=== PATIENT | female | born 1945 | race Caucasian/White ===

== ENCOUNTER → 2016-07-07 | Outpatient (CLI) | payer BC ==
[~2016-07-07] MED LIST: ALL300 PO; ALLO100T PO; ATOR-24 PO; FELO2.5T PO; FURO-85 PO; GABA-112 PO; LISI2.5T5 PO; LSN5 PO; MAGN10TA PO; MAGN500T4 PO; METO25TA56 PO; MIRA1TAB3 PO; MULT-190 PO; MULT-506 PO; MULTCAP7; NITR100C PO; NYSCR30 EXT; NYST100010 TOP; OXGN; PANT40TA PO; SPIR25TA PO; THIA1TAB11 PO; TRIM100T20 PO; VLSO15 TOP; WARF-281 PO; WARF5TAB90 PO; WARF6TAB PO; [UNRECOGNIZED DRUG - REMARK]
--- NOTE | 2016-07-07 11:34 | DIAGNOSTIC IMAGING REPORT ---
LUMBAR SPINE 5 VIEWS CLINICAL HISTORY: Osteoarthritis. FINDINGS: Five views of the lumbar spine are compared to a study dated 11/21/2012. The skeletal structures are osteopenic. There is no radiographic evidence of acute fracture or malalignment. Vertebral body height is maintained throughout the lumbar spine. There is 5 mm of anterolisthesis at L4-L5. Alignment is otherwise preserved. The transverse and spinous processes are intact as visualized. Facet arthropathy is seen in the mid to lower lumbar region. There is moderate to advanced degenerative disc space narrowing at L4-L5 with associated endplate sclerosis. Moderate narrowing is seen at the remaining lumbar disc levels. The bony pelvis is intact as imaged. Sclerotic change is identified in the sacroiliac joints. A stimulator device is present with leads in the pelvis. Advanced atherosclerotic calcification is seen in the abdominal aorta. There is no bowel obstruction. Numerous phleboliths are seen in the pelvis. IMPRESSION: 1. There is no acute bony abnormality identified in the lumbosacral spine. 2. Osteopenia and lumbosacral spondylosis as above. This appears modestly progressed from the 2013 examination. Dictated: 07/07/2016 11:25 AM Transcribed: 07/07/2016 11:33 AM [facility] Electronically signed by: Mark Ruiz M.D. 07/07/2016 11:47 AM Dictated Date/Time: 07/07/2016 11:25 AM
[2016-07-07 11:37] LABS: URINE APPEARANCE TURBID (CLEAR); URINE BILIRUBIN NEG (NEG); URINE COLOR YELLOW; URINE EPITHELIAL CELL AUTO >30 /lpf (0-5); URINE NITRITE POS (NEG); URINE PH 5.5 (4.5-7.5); URINE SPECIFIC GRAVITY 1.011 (1.000-1.030); UROBILINOGEN NEG (NEG); ZZUR CULT IF INDIC CLEAN CATCH YES
[2016-07-07 11:48] LABS: MANUAL MICROSCOPIC REQUIRED? NO; REVIEW REQ? YES
[2016-07-07 11:56] LABS: BASO % 0.3 %; BASO ABS # 0.02 K/uL (0-0.2); COMPLETE YES; EOS % 1.7 %; HEMATOCRIT 44.6 % (37-47); IG% 0.3 %; LARGE PLATELETS 2+; LYMPH % 20.3 %; LYMPH ABS # 1.44 K/uL (1.2-3.4); MEAN CELL VOLUME 97.6 fL (80-100); MEAN CORPUSCULAR HEMOGLOBIN 32.8 pg (25-34); MEAN CORPUSCULAR HGB CONC 33.6 g/dl (32-36); MEAN PLATELET VOLUME 12.4 fL (7.4-10.4); MONO % 8.5 %; NEUT % 68.9 %; PLATELET COUNT 169 K/uL (130-400); RED BLOOD COUNT 4.57 M/uL (4.2-5.4)
[2016-07-07 11:59] LABS: ALB/GLOB RATIO 0.8 (0.9-2); ALKALINE PHOSPHATASE 123 U/L (45-117); ALT/SGPT 24 U/L (12-78); AST/SGOT 25 U/L (15-37); BLOOD UREA NITROGEN 31 mg/dl (7-18); CALCIUM 9.6 mg/dl (8.5-10.1); CARBON DIOXIDE 23 mmol/L (21-32); CHLORIDE 109 mmol/L (98-107); GLUCOSE 101 mg/dl (70-99); POTASSIUM 4.7 mmol/L (3.5-5.1); SODIUM 141 mmol/L (136-145); URIC ACID 4.3 mg/dl (2.6-7.2)
== END | disposition home or self-care (01) ==
LOC: C.RAD1850 10:02
PROVIDERS: ATTEND Internal Medicine
DX: M19.90 Unspecified osteoarthritis, unspecified site (principal); M85.80 Other specified disorders of bone density and structure, unspecified site; G62.9 Polyneuropathy, unspecified; M10.9 Gout, unspecified; M47.897 Other spondylosis, lumbosacral region

== ENCOUNTER → 2016-07-27 | Outpatient (CLI) | payer BC | END | disposition home or self-care (01) | LOC: C.LAB1850 13:39 | PROVIDERS: ATTEND Nurse Practitioner Adult Health | DX: R82.90 Unspecified abnormal findings in urine (principal); R30.0 Dysuria ==

== ENCOUNTER → 2016-08-08 | Outpatient (CLI) | payer BC ==
[2016-08-08 18:18] LABS: BLOOD UREA NITROGEN 34 mg/dl (7-18); BUN/CREATININE RATIO 23.9 (10-20); CALCIUM 9.3 mg/dl (8.5-10.1); CARBON DIOXIDE 26 mmol/L (21-32); CHLORIDE 104 mmol/L (98-107); GLUCOSE 110 mg/dl (70-99); POTASSIUM 4.6 mmol/L (3.5-5.1); SODIUM 137 mmol/L (136-145)
== END | disposition home or self-care (01) ==
LOC: C.LAB1850 16:49
PROVIDERS: ATTEND Internal Medicine
DX: I10 Essential (primary) hypertension (principal); G62.9 Polyneuropathy, unspecified; I50.9 Heart failure, unspecified; I48.1 Persistent atrial fibrillation

== ENCOUNTER → 2016-09-23 | Outpatient (CLI) | payer BC ==
[~2016-09-23] MED LIST changes: +ACET-1256 PO; +FURO40TA3 PO; -NITR100C PO; +NITR100C2 PO; +TRIM100T2 PO; -TRIM100T20 PO; +WARF2.5T8 PO
[2016-09-23 16:46] LABS: INR 3.2 (0.9-1.1); PROTHROMBIN TIME (PATIENT) 35.5 SECONDS (9.0-12.0)
[2016-09-23 16:54] LABS: BLOOD UREA NITROGEN 20 mg/dl (7-18); BUN/CREATININE RATIO 16.8 (10-20); CALCIUM 9.3 mg/dl (8.5-10.1); CARBON DIOXIDE 27 mmol/L (21-32); CHLORIDE 105 mmol/L (98-107); GLUCOSE 169 mg/dl (70-99); POTASSIUM 4.2 mmol/L (3.5-5.1); SODIUM 140 mmol/L (136-145)
== END | disposition home or self-care (01) ==
LOC: C.LAB1850 15:09
PROVIDERS: ATTEND Internal Medicine
DX: I48.1 Persistent atrial fibrillation (principal); Z51.81 Encounter for therapeutic drug level monitoring; Z79.899 Other long term (current) drug therapy

== ENCOUNTER → 2016-10-05 | Outpatient (CLI) | payer BC ==
[2016-10-05 12:29] LABS: INR 2.9 (0.9-1.1); PROTHROMBIN TIME (PATIENT) 32.3 SECONDS (9.0-12.0)
== END | disposition home or self-care (01) ==
LOC: C.LAB1850 11:03
PROVIDERS: ATTEND Internal Medicine
DX: Z51.81 Encounter for therapeutic drug level monitoring (principal); I48.1 Persistent atrial fibrillation

== ENCOUNTER → 2016-10-19 | Outpatient (CLI) | payer BC | END | disposition home or self-care (01) | LOC: C.LABSPEC 17:03 | PROVIDERS: ATTEND Nurse Practitioner Adult Health | DX: N39.0 Urinary tract infection, site not specified (principal) ==

== ENCOUNTER → 2016-10-21 | Outpatient (CLI) | payer BC ==
[2016-10-21 17:39] LABS: INR 2.8 (0.9-1.1); PROTHROMBIN TIME (PATIENT) 31.4 SECONDS (9.0-12.0)
== END | disposition home or self-care (01) ==
LOC: C.LAB1850 16:25
PROVIDERS: ATTEND Internal Medicine
DX: Z51.81 Encounter for therapeutic drug level monitoring (principal); I48.1 Persistent atrial fibrillation; Z79.899 Other long term (current) drug therapy

== ENCOUNTER 2016-11-22 20:29 | Emergency (ER) | payer BC ==
[~2016-11-22] VITALS: Ht 152.4 cm; Wt 150.0 kg
[~2016-11-22 20:29] MED LIST changes: -ACET-1256 PO; -ALL300 PO; -FURO40TA3 PO; -GABA-112 PO; -LSN5 PO; -MAGN500T4 PO; -MULT-190 PO; -NITR100C2 PO; -NYST100010 TOP; -OXGN; -TRIM100T2 PO; -WARF2.5T8 PO; -WARF5TAB90 PO; -WARF6TAB PO
[2016-11-22 20:40] VITALS: TEMP 36.6; Ht 152.4 cm; Wt 150.0 kg
[2016-11-22 21:20] LABS: HEMATOCRIT 46.7 % (37-47); MEAN CELL VOLUME 99.2 fL (80-100); MEAN CORPUSCULAR HEMOGLOBIN 33.3 pg (25-34); MEAN CORPUSCULAR HGB CONC 33.6 g/dl (32-36); MEAN PLATELET VOLUME 11.7 fL (7.4-10.4); PLATELET COUNT 180 K/uL (130-400); RED BLOOD COUNT 4.71 M/uL (4.2-5.4); WHITE BLOOD COUNT 6.64 K/uL (4.8-10.8)
--- NOTE | 2016-11-22 21:22 | EMERGENCY ROOM VISIT NOTE ---
History Report prepared by Mary: Malina Ly Under the Supervision of: Dr. Mark Chau M.D. First contact with patient: 21:08 Chief Complaint: ABNORMAL LABS Stated Complaint: HIGH POTASSIUM-REFERRED History of Present Illness The patient is a 71 year old female who presents to the Emergency Room with complaints of persistent abnormal labs that were drawn today prior to arrival. The patient reports that since June she has been battling intermittent urinary tract infections. She states that Monday she just finished 2 weeks of Bactrim and states reports that she started trimethoprim that same evening for prophylaxis. The patient states that she had blood work done today to follow up with her intermittent urinary tract infections. She states that she was informed that her potassium was elevated. The patient states that she was instructed to come to the emergency department for further work up. She denies any history of previous hyperkalemia or kidney problems. The patient denies any current urinary symptoms, vomiting, or fever. She states that she is short of breath, but states that is not unusual. The patient additionally notes chronic swelling to her lower extremities. She reports that she is on Coumadin. Source of History: patient Onset: prior to arrival Position: other (global) Quality: other (abnormal labs) Timing: other (persistent) Associated Symptoms: + SOB, No fevers, No vomiting, No urinary symptoms Note: Associated Symptoms: chronic swelling of her lower extremities Review of Systems See HPI for pertinent positives & negatives. A total of 10 systems reviewed and were otherwise negative. Past Medical & Surgical Medical Problems: (1) Afib (2) Asthma (3) GERD (gastroesophageal reflux disease) (4) Gout (5) Hyperlipidemia (6) Hypertension (7) Morbid obesity (8) Osteoarthritis (9) Osteoporosis (10) Psoriasis (11) UTI (urinary tract infection) (12) Venous stasis dermatitis Surgical Problems: (1) History of tonsillectomy (2) History of total knee replacement (3) History of wisdom tooth extraction Family History FHx: heart disease FHx: hypertension FHx: lung disease FHx: seizures Social History Smoking Status: Former Smoker Alcohol Use: occasionally Drug Use: none Marital Status: Housing Status: lives alone Occupation Status: retired Current/Historical Medications Scheduled Allopurinol (Allopurinol), 300 MG PO DAILY Atorvastatin (Lipitor), 40 MG PO QPM Betamethasone Lexie (Valisone 0.1% Oint), TOP DIRECTED Felodipine (Plendil Er), 2.5 MG PO QPM Furosemide (Lasix), 20 MG PO QAM Gabapentin (Neurontin), 100 MG PO BID Lisinopril (Lisinopril), 5 MG PO BID Magnesium Oxide (Mg Supplement (Magnesium), 500 MG PO DAILY Metoprolol Tartrate (Lopressor) (Lopressor), 25 MG PO BID Mirabegron (Myrbetriq Er), 50 MG PO QAM Multivitamin (Multivitamin), 1 TAB PO BID Nystatin (Nystatin Cream), 0 EXT PRN Ocuvite Preservision (Ocuvite Preservision), 2 TAB PO DAILY Pantoprazole (Protonix), 40 MG PO QAM Spironolactone (Aldactone), 25 MG PO BID Thiamine Mononitrate (Vitamin B1), 100 MG PO QAM Trimethoprim (Proloprim), 100 MG PO DAILY Warfarin Sodium (Coumadin), 5 MG PO WK Warfarin Sodium (Coumadin), 7.5 MG PO 6XWK Scheduled PRN Nystatin (Topical) (Nystop), 1 APPLN TOP BID PRN for RASH Allergies Coded Allergies: Ketoprofen (Verified Allergy, Severe, NUMBNESS FROM WAIST DOWN SEVERAL MONTHS, 05/02/15) Lorazepam (Verified Allergy, Severe, pt EXTREMELY sensitive, 02/26/15) Per MD please do NOT administer Ativan for [id number] admission (at a minimum) Penicillins (Verified Allergy, Severe, SEVERE RASH, 02/26/15) Iodinated Contrast Media (Verified Adverse Reaction, Unknown, ACHEY PAIN AT INJECTION SITE, 02/26/15) Physical Exam Vital Signs Date Time Temp Pulse Resp B/P (MAP) Pulse Ox O2 Delivery O2 Flow Rate FiO2 11/22/16 23:33 79 22 121/91 96 11/22/16 21:41 77 11/22/16 21:00 151/99 11/22/16 20:40 36.6 85 20 96 Room Air Physical Exam GENERAL: Patient is in no acute distress. HEENT: No acute trauma, normocephalic atraumatic, mucous membranes moist, no nasal congestion, no scleral icterus. NECK: No stridor, no adenopathy, no meningismus, trachea is midline. LUNGS: Clear to auscultation bilaterally, no wheeze, no rhonchi, breath sounds equal. HEART: Irregular with a 2/6 systolic murmur and normal rate. ABDOMEN: Soft, nontender, bowel sounds positive, no hernias, no peritonitis. EXTREMITIES: Significant bilateral pedal edema without cellulitis, but there is chronic skin changes. NEUROLOGIC: Oriented x 3, no acute motor or sensory deficits, no focal weakness. SKIN: No rash, no jaundice, no diaphoresis. Medical Decision & Procedures Laboratory Results 11/22/16 21:00 11/22/16 21:00 Test 11/22/16 21:00 Red Blood Count 4.71 M/uL (4.2-5.4) Mean Corpuscular Volume 99.2 fL (80-100) Mean Corpuscular Hemoglobin 33.3 pg (25-34) Mean Corpuscular Hemoglobin Concent 33.6 g/dl (32-36) RDW Standard Deviation 53.3 fL (36.4-46.3) RDW Coefficient of Variation 14.7 % (11.5-14.5) Mean Platelet Volume 11.7 fL (7.4-10.4) Prothrombin Time 32.2 SECONDS (9.0-12.0) Prothromb Time International Ratio 2.9 (0.9-1.1) Activated Partial Thromboplast Time 44.6 SECONDS (21.0-31.0) Partial Thromboplastin Ratio 1.7 Anion Gap 9.0 mmol/L (3-11) Est Creatinine Clear Calc Drug Dose 40.6 ml/min Estimated GFR () 34.1 Estimated GFR (Non- 29.4 BUN/Creatinine Ratio 21.9 (10-20) Calcium Level 9.7 mg/dl (8.5-10.1) Laboratory results reviewed by me. Medications Administered Medications (Trade) Dose Ordered Sig/Annetta Route Start Time Stop Time Status Last Admin Dose Admin Sodium Chloride 500 ml @ 999 mls/hr Q31M STAT IV 11/22/16 21:46 11/22/16 22:16 DC 11/22/16 22:30 999 MLS/HR ECG Indication: other (hyperkalemia) Rate (beats per minute): 80 Rhythm: atrial fibrillation Findings: no acute ischemic change, no ectopy ED Course 2108: The patient was evaluated in room C2B. A complete history and physical exam was performed. 2145: Ordered Sodium Chloride 500 ml @ 999 mls/hr IV. 2204: I discussed the patients case with Pharmacy. They note that the trimethoprim is known to cause hyperkalemia. 2207: I reevaluated the patient and she is doing well. I discussed the exam findings with her and I discussed the treatment plan. She verbalized complete understanding and agreement. She is ready to go home. Medical Decision The patient is a 71 year old female who presents to the ED with complaints of abnormal labs. Differential diagnoses considered include electrolyte imbalance , high potassium, hemolysis, renal failure, medication reaction, dysrhythmia. There is no leukocytosis or concerning anemia. Renal panel testing shows some mild renal insufficiency which appears to be at baseline for the patient. Potassium was slightly high at 5.6, this value was not critical. The patient's INR was therapeutic, this is consistent with her Coumadin use. EKG showed A. fib, there was no acute ischemia. The patient received IV saline, I had the pharmacist here at the hospital review her meds, trimethoprim does cause hyperkalemia, this is a new medication for her. She will stop this medication. She will follow with her doctors office for a recheck of her potassium and kidney function in about 2 days. The patient can return here for worsening symptoms. She was reassured and discharged home. Medication Reconciliation: I attest that I have personally reviewed the patient' s current medication list. Blood Pressure Screening: Patient was found to have an elevated blood pressure and was referred to their primary doctor for recheck and further treatment. Impression Primary Impression: Hyperkalemia Additional Impression: Medication reaction Scribe Attestation The scribe's documentation has been prepared under my direction and personally reviewed by me in its entirety. I confirm that the note above accurately reflects all work, treatment, procedures, and medical decision making performed by me. Departure Information Dispostion Home / Self-Care Referrals Rah Ambrocio M.D. (PCP) Forms HOME CARE DOCUMENTATION FORM, IMPORTANT VISIT INFORMATION Patient Instructions My [facility] Additional Instructions stop the Trimethoprim talk with your doctor about a different med to use stay well hydrated have your potassium and kidney function rechecked in 1-2 days return for any worsening issues or worsening symptoms Problem Qualifiers
[2016-11-22] MEDS ORDERED: MAGN500T4 PO (21:26)
[2016-11-22] MEDS ORDERED: LSN5 PO (21:26)
[2016-11-22] MEDS ORDERED: WARF6TAB PO (21:26)
[2016-11-22] MEDS ORDERED: TRIM100T2 PO (21:26)
[2016-11-22] MEDS ORDERED: ALL300 PO (21:26)
[2016-11-22] MEDS ORDERED: GABA-112 PO (21:26)
[2016-11-22] MEDS ORDERED: MULT-190 PO (21:26)
[2016-11-22 21:37] LABS: INR 2.9 (0.9-1.1); PARTIAL THROMBOPLASTIN RATIO 1.7; PROTHROMBIN TIME (PATIENT) 32.2 SECONDS (9.0-12.0)
[2016-11-22 21:39] LABS: POTASSIUM 5.6 mmol/L (3.5-5.1)
[2016-11-22 21:41] LABS: BUN/CREATININE RATIO 21.9 (10-20); CREATININE 1.7 mg/dl (0.60-1.20)
[2016-11-22] MEDS ORDERED: WARF5TAB90 PO ×2 (21:41)
[2016-11-22] MEDS ORDERED: NYST100010 TOP (21:42)
[2016-11-22] MEDS ORDERED: SODIUM CHLORIDE 0.9% 500ML 500 ML IV STA (21:46)
[2016-11-22 21:55] LABS: CALCIUM 9.7 mg/dl (8.5-10.1)
[2016-11-22 23:33] VITALS: BP 121/91; PULSE 79; O2SAT 96
[2017-02-27] MEDS ORDERED: NITR100C2 PO (12:24)
[2017-04-27] MEDS ORDERED: FURO40TA3 PO (15:23)
[2017-04-27] MEDS ORDERED: WARF2.5T8 PO (15:23)
[2017-04-27] MEDS ORDERED: ACET-1256 PO (15:25)
== END 2016-11-22 23:34 | disposition home or self-care (01) ==
LOC: C.EDC 21:23
DX: E87.5 Hyperkalemia (principal); T37.8X5A Adverse effect of other specified systemic anti-infectives and antiparasitics, initial encounter; X58.XXXA Exposure to other specified factors, initial encounter; I48.91 Unspecified atrial fibrillation; J45.909 Unspecified asthma, uncomplicated; M10.9 Gout, unspecified; K21.9 Gastro-esophageal reflux disease without esophagitis; I10 Essential (primary) hypertension; E66.01 Morbid (severe) obesity due to excess calories; M19.90 Unspecified osteoarthritis, unspecified site; M81.0 Age-related osteoporosis without current pathological fracture; L40.9 Psoriasis, unspecified; Z87.440 Personal history of urinary (tract) infections; I87.2 Venous insufficiency (chronic) (peripheral); Z82.49 Family history of ischemic heart disease and other diseases of the circulatory system; Z83.6 Family history of other diseases of the respiratory system; Z87.891 Personal history of nicotine dependence; Z79.01 Long term (current) use of anticoagulants; Z79.899 Other long term (current) drug therapy; N39.0 Urinary tract infection, site not specified

== ENCOUNTER → 2016-11-22 | Outpatient (CLI) | payer BC ==
[2016-11-22 18:36] LABS: BLOOD UREA NITROGEN 37 mg/dl (7-18); BUN/CREATININE RATIO 23.1 (10-20); CARBON DIOXIDE 21 mmol/L (21-32); CHLORIDE 108 mmol/L (98-107); GLUCOSE 89 mg/dl (70-99); SODIUM 138 mmol/L (136-145)
[2016-11-22 18:43] LABS: CALCIUM 9.8 mg/dl (8.5-10.1)
[2016-11-22 19:54] LABS: POTASSIUM 6.3 mmol/L (3.5-5.1)
== END | disposition home or self-care (01) ==
LOC: C.LAB1850 16:55
PROVIDERS: ATTEND Nurse Practitioner Family
DX: N39.0 Urinary tract infection, site not specified (principal)

== ENCOUNTER → 2016-11-25 | Outpatient (CLI) | payer BC ==
[~2016-11-25] MED LIST changes: +ACET-1256 PO; +ALL300 PO; -ALLO100T PO; +FURO40TA3 PO; +GABA-112 PO; -LISI2.5T5 PO; +LSN5 PO; -MAGN10TA PO; +MAGN500T4 PO; +MULT-190 PO; -MULTCAP7; +NITR100C2 PO; +NYST100010 TOP; +OXGN; +TRIM100T2 PO; +WARF2.5T8 PO; +WARF5TAB90 PO; -[UNRECOGNIZED DRUG - REMARK]
[2016-11-25 18:57] LABS: CALCIUM 9.4 mg/dl (8.5-10.1)
[2016-11-25 19:03] LABS: BLOOD UREA NITROGEN 37 mg/dl (7-18); BUN/CREATININE RATIO 23.1 (10-20); CARBON DIOXIDE 21 mmol/L (21-32); CHLORIDE 111 mmol/L (98-107); GLUCOSE 94 mg/dl (70-99); POTASSIUM 5.8 mmol/L (3.5-5.1); SODIUM 139 mmol/L (136-145)
== END | disposition home or self-care (01) ==
LOC: C.LAB1850 16:55
PROVIDERS: ATTEND Internal Medicine
DX: I10 Essential (primary) hypertension (principal); N39.0 Urinary tract infection, site not specified

== ENCOUNTER → 2016-11-28 | Outpatient (CLI) | payer BC ==
[2016-11-28 18:19] LABS: BLOOD UREA NITROGEN 40 mg/dl (7-18); BUN/CREATININE RATIO 28.8 (10-20); CALCIUM 9.2 mg/dl (8.5-10.1); CARBON DIOXIDE 22 mmol/L (21-32); CHLORIDE 112 mmol/L (98-107); GLUCOSE 93 mg/dl (70-99); POTASSIUM 5.3 mmol/L (3.5-5.1); SODIUM 142 mmol/L (136-145)
== END | disposition home or self-care (01) ==
LOC: C.LAB1850 17:04
PROVIDERS: ATTEND Internal Medicine
DX: N28.9 Disorder of kidney and ureter, unspecified (principal)

== ENCOUNTER → 2016-11-30 | Outpatient (CLI) | payer BC ==
[2016-11-30 18:09] LABS: BLOOD UREA NITROGEN 44 mg/dl (7-18); BUN/CREATININE RATIO 31.6 (10-20); CALCIUM 9.3 mg/dl (8.5-10.1); CARBON DIOXIDE 25 mmol/L (21-32); CHLORIDE 111 mmol/L (98-107); GLUCOSE 103 mg/dl (70-99); POTASSIUM 5.6 mmol/L (3.5-5.1); SODIUM 141 mmol/L (136-145)
== END | disposition home or self-care (01) ==
LOC: C.LAB1850 17:11
PROVIDERS: ATTEND Internal Medicine
DX: E87.5 Hyperkalemia (principal)

== ENCOUNTER → 2016-12-26 | Outpatient (CLI) | payer BC ==
[~2016-12-26] MED LIST changes: -ACET-1256 PO; -FURO40TA3 PO; +NITR100C PO; -NITR100C2 PO; -TRIM100T2 PO; +TRIM100T20 PO; -WARF2.5T8 PO
[2016-12-26 13:25] LABS: INR 2.1 (0.9-1.1); PROTHROMBIN TIME (PATIENT) 23.2 SECONDS (9.0-12.0)
[2016-12-26 13:33] LABS: URINE APPEARANCE CLEAR (CLEAR); URINE BILIRUBIN NEG (NEG); URINE COLOR YELLOW; URINE EPITHELIAL CELL AUTO >30 /lpf (0-5); URINE NITRITE NEG (NEG); URINE SPECIFIC GRAVITY 1.021 (1.000-1.030); UROBILINOGEN NEG (NEG)
[2016-12-26 13:36] LABS: MANUAL MICROSCOPIC REQUIRED? NO; REVIEW REQ? NO
[2016-12-26 13:53] LABS: BLOOD UREA NITROGEN 30 mg/dl (7-18); BUN/CREATININE RATIO 27.3 (10-20); CALCIUM 9.5 mg/dl (8.5-10.1); CARBON DIOXIDE 26 mmol/L (21-32); CHLORIDE 106 mmol/L (98-107); GLUCOSE 90 mg/dl (70-99); POTASSIUM 4.7 mmol/L (3.5-5.1); SODIUM 138 mmol/L (136-145)
== END | disposition home or self-care (01) ==
LOC: C.LAB1850 11:33
PROVIDERS: ATTEND Internal Medicine
DX: Z51.81 Encounter for therapeutic drug level monitoring (principal); E87.5 Hyperkalemia; N39.0 Urinary tract infection, site not specified

== ENCOUNTER → 2016-12-28 | Outpatient (CLI) | payer BC ==
--- NOTE | 2016-12-28 16:22 | DIAGNOSTIC IMAGING REPORT ---
L-SPINE MIN 4 VIEWS ROUTINE HISTORY: Pain M54.9 Right-sided back [id number] COMPARISON: None. FINDINGS: There is no fracture. No subluxation. Considerable degenerative disc change throughout. No evidence for compression deformity. Bile stimulator is present. IMPRESSION: Considerable degenerative disc change. No acute compression deformity. The above report was generated using voice recognition software. It may contain grammatical, syntax or spelling errors. Electronically signed by: Rick Adamson M.D. 12/28/2016 4:20 PM Dictated Date/Time: 12/28/2016 4:19 PM
== END | disposition home or self-care (01) ==
LOC: C.RAD1850 15:58
PROVIDERS: ATTEND Internal Medicine
DX: M54.9 Dorsalgia, unspecified (principal)

== ENCOUNTER → 2016-12-30 | Outpatient (CLI) | payer BC ==
[~2016-12-30] VITALS: Ht 154.9 cm; Wt 159.0 kg
[2016-12-30 14:33] VITALS: BP 177/95; PULSE 75; Ht 154.9 cm; Wt 159.0 kg
== END | disposition home or self-care (01) ==
LOC: C.NEUR 13:33
PROVIDERS: ATTEND Internal Medicine Pulmonary Disease
DX: G47.33 Obstructive sleep apnea (adult) (pediatric) (principal); E66.01 Morbid (severe) obesity due to excess calories; I48.1 Persistent atrial fibrillation; I27.2 Other secondary pulmonary hypertension; J98.4 Other disorders of lung

== ENCOUNTER → 2017-01-19 | Outpatient (CLI) | payer BC ==
--- NOTE | 2017-01-19 13:56 | DIAGNOSTIC IMAGING REPORT ---
CHEST 2 VIEWS ROUTINE HISTORY: Shortness of breath. COMPARISON: Chest 01/18/2016. FINDINGS: The heart remains mildly enlarged. Small bilateral pleural effusions. Mild interstitial and vascular thickening suggestive of mild congestive change. This is similar to the prior study. No new focal lung consolidations. There is a 12 mm nodule within the left upper lobe. IMPRESSION: 1. Mild interstitial pulmonary edema, cardiomegaly, and small bilateral pleural effusions. 2. A 12 mm left upper lobe pulmonary nodule. Recommend dedicated chest CT for confirmation. Electronically signed by: Alexander Rod M.D. 01/19/2017 1:54 PM Dictated Date/Time: 01/19/2017 1:51 PM
[2017-01-19 14:47] LABS: HEMATOCRIT 45.9 % (37-47); MEAN CELL VOLUME 98.7 fL (80-100); MEAN CORPUSCULAR HEMOGLOBIN 31.8 pg (25-34); MEAN CORPUSCULAR HGB CONC 32.2 g/dl (32-36); MEAN PLATELET VOLUME 11.5 fL (7.4-10.4); PLATELET COUNT 191 K/uL (130-400); RED BLOOD COUNT 4.65 M/uL (4.2-5.4); WHITE BLOOD COUNT 5.44 K/uL (4.8-10.8)
[2017-01-19 15:08] LABS: BLOOD UREA NITROGEN 21 mg/dl (7-18); BUN/CREATININE RATIO 17.9 (10-20); CARBON DIOXIDE 27 mmol/L (21-32); CHLORIDE 105 mmol/L (98-107); GLUCOSE 108 mg/dl (70-99); POTASSIUM 4.4 mmol/L (3.5-5.1); SODIUM 139 mmol/L (136-145)
[2017-01-20 07:18] LABS: ESTIMATED AVERAGE GLUCOSE 120 mg/dl; HA1C FLAG Normal (Normal)
--- NOTE | 2017-01-25 06:23 | CODING QUERY MEDICAL NECESSITY ---
CQSUPPORTING DIAGNOSIS NEEDED A supporting diagnosis is required for the test/procedure performed on this patient in order for us to be reimbursed by the patient's insurance. Please provide a supporting diagnosis for the following test/procedure listed below next to the test name along with your signature. *If there is no additional diagnosis for this patient that would support the following test/procedure please document that below next to the test/procedure. Test(s)/Procedure(s) that require a supporting diagnosis: DOS 01/19/17 [id number] HEMOGLOBIN TEST Provider Signature: Date: Thank you Shari Hung Health Information Management Once completed, please kindly fax back to [phone] For questions please call [phone]
== END | disposition home or self-care (01) ==
LOC: C.RAD1850 13:20
PROVIDERS: ATTEND Internal Medicine
DX: R06.02 Shortness of breath (principal); R91.1 Solitary pulmonary nodule; R73.03 Prediabetes; G62.9 Polyneuropathy, unspecified; E66.01 Morbid (severe) obesity due to excess calories

== ENCOUNTER → 2017-01-31 | Outpatient (CLI) | payer BC ==
--- NOTE | 2017-01-31 13:49 | DIAGNOSTIC IMAGING REPORT ---
(CHEST) THORAX WITHOUT CT DOSE: 996.11 mGy.cm CLINICAL HISTORY: 71 years-old Female with R93.8 Abnormal chest CTR91.1 Lung nodule seen on comparison chest radiograph. TECHNIQUE: Multiaxial CT images of the chest were performed without contrast. A dose lowering technique was utilized adhering to the principles of ALARA. COMPARISON: Chest radiographs 01/19/2017. FINDINGS: Multinodular thyroid is present with bilateral thyroid calcifications. Nonspecific nodule of the right thyroid is seen, 1.3 cm. Scattered mildly prominent and enlarged lymph nodes in the mediastinum are present, for example subcarinal lymph node measures 1.8 x 1.1 cm. AP window lymph node measures 1.5 x 0.97 m. Precarinal lymph node measures 1.7 x 1.3 cm. Pretracheal lymph node measures 1.8 x 1.4 cm. Heart is enlarged with coronary arterial calcifications. Aortic annulus calcifications also noted. There is moderate atherosclerotic plaquing of the thoracic aorta. There is mild dilation of the main pulmonary artery, 3.1 cm suggesting pulmonary arterial hypertension. There is a lobulated nodule of the apical posterior segment left upper lobe, 1.4 x 1.2 x 1.1 cm containing central and inferior eccentric popcorn type calcifications. There are also appears to be areas of internal soft tissue and macroscopic fat attenuation within this nodule suggesting hamartoma. No pneumothorax or pleural effusion. There are scattered areas of mosaic attenuation suggesting air trapping. Subsegmental opacities of the lung bases suggest atelectasis. 3 mm noncalcified pulmonary nodule involves the lateral segment right middle lobe. Central airways are patent. Increased attenuation is present in what appears to be a transverse colon diverticulum. Patient obesity is noted with portions of the patient's anatomy outside the field of view. Degenerative changes are present within the shoulders and spine. There is a battery pack over the right lower back with partially imaged lead. Multilevel discogenic degenerative changes of the spine are noted. IMPRESSION: 1. Lobulated nodule in the apical posterior segment left upper lobe measuring up to 1.4 cm contains central and eccentric popcorn type calcifications and apparent internal soft tissue and macroscopic fat attenuation suggesting hamartoma. As a precautionary measure, a 3-6 month follow-up is recommended to exclude progressive abnormality. 2. 3 mm noncalcified pulmonary nodule of the lateral segment right middle lobe is likely benign. 3. Scattered nonspecific mediastinal adenopathy as above. 4. Cardiomegaly. 5. Multinodular thyroid. Electronically signed by: Walker Toussaint M.D. 01/31/2017 1:47 PM Dictated Date/Time: 01/31/2017 1:40 PM
== END | disposition home or self-care (01) ==
LOC: C.CTS 13:16
PROVIDERS: ATTEND Internal Medicine
DX: R91.1 Solitary pulmonary nodule (principal); R93.8 Abnormal findings on diagnostic imaging of other specified body structures; I51.7 Cardiomegaly

== ENCOUNTER → 2017-02-20 | Outpatient (CLI) | payer BC ==
[2017-02-20 15:59] LABS: INR 1.9 (0.9-1.1); PROTHROMBIN TIME (PATIENT) 20.4 SECONDS (9.0-12.0)
== END | disposition home or self-care (01) ==
LOC: C.LAB1850 14:56
PROVIDERS: ATTEND Internal Medicine Rheumatology
DX: Z51.81 Encounter for therapeutic drug level monitoring (principal); M79.675 Pain in left toe(s); M10.9 Gout, unspecified

== ENCOUNTER 2017-03-08 10:40 | Observation (INO) | payer BC ==
[~2017-03-08] VITALS: Ht 154.9 cm; Wt 151.7 kg
[~2017-03-08 10:40] MED LIST changes: -OXGN; -WARF-281 PO
[2017-03-08 11:47] LABS: BASO % 0.2 %; BASO ABS # 0.01 K/uL (0-0.2); COMPLETE YES; EOS % 0.9 %; HEMATOCRIT 44.2 % (37-47); IG% 0.2 %; LYMPH % 10.3 %; LYMPH ABS # 0.66 K/uL (1.2-3.4); MEAN CELL VOLUME 98.7 fL (80-100); MEAN CORPUSCULAR HGB CONC 33.5 g/dl (32-36); MEAN PLATELET VOLUME 12.1 fL (7.4-10.4); MONO % 8.9 %; NEUT % 79.5 %; PLATELET COUNT 151 K/uL (130-400); RED BLOOD COUNT 4.48 M/uL (4.2-5.4); WHITE BLOOD COUNT 6.39 K/uL (4.8-10.8)
[2017-03-08 11:57] LABS: INR 2.2 (0.9-1.1); PARTIAL THROMBOPLASTIN RATIO 1.5; PROTHROMBIN TIME (PATIENT) 24.3 SECONDS (9.0-12.0)
[2017-03-08] MEDS ORDERED: ASPIRIN 81 MG CHEW PO STA (12:03)
[2017-03-08 12:04] LABS: BUN/CREATININE RATIO 21.9 (10-20); CALCIUM 10.1 mg/dl (8.5-10.1); CREATININE 1.1 mg/dl (0.60-1.20); POTASSIUM 4.4 mmol/L (3.5-5.1)
[2017-03-08 12:09] LABS: ALB/GLOB RATIO 0.6 (0.9-2)
[2017-03-08] MEDS ORDERED: WARF-281 PO (12:24)
[2017-03-08 15:58] VITALS: Ht 154.9 cm; Wt 151.7 kg
[2017-03-08] MEDS ORDERED: INFLUENZA ADMINISTRATION CHARGE ONE (16:15)
[2017-03-08] MEDS ORDERED: INFLUENZA VACCINE HIGH DOSE 65+ 0.5 ML SYR IM. ONE (16:15)
--- NOTE | 2017-03-08 16:31 | DIAGNOSTIC IMAGING REPORT ---
CHEST ONE VIEW PORTABLE CLINICAL HISTORY: 71 years-old Female presenting with SOB. TECHNIQUE: Portable upright AP view of the chest was obtained. COMPARISON: 01/19/2017. FINDINGS: Atherosclerosis of aortic arch. Enlarged cardiac silhouette. Prominence of pulmonary vasculature and interstitial lung markings. Obscuration of the left hemidiaphragm with suspected left retrocardiac opacity, increased from prior. Previously noted nodule at the left apex unchanged. No large pleural effusion or pneumothorax. Osseous structures normal. Upper abdomen normal. IMPRESSION: 1. Cardiomegaly and mild pulmonary vascular prominence with chronic interstitial lung markings could suggest volume overload. 2. Suggestion of new left basilar opacity, which could represent developing pulmonary edema or atelectasis. Electronically signed by: Braulio Nix M.D. 03/08/2017 4:30 PM Dictated Date/Time: 03/08/2017 4:26 PM
[2017-03-08] MEDS ORDERED: MAGNESIUM HYDROXIDE SUSP 30 ML UDC PO PRN (16:45)
[2017-03-08] MEDS ORDERED: ONDANSETRON INJ 2 MG/ML 2 ML VIAL IV PRN (16:45)
[2017-03-08] MEDS ORDERED: NITROGLYCERIN 0.4 MG SL PER TAB CHARGE SL PRN (16:45)
[2017-03-08] MEDS ORDERED: ALUMINUM/MAGNESIUM/SIMETH (MAALOX MAX) 30 ML UDC PO PRN (16:45)
[2017-03-08] MEDS ORDERED: POLYETHYLENE (MIRALAX) 17 GM PACK PO PRN (16:45)
[2017-03-08] MEDS ORDERED: NYSTATIN POWDER 15GM BTL EXT PRN (17:00)
[2017-03-08] MEDS ORDERED: NYSTATIN CR 15 GM TUBE EXT PRN (17:00)
[2017-03-08] MEDS ORDERED: IV FLUIDS COMPLETED PRN (17:15)
--- NOTE | 2017-03-08 17:37 | History and Physical ---
History & Physical Date & Time of Service: Mar 08, 2017 at 17:30 Chief Complaint: Chest Tightened And Hard Of Breath Primary Care Physician: Rah Ambrocio M.D. History of Present Illness Source: patient, family (son) Ms. Mckenzie is a 71 y/o female with PMHx of Pulmonary HTN, R Sided and Diastolic CHF, Restrictive Lung Disease 2/2 Obesity, Obesity Hypoventilation Syndrome, Persistent Atrial Fibrillation, HTN, and GERD who presents to the ED c/o CP and GRAJEDA that started around midnight. She reports URI symptoms the first 2 weeks of February including cough, rhinorrhea, generalized weakness, and SOB/GRAJEDA but didn't seek care until about 1 1/2 weeks after symptoms started. She reports seeing her PCP who ordered X-Rays and was prescribed "a few pills" that she believes were to remove fluid seen on XR. She reports all symptoms resolved except for generalized weakness which caused her to fall a couple weeks ago but sustained no injury. She reports her knee gave out and fell between the tub and sink but had to wait until her son came to help her up. She states she has chronic GRAJEDA but appeared worse since last night. She also reports intermittent CP with occ. radiation into the L jaw but reports that it seemed to mild to be significant. She had an echocardiogram in January that shows obesity hypoventilation findings and decreased function of the R ventricle and severe pulmonary HTN. She follows with Dr. Adams and had an initial visit with Dr. Martinez and is due to see him again. She states it was only the initial visit as she [place] [facility] [place] "they sent me for scans and I couldn' t fit in the scanner" and questions medical providers recommendations. She reports she takes her Lasix and Spironolactone but when verifying with her listed pharmacy they report she hasn't picked up an Rx for Lasix since June but they state it is PRN. She states when she wears her BiPAP all her symptoms resolve and reports she does not utilize O2 through the day but does have a portable tank if needed. She was admitted in 2012 for acute respiratory failure requiring intubation but denies further intubations. Patient is somewhat of a poor historian and easily distracted and mildly forgetful. She denies fever/ chills, cough, abdominal pain, N/V, dysuria, constipation/diarrhea, melena/ hematochezia. In the ED, patient became hypoxic at 79% with ambulation from wheelchair to bed. She is afebrile and without leukocytosis. BNP 2021. INR 2.2. Lactic and troponin unremarkable. EKG with A Fib without ischemic findings. CXR with consolidation vs atelectasis and CT chest reveals small B/L pleural effusions and developing CHF findings. Past Medical/Surgical History Medical Problems: (1) Asthma Status: Chronic (2) GERD (gastroesophageal reflux disease) Status: Chronic (3) Gout Status: Chronic (4) Hyperlipidemia Status: Chronic (5) Hypertension Status: Chronic (6) Morbid obesity Status: Chronic (7) Osteoarthritis Status: Chronic (8) Osteoporosis Status: Chronic (9) Psoriasis Status: Chronic (10) UTI (urinary tract infection) Status: Chronic (11) Venous stasis dermatitis Status: Chronic Surgical Problems: (1) History of tonsillectomy Status: Resolved (2) History of total knee replacement Status: Resolved (3) History of wisdom tooth extraction Status: Resolved Family History FHx: heart disease FHx: hypertension FHx: lung disease FHx: seizures Social History Smoking Status: Former Smoker Smokeless Tobacco Use: No Alcohol Use: none Drug Use: none Marital Status: Housing status: lives alone Occupational Status: retired Immunizations History of Influenza Vaccine: Yes Influenza Vaccine Date: Mar 09, 2013 History of Tetanus Vaccine?: No History of Pneumococcal: No History of Hepatitis B Vaccine: No Multi-Drug Resistant Organisms History of MDRO: No Allergies Coded Allergies: Ketoprofen (Verified Allergy, Severe, NUMBNESS FROM WAIST DOWN SEVERAL MONTHS, 03/08/17) Lorazepam (Verified Allergy, Severe, pt EXTREMELY sensitive, 03/08/17) Per MD please do NOT administer Ativan for [id number] admission (at a minimum) Penicillins (Verified Allergy, Severe, SEVERE RASH, 03/08/17) Iodinated Contrast Media (Verified Adverse Reaction, Unknown, ACHEY PAIN AT INJECTION SITE, 03/08/17) Home Medications Scheduled Allopurinol (Allopurinol), 300 MG PO DAILY Atorvastatin (Lipitor), 40 MG PO QPM Betamethasone Lexie (Valisone 0.1% Oint), TOP DIRECTED Felodipine (Plendil Er), 2.5 MG PO QPM Furosemide (Lasix), 20 MG PO QAM Lisinopril (Lisinopril), 5 MG PO BID Magnesium Oxide (Mg Supplement (Magnesium), 500 MG PO DAILY Metoprolol Tartrate (Lopressor) (Lopressor), 25 MG PO BID Mirabegron (Myrbetriq Er), 50 MG PO QAM Multivitamin (Multivitamin), 1 TAB PO BID Nitrofurantoin Macrocrystal (Nitrofurantoin Macrocryst), 1 CAP PO HS Nystatin (Nystatin Cream), 0 EXT PRN Ocuvite Preservision (Ocuvite Preservision), 2 TAB PO DAILY Pantoprazole (Protonix), 40 MG PO QAM Spironolactone (Aldactone), 25 MG PO BID Thiamine Mononitrate (Vitamin B1), 100 MG PO QAM Warfarin Sodium (Warfarin Sodium), 7.5-10 MG PO UD Scheduled PRN Nystatin (Topical) (Nystop), 1 APPLN TOP BID PRN for RASH Review of Systems Constitutional: + weakness (generalized), + fatigue, No fever, No chills ENT: No nasal symptoms, No sore throat, No trouble swallowing Respiratory: + wheezing (intermittent), + dyspnea on exertion, + dyspnea at rest, No cough Cardiovascular: + chest pain, + palpitations (rare - intermittent) Abdomen: No pain, No nausea, No vomiting, No diarrhea, No constipation, No GI bleeding Musculoskeletal: + swelling (b/l lower extremities - chronic), No calf pain Genitourinary - Female: No dysuria Neurologic: + balance problems Integumentary: No rash, No new/changing skin lesions Physical Exam Vital Signs Date Time Temp Pulse Resp B/P (MAP) Pulse Ox O2 Delivery O2 Flow Rate FiO2 03/08/17 16:24 74 20 99 Nasal Cannula 3.0 03/08/17 15:58 Nasal Cannula 3.0 03/08/17 14:32 24 145/96 Nasal Cannula 3.0 03/08/17 13:13 56 03/08/17 12:27 72 24 153/101 96 Room Air 03/08/17 11:08 99 Nasal Cannula 2.0 03/08/17 11:05 99 Room Air 2.0 Nasal Cannula 03/08/17 11:05 80 Room Air 03/08/17 11:05 84 03/08/17 10:49 93 Room Air 03/08/17 10:46 36.8 88 22 140/73 93 Room Air General Appearance: WD/WN, + mild distress (minimal labored breathing - but laying relatively flat in bed), + obese (morbid) Head: normocephalic, atraumatic Eyes: sclerae normal ENT: hearing grossly normal Neck: supple, no JVD, trachea midline Respiratory/Chest: lungs clear (limited exam due to body habitus), no accessory muscle use, + respiratory distress (minimal labored breathing - able to carry conversation without dyspnea), + decreased breath sounds (diminished throughout - limited inspiratory ability) Cardiovascular: no gallop, no murmur, + irregularly irregular Abdomen/GI: normal bowel sounds, non tender, soft Extremities/Musculoskelatal: normal capillary refill, + swelling (bilateral hardened skin;scaling with edema) Neurologic/Psych: alert, oriented x 3 Skin: normal color, warm/dry Diagnostics Laboratory Results Results Past 24 Hours Test 03/08/17 11:23 03/08/17 11:33 03/08/17 11:35 03/08/17 12:36 Range/Units White Blood Count 6.39 4.8-10.8 K/uL Red Blood Count 4.48 4.2-5.4 M/uL Hemoglobin 14.8 12.0-16.0 g/dL Hematocrit 44.2 37-47 % Mean Corpuscular Volume 98.7 80-100 fL Mean Corpuscular Hemoglobin 33.0 25-34 pg Mean Corpuscular Hemoglobin Concent 33.5 32-36 g/dl Platelet Count 151 130-400 K/uL Mean Platelet Volume 12.1 7.4-10.4 fL Neutrophils (%) (Auto) 79.5 % Lymphocytes (%) (Auto) 10.3 % Monocytes (%) (Auto) 8.9 % Eosinophils (%) (Auto) 0.9 % Basophils (%) (Auto) 0.2 % Neutrophils # (Auto) 5.08 1.4-6.5 K/uL Lymphocytes # (Auto) 0.66 1.2-3.4 K/uL Monocytes # (Auto) 0.57 0.11-0.59 K/uL Eosinophils # (Auto) 0.06 0-0.5 K/uL Basophils # (Auto) 0.01 0-0.2 K/uL RDW Standard Deviation 53.2 36.4-46.3 fL RDW Coefficient of Variation 14.8 11.5-14.5 % Immature Granulocyte % (Auto) 0.2 % Immature Granulocyte # (Auto) 0.01 0.00-0.02 K/uL Prothrombin Time 24.3 9.0-12.0 SECONDS Prothromb Time International Ratio 2.2 0.9-1.1 Activated Partial Thromboplast Time 38.8 21.0-31.0 SECONDS Partial Thromboplastin Ratio 1.5 Sodium Level 138 136-145 mmol/L Potassium Level 4.4 3.5-5.1 mmol/L Chloride Level 103 98-107 mmol/L Carbon Dioxide Level 27 21-32 mmol/L Anion Gap 8.0 3-11 mmol/L Blood Urea Nitrogen 24 7-18 mg/dl Creatinine 1.10 0.60-1.20 mg/dl Est Creatinine Clear Calc Drug Dose 64.9 ml/min Estimated GFR () 57.7 Estimated GFR (Non- 49.8 BUN/Creatinine Ratio 21.9 10-20 Random Glucose 148 70-99 mg/dl Calcium Level 10.1 8.5-10.1 mg/dl Total Bilirubin 0.8 0.2-1 mg/dl Aspartate Amino Transf (AST/SGOT) 17 15-37 U/L Alanine Aminotransferase (ALT/SGPT) 24 12-78 U/L Alkaline Phosphatase 114 45-117 U/L Total Protein 8.1 6.4-8.2 gm/dl Albumin 3.0 3.4-5.0 gm/dl Globulin 5.1 2.5-4.0 gm/dl Albumin/Globulin Ratio 0.6 0.9-2 Bedside Lactic Acid Venous 1.39 0.90-1.70 mmol/L Bedside Troponin I 0.040 0-0.045 ng/ml Troponin I < 0.015 0-0.045 ng/ml Pro-B-Type Natriuretic Peptide 2021 0-900 pg/ml Test 03/08/17 17:08 03/08/17 17:30 Range/Units Diagnostic Radiology CHEST ONE VIEW PORTABLE FINDINGS: Atherosclerosis of aortic arch. Enlarged cardiac silhouette. Prominence of pulmonary vasculature and interstitial lung markings. Obscuration of the left hemidiaphragm with suspected left retrocardiac opacity, increased from prior. Previously noted nodule at the left apex unchanged. No large pleural effusion or pneumothorax. Osseous structures normal. Upper abdomen normal. IMPRESSION: 1. Cardiomegaly and mild pulmonary vascular prominence with chronic interstitial lung markings could suggest volume overload. 2. Suggestion of new left basilar opacity, which could represent developing pulmonary edema or atelectasis. (CHEST) THORAX WITHOUT FINDINGS: Moderate cardiomegaly. Small bilateral pleural effusions. Stable mediastinal, hilar, and axillary adenopathy as compared to the prior exam. Components of congestive heart failure present. Moderate atherosclerotic change thoracic aorta. IMPRESSION: 1. Small bilateral pleural effusions. 2. Developing components of congestive failure. 3. Stable nonspecific adenopathy involving the hilar and mediastinal as well as axillary regions. EKG Atrial fibrillation Low voltage QRS Abnormal ECG When compared with ECG of 22-NOV-2016 20:55, No significant change was found Confirmed by MARCELO WARNER ([id number]) on 03/08/2017 2:45:30 PM Impression Assessment and Plan Ms. Mckenzie is a 71 y/o female with PMHx of Pulmonary HTN, R Sided and Diastolic CHF, Restrictive Lung Disease 2/2 Obesity, Obesity Hypoventilation Syndrome, Persistent Atrial Fibrillation, HTN, and GERD who presents to the ED c/o CP and GRAJEDA that started around midnight. Acute Hypoxic Respiratory Failure: - Suspect this is acute on chronic given H/O pulm HTN and restrictive lung disease due to obesity and hypoventilation - likely hypercarbia as well - patient is mentating appropriately and holding conversation without dyspnea - if mental status or medical status changes will obtain ABG - Do not suspect underlying pneumonia as patient afebrile, without a cough, no leukocytosis - will order procalcitonin - Echo (Jan 2017) - LV EF 65%; mild LVH; flattening and bowing interventricular septum into LV with inspiration suggesting obesity hypoventilation syndrome; dilated IVC with reduced inspiratory collapse; severe pulmonary HTN; dilated and reduced RV function; type II diastolic dysfunction Pulmonary HTN: - Suspect this is the underlying issue as she states she is almost to baseline and BiPAP resolves her symptoms completely - Had long conversation about pulmonary HTN and the possible need for continuous O2 or O2 with ambulation - Will need 2-step prior to D/C - Consideration for possible heart catheterization for further assessment - not emergent R Sided CHF/Cor Pulmonale and Diastolic CHF: MILD - Body habitus makes assessment of fluid status difficult and is unsure of weight gain/loss - imaging suggest developing CHF - Lasix 40 mg IV x 1 dose - Lasix 20 mg daily and Spironolactone 25 mg BID -- Per her pharmacy - last Lasix script in June and was order PRN but reports taking this medication - [facility] [place] Persistent Atrial Fibrillation: Rate Controlled - Metoprolol Tartrate 25 mg BID - Coumadin 7.5 mg [id number] and 10 mg TF - INR therapeutic and continue to trend HTN: - Felodipine 2.5 mg daily and Lisinopril 5 mg BID HLD: - Atorvastatin 40 mg daily DVT Prophylaxis: Coumadin Code Status: FULL RESUSCITATION - Had a long conversation as patient considering DNR/DNI status but kept stating conflicting thoughts - does not want prolonged intervention but was had to keep on topic and should be readdressed at a later time - did state to patient that she will be placed a full code at this time while she thinks about this topic Disposition: - PT/OT evaluations - did have recent fall but suspect limited activity at home - With mild diuresis I suspect patient may be at baseline and possible D/C tomorrow - would benefit from 2-step Attending Addendum: I have physically seen and examined this patient, have directed the physician assistants medical activities, and agree with the H&P as noted above with the following exceptions as noted. The patient is awake, alert and oriented 3, well-developed and well-nourished, normocephalic and atraumatic, lying in bed and in mild respiratory distress. HEENT--PERRL, EOMI, mucous membranes and oropharynx dry. Neck--supple, no JVD or bruits, thyroid normal, trachea midline, no adenopathy. Heart--irregularly irregular, no murmurs, rubs or gallops. Lungs--decreased breath sounds throughout, mild respiratory distress, no accessory muscle use. Abdomen--normal bowel sounds and soft, nontender and nondistended, no hernias or masses, no organomegaly. Extremities--no cyanosis, clubbing. Bilateral pretibial/pedal 2+ pitting Edema. There are good distal pulses b/l. Dermatologic--chronic venous stasis dermatitis changes bilaterally, with overriding flaking of skin. Neurologic--cranial nerves II through XII grossly intact. Rheumatologic--normal range of motion for age. Psychiatric--normal affect. Assessment and Plan: Acute respiratory failure with hypoxia/pulmonary HTN/right sided CHF/cor pulmonale/diastolic CHF/obesity hypoventilation syndrome/persistent A. fib-- The patient will be admitted to telemetry for serial cardiac enzymes, and cardiac rhythm monitoring. Most recent Doppler January 2017. Lasix 40 mg IV 1 now. Lasix 20 mg by mouth daily and spironolactone 25 mg by mouth twice a day beginning in the a.m. tomorrow. Metoprolol tartrate 25 mg by mouth twice a day. Felodipine 2.5 mg by mouth daily. Lisinopril 5 mg by mouth twice a day. Coumadin as per outpatient dosing with serial INRs to adjust. Continue BiPAP at bedtime. Nasal cannula 2 L of oxygen, titrating to keep pulse ox greater than or equal to 92%. Consult her director bioinformatics Dr. Martinez. Hyperlipidemia-- Continue atorvastatin 40 mg by mouth daily. Level of Care Telemetry Advanced Directives Existing Advance Directive: No Existing Living Will: Yes Existing Power of Nurse Specialist: No Resuscitation Status FULL RESUSCITATION VTE Prophylaxis VTE Risk Assessment Done? Y/N: Yes Risk Level: Moderate Given or contraindicated: Warfarin (Coumadin), SCD's Social Service Consult None Apply
--- NOTE | 2017-03-08 17:37 | EMERGENCY ROOM VISIT NOTE ---
History Report prepared by Mary: Adria Guerra Under the Supervision of: Dr. Hal Bojorquez D.O. First contact with patient: 11:50 Chief Complaint: SHORTNESS OF BREATH Stated Complaint: CHEST TIGHTENED AND HARD OF BREATH Nursing Triage Summary: Pt from home for c/o worsening SOB with exertion. Reports she has hx of Asthma, Pulmonary HTN and A-fib, ventricle problem. Reports she is on a blood thinner. When pt moved from wheelchair into bed, 79% on RA. Pt wears BiPAP at night. Was placed on 2L NC oxygen. now satting 99-100% History of Present Illness The patient is a 71 year old female with a history of asthma, and atrial fibrillation who presents to the Emergency Room with complaints of worsening shortness of breath with exertion that started overnight. Per the nursing staff , the patient was 79% on room air when the patient was moved from the wheelchair into bed. The patient is better at rest. The patient says that she has had this before, including the first 2 weeks of February, but it was never figured out what happened. The patient says that she never came to the hospital for it, but saw her doctor a week and a half into her symptoms, and had some x- rays which revealed some small amount of fluid in her lung. She adds that she has had intermittent chest pain for the past day or 2, but nothing too severe. She states that relaxing makes her chest pain better, but nothing really worsens it. She notes that she has a history of a blood clot in her legs, and is on Coumadin. Her levels from November through February 10 were therapeutic, with the exception of February 20, where she was subtherapeutic. She denies any new cough, runny nose, sore throat, change in sputum, abdominal pain, nausea , vomiting, diarrhea, urinary symptoms, or new leg swelling. The patient says that she does not normally wear oxygen at home during the day, but wears BiPAP with oxygen during the night. She notes no history of kidney trouble. Source of History: patient, nursing staff Onset: Overnight Position: other (global - shortness of breath) Timing: worsening Modifying Factors (Worsening): exertion Modifying Factors (Relieving): rest Associated Symptoms: + chest pain, No sorethroat, No cough, No nausea, No vomiting, No abdominal pain, No diarrhea, No urinary symptoms Note: Associated symptoms: Denies runny nose, change in sputum, worsening leg swelling. Review of Systems See HPI for pertinent positives & negatives. A total of 10 systems reviewed and were otherwise negative. Past Medical & Surgical Medical Problems: (1) Afib (2) Asthma (3) GERD (gastroesophageal reflux disease) (4) Gout (5) Hyperlipidemia (6) Hypertension (7) Morbid obesity (8) Osteoarthritis (9) Osteoporosis (10) Psoriasis (11) Pulmonary hypertension (12) UTI (urinary tract infection) (13) Venous stasis dermatitis Surgical Problems: (1) History of tonsillectomy (2) History of total knee replacement (3) History of wisdom tooth extraction Family History FHx: heart disease FHx: hypertension FHx: lung disease FHx: seizures Social History Smoking Status: Former Smoker Alcohol Use: occasionally Drug Use: none Marital Status: Housing Status: lives alone Occupation Status: retired Current/Historical Medications Scheduled Allopurinol (Allopurinol), 300 MG PO DAILY Atorvastatin (Lipitor), 40 MG PO QPM Betamethasone Lexie (Valisone 0.1% Oint), TOP DIRECTED Felodipine (Plendil Er), 2.5 MG PO QPM Furosemide (Lasix), 20 MG PO QAM Lisinopril (Lisinopril), 5 MG PO BID Magnesium Oxide (Mg Supplement (Magnesium), 500 MG PO DAILY Metoprolol Tartrate (Lopressor) (Lopressor), 25 MG PO BID Mirabegron (Myrbetriq Er), 50 MG PO QAM Multivitamin (Multivitamin), 1 TAB PO BID Nitrofurantoin Macrocrystal (Nitrofurantoin Macrocryst), 1 CAP PO HS Nystatin (Nystatin Cream), 0 EXT PRN Ocuvite Preservision (Ocuvite Preservision), 2 TAB PO DAILY Pantoprazole (Protonix), 40 MG PO QAM Spironolactone (Aldactone), 25 MG PO BID Thiamine Mononitrate (Vitamin B1), 100 MG PO QAM Warfarin Sodium (Warfarin Sodium), 7.5-10 MG PO UD Scheduled PRN Nystatin (Topical) (Nystop), 1 APPLN TOP BID PRN for RASH Allergies Coded Allergies: Ketoprofen (Verified Allergy, Severe, NUMBNESS FROM WAIST DOWN SEVERAL MONTHS, 03/08/17) Lorazepam (Verified Allergy, Severe, pt EXTREMELY sensitive, 03/08/17) Per MD please do NOT administer Ativan for [id number] admission (at a minimum) Penicillins (Verified Allergy, Severe, SEVERE RASH, 03/08/17) Iodinated Contrast Media (Verified Adverse Reaction, Unknown, ACHEY PAIN AT INJECTION SITE, 03/08/17) Physical Exam Vital Signs Date Time Temp Pulse Resp B/P (MAP) Pulse Ox O2 Delivery O2 Flow Rate FiO2 03/08/17 16:24 74 20 99 Nasal Cannula 3.0 03/08/17 15:58 Nasal Cannula 3.0 03/08/17 14:32 24 145/96 Nasal Cannula 3.0 03/08/17 13:13 56 03/08/17 12:27 72 24 153/101 96 Room Air 03/08/17 11:08 99 Nasal Cannula 2.0 03/08/17 11:05 99 Room Air 2.0 Nasal Cannula 03/08/17 11:05 80 Room Air 03/08/17 11:05 84 03/08/17 10:49 93 Room Air 03/08/17 10:46 36.8 88 22 140/73 93 Room Air Physical Exam GENERAL: morbidly obese, sitting up in bed, dyspneic with conversation EYE EXAM: normal conjunctiva OROPHARYNX: no exudate, no erythema, lips, buccal mucosa, and tongue normal and mucous membranes are moist NECK: supple, no nuchal rigidity, no adenopathy, non-tender. Unable to appreciate JVD. LUNGS: Crackles bilateral bases. Normal chest wall mechanics HEART: no murmurs, S1 normal and S2 normal ABDOMEN: abdomen soft, non-tender, normo-active bowel sounds, no masses, no rebound or guarding. BACK: Back is symmetrical on inspection and there is no deformity, no midline tenderness, no CVA tenderness. SKIN: no rashes and no bruising UPPER EXTREMITIES: upper extremities are grossly normal. LOWER EXTREMITIES: Faint pitting edema with extensive lymphedema. NEURO EXAM: Normal sensorium, cranial nerves II-XII grossly intact, normal speech, no gross weakness of arms, no gross weakness of legs. Medical Decision & Procedures ER Provider Diagnostic Interpretation: X-ray results as stated below per my review and the radiologist's interpretation : CHEST ONE VIEW PORTABLE: Cardiomegaly. Aortic arthrosclerosis. Possible left retrocardiac opacity. No consolidation/infection, but may be atelectasis. Pre-killian report from Dr. Nix. Laboratory Results 03/08/17 11:23 Red Blood Count 4.48, Mean Corpuscular Volume 98.7, Mean Corpuscular Hemoglobin 33.0, Mean Corpuscular Hemoglobin Concent 33.5, Mean Platelet Volume 12.1, Neutrophils (%) (Auto) 79.5, Lymphocytes (%) (Auto) 10.3, Monocytes (%) (Auto) 8.9, Eosinophils (%) (Auto) 0.9, Basophils (%) (Auto) 0.2, Neutrophils # (Auto) 5.08, Lymphocytes # (Auto) 0.66, Monocytes # (Auto) 0.57, Eosinophils # (Auto) 0.06, Basophils # (Auto) 0.01 03/08/17 11:23 Test 03/08/17 11:23 03/08/17 11:33 03/08/17 11:35 03/08/17 12:36 White Blood Count 6.39 K/uL (4.8-10.8) Red Blood Count 4.48 M/uL (4.2-5.4) Hemoglobin 14.8 g/dL (12.0-16.0) Hematocrit 44.2 % (37-47) Mean Corpuscular Volume 98.7 fL (80-100) Mean Corpuscular Hemoglobin 33.0 pg (25-34) Mean Corpuscular Hemoglobin Concent 33.5 g/dl (32-36) Platelet Count 151 K/uL (130-400) Mean Platelet Volume 12.1 fL (7.4-10.4) Neutrophils (%) (Auto) 79.5 % Lymphocytes (%) (Auto) 10.3 % Monocytes (%) (Auto) 8.9 % Eosinophils (%) (Auto) 0.9 % Basophils (%) (Auto) 0.2 % Neutrophils # (Auto) 5.08 K/uL (1.4-6.5) Lymphocytes # (Auto) 0.66 K/uL (1.2-3.4) Monocytes # (Auto) 0.57 K/uL (0.11-0.59) Eosinophils # (Auto) 0.06 K/uL (0-0.5) Basophils # (Auto) 0.01 K/uL (0-0.2) RDW Standard Deviation 53.2 fL (36.4-46.3) RDW Coefficient of Variation 14.8 % (11.5-14.5) Immature Granulocyte % (Auto) 0.2 % Immature Granulocyte # (Auto) 0.01 K/uL (0.00-0.02) Prothrombin Time 24.3 SECONDS (9.0-12.0) Prothromb Time International Ratio 2.2 (0.9-1.1) Activated Partial Thromboplast Time 38.8 SECONDS (21.0-31.0) Partial Thromboplastin Ratio 1.5 Anion Gap 8.0 mmol/L (3-11) Est Creatinine Clear Calc Drug Dose 64.9 ml/min Estimated GFR () 57.7 Estimated GFR (Non- 49.8 BUN/Creatinine Ratio 21.9 (10-20) Calcium Level 10.1 mg/dl (8.5-10.1) Total Bilirubin 0.8 mg/dl (0.2-1) Aspartate Amino Transf (AST/SGOT) 17 U/L (15-37) Alanine Aminotransferase (ALT/SGPT) 24 U/L (12-78) Alkaline Phosphatase 114 U/L (45-117) Total Protein 8.1 gm/dl (6.4-8.2) Albumin 3.0 gm/dl (3.4-5.0) Globulin 5.1 gm/dl (2.5-4.0) Albumin/Globulin Ratio 0.6 (0.9-2) Bedside Lactic Acid Venous 1.39 mmol/L (0.90-1.70) Bedside Troponin I 0.040 ng/ml (0-0.045) Troponin I < 0.015 ng/ml (0-0.045) Pro-B-Type Natriuretic Peptide 2021 pg/ml (0-900) Test 03/08/17 17:08 Laboratory results per my review. Medications Administered Medications (Trade) Dose Ordered Sig/Annetta Route Start Time Stop Time Status Last Admin Dose Admin Aspirin (Aspirin Chew) 324 mg NOW STAT PO 03/08/17 12:03 03/08/17 12:04 DC 03/08/17 12:26 324 MG ECG Indication: SOB/dyspnea Rate (beats per minute): 78 Rhythm: atrial fibrillation Findings: other (normal axis, T-wave flattening inferiorly) ED Course ED COURSE: Vital signs were reviewed and showed hypoxic vitals. The patients medical record was reviewed The above diagnostic studies were performed and reviewed. ED treatments and interventions as stated above. 1152: The patient was evaluated in room C9. A complete history and physical examination was performed. 1203: Ordered Aspirin Chew 324 mg PO. 1447: Upon reevaluation, the patient is resting.I discussed my findings with the patient and she3 understands and agrees with the treatment plan. Based on the patients age, coexisting illnesses, exam and lab findings the decision to treat as an inpatient was made. The patient remained stable while under my care. The patient will be evaluated for further management. 1512: I discussed the patient with Syd Campos Ashley Bowser - PA- C [place] [facility] - they will evaluate the patient for further treatment. Medical Decision Differential diagnoses includes but is not limited to pneumonia, bronchitis, COPD/Asthma exacerbation, pneumothorax, pulmonary embolism, congestive heart failure, acute coronary syndrome Patient is a 71-year-old female who presents to ER for shortness of breath. She has extensive history of obesity, hypoxia and pulmonary hypertension. Upon presentation she is found to be hypoxic with pulse ox in the 80s. She stated bedside. She reports no new productive cough. She does describe some chest tightness. EKG is nondiagnostic. Chest x-ray which shows unable to view per radiologist suggested a possible pneumonia. She is requiring O2 at this time. CBC was unremarkable. BMP all LFTs, bilirubin and troponin was negative. INR was therapeutic at 2.2 and consequently PE was not pursued. Patient was covered with antibiotics. I favor that her symptoms are likely multifactorial and a combination of pulmonary hypertension, obesity and possible pneumonia. Patient was discussed with internal medicine and admitted resting comfortably on 2 L nasal cannula. Medication Reconcilliation Current Medication List: was personally reviewed by me Blood Pressure Screening Patient's blood pressure: Normal blood pressure Consults Time Called: 1500 Consulting Physician: Syd Campos Ashley Bowser - PA-C - [place] Returned Call: 1512 (in person) I discussed the patient with Syd Campos Ashley Bowser - PA-C [place] - they will evaluate the patient for further treatment. Impression Primary Impression: Hypoxia Additional Impressions: Chest pain Morbid obesity Pulmonary hypertension Scribe Attestation The scribe's documentation has been prepared under my direction and personally reviewed by me in its entirety. I confirm that the note above accurately reflects all work, treatment, procedures, and medical decision making performed by me. Departure Information Dispostion Being Evaluated By Hospitalist Referrals Rah Ambrocio M.D. (PCP) Patient Instructions My [facility] Problem Qualifiers Additional Impressions: Chest pain Chest pain type: unspecified Qualified Codes: R07.9 - Chest pain, unspecified
--- NOTE | 2017-03-08 18:41 | DIAGNOSTIC IMAGING REPORT ---
(CHEST) THORAX WITHOUT CT DOSE: 812.27 mGycm HISTORY: Dyspnea Hypoxia TECHNIQUE: Multiaxial CT images of the chest were performed without contrast. A dose lowering technique was utilized adhering to the principles of ALARA. COMPARISON: 01/31/2017 FINDINGS: Moderate cardiomegaly. Small bilateral pleural effusions. Stable mediastinal, hilar, and axillary adenopathy as compared to the prior exam. Components of congestive heart failure present. Moderate atherosclerotic change thoracic aorta. IMPRESSION: 1. Small bilateral pleural effusions. 2. Developing components of congestive failure. 3. Stable nonspecific adenopathy involving the hilar and mediastinal as well as axillary regions. The above report was generated using voice recognition software. It may contain grammatical, syntax or spelling errors. Electronically signed by: Rick Adamson M.D. 03/08/2017 6:39 PM Dictated Date/Time: 03/08/2017 6:36 PM
[2017-03-08 19:23] VITALS: PULSE 71; TEMP 36.3; O2SAT 91
[2017-03-08] MEDS ORDERED: FUROSEMIDE INJ 40 MG in SYRINGE 0 ML IV ONE (20:00)
[2017-03-08 20:15] VITALS: BP 148/82; PULSE 76
[2017-03-08] MEDS: WARFARIN SOD 7.5 MG TAB PO SCH (20:22)
[2017-03-08] MEDS: ATORVASTATIN 40 MG TAB PO SCH (20:23)
[2017-03-08] MEDS: SPIRONOLACTONE 25 MG TAB PO SCH (20:23)
[2017-03-08] MEDS: FELODIPINE 2.5 MG TABCR PO SCH (20:24)
[2017-03-08] MEDS: METOPROLOL TARTRATE 25 MG TAB PO SCH (20:24)
[2017-03-08] MEDS: LISINOPRIL 5 MG TAB PO SCH (20:25)
[2017-03-08] MEDS ORDERED: MULTIVITAMIN TAB PO SCH (21:00)
[2017-03-08] MEDS ORDERED: NURSING VERBAL MED ORDER ONE (21:15)
[2017-03-08] MEDS: MAGNESIUM OXIDE 400 MG TAB PO SCH (22:09)
[2017-03-08] MEDS: NITROFURANTOIN MACROCRYSTALS 50 MG CAP PO SCH (22:09)
[2017-03-09] VITALS (12 sets, daily range): BP systolic 136–152; BP diastolic 73–86; PULSE 52–80; TEMP 36.3–37.1; O2SAT 89–96
[2017-03-09 06:54] LABS: HEMATOCRIT 38.9 % (37-47); MEAN CORPUSCULAR HGB CONC 33.7 g/dl (32-36); MEAN PLATELET VOLUME 11.4 fL (7.4-10.4); PLATELET COUNT 133 K/uL (130-400); RED BLOOD COUNT 3.97 M/uL (4.2-5.4); WHITE BLOOD COUNT 4.64 K/uL (4.8-10.8)
[2017-03-09 07:08] LABS: INR 2.6 (0.9-1.1); PROTHROMBIN TIME (PATIENT) 29.5 SECONDS (9.0-12.0)
[2017-03-09 07:20] LABS: BUN/CREATININE RATIO 26.2 (10-20); CALCIUM 9.1 mg/dl (8.5-10.1); CREATININE 1.1 mg/dl (0.60-1.20); POTASSIUM 4.1 mmol/L (3.5-5.1)
[2017-03-09] MEDS: METOPROLOL TARTRATE 25 MG TAB PO SCH ×2 (08:25→19:57)
[2017-03-09] MEDS: THIAMINE HCL 100 MG TAB PO SCH (08:25)
[2017-03-09] MEDS: CEROVITE ADV FORMULA TAB PO SCH (08:25)
[2017-03-09] MEDS: MAGNESIUM OXIDE 400 MG TAB PO SCH ×2 (08:25→19:58)
[2017-03-09] MEDS: MIRABEGRON ER 25 MG TAB PO SCH (08:25)
[2017-03-09] MEDS: SPIRONOLACTONE 25 MG TAB PO SCH ×2 (08:26→17:00)
[2017-03-09] MEDS: LISINOPRIL 5 MG TAB PO SCH ×2 (08:26→19:58)
[2017-03-09] MEDS: PANTOprazole SOD 40 MG TAB PO SCH (08:26)
[2017-03-09] MEDS: ALLOPURINOL 300 MG TAB PO SCH (08:26)
[2017-03-09] MEDS ORDERED: MAGNESIUM OXIDE 400 MG TAB PO SCH (09:00)
[2017-03-09] MEDS ORDERED: FUROSEMIDE 20 MG TAB PO SCH (09:00)
[2017-03-09] MEDS: ACETAMINOPHEN 325 MG TAB PO PRN (13:18)
--- NOTE | 2017-03-09 14:43 | Pulmonary Consultation ---
History General Date of Service: Mar 09, 2017. Stated Complaint: Pulmonary Hypertension HPI The patient is a 71 year old female who presents to [facility] with complaints of Pulmonary Hypertension. The patient's primary care provider is Rah Ambrocio M.D.. Ms. Mckenzie is a 71-year-old female with past medical history of morbid obesity, complicated by obstructive sleep apnea, obesity hypoventilation syndrome, severe pulmonary hypertension with cor pulmonale (with an estimated RSVP of 70) , atrial fibrillation (on long-term anticoagulation with Coumadin), hypertension who presents to the ED on 03/08/2017 with complaints of dyspnea on exertion and intermittent left-sided chest pain. She describes pain as left- sided with radiation to jaw that lasted for a few minutes and resolve spontaneously without any intervention. She states that her symptoms started about 2 weeks earlier and were associated with generalized weakness, fatigue, cough with whitish productive sputum, and rhinorrhea. She was also had increased shortness of breath and worsening dyspnea on exertion. She denies any fevers, chills, lightheadedness, dizziness, palpitations, abdominal pain, nausea, vomiting. She denies any genitourinary symptoms. She states that she usually ambulates independently around her home and hold on to things in her environment for stability. She can walk about 5-10 feet without assistance. However when she is outside she uses a cane as well as a walker depending on where she is going. She does have bilateral lower extremity swelling and chronic venous changes for which she says are chronic. She admits to recent fall several weeks ago, but denies any trauma. She denies any orthopnea or paroxysmal nocturnal dyspnea. She follows up with Dr. Adams for pulmonology, who manages her obstructive sleep apnea and obesity hypoventilation syndrome. She is noncompliant with diuretic therapy as well as BiPAP and oxygen. In the emergency room, patient's initial vital signs were temperature 36.8, pulse 88, respiratory rate 22, blood pressure 140/73, and saturating 93% on room air. She was noted to be mildly tachypneic on examination. Laboratory data was significant for a carbon dioxide level 27, BUN 24,and creatinine of 1.1. ProBNP 2020, troponin less < 0.015, and INR 2.2. Chest x-ray viewed and reviewed by me, showed cardiomegaly with prominence of pulmonary vasculature and increased interstitial lung markings; the left basilar opacity. A CT chest without contrast was also performed and was also consistent with moderate cardiomegaly, with small bilateral pleural effusions with stable mediastinal and hilar adenopathy which was unchanged from previous exam. On my review of CT she was also noted to have a lobulated nodule in the apical posterior segment of the left upper lobe that contained central popcorn calcification. This nodule was also seen on previous CT from 01/31/2017. EKG showed atrial fibrillation. Her oxygen saturation dropped into the 80s with ambulation and she was admitted for acute on chronic hypoxic respiratory failure. At the time of my evaluation patient sitting on the side of bed eating lunch. Currently complains that she had a headache and feeling more tired today. She denied any further episodes of chest pain or shortness of breath. Historian: patient, other ([facility], [facility] outpatient records) Review of Systems Constitutional: reports: malaise, weakness Eyes: reports: no symptoms ENT: reports: no symptoms Cardiovascular: reports: chest pain, chest tightness, edema, palpitations Respiratory: reports: shortness of breath, wheezing, GRAJEDA Gastrointestinal: reports: no symptoms Genitourinary - Female: reports: no symptoms Integumentary: reports: dryness Neurologic: reports: no symptoms, general weakness, lethargy Psychiatric: reports: no symptoms Endocrine: no symptoms Hematologic / Lymphatic: no symptoms Allergic / Immunologic: no symptoms All Other Symptoms All Other Systems: Reviewed and Negative Past Medical History Past Medical History: Active Problems 1. Abnormal chest CT (R93.8) 2. Abnormal chest x-ray with multiple lung nodules (R91.8) 3. Abnormal dobutamine stress echo (R94.39) 4. Adenomatous polyp of colon (D12.6) 5. Anticoagulated on Coumadin (Z51.81,Z79.01) 6. Arthritis (M19.90) 7. Asthma (J45.909) 8. Atrial fibrillation, persistent (I48.1) 9. Atypical chest pain (R07.89) 10. BMI 60.0-69.9, adult (Z68.44) 11. Carotid artery plaque (I65.29) 12. Change in bowel habits (R19.4) 13. Cloudy urine (R82.90) 14. Cognitive and behavioral changes (R41.89,R46.89) 15. Creatinine elevation (R79.89) 16. Cyst of finger 17. Dermatitis (L30.9) 18. Dermatitis, contact (L25.9) 19. Disc degeneration, lumbar (M51.36) 20. Diverticulosis of colon (K57.30) 21. Dysphagia (R13.10) 22. Dyspnea on exertion (R06.09) 23. Dysuria (R30.0) 24. Edema (R60.9) 25. Esophageal dysmotility (K22.4) 26. Fatigue (R53.83) 27. Finger pain (M79.646) 28. Foot pain (M79.673) 29. Gastroesophageal reflux disease (K21.9) 30. Gout (M10.9) 31. Great toe pain, left (M79.675) 32. Heat intolerance (R68.89) 33. Hyperkalemia (E87.5) 34. Hyperlipidemia (E78.5) 35. Hypertension (I10) 36. Hypoventilation syndrome (R06.89) 37. Internal hemorrhoids (K64.8) 38. Intertrigo (L30.4) 39. 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 Lung nodule seen on imaging study (R91.1) 42. Memory loss (R41.3) 43. Morbid obesity (E66.01) 44. Neoplasm of uncertain behavior of skin (D48.5) 45. Obstructive sleep apnea (G47.33) 46. Osteoarthritis (M19.90) 47. Osteopenia (M85.80) 48. Pain in joint of right shoulder (M25.511) 49. Paroxysmal ventricular tachycardia (I47.2) 50. Peripheral neuropathy (G62.9) 51. Pickwickian syndrome (E66.2) 52. Polyneuropathy (G62.9) 53. Pre-diabetes (R73.03) 54. Preop pulmonary/respiratory exam (Z01.811) 55. Psoriasis (L40.9) 56. Pulmonary hypertension (I27.2) 57. Rash (R21) 58. Renal insufficiency (N28.9) 59. Restrictive lung disease (J98.4) 60. Right heart failure (I50.9) 61. Right-sided back pain (M54.9) 62. Shortness of breath (R06.02) 63. Sleep related hypoventilation/hypoxemia in conditions classifiable elsewhere (G47.36) 64. Stasis dermatitis (I83.10) 65. Urinary incontinence (R32) 66. Urinary tract infection, acute (N39.0) 67. Urinary tract infection, site unspecified (N39.0) 68. Vitamin D deficiency (E55.9) Past Medical History History of Adjustment disorder with depressed mood (F43.21) Asthma (J45.909) History of Bowel incontinence (R15.9) History of Cellulitis (L03.90) History of Cellulitis of arm (L03.119) History of Cellulitis of leg (L03.119) History of Closed fracture of fibula (S82.409A) History of Closed fracture of tibia (S82.209A) History of Elevated antibody levels (R76.0) History of Encounter for removal of sutures (Z48.02) History of congestive heart failure (Z86.79) History of diarrhea (Z87.898) History of head injury (Z87.828) History of homocysteinuria (Z86.39) History of vertigo (Z87.898) History of Intramuscular hematoma (T14.8) History of Limb pain (M79.609) History of Limb swelling (M79.89) History of Muscle weakness (generalized) (M62.81) History of Pain in foot (M79.673) History of Pre-operative cardiovascular examination (Z01.810) History of Preoperative examination (Z01.818) History of Psychological disorder (F99) History of Tingling (R20.2) History of Tubular adenoma of colon (D12.6) History of Urinary symptom or sign (R39.9) History of Urinary Tract Infection Acute History of acute renal failure (Z87.448) Past Surgical History: Surgical History History of Colonoscopy (Fiberoptic) History of Install Sacral Nerve Neurostimulator By Incision History of Knee Arthroplasty History of Oral Surgery Tooth Extraction History of Tonsillectomy Family History FHx: heart disease FHx: hypertension FHx: lung disease FHx: seizures Family History Mother Family history of Cerebral Artery Occlusion With Cerebral Infarction Family history of cardiac disorder (Z82.49) Family history of hypertension (Z82.49) Family history of Pericarditis Family history of Rheumatoid Arthritis Father Family history of Asthma Family history of CABG Family history of Chronic Obstructive Pulmonary Disease Family history of Coronary Artery Disease Family history of cardiac disorder (Z82.49) Family history of hypertension (Z82.49) Family history of skin cancer (Z80.8) Family history of Macular Degeneration Brother Family history of Family Health Status Of Brother - Family history of Obesity Maternal Grandfather Family history of diabetes mellitus (Z83.3) Family History Denied: Family history of Alzheimer's dementia Social History Social History Being A Social Drinker Former Smoker Marital History - Occupation: 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 - [employer] Hx Tobacco Use In Past Year?: No (QUIT IN 1979) Smoking Status: Former Smoker Marital status: Housing status: lives alone Occupational Status: retired Immunizations History of Influenza Vaccine: Yes Influenza Vaccine Date: Mar 09, 2013 History of Tetanus Vaccine?: No History of Pneumococcal: No History of Hepatitis B Vaccine: No History of MDRO History of MDRO: No Allergies Coded Allergies: Ketoprofen (Verified Allergy, Severe, NUMBNESS FROM WAIST DOWN SEVERAL MONTHS, 03/08/17) Lorazepam (Verified Allergy, Severe, pt EXTREMELY sensitive, 03/08/17) Per MD please do NOT administer Ativan for [id number] admission (at a minimum) Penicillins (Verified Allergy, Severe, SEVERE RASH, 03/08/17) Iodinated Contrast Media (Verified Adverse Reaction, Unknown, ACHEY PAIN AT INJECTION SITE, 03/08/17) Current Medications Reported Home Medications Medications Dose Route/Sig Max Daily Dose Days Date Category Dose Instructions Nitrofurantoin Macrocryst (Nitrofurantoin Macrocrystal) 100 Mg Cap 1 Cap PO HS 30 03/08/17 Reported Warfarin Sodium 10 Mg Tab 7.5-10 Mg PO UD 03/08/17 Reported Nystop (Nystatin (Topical)) 100,000 Unit/Gm Pow 1 Appln TOP BID PRN 11/22/16 Reported Ocuvite Preservision (Multivitamins/Minerals) 1 Tab Tab 2 Tab PO DAILY 11/22/16 Reported Magnesium (Magnesium Oxide (Mg Supplement) 500 Mg Tab 500 Mg PO DAILY 11/22/16 Reported Lisinopril 5 Mg Tab 5 Mg PO BID 11/22/16 Reported Allopurinol 300 Mg Tab 300 Mg PO DAILY 11/22/16 Reported Valisone 0.1% Oint (Betamethasone Lexie) 45 Appln/15 Gm Oint TOP DIRECTED 07/14/15 Reported Plendil Er (Felodipine) 2.5 Mg Tab 2.5 Mg PO QPM 04/05/15 Reported Lasix (Furosemide) 20 Mg Tab 20 Mg PO QAM 04/05/15 Reported Nystatin Cream (Nystatin) 90 Appln/30 Gm Cr 0 EXT PRN 01/16/15 Reported APPLY TO AFFECTED AREA BID Multivitamin (Multivitamins) Tab 1 Tab PO BID 01/16/15 Reported Vitamin B1 (Thiamine Mononitrate) 100 Mg Tab 100 Mg PO QAM 01/16/15 Reported Myrbetriq Er (Mirabegron) 50 Mg Tab 50 Mg PO QAM 01/16/15 Reported Aldactone (Spironolactone) 25 Mg Tab 25 Mg PO BID 01/16/15 Reported Lopressor (Metoprolol Tartrate) 25 Mg Tab 25 Mg PO BID 01/16/15 Reported Protonix (Pantoprazole Sodium) 40 Mg Tab 40 Mg PO QAM 01/16/15 Reported Lipitor (Atorvastatin Calcium) 40 Mg Tab 40 Mg PO QPM 01/16/15 Reported Physical Physical Exam Vital Signs: Date Time Temp Pulse Resp B/P (MAP) Pulse Ox O2 Delivery O2 Flow Rate FiO2 03/09/17 08:40 Nasal Cannula 2.5 BiPAP 03/09/17 07:26 36.4 60 20 90 03/09/17 04:00 Nasal Cannula 2.5 BiPAP 03/09/17 04:00 36.3 52 18 140/73 (95) 95 BiPAP 2.5 03/09/17 00:50 37.1 67 16 96 03/09/17 00:00 136/78 (97) 03/09/17 00:00 Nasal Cannula 2.5 BiPAP 03/08/17 20:15 76 148/82 (104) 03/08/17 19:29 Nasal Cannula 2.5 03/08/17 19:23 36.3 71 24 91 Nasal Cannula 2.0 03/08/17 18:23 78 22 96 03/08/17 17:38 71 03/08/17 17:36 72 22 95 Nasal Cannula 3.0 03/08/17 16:24 74 20 99 Nasal Cannula 3.0 03/08/17 15:58 Nasal Cannula 3.0 03/08/17 14:32 24 145/96 Nasal Cannula 3.0 03/08/17 13:13 56 03/08/17 12:27 72 24 153/101 96 Room Air 03/08/17 11:08 99 Nasal Cannula 2.0 03/08/17 11:05 99 Room Air 2.0 Nasal Cannula 03/08/17 11:05 80 Room Air 03/08/17 11:05 84 General Appearance: WD/WN, uncomfortable, obese Head: NORMOCEPHALIC, ATRAUMATIC Eyes: PERRLA, NO DISCHARGE, EOMI, SCLERAE NORMAL, CONJUNCTIVAE NORMAL ENT: other (Malampatti IV) Neck: NORMAL RANGE OF MOTION, NO TENDERNESS, TRACHEA MIDLINE, NO STRIDOR, SUPPLE, other (Short thick neck) Respiratory: other (Decreased breath sound bilaterally, tachypneic) Cardiovasular: REGULAR RATE/RHYTHM, irregular rate Abdomen: NON TENDER, NORMAL BOWEL SOUNDS, other (morbidly obese) Lower Extremities: other (no cyanosis, no clubbing, pitting edema to thighs, chronic venous changes bilaterally) Pulses: carotid (R) (1+), carotid (L) (2+) Neuro: ALERT, ORIENTED x 3, NORMAL MOTOR EXAM, NORMAL SPEECH, NORMAL MEMORY Psychiatric: NORMAL AFFECT, NO SUICIDAL IDEATION, CONTRACTS FOR SAFETY Diagnostics Labs Results Past 24 Hours Test 03/08/17 11:23 03/08/17 11:33 03/08/17 11:35 03/08/17 12:36 Range/Units White Blood Count 6.39 4.8-10.8 K/uL Red Blood Count 4.48 4.2-5.4 M/uL Hemoglobin 14.8 12.0-16.0 g/dL Hematocrit 44.2 37-47 % Mean Corpuscular Volume 98.7 80-100 fL Mean Corpuscular Hemoglobin 33.0 25-34 pg Mean Corpuscular Hemoglobin Concent 33.5 32-36 g/dl Platelet Count 151 130-400 K/uL Mean Platelet Volume 12.1 7.4-10.4 fL Neutrophils (%) (Auto) 79.5 % Lymphocytes (%) (Auto) 10.3 % Monocytes (%) (Auto) 8.9 % Eosinophils (%) (Auto) 0.9 % Basophils (%) (Auto) 0.2 % Neutrophils # (Auto) 5.08 1.4-6.5 K/uL Lymphocytes # (Auto) 0.66 1.2-3.4 K/uL Monocytes # (Auto) 0.57 0.11-0.59 K/uL Eosinophils # (Auto) 0.06 0-0.5 K/uL Basophils # (Auto) 0.01 0-0.2 K/uL RDW Standard Deviation 53.2 36.4-46.3 fL RDW Coefficient of Variation 14.8 11.5-14.5 % Immature Granulocyte % (Auto) 0.2 % Immature Granulocyte # (Auto) 0.01 0.00-0.02 K/uL Prothrombin Time 24.3 9.0-12.0 SECONDS Prothromb Time International Ratio 2.2 0.9-1.1 Activated Partial Thromboplast Time 38.8 21.0-31.0 SECONDS Partial Thromboplastin Ratio 1.5 Sodium Level 138 136-145 mmol/L Potassium Level 4.4 3.5-5.1 mmol/L Chloride Level 103 98-107 mmol/L Carbon Dioxide Level 27 21-32 mmol/L Anion Gap 8.0 3-11 mmol/L Blood Urea Nitrogen 24 7-18 mg/dl Creatinine 1.10 0.60-1.20 mg/dl Est Creatinine Clear Calc Drug Dose 64.9 ml/min Estimated GFR () 57.7 Estimated GFR (Non- 49.8 BUN/Creatinine Ratio 21.9 10-20 Random Glucose 148 70-99 mg/dl Calcium Level 10.1 8.5-10.1 mg/dl Total Bilirubin 0.8 0.2-1 mg/dl Aspartate Amino Transf (AST/SGOT) 17 15-37 U/L Alanine Aminotransferase (ALT/SGPT) 24 12-78 U/L Alkaline Phosphatase 114 45-117 U/L Total Protein 8.1 6.4-8.2 gm/dl Albumin 3.0 3.4-5.0 gm/dl Globulin 5.1 2.5-4.0 gm/dl Albumin/Globulin Ratio 0.6 0.9-2 Procalcitonin < 0.05 0-0.5 ng/ml Bedside Lactic Acid Venous 1.39 0.90-1.70 mmol/L Bedside Troponin I 0.040 0-0.045 ng/ml Troponin I < 0.015 0-0.045 ng/ml Pro-B-Type Natriuretic Peptide 2021 0-900 pg/ml Test 03/08/17 19:47 03/08/17 23:36 03/09/17 06:32 Range/Units Troponin I < 0.015 < 0.015 0-0.045 ng/ml White Blood Count 4.64 4.8-10.8 K/uL Red Blood Count 3.97 4.2-5.4 M/uL Hemoglobin 13.1 12.0-16.0 g/dL Hematocrit 38.9 37-47 % Mean Corpuscular Volume 98.0 80-100 fL Mean Corpuscular Hemoglobin 33.0 25-34 pg Mean Corpuscular Hemoglobin Concent 33.7 32-36 g/dl RDW Standard Deviation 52.2 36.4-46.3 fL RDW Coefficient of Variation 14.7 11.5-14.5 % Platelet Count 133 130-400 K/uL Mean Platelet Volume 11.4 7.4-10.4 fL Prothrombin Time 29.5 9.0-12.0 SECONDS Prothromb Time International Ratio 2.6 0.9-1.1 Sodium Level 139 136-145 mmol/L Potassium Level 4.1 3.5-5.1 mmol/L Chloride Level 105 98-107 mmol/L Carbon Dioxide Level 27 21-32 mmol/L Anion Gap 7.0 3-11 mmol/L Blood Urea Nitrogen 29 7-18 mg/dl Creatinine 1.10 0.60-1.20 mg/dl Est Creatinine Clear Calc Drug Dose 64.8 ml/min Estimated GFR () 57.7 Estimated GFR (Non- 49.8 BUN/Creatinine Ratio 26.2 10-20 Random Glucose 96 70-99 mg/dl Calcium Level 9.1 8.5-10.1 mg/dl Diagnostic Radiology CHEST ONE VIEW PORTABLE 03/09/2017 CLINICAL HISTORY: 71 years-old Female presenting with SOB. TECHNIQUE: Portable upright AP view of the chest was obtained. COMPARISON: 01/19/2017. FINDINGS: Atherosclerosis of aortic arch. Enlarged cardiac silhouette. Prominence of pulmonary vasculature and interstitial lung markings. Obscuration of the left hemidiaphragm with suspected left retrocardiac opacity, increased from prior. Previously noted nodule at the left apex unchanged. No large pleural effusion or pneumothorax. Osseous structures normal. Upper abdomen normal. IMPRESSION: 1. Cardiomegaly and mild pulmonary vascular prominence with chronic interstitial lung markings could suggest volume overload. 2. Suggestion of new left basilar opacity, which could represent developing pulmonary edema or atelectasis. (CHEST) THORAX WITHOUT 03/09/2017 CT DOSE: 812.27 mGycm HISTORY: Dyspnea Hypoxia TECHNIQUE: Multiaxial CT images of the chest were performed without contrast. A dose lowering technique was utilized adhering to the principles of ALARA. COMPARISON: 01/31/2017 FINDINGS: Moderate cardiomegaly. Small bilateral pleural effusions. Stable mediastinal, hilar, and axillary adenopathy as compared to the prior exam. Components of congestive heart failure present. Moderate atherosclerotic change thoracic aorta. IMPRESSION: 1. Small bilateral pleural effusions. 2. Developing components of congestive failure. 3. Stable nonspecific adenopathy involving the hilar and mediastinal as well as axillary regions. TTE 02/01/2017 (from outside records at [facility]) Normal LV size and systolic function with no regional wall motion abnormalities. Ejection fraction 65%; mild concentric left ventricular hypertrophy. Flattening and bowing of the intraventricular septum into the left ventricle during inspiration. Dilated ventricle with reduced systolic function. TAPSE 1.4 cm The right ventricle free wall and apex appear hypokinetic. Trace to mild tricuspid regurgitation present and it during inspiration. Severe pulmonary hypertension with estimated systolic pressure of 70 mmHg Dilated inferior vena cava with severely reduced inspiratory collapse. EKG EKG 03/09/2016 6 AM Atrial fibrillation with slow ventricular response EKG 03/08/2017 Atrial fibrillation Low voltage QRS Impression Assessment and Plan Acute on chronic hypoxic respiratory failure Very severe pulmonary hypertension Morbid obesity JADEN Obesity hypoventilation Diastolic dysfunction Cor pulmonale History of DVT and PE Persistent atrial fibrillation MYNOR calcified nodule Ms. Mckenzie has acute on chronic hypoxic respiratory failure that is multifactorial in nature, but are unfortunate sequelae of morbid obesity. She has JADEN and obesity hypoventilation syndrome for which she has been prescribed BIPAP at home along with supplemental oxygenation, for hypoxemia. Her compliance is questionable. She has history of VTE, but has not been able to have VQ scan due to various reasons including body habitus to rule CTEPH. Nonetheless, repeat transthoracic echocardiograms have demonstrated severely elevated right heart pressures with flattening and bowing of the intraventricular septum into left ventricle and decreased RV function. Her noncollapsible IVC during inspiration is consistent with physical finding of lower extremity swelling and mild pulmonary edema, suggestive of cor pulmonale. Compliance with lasix and spironolactone are also questionable. She remains on termite helper anticoagulation for VTE prevention for pulmonary hypertension and persistent atrial fibrillation. At this time, I would continue with supplemental oxygenation to maintain SaO2 88 -92%. Continue with BIPAP at night and during the day. Compliance with BIPAP was stressed. Continue with anticoagulation for VTE prophylaxis and atrial fibrillation. Continue with diuretic therapy to maintain a negative balance. Her CT does shows some mosaic pattern. This could represent hyperinflation vs pulmonary edema. I suspect the latter. Try to obtain daily weights and close in/outs. Monitor creatinine closely. Also we have to be careful not induce a metabolic alkalosis, which can worsen CO2 and precipitate hypercarbia. Continue to optimize her cardiac medications for adequate control of HTN and rate control of rate atrial fibrillation. I do not think she is a hypercarbic at baseline. Ideally, she should have a right heart catheterization for an "official" diagnosis of pulmonary hypertension. However, this does not have to be done while inpatient and can be arranged at a later time. She most likely has type III (pulmonary origin) pulmonary hypertension as she has normal LV function and the to is treat the underlying causes of hypoxia. She has been a offered a consult to the [facility]--for pulmonary HTN evaluation, but declined. She states that she is willing to reconsider. I encouraged increased exercise. However, due to her complex medical history and physical limitations she will most likely need an organized multispecialty program that can assist with diet, weight loss program etc. In regards to calcified nodule in MYNOR, it appears stable and most likely benign. She can continue to follow with Dr. Adams. She should also have repeat sleep titration study to assess if current CPAP/ BIPAP settings are sufficient. I appreciate this interesting consult.
[2017-03-09] MEDS: WARFARIN SOD 7.5 MG TAB PO SCH (15:50)
[2017-03-09] MEDS ORDERED: FUROSEMIDE INJ 40 MG in SYRINGE 0 ML IV SCH (17:45)
--- NOTE | 2017-03-09 17:48 | Progress Note ---
Subjective Date of Service: Mar 09, 2017. Subjective pt is a bit cautious about medical care, she is without chest pain but has not has exertion to determine if she has grajeda, but she does not have significant diuresis either. Problem List Medical Problems: (1) Chest pain Status: Acute (2) Hyperkalemia Status: Acute (3) Hypoxia Status: Acute (4) Medication reaction Status: Acute (5) Morbid obesity Status: Chronic Review of Systems Constitutional: + weakness, + fatigue, No fever, No chills Respiratory: + dyspnea on exertion, No shortness of breath, No dyspnea at rest Cardiac: + edema, No chest pain Abdomen: No pain, No nausea, No vomiting Musculoskeletal: No joint pain, No muscle pain Neurologic: No memory loss, No weakness Psychiatric: No depression symptoms, No anxiety Objective Vital Signs Date Time Temp Pulse Resp B/P (MAP) Pulse Ox O2 Delivery O2 Flow Rate FiO2 03/09/17 08:40 Nasal Cannula 2.5 BiPAP 03/09/17 07:26 36.4 60 20 90 03/09/17 04:00 Nasal Cannula 2.5 BiPAP 03/09/17 04:00 36.3 52 18 140/73 (95) 95 BiPAP 2.5 03/09/17 00:50 37.1 67 16 96 03/09/17 00:00 136/78 (97) 03/09/17 00:00 Nasal Cannula 2.5 BiPAP 03/08/17 20:15 76 148/82 (104) 03/08/17 19:29 Nasal Cannula 2.5 03/08/17 19:23 36.3 71 24 91 Nasal Cannula 2.0 03/08/17 18:23 78 22 96 03/08/17 17:38 71 03/08/17 17:36 72 22 95 Nasal Cannula 3.0 03/08/17 16:24 74 20 99 Nasal Cannula 3.0 03/08/17 15:58 Nasal Cannula 3.0 03/08/17 14:32 24 145/96 Nasal Cannula 3.0 03/08/17 13:13 56 03/08/17 12:27 72 24 153/101 96 Room Air 03/08/17 11:08 99 Nasal Cannula 2.0 03/08/17 11:05 99 Room Air 2.0 Nasal Cannula 03/08/17 11:05 80 Room Air 03/08/17 11:05 84 03/08/17 10:49 93 Room Air 03/08/17 10:46 36.8 88 22 140/73 93 Room Air Physical Exam General Appearance: + mild distress, + obese Eyes: PERRL, EOMI Respiratory/Chest: chest non-tender, lungs clear, normal breath sounds Cardiovascular: regular rate, rhythm, + systolic murmur Abdomen: normal bowel sounds, non tender, soft Extremities: no calf tenderness, + pedal edema Neurologic/Psychiatric: alert, oriented x 3 Laboratory Results Last 24 Hours Test 03/08/17 11:23 03/08/17 11:33 03/08/17 11:35 03/08/17 12:36 White Blood Count 6.39 K/uL Red Blood Count 4.48 M/uL Hemoglobin 14.8 g/dL Hematocrit 44.2 % Mean Corpuscular Volume 98.7 fL Mean Corpuscular Hemoglobin 33.0 pg Mean Corpuscular Hemoglobin Concent 33.5 g/dl Platelet Count 151 K/uL Mean Platelet Volume 12.1 fL Neutrophils (%) (Auto) 79.5 % Lymphocytes (%) (Auto) 10.3 % Monocytes (%) (Auto) 8.9 % Eosinophils (%) (Auto) 0.9 % Basophils (%) (Auto) 0.2 % Neutrophils # (Auto) 5.08 K/uL Lymphocytes # (Auto) 0.66 K/uL Monocytes # (Auto) 0.57 K/uL Eosinophils # (Auto) 0.06 K/uL Basophils # (Auto) 0.01 K/uL RDW Standard Deviation 53.2 fL RDW Coefficient of Variation 14.8 % Immature Granulocyte % (Auto) 0.2 % Immature Granulocyte # (Auto) 0.01 K/uL Prothrombin Time 24.3 SECONDS Prothromb Time International Ratio 2.2 Activated Partial Thromboplast Time 38.8 SECONDS Partial Thromboplastin Ratio 1.5 Sodium Level 138 mmol/L Potassium Level 4.4 mmol/L Chloride Level 103 mmol/L Carbon Dioxide Level 27 mmol/L Anion Gap 8.0 mmol/L Blood Urea Nitrogen 24 mg/dl Creatinine 1.10 mg/dl Est Creatinine Clear Calc Drug Dose 64.9 ml/min Estimated GFR () 57.7 Estimated GFR (Non- 49.8 BUN/Creatinine Ratio 21.9 Random Glucose 148 mg/dl Calcium Level 10.1 mg/dl Total Bilirubin 0.8 mg/dl Aspartate Amino Transf (AST/SGOT) 17 U/L Alanine Aminotransferase (ALT/SGPT) 24 U/L Alkaline Phosphatase 114 U/L Total Protein 8.1 gm/dl Albumin 3.0 gm/dl Globulin 5.1 gm/dl Albumin/Globulin Ratio 0.6 Procalcitonin < 0.05 ng/ml Bedside Lactic Acid Venous 1.39 mmol/L Bedside Troponin I 0.040 ng/ml Troponin I < 0.015 ng/ml Pro-B-Type Natriuretic Peptide 2021 pg/ml Test 03/08/17 19:47 03/08/17 23:36 03/09/17 06:32 Troponin I < 0.015 ng/ml < 0.015 ng/ml White Blood Count 4.64 K/uL Red Blood Count 3.97 M/uL Hemoglobin 13.1 g/dL Hematocrit 38.9 % Mean Corpuscular Volume 98.0 fL Mean Corpuscular Hemoglobin 33.0 pg Mean Corpuscular Hemoglobin Concent 33.7 g/dl RDW Standard Deviation 52.2 fL RDW Coefficient of Variation 14.7 % Platelet Count 133 K/uL Mean Platelet Volume 11.4 fL Prothrombin Time 29.5 SECONDS Prothromb Time International Ratio 2.6 Sodium Level 139 mmol/L Potassium Level 4.1 mmol/L Chloride Level 105 mmol/L Carbon Dioxide Level 27 mmol/L Anion Gap 7.0 mmol/L Blood Urea Nitrogen 29 mg/dl Creatinine 1.10 mg/dl Est Creatinine Clear Calc Drug Dose 64.8 ml/min Estimated GFR () 57.7 Estimated GFR (Non- 49.8 BUN/Creatinine Ratio 26.2 Random Glucose 96 mg/dl Calcium Level 9.1 mg/dl Assessment and Plan 71 with chest pain and Dyspnea, her morbid obesity with BMI of 64 is the biggest issue central to all of her problems PMHx of Pulmonary HTN, R Sided and Diastolic CHF, Restrictive Lung Disease 2/2 Obesity, Obesity Hypoventilation Syndrome, Persistent Atrial Fibrillation, HTN, and GERD who presents to the ED c/o CP and GRAJEDA that started around midnight. Acute Hypoxic Respiratory Failure:acute on chronic Do not suspect underlying pneumonia - Echo (Jan 2017) - LV EF 65%; reduced RV function; type II diastolic dysfunction and Pulmonary HTN: did see pulmonary med and requests possible tertiary evaluation as an outpt, will attempt to diurese for comfort R Sided CHF/Cor Pulmonale and Diastolic CHF: MILD - Lasix 40 mg IV x 1 dose - increase Lasix 40 mg daily and give one dose of IV, Spironolactone 25 mg BID - Recently established with Dr. Martinez - [facility] cardiology Persistent Atrial Fibrillation: Rate Controlled on Metoprolol Tartrate 25 mg BID Anticoagulation and embolic prevention with Coumadin 7.5 mg MWThSaSu and 10 mg TF - INR therapeutic HTN:controlled - Felodipine 2.5 mg daily and Lisinopril 5 mg BID HLD:- Atorvastatin 40 mg daily DVT Prophylaxis: Coumadin PT/OT
[2017-03-09] MEDS: ATORVASTATIN 40 MG TAB PO SCH (19:56)
[2017-03-09] MEDS: NITROFURANTOIN MACROCRYSTALS 50 MG CAP PO SCH (19:57)
[2017-03-09] MEDS: FELODIPINE 2.5 MG TABCR PO SCH (19:58)
[2017-03-10] VITALS (7 sets, daily range): BP systolic 130–150; BP diastolic 70–84; PULSE 57–86; TEMP 36.5–36.6; O2SAT 96–99
[2017-03-10] MEDS: ACETAMINOPHEN 325 MG TAB PO PRN ×2 (00:01→09:28)
[2017-03-10 08:44] LABS: HEMATOCRIT 44.8 % (37-47); MEAN CELL VOLUME 97.6 fL (80-100); MEAN CORPUSCULAR HEMOGLOBIN 32.9 pg (25-34); MEAN CORPUSCULAR HGB CONC 33.7 g/dl (32-36); MEAN PLATELET VOLUME 12.1 fL (7.4-10.4); PLATELET COUNT 143 K/uL (130-400); RED BLOOD COUNT 4.59 M/uL (4.2-5.4); WHITE BLOOD COUNT 3.76 K/uL (4.8-10.8)
[2017-03-10 08:54] LABS: INR 2.6 (0.9-1.1); PROTHROMBIN TIME (PATIENT) 29.2 SECONDS (9.0-12.0)
[2017-03-10] MEDS ORDERED: FUROSEMIDE 20 MG TAB PO SCH (09:00)
[2017-03-10 09:13] LABS: BUN/CREATININE RATIO 30.3 (10-20); CALCIUM 9.7 mg/dl (8.5-10.1); CREATININE 1.2 mg/dl (0.60-1.20); POTASSIUM 4.1 mmol/L (3.5-5.1)
[2017-03-10] MEDS: SPIRONOLACTONE 25 MG TAB PO SCH (09:58)
[2017-03-10] MEDS: METOPROLOL TARTRATE 25 MG TAB PO SCH (09:59)
[2017-03-10] MEDS: CEROVITE ADV FORMULA TAB PO SCH (09:59)
[2017-03-10] MEDS: MAGNESIUM OXIDE 400 MG TAB PO SCH (09:59)
[2017-03-10] MEDS: THIAMINE HCL 100 MG TAB PO SCH (10:00)
[2017-03-10] MEDS: MIRABEGRON ER 25 MG TAB PO SCH (10:00)
[2017-03-10] MEDS: PANTOprazole SOD 40 MG TAB PO SCH (10:00)
[2017-03-10] MEDS: ALLOPURINOL 300 MG TAB PO SCH (10:01)
--- NOTE | 2017-03-10 11:16 | Discharge Instructions ---
Discharge Instructions Date of Service Mar 10, 2017. Admission Reason for Admission: Pulmonary Hypertension Discharge Discharge Diagnosis / Problem: pulmonary hypertension , right sided heart failure Discharge Goals Goal(s): Diagnostic testing, Therapeutic intervention Activity Recommendations Activity Limitations: resume your previous activity (wear oxygen at all times) your felodipine(plendil), aldactone and furosemide (lasix) were doubled and your lisinopril was stopped . Instructions / Follow-Up Instructions / Follow-Up Call your Primary Care doctor if any of the following symptoms or problems start or get worse: * Shortness of breath or difficulty breathing * Wake up at night short of breath * Chest pain * Cough * Swelling of your hands, feet, or legs * More fatigued or tired with your normal activity * Palpitations - sudden fast heart beats WEIGHT * Weigh yourself every morning after using the bathroom. * Use the same scale. * Wear the same amount of clothing. * Write your weight down on a chart. * Call your Primary Care doctor if you gain more than 2-3 pounds in 1-2 days. MEDICATIONS * Use this discharge instruction sheet for medication instructions. * Take your medications at the time your doctor ordered. * Do not skip a dose of your medicines. * If you miss a dose of medicine, take it as soon as possible, but DO NOT DOUBLE A DOSE. * Read your medicine information when you get home. * Know all of the side effects of your medicine. If in doubt, ask your pharmacist * Call your Primary Care doctor's office if you have any side effects. * Be sure all of your doctors know what medicine and herbs you take (including cold, flu, and herbal medicine). Take the following with you to your follow-up doctor appointments: * Weight Chart * Medication List * List of questions Do not drink excessive alcohol, beer or wine. Current Hospital Diet Patient's current hospital diet: AHA Diet (Heart Healthy), Low Sodium Diet (2gm Na) Discharge Diet Recommended Diet: Low Sodium Diet (2gm Na) Pending Studies Studies pending at discharge: no Laboratory Results Hemoglobin A1c Test 01/19/17 13:26 Range/Units Estimated Average Glucose 120 mg/dl Hemoglobin A1c 5.8 H 4.5-5.6 % Medical Emergencies . Who to Call and When: Call 911 or go to the Emergency Room if: * If at any time you feel your situation is an emergency * You have tightness or pain in your chest that does not go away with rest or Nitroglycerin * You are very short of breath even with rest . Non-Emergent Contact Non-Emergency issues call your: Primary Care Provider Call Non-Emergent contact if: temperature is above 101, your pain is unusual for you . . "Provider Documentation" section prepared by Denny Fermin. . VTE Core Measure Inpt VTE Proph given/why not?: Warfarin (Coumadin), SCD's
[2017-03-10] MEDS ORDERED: OXGN (11:18)
--- NOTE | 2017-03-10 11:49 | CARDIOLOGY CONSULTATION ---
DATE OF CONSULTATION: 03/10/2017 DATE OF CONSULTATION: 03/10/2017 REQUESTING: Dr. Denny Fermin. CLINICAL LABORATORY TECHNOLOGIST: Les Martinez DO, [facility]. REASON FOR CONSULTATION: Severe pulmonary hypertension, worsening right-sided heart failure. Dear Shankar, Thank you for requesting cardiology consultation on Belinda with regards to her chest tightness, increasing shortness of breath and worsening dyspnea. She notes that she became more ill in the first couple of weeks of February. She thought it would improve, but it never really did. She notes that she was having URI-like symptoms in the beginning of the month, although she denied any fevers or chills. Dr. Ambrocio had ordered a chest x-ray and she believes she was given additional diuretics to help with her symptoms. She continued to have shortness of breath and dyspnea on exertion and generalized weakness. She had difficulty with ambulation, noting that she just felt poorly. Her medical records suggested that she was on Lasix and spironolactone, although the admitting physician confirmed with her pharmacy that she has not picked up her Lasix since June and it was prescribed as needed. She notes that if she takes more than 20 mg of Lasix she spends the day in the bathroom and can not leave the house. She does have a p.r.n. dosing of Lasix if her weight is up more than 2 pounds in a 24-hour period or more than 5 pounds in a week. She described taking increased amount of diuretics without significant improvement. She currently denies any chest pain, chest pressure, chest heaviness. She sleeps in a chair with her BiPAP. She does not wear oxygen during the day, but her pulse ox in the ED was 79% with ambulation from wheelchair to her bed and when I saw her in the office on 02/03/2017 her O2 sat walking 50 feet was 81%. She has chronic lower extremity edema. She denies any dark stools or black stools. Her appetite has been relatively stable. The rest of review of systems otherwise negative. PAST MEDICAL HISTORY: 1. Cor pulmonale with severe pulmonary hypertension, flattening of the intraventricular septum consistent with RV pressure overload. 2. Pulmonary hypertension likely secondary to sleep apnea, obesity, hypoventilation syndrome, possible prior pulmonary emboli and diastolic dysfunction. 3. Morbid obesity with a BMI of 66. 4. Marked lower extremity edema likely on the basis of right-sided heart failure and venous insufficiency. 5. History of prior DVT, although she denied a history of a pulmonary embolism as had been mentioned in the [facility] inpatient records. 6. Hyperlipidemia. 7. Osteoarthritis. 8. Polyneuropathy. 9. Chronic atrial fibrillation, on chronic Coumadin anticoagulation. 10. Chronic kidney disease. 11. Diverticulosis. 12. Esophageal dysmotility 13. GERD. 14. History of hyperkalemia on higher doses of Aldactone. FAMILY HISTORY: Dad had bypass surgery in his 60s. SOCIAL HISTORY: She denies any tobacco since 1979, having smoked a pack per day for 15 years. She has moderate alcohol consumption. Her son lives next door and helps her. ALLERGIES: KETOPROFEN, LORAZEPAM AND PENICILLIN. MEDICATIONS: Reviewed in electronic medical record. PHYSICAL EXAMINATION: GENERAL: She is awake, alert, oriented x3. She does not appear short of breath talking in sentences. VITAL SIGNS: Her heart rate is 57, respirations 18, blood pressure 142/70. Her sat is 96% on 2-1/2 liters. HEAD, EYES, EARS, NOSE, AND THROAT: 2+ carotid upstrokes, no evidence of carotid bruits. Her jugular venous pressure cannot be assessed due to her neck size. Sclerae is anicteric. Her hearing is normal. LUNGS: Globally decreased breath sounds. No rales, rhonchi or wheezing. HEART: Irregular rate and rhythm. The 2nd heart sound is accentuated. There is a systolic ejection murmur heard at the right and left sternal border. ABDOMEN: Obese, nontender, chronically distended. Positive bowel sounds. EXTREMITIES: Marked lower extremity edema to the knees bilaterally with chronic stasis changes. PSYCHIATRIC: Affect appeared appropriate. NEUROLOGIC: She is awake, alert and oriented x3. DIAGNOSTIC STUDIES: Outpatient echocardiogram 02/01/2017 normal LV size and function, EF 65%, mild left ventricular hypertrophy, flattened intraventricular septum during inspiration in systole consistent with obesity hypoventilation syndrome, dilated right ventricle with reduced RV function in the free wall and apex appeared hypokinetic. Severe pulmonary hypertension with a PA pressure of 70 mmHg. Of note, her echocardiogram at [facility] in 2012 suggested a PA pressure of 90 mmHg. LABORATORY STUDIES: Her inpatient laboratory studies were reviewed. CT of her chest, small bilateral pleural effusions, congestive heart failure. INR 2.6, BUN 29, creatinine 1.1. Sodium 139, potassium 4.1. Her BNP was 2020. Her troponins are negative. Her hemoglobin 15.1 with a platelet count of 143. IMPRESSION: 1. Cor pulmonale with severe pulmonary hypertension and flattening of the intraventricular septum consistent with RV pressure overload. 2. Pulmonary hypertension likely secondary to sleep apnea, obesity hypoventilation syndrome, possible prior pulmonary emboli and diastolic dysfunction. 3. Morbid obesity. 4. Chronic marked lower extremity edema. 5. Chronic atrial fibrillation on chronic Coumadin anticoagulation. As I discussed with Belinda and Dr. Fermin I made the following recommendations: 1. She is having a 2-step study done today, but she is going to need oxygen all the time to try to lower her PA pressures. 2. I agree with 40 mg of Lasix. Will have to accept some degree of prerenal azotemia in order to improve her volume status and her shortness of breath without causing a significant metabolic alkalosis. 3. She should be on Aldactone 25 mg b.i.d. 4. I stopped her lisinopril in order to avoid hyperkalemia. 5. I increased her felodipine 5 mg daily. We will have to watch that it does not make her shunting worse and make her more hypoxic. We will also have to watch that it does not make her lower extremity edema significantly worse. As I discussed with Belinda at this point it is about choices, if she wants to improve her quality of life she is going to need to wear oxygen all the time and she is going to need to take higher doses of diuretics. Additionally, she would benefit from palliative care as none of this is easily fixable. We discussed referral to pulmonary hypertension specialist, whether that is at [facility] or [facility]. Unfortunately, none of the Prostacyclins or Revatio are approved for patients with obesity hypoventilation syndrome and cor pulmonale that is not related to either chronic thromboembolic disease or primary pulmonary hypertension. Overall prognosis is relatively poor. As I discussed wither her in the office the fact she has done well for 4 years with severe pulmonary hypertension is quite remarkable. All of this was discussed with her as well as the primary service in detail.
[2017-03-10] MEDS ORDERED: WARFARIN SOD 5 MG TAB PO SCH (16:00)
--- NOTE | 2017-03-10 17:43 | Discharge Summary ---
Discharge Summary Date of Service Mar 10, 2017. Discharge Summary Admission Date: Mar 08, 2017 at 16:42 Discharge Date: Mar 10, 2017 Discharge Disposition: Home Principal Diagnosis: pulmonary hypertension, chronic diastolic heart failure Problems/Secondary Diagnoses: (1) Morbid obesity Status: Chronic Immunizations: Have You Had Influenza Vaccine: Yes Influenza Vaccine Date: Mar 09, 2013 History of Tetanus Vaccine?: No History of Pneumococcal: No History of Hepatitis B Vaccine: No Consultations: pulmonary med cardiolody dr Martinez Medication Reconciliation New Medications: Home O2 Therapy (Oxygen) Gas 2 LITERS NA CONTINOUS, #1 UNIT 3 Liters with exertion Continued Medications: Allopurinol (Allopurinol) 300 Mg Tab 300 MG PO DAILY, #90 Atorvastatin (Lipitor) 40 Mg Tab 40 MG PO QPM, TAB Betamethasone Lexie (Valisone 0.1% Oint) 45 Appln/15 Gm Oint TOP DIRECTED Felodipine (Plendil Er) 2.5 Mg Tab 5 MG PO QPM, TAB Furosemide (Lasix) 20 Mg Tab 40 MG PO QAM, TAB Magnesium Oxide (Mg Supplement (Magnesium) 500 Mg Tab 500 MG PO DAILY Metoprolol Tartrate (Lopressor) (Lopressor) 25 Mg Tab 25 MG PO BID, TAB Mirabegron (Myrbetriq Er) 50 Mg Tab 50 MG PO QAM Multivitamin (Multivitamin) Tab 1 TAB PO BID, TAB Nitrofurantoin Macrocrystal (Nitrofurantoin Macrocryst) 100 Mg Cap 1 CAP PO HS for 30 Days, #30 Nystatin (Nystatin Cream) 90 Appln/30 Gm Cr 0 EXT PRN, #15 GM APPLY TO AFFECTED AREA BID Nystatin (Topical) (Nystop) 100,000 Unit/Gm Pow 1 APPLN TOP BID PRN for RASH, #240 Ocuvite Preservision (Ocuvite Preservision) 1 Tab Tab 2 TAB PO DAILY, TAB Pantoprazole (Protonix) 40 Mg Tab 40 MG PO QAM, #30 TAB Spironolactone (Aldactone) 25 Mg Tab 25 MG PO BID, TAB Thiamine Mononitrate (Vitamin B1) 100 Mg Tab 100 MG PO QAM Warfarin Sodium (Warfarin Sodium) 10 Mg Tab 7.5-10 MG PO UD Discontinued Medications: Lisinopril (Lisinopril) 5 Mg Tab 5 MG PO BID, #60 Discharge Exam Review of Systems: Constitutional: No fever, No chills Cardiovascular: + orthopnea, + PND, No chest pain Abdomen: No pain, No nausea, No vomiting, No diarrhea Physical Exam: General Appearance: + mild distress, + obese Eyes: PERRL, EOMI Respiratory/Chest: chest non-tender, + decreased breath sounds, + accessory muscle use Cardiovascular: regular rate, rhythm, no murmur Abdomen / GI: normal bowel sounds, non tender, soft Extremities: + pedal edema, + swelling Neurologic/Psychiatric: alert, oriented x 3 Hospital Course 71 with chest pain and Dyspnea, her morbid obesity with BMI of 64 is the biggest issue central to all of her problems PMHx of Pulmonary HTN, R Sided and Diastolic CHF, Restrictive Lung Disease 2/2 Obesity, Obesity Hypoventilation Syndrome, Persistent Atrial Fibrillation, HTN, and GERD who presents to the ED c/o CP and GRAJEDA that started around midnight. Acute Hypoxic Respiratory Failure:acute on chronic Do not suspect underlying pneumonia - Echo (Jan 2017) - LV EF 65%; reduced RV function; type II diastolic dysfunction and Pulmonary HTN: did see pulmonary med and requests possible tertiary evaluation as an outpt, will attempt to increase lasix on discharge R Sided CHF/Cor Pulmonale and Diastolic CHF: MILD - Lasix 40 mg IV x 1 dose - increase Lasix 40 mg daily and give one dose of IV, Spironolactone 25 mg BID - Recently established with Dr. Martinez - [facility] cardiology, recommended increase felodipine Persistent Atrial Fibrillation: Rate Controlled on Metoprolol Tartrate 25 mg BID Anticoagulation and embolic prevention with Coumadin 7.5 mg MWThSaSu and 10 mg TF - INR therapeutic HTN:controlled - Felodipine 5 mg daily and stop Lisinopril 5 mg BID HLD:- Atorvastatin 40 mg daily DVT Prophylaxis: Coumadin 2 step show need for 2 liters at rest and 3 liters with exertion Total Time Spent: Greater than 30 minutes This includes examination of the patient, discharge planning, medication reconciliation, and communication with other providers. Discharge Instructions Please refer to the electronic Patient Visit Report (Discharge Instructions) for additional information.
[2017-03-10] MEDS ORDERED: FELODIPINE 2.5 MG TABCR PO SCH (21:00)
== END 2017-03-10 14:13 | disposition home or self-care (01) ==
LOC: C.EDB 10:41 → C.MED 16:42 → ENRESERV 17:54
PROVIDERS: ADMIT Hospitalist; ATTEND Hospitalist
DX: I27.2 Other secondary pulmonary hypertension (principal); I50.32 Chronic diastolic (congestive) heart failure; I27.81 Cor pulmonale (chronic); J45.909 Unspecified asthma, uncomplicated; E66.01 Morbid (severe) obesity due to excess calories; Z68.44 Body mass index [BMI] 60.0-69.9, adult; F45.8 Other somatoform disorders; I48.91 Unspecified atrial fibrillation; M10.9 Gout, unspecified; E78.5 Hyperlipidemia, unspecified; N18.9 Chronic kidney disease, unspecified; Z88.0 Allergy status to penicillin; Z86.718 Personal history of other venous thrombosis and embolism; Z79.01 Long term (current) use of anticoagulants; Z90.89 Acquired absence of other organs; Z96.659 Presence of unspecified artificial knee joint; Z82.49 Family history of ischemic heart disease and other diseases of the circulatory system; Z83.6 Family history of other diseases of the respiratory system; Z82.0 Family history of epilepsy and other diseases of the nervous system

== ENCOUNTER → 2017-03-23 | Outpatient (CLI) | payer BC ==
[~2017-03-23] MED LIST changes: -GABA-112 PO; -LSN5 PO; +OXGN; -TRIM100T20 PO; +WARF-281 PO; -WARF5TAB90 PO
[2017-03-23 17:38] LABS: INR 2.6 (0.9-1.1); PROTHROMBIN TIME (PATIENT) 28.6 SECONDS (9.0-12.0)
[2017-03-23 17:52] LABS: BLOOD UREA NITROGEN 32 mg/dl (7-18); BUN/CREATININE RATIO 21.3 (10-20); CALCIUM 9.6 mg/dl (8.5-10.1); CARBON DIOXIDE 27 mmol/L (21-32); CHLORIDE 106 mmol/L (98-107); GLUCOSE 101 mg/dl (70-99); SODIUM 140 mmol/L (136-145)
== END | disposition home or self-care (01) ==
LOC: C.LAB1850 16:50
PROVIDERS: ATTEND Internal Medicine
DX: Z51.81 Encounter for therapeutic drug level monitoring (principal); I48.1 Persistent atrial fibrillation; I27.20 Pulmonary hypertension, unspecified; Z79.01 Long term (current) use of anticoagulants

== ENCOUNTER → 2017-03-31 | Outpatient (CLI) | payer BC ==
[2017-03-31 18:21] LABS: BLOOD UREA NITROGEN 32 mg/dl (7-18); CALCIUM 9.6 mg/dl (8.5-10.1); CARBON DIOXIDE 29 mmol/L (21-32); CHLORIDE 102 mmol/L (98-107); CREATININE 1.08 mg/dl (0.60-1.20); GLUCOSE 95 mg/dl (70-99); POTASSIUM 4.1 mmol/L (3.5-5.1); SODIUM 136 mmol/L (136-145)
== END | disposition home or self-care (01) ==
LOC: C.LAB1850 16:00
PROVIDERS: ATTEND Internal Medicine
DX: E87.5 Hyperkalemia (principal)

== ENCOUNTER 2017-05-02 16:20 | Emergency (ER) | payer BC ==
[~2017-05-02] VITALS: Ht 152.4 cm; Wt 137.9 kg
[~2017-05-02 16:20] MED LIST changes: +ACET-1256 PO; -FURO-85 PO; +FURO40TA3 PO; -NITR100C PO; +NITR100C2 PO; -NYSCR30 EXT; -NYST100010 TOP; -VLSO15 TOP; +WARF2.5T8 PO
[2017-05-02 16:25] VITALS: TEMP 36.4; Ht 152.4 cm; Wt 137.9 kg
--- NOTE | 2017-05-02 16:47 | EMERGENCY ROOM VISIT NOTE ---
ED Visit Note First contact with patient: 16:36 CHIEF COMPLAINT: Suture removal This patient returns to the ED today for removal of sutures that were placed 18 days ago. She states that there has been some clearish red drainage. No signs of infection. PMH: As noted below. SOCIAL HISTORY: Patient lives at home. PHYSICAL EXAM: Vital Signs: Reviewed Nurse's notes. There is a sutured wound on the right leg with no signs of infection. There is no erythema, swelling, or tenderness. The patient at baseline does have lower extremity edema. This has not worsened. EMERGENCY DEPARTMENT COURSE: I personally cared for this patient 18 days ago and placed the 8 sutures. These appear to be starting to grow over as she is 8 days past the recommended date of removal. I do believe these can be safely removed. This was done but some of the scab was removed. The patient does have very thin skin and a large amount of lower extremity edema at baseline. I suspect she is likely experiencing severe strain secondary to the edema in the legs. There is no sign of infection. This was dressed with a nonstick bandage and secured in place with an Gerardo wrap. She is to follow with her family doctor for recheck in the next few days of this wound and potentially may need to see a wound care center depending upon her progress. She was educated upon management, educated upon worrisome symptoms which to return, had questions answered at discharge, and was discharged home in good condition. Problem List Medical Problems: (1) Asthma Status: Chronic (2) GERD (gastroesophageal reflux disease) Status: Chronic (3) Gout Status: Chronic (4) Hyperlipidemia Status: Chronic (5) Hypertension Status: Chronic (6) Morbid obesity Status: Chronic (7) Osteoarthritis Status: Chronic (8) Osteoporosis Status: Chronic (9) Psoriasis Status: Chronic (10) UTI (urinary tract infection) Status: Chronic (11) Venous stasis dermatitis Status: Chronic Surgical Problems: (1) History of tonsillectomy Status: Resolved (2) History of total knee replacement Status: Resolved (3) History of wisdom tooth extraction Status: Resolved Current/Historical Medications Scheduled Allopurinol (Allopurinol), 300 MG PO QAM Atorvastatin (Lipitor), 40 MG PO QPM Felodipine (Plendil Er), 5 MG PO QPM Furosemide (Lasix), 40 MG PO QAM Home O2 Therapy (Oxygen), 2 LITERS NA CONTINOUS Magnesium Oxide (Mg Supplement (Magnesium), 500 MG PO DAILY Metoprolol Tartrate (Lopressor) (Lopressor), 25 MG PO BID Mirabegron (Myrbetriq Er), 50 MG PO QAM Multivitamin (Multivitamin), 1 TAB PO BID Nitrofurantoin Macrocrystal (Nitrofurantoin Macrocryst), 100 CAP PO HS Ocuvite Preservision (Ocuvite Preservision), 2 TAB PO DAILY Pantoprazole (Protonix), 40 MG PO QAM Spironolactone (Aldactone), 25 MG PO QAM Thiamine Mononitrate (Vitamin B1), 100 MG PO QAM Warfarin Sod (Jantoven), 2.5 MG PO UD Warfarin Sodium (Warfarin Sodium), 7.5-10 MG PO UD Scheduled PRN Acetaminophen (Tylenol), 500 MG PO BID PRN for Pain Allergies Coded Allergies: Ketoprofen (Verified Allergy, Severe, NUMBNESS FROM WAIST DOWN SEVERAL MONTHS, 03/08/17) Lorazepam (Verified Allergy, Severe, pt EXTREMELY sensitive, 03/08/17) Per MD please do NOT administer Ativan for [id number] admission (at a minimum) Penicillins (Verified Allergy, Severe, SEVERE RASH, 03/08/17) Cephalexin (Verified Allergy, Unknown, ITCHING, 04/27/17) Trimethoprim (Verified Allergy, Unknown, ELEVATED POTASSIUM LEVELS, ) Iodinated Contrast Media (Verified Adverse Reaction, Severe, PAIN AT INJECTION SITE AND UP THE BONES, 04/27/17) Vital Signs Date Time Temp Pulse Resp B/P (MAP) Pulse Ox O2 Delivery O2 Flow Rate FiO2 05/02/17 17:05 96 22 98 05/02/17 16:59 96 22 136/82 98 Nasal Cannula 2.0 05/02/17 16:25 36.4 101 22 98 Nasal Cannula 2.0 Departure Information Impression Primary Impression: Encounter for removal of sutures Dispostion Home / Self-Care Condition GOOD Referrals No Doctor, Assigned (PCP) Patient Instructions My [facility] Additional Instructions You were seen in the emergency Department for suture removal. There are no signs of infection at this time. Please follow-up with your family doctor in the next week or so for recheck of this to ensure this is healing. If it starts to look infected with redness, swelling or drainage that is worse please return. Thank you for your time.
[2017-05-02 17:05] VITALS: BP 136/82; PULSE 96; O2SAT 98
== END 2017-05-02 17:05 | disposition home or self-care (01) ==
LOC: C.EDB 16:21 → C.EDD 17:05
DX: Z48.02 Encounter for removal of sutures (principal); I10 Essential (primary) hypertension; E78.5 Hyperlipidemia, unspecified; K21.9 Gastro-esophageal reflux disease without esophagitis; J45.909 Unspecified asthma, uncomplicated; M19.90 Unspecified osteoarthritis, unspecified site; M81.0 Age-related osteoporosis without current pathological fracture; M10.9 Gout, unspecified; Z87.440 Personal history of urinary (tract) infections; Z96.659 Presence of unspecified artificial knee joint; Z98.890 Other specified postprocedural states; Z79.01 Long term (current) use of anticoagulants; Z79.899 Other long term (current) drug therapy; Z88.0 Allergy status to penicillin; Z88.8 Allergy status to other drugs, medicaments and biological substances; Z91.041 Radiographic dye allergy status

== ENCOUNTER → 2017-05-23 | Day surgery (SDC) | payer BC ==
[2017-04-27 15:26] VITALS: Ht 152.4 cm; Wt 151.8 kg
[~2017-05-23] VITALS: Ht 152.4 cm; Wt 151.8 kg
[~2017-05-23] MED LIST changes: +500ML BSS 0.3ML EPI 1:1000PF IRRIG ONE; +ACETAMINOPHEN 325 MG TAB PO PRN; +AMVISC PLUS 0.8ML SYRINGE INT OCU ONE; +ATROPINE SULFATE 0.1 MG/ML 5ML SYR IV PRN; +BSS FLUSH ONE; +EpHEDrine SULFATE INJ 50 MG/ML AMP IV PRN; +EpINEphrine INJ 1MG/ML AMP 1 MG/ML AMP ONE; +LACTATED RINGER'S 1000ML 1,000 ML IV SCH; +LIDOCAINE 3.5% OPH GEL PER APPLICATION CHARGE ONE; +LIDOCAINE HCL 1% MPF 2 ML VIAL ONE; +MIDAZOLAM HCL 1 MG/ML 2ML VIAL ONE; +OCUCOAT 1 ML SOLN IO ONE; +PHENYLEPHRINE HCL 10% OP SOLN PER DROP CHARGE OPL SCH; +POVIDONE-IODINE OP SOLN 30 ML BTL ONE; +PROPARACAINE 0.5% OP SOLN PER DROP CHARGE OPL SCH; +TOBRAMYCIN/DEXAMETHASONE OPH OINT PER APPLN CHARGE ONE
[2017-05-23] MEDS: PHENYLEPHRINE HCL 2.5% OP SOLN PER DROP CHARGE OPL SCH ×2 (09:58→10:05)
[2017-05-23] MEDS: TROPICAMIDE 1% OP SOLN PER DROP CHARGE OPL SCH ×2 (09:59→10:06)
[2017-05-23] MEDS: CYCLOPENTOLATE HCL 1% OP SOLN PER DROP CHARGE OPL SCH ×2 (10:00→10:07)
[2017-05-23] MEDS: GATIFLOXACIN OP SOLN PER DROP CHARGE OPL SCH ×2 (10:01→10:11)
--- NOTE | 2017-05-23 10:25 | History & Physical Bridge - SC ---
H&P Re-Evaluation Bridge Note: I have examined the patient, reviewed the History & Physical and in the interval since the performance of the History & Physical I have noted the following changes of clinical significance: Diagnosis: Left Cataract Procedure: Left Cataract Removal with Lens Implant No changes noted
[2017-05-23] MEDS: KETOROLAC 0.5% OP SOLN PER DROP CHARGE OPL SCH ×2 (10:26→10:46)
--- NOTE | 2017-05-23 11:30 | Discharge Instructions-SurgCtr ---
Discharge Instructions Date of Service May 23, 2017. Visit Reason for Visit: Left Cataract Discharge Discharge Diagnosis / Problem: cataract Discharge Goals Goal(s): Improve function Activity Recommendations Activity Limitations: per Instructions/Follow-up section Anesthesia . Post Anesthesia Instructions: If you have had General Anesthesia or IV Sedation: * Do not drive today. * Resume driving when surgeon permits. * Do not make important decisions or sign legal documents today. * Call surgeon for: 1. Temperature elevations greater than 101 degrees F. 2. Uncontrollable pain. 3. Excessive bleeding. 4. Persistent nausea and vomiting. 5. Medication intolerance (nausea, vomiting or rash). * For nausea and vomiting use only clear liquids such as: tea, soda, bouillon until nausea subsides, then gradually increase diet as tolerated. * If you have any concerns or questions, call your surgeon's office. If physician is unavailable and it is an emergency, call 911 or go to the nearest emergency room. . Diet Recommendations Home Diet: resume previous diet Procedures Procedures Performed: Left Cataract Phacoemulsification With Intraocular Lens Implant Pending Studies Studies pending at discharge: no Medical Emergencies . Who to Call and When: Medical Emergencies: If at any time you feel your situation is an emergency, please call 911 immediately. . Non-Emergent Contact Non-Emergency issues call your: [facility] . . "Provider Documentation" section prepared by Vineet Serrato. .
--- NOTE | 2017-05-23 11:31 | [facility] Operative Report ---
Operative Report Date of Service May 23, 2017. Operative Report 1. PREOPERATIVE DIAGNOSIS: Cataract of the left eye. 2. POSTOPERATIVE DIAGNOSIS: Same. 3. PROCEDURE: Phacoemulsification with intraocular lens implantation of the left eye. SURGEON: Dr. Vineet Serrato. ANESTHESIA: Topical Lidocaine gel, 1% Non- Preserved intracameral Lidocaine, and monitored intravenous sedation. INDICATIONS FOR THE PROCEDURE: The patient is a 71 - year-old female with a history of cataract of the left eye causing significant visual impairment. The details of the proposed procedure were explained to the patient who asked appropriate questions and following discussion of all risks, benefits and alternatives agreed to have the procedure done. 4. OPERATION AND FINDINGS: DESCRIPTION OF PROCEDURE: After informed consent was obtained, the patient was brought to the Operating Room at the [facility]. The patient was placed in a supine position and then the left eye was prepped and draped in the usual sterile fashion for intraocular surgery. A drop of topical Lidocaine gel was placed in the operative eye. A wire lid speculum was then placed in the fornices. A corneal paracentesis was then created temporally. The Non-Preserved Lidocaine was then instilled into the anterior chamber. The anterior chamber was then pressurized with viscoelastic. A 2.0 mm clear corneal incision was then created temporally. A cystotome was inserted into the anterior chamber and used to create a tear in the anterior lens capsule. This capsular tear was then used to create a small flap and the flap was dragged in a counterclockwise direction in order to create a continuous curvilinear capsulorrhexis. Hydrodissection was accomplished with balanced salt solution. Phacoemulsification of the lens nucleus was then performed in a standard [id number] technique. The phaco time was 23 seconds with an average power of 13 %. The remaining cortical material was removed using irrigation aspiration. The capsular bag was then filled with viscoelastic. A [employer] MI60L +22.0 diopters lens was then loaded into the injector and injected into the capsular bag. The remaining viscoelastic was removed with the irrigation aspiration handpiece. The wound was hydrated and then checked and found to be watertight. The intraocular pressure was checked and found to be adequate. The wire lid speculum was removed and the patient's face was cleaned and dried. TobraDex ointment was placed in the inferior fornix. The patient was discharged to the Recovery Room having tolerated the procedure well. There were no complications. The patient will be seen tomorrow in the office for follow-up. I attest to the content of the Intraoperative Record and any orders documented therein. Any exceptions are noted below.
[2017-05-23 11:33] VITALS: TEMP 36.8
[2017-05-23 12:05] VITALS: BP 138/84; PULSE 73; O2SAT 98
--- NOTE | 2017-05-23 12:13 | Anesthesia Progress Nt - [facility] ---
Anesthesia Post Op Note Date & Time May 23, 2017 at 12:13 Vital Signs Pain Intensity: 0 Vital Signs Past 12 Hours Date Time Temp Pulse Resp B/P (MAP) Pulse Ox O2 Delivery O2 Flow Rate FiO2 05/23/17 12:05 73 20 138/84 (102) 98 05/23/17 11:33 36.8 58 20 147/94 (111) 99 Nasal Cannula 2 05/23/17 09:45 36.3 80 22 152/74 (100) 96 Nasal Cannula 2 Notes Mental Status: alert / awake / arousable, participated in evaluation Pt Amnestic to Procedure: Yes Nausea / Vomiting: adequately controlled Pain: adequately controlled Airway Patency, RR, SpO2: stable & adequate BP & HR: stable & adequate Hydration State: stable & adequate Anesthetic Complications: no major complications apparent
== END | disposition home or self-care (01) ==
LOC: X.SURG 09:19
PROVIDERS: ATTEND Ophthalmology
DX: H26.9 Unspecified cataract (principal); I48.1 Persistent atrial fibrillation; I65.29 Occlusion and stenosis of unspecified carotid artery; I10 Essential (primary) hypertension; E78.5 Hyperlipidemia, unspecified; K21.9 Gastro-esophageal reflux disease without esophagitis; J45.909 Unspecified asthma, uncomplicated; G62.9 Polyneuropathy, unspecified; Z87.891 Personal history of nicotine dependence; Z79.01 Long term (current) use of anticoagulants; Z99.81 Dependence on supplemental oxygen; Z79.899 Other long term (current) drug therapy

== ENCOUNTER → 2017-06-02 | Outpatient (CLI) | payer BC ==
[~2017-06-02] MED LIST changes: -500ML BSS 0.3ML EPI 1:1000PF IRRIG ONE; -ACETAMINOPHEN 325 MG TAB PO PRN; -AMVISC PLUS 0.8ML SYRINGE INT OCU ONE; -ATROPINE SULFATE 0.1 MG/ML 5ML SYR IV PRN; +BRIM0.2S; +BROM0.07 OPL; -BSS FLUSH ONE; +CMD25 PO; +DIFL0.0519 OPL; -EpHEDrine SULFATE INJ 50 MG/ML AMP IV PRN; -EpINEphrine INJ 1MG/ML AMP 1 MG/ML AMP ONE; +GATI1SOL2 OPL; +HYDR-5688 PO; -LACTATED RINGER'S 1000ML 1,000 ML IV SCH; -LIDOCAINE 3.5% OPH GEL PER APPLICATION CHARGE ONE; -LIDOCAINE HCL 1% MPF 2 ML VIAL ONE; +METFTAB PO; -MIDAZOLAM HCL 1 MG/ML 2ML VIAL ONE; +MULT60CA PO; -OCUCOAT 1 ML SOLN IO ONE; -PHENYLEPHRINE HCL 10% OP SOLN PER DROP CHARGE OPL SCH; -POVIDONE-IODINE OP SOLN 30 ML BTL ONE; +PRD20 PO; -PROPARACAINE 0.5% OP SOLN PER DROP CHARGE OPL SCH; +RXC5 PO; +SENN-65 PO; -TOBRAMYCIN/DEXAMETHASONE OPH OINT PER APPLN CHARGE ONE; +WARF-237 PO
[2017-06-02 16:21] LABS: BASO % 0.3 %; BASO ABS # 0.02 K/uL (0-0.2); COMPLETE YES; HEMATOCRIT 47.8 % (37-47); IG% 0.3 %; LYMPH % 12.5 %; LYMPH ABS # 0.89 K/uL (1.2-3.4); MEAN CELL VOLUME 99.8 fL (80-100); MEAN CORPUSCULAR HEMOGLOBIN 32.4 pg (25-34); MEAN CORPUSCULAR HGB CONC 32.4 g/dl (32-36); MEAN PLATELET VOLUME 11.7 fL (7.4-10.4); NEUT % 77.9 %; PLATELET COUNT 165 K/uL (130-400); RED BLOOD COUNT 4.79 M/uL (4.2-5.4); WHITE BLOOD COUNT 7.12 K/uL (4.8-10.8)
[2017-06-02 16:29] LABS: INR 2.6 (0.9-1.1); PROTHROMBIN TIME (PATIENT) 27.1 SECONDS (9.0-12.0)
[2017-06-02 16:43] LABS: BLOOD UREA NITROGEN 28 mg/dl (7-18); CALCIUM 9.7 mg/dl (8.5-10.1); CARBON DIOXIDE 31 mmol/L (21-32); CHLORIDE 101 mmol/L (98-107); CREATININE 1.16 mg/dl (0.60-1.20); GLUCOSE 103 mg/dl (70-99); POTASSIUM 4.5 mmol/L (3.5-5.1); SODIUM 137 mmol/L (136-145)
== END | disposition home or self-care (01) ==
LOC: C.LAB1850 14:28
PROVIDERS: ATTEND Internal Medicine
DX: Z51.81 Encounter for therapeutic drug level monitoring (principal); Z79.01 Long term (current) use of anticoagulants; I27.20 Pulmonary hypertension, unspecified; I48.1 Persistent atrial fibrillation

== ENCOUNTER 2017-06-07 18:29 | Emergency (ER) | payer BC ==
[~2017-06-07] VITALS: Ht 152.4 cm; Wt 150.0 kg
[~2017-06-07 18:29] MED LIST changes: -BRIM0.2S; -BROM0.07 OPL; -CMD25 PO; -DIFL0.0519 OPL; -GATI1SOL2 OPL; -HYDR-5688 PO; -METFTAB PO; -MULT60CA PO; +NITR-90 PO; -NITR100C2 PO; -PRD20 PO; -RXC5 PO; -SENN-65 PO; -WARF-237 PO
[2017-06-07 18:33] VITALS: PULSE 68; TEMP 36.5; O2SAT 97; Ht 152.4 cm; Wt 150.0 kg
[2017-06-07] MEDS ORDERED: WARF-237 PO (19:07)
[2017-06-07] MEDS ORDERED: OXGN (19:07)
[2017-06-07] MEDS ORDERED: MULT60CA PO (19:07)
[2017-06-07] MEDS ORDERED: CMD25 PO (19:07)
[2017-06-07] MEDS ORDERED: HYDR-5688 PO (19:32)
[2017-06-07] MEDS ORDERED: NORCO 5/325MG HOME PACK PO ONE (19:45)
[2017-06-07 19:54] VITALS: BP 130/70
--- NOTE | 2017-06-08 20:18 | EMERGENCY ROOM VISIT NOTE ---
ED Visit Note First contact with patient: 18:50 Chief Complaint: Lower back pain. History of Present Illness: Ms. Mckenzie is a 71-year-old white female who ambulates into the ED accompanied by male friend complaining of lumbar back pain. Historically patient reports she has chronic lumbar back pain. She reports 4 nights ago she make reservations to sleep in a hotel while visiting family. She requested a special bed that was able to elevate her back. They did not give her her special bed and she propped herself up in the bed. She slept in the bed for 3 nights. She reports after the first night she started experiencing back pain. Since that time her pain is been gradually increasing. Currently she describes a constant achy sensation in the L5-S1 area and the bilateral sacroiliac joint area while at rest. She rates this discomfort 3/10. Her pain worsens with all movements at the waist. Her pain escalates to the level of 7/10 with movement and standing. She has been using acetaminophen at home for pain without relief. She denies any associated symptoms including fevers, chills, sweats, skin eruptions, skin color changes, recent direct trauma to her back, abdominal pain, nausea, vomiting, diarrhea, constipation, rectal bleeding, black/tarry stools, urinary symptoms, hematuria, vaginal bleeding, vaginal discharge, genital paresthesias, bowel and bladder dysfunction , lower extremity weakness/numbness/tingling. Review of Systems: As noted above in history of present illness. 8 body systems were reviewed and found to be negative as noted above. Past Medical History: As noted previously and (1) Afib (2) Asthma (3) GERD (gastroesophageal reflux disease) (4) Gout (5) Hyperlipidemia (6) Hypertension (7) Morbid obesity (8) Osteoarthritis (9) Osteoporosis (10) Psoriasis (11) Pulmonary hypertension (12) UTI (urinary tract infection) (13) Venous stasis dermatitis Surgical Problems: (1) History of tonsillectomy (2) History of total knee replacement (3) History of wisdom tooth extraction Current Medications: Medications Dose Route/Sig Max Daily Dose Days Date Category Dose Instructions Coumadin (Warfarin Sod) 10 Mg Tab 10 Mg PO 2XWK 30 06/07/17 Reported TAKES WEDNESDAYS AND SATURDAYS. Coumadin (Warfarin Sod) 2.5 Mg Tab 7.5 Mg PO 5XWK 06/07/17 Reported TAKES WITH 5 MG FOR TOTAL DOSE OF 7.5 MG. EVERY DAY EXCEPT WED & SAT. Oxygen Gas 2 Liters NA CONTINOUS 06/07/17 Reported MAY INCREASE TO 3 LITER WITH EXCERTION. Preservision Areds 2 (Multiple Vitamins W/ Minerals) 1 Cap Cap 2 Tabs PO DAILY 06/07/17 Reported Tylenol (Acetaminophen) 500 Mg Tab 500 Mg PO BID PRN 04/27/17 Reported Lasix (Furosemide) 40 Mg Tab 40 Mg PO QAM 04/27/17 Reported Nitrofurantoin Macrocryst (Nitrofurantoin Macrocrystal) 100 Mg Cap 100 Cap PO HS 03/08/17 Reported Magnesium (Magnesium Oxide (Mg Supplement) 500 Mg Tab 500 Mg PO BID 11/22/16 Reported Allopurinol 300 Mg Tab 300 Mg PO QAM 11/22/16 Reported Plendil Er (Felodipine) 2.5 Mg Tab 5 Mg PO QPM 04/05/15 Reported Multivitamin (Multivitamins) Tab 0.5 Tab PO BID 01/16/15 Reported Vitamin B1 (Thiamine Mononitrate) 100 Mg Tab 100 Mg PO BID 01/16/15 Reported Myrbetriq Er (Mirabegron) 50 Mg Tab 50 Mg PO QAM 01/16/15 Reported Aldactone (Spironolactone) 25 Mg Tab 25 Mg PO QAM 01/16/15 Reported Lopressor (Metoprolol Tartrate) 25 Mg Tab 25 Mg PO BID 01/16/15 Reported Protonix (Pantoprazole Sodium) 40 Mg Tab 40 Mg PO QAM 01/16/15 Reported Lipitor (Atorvastatin Calcium) 40 Mg Tab 40 Mg PO QPM 01/16/15 Reported Allergies to Medications: Cephalexin, IV contrast, lorazepam, penicillin, ketoprofen, trimethoprim. Social History: Patient is not employed; she feels safe in her home environment ; she denies tobacco use. Physical Examination: Vital Signs: Date Time Temp Pulse Resp B/P (MAP) Pulse Ox O2 Delivery O2 Flow Rate FiO2 06/07/17 19:54 130/70 06/07/17 18:33 36.5 68 20 97 Nasal Cannula GENERAL: 71-year-old female in mild to moderate distress due to pain, nontoxic- appearing, afebrile and hemodynamically stable. NEUROLOGICAL: Awake, alert and oriented to person, place and time. Answering questions appropriately and following commands. Normal gait. SKIN: Warm, dry and pink. HEENT: Atraumatic and normocephalic. BACK: No tenderness over the bony cervical and thoracic spine. Mild tenderness in the lumbar L5-S1 area with no bony deformity, bony crepitus, step- offs, swelling or ecchymosis. Mild tenderness in the surrounding paraspinous musculature without spasm. Decreased range of motion in all movements at the waist. No CVA tenderness. THORAX: Lungs sounds are clear to auscultation and equal bilaterally with symmetrical chest wall. ABDOMEN: Obese, soft and nontender. Positive bowel sounds in all quadrants. No guarding, rigidity or organomegaly. LOWER EXTREMITIES: No gross bony deformity. No shortening or malrotation. No tenderness in the hips, knees, ankles or feet. 4/5 muscle strength in all movements of the hips, knees and ankles. 2+ patellar and Achilles tendon reflexes. She was able to distinguish light sensations through all dermatomes. Feet were warm and pink and capillary refill is brisk. ED Course: Patient is assessed as noted above. Patient's medication list was reviewed. Patient's case was reviewed with Dr. Park; we agreed on diagnostic approach, treatment, disposition and plan. Patient was educated about today's findings and instructed on her treatment plan ; she verbalized understanding and agreement with this plan. Clinical Impression: Lumbar back pain. Disposition: Patient discharged home in stable condition accompanied by her son ; prior to departure she was reassessed and rated her discomfort 6/10. Plan: Patient was encouraged to continue current medication as prescribed. Comfort measures were discussed including the use of a sliding pain medication scale of acetaminophen and [place]; she was given appropriate narcotic precautions and her name was checked in the state database and no red flags were noted. Patient was encouraged to contact her family doctor tomorrow and request follow- up care and treatment. Patient was encouraged return ED for worsening/uncontrolled pain, radiating pain down her legs, leg weakness/numbness/tingling, fevers or any new/ concerning symptoms.
[2017-06-16] MEDS ORDERED: FURO40TA3 PO (16:54)
[2017-06-16] MEDS ORDERED: METFTAB PO (16:54)
[2017-06-16] MEDS ORDERED: RXC5 PO ×2 (16:54→17:44)
[2017-06-16] MEDS ORDERED: PRD20 PO (16:54)
[2017-06-16] MEDS ORDERED: SENN-65 PO ×2 (17:29→17:44)
[2017-07-04] MEDS ORDERED: OXGN (13:49)
[2017-07-04] MEDS ORDERED: WARF5TAB7 PO (13:49)
[2017-07-04] MEDS ORDERED: BRIM0.2S OPL (13:49)
[2017-07-04] MEDS ORDERED: FURO40TA3 PO (13:49)
== END 2017-06-07 19:55 | disposition home or self-care (01) ==
LOC: C.EDB 18:30 → C.EDD 19:55
DX: M54.5 Low back pain (principal); I48.91 Unspecified atrial fibrillation; E78.5 Hyperlipidemia, unspecified; I10 Essential (primary) hypertension; K21.9 Gastro-esophageal reflux disease without esophagitis; M19.90 Unspecified osteoarthritis, unspecified site; M81.0 Age-related osteoporosis without current pathological fracture; M10.9 Gout, unspecified; J45.909 Unspecified asthma, uncomplicated; Z87.440 Personal history of urinary (tract) infections; Z98.890 Other specified postprocedural states; Z79.01 Long term (current) use of anticoagulants; Z79.899 Other long term (current) drug therapy; Z88.0 Allergy status to penicillin; Z88.8 Allergy status to other drugs, medicaments and biological substances; Z91.041 Radiographic dye allergy status

== ENCOUNTER 2017-06-13 17:01 | Inpatient (IN) | payer BC, OTHER ==
[~2017-06-13] VITALS: Ht 152.4 cm; Wt 154.9 kg
[~2017-06-13 17:01] MED LIST changes: +CMD25 PO; +HYDR-5688 PO; -MULT-190 PO; +MULT60CA PO; -NITR-90 PO; +NITR100C2 PO; +WARF-237 PO; -WARF-281 PO; -WARF2.5T8 PO
[2017-06-13] MEDS ORDERED: ONDANSETRON INJ 2 MG/ML 2 ML VIAL IV STA (18:18)
--- NOTE | 2017-06-13 18:28 | EMERGENCY ROOM VISIT NOTE ---
History Report prepared by Mary: Slime Garibay Under the Supervision of: Dr. Rah Sandhu D.O. First contact with patient: 18:12 Chief Complaint: PAIN (GENERALIZED) Stated Complaint: BACK PAIN, LT LEG AND FOOT PAIN, SOB History of Present Illness The patient is a 71 year old female who presents to the Emergency Room with complaints of constant back pain beginning Monday, six days ago. The patient was in the ED on Monday for back pain and was told to follow up with her primary and given pain medication. She was seen by a PA on Monday, four days ago , who recommended the patient to go to physical therapy. Per son, the patient was in so much pain over the weekend she was unable to get out of her recliner for two days. Her pain is relieved with sitting and worsens with standing. The patient has had x-rays of her back before but not any MRI or CTs. She denies any numbness to her legs. She notes some chest heaviness and difficulty breathing yesterday which resolved when she turned up her nasal cannula oxygen. The patient wears nasal cannula oxygen at baseline. She is on Coumadin for atrial fibrillation. The patient was in [employer] in 2012. She has a history of three knee replacements. Source of History: patient Onset: 6 days ago Position: back Timing: constant Modifying Factors (Worsening): other (standing) Modifying Factors (Relieving): other (sitting) Associated Symptoms: No numbness Review of Systems See HPI for pertinent positives & negatives. A total of 10 systems reviewed and were otherwise negative. Past Medical & Surgical Medical Problems: (1) Afib (2) Asthma (3) Gait abnormality (4) GERD (gastroesophageal reflux disease) (5) Gout (6) Hyperlipidemia (7) Hypertension (8) Morbid obesity (9) Osteoarthritis (10) Osteoporosis (11) Psoriasis (12) Pulmonary hypertension (13) UTI (urinary tract infection) (14) Venous stasis dermatitis Surgical Problems: (1) History of tonsillectomy (2) History of total knee replacement (3) History of wisdom tooth extraction Family History FHx: heart disease FHx: hypertension FHx: lung disease FHx: seizures Social History Smoking Status: Former Smoker Alcohol Use: occasionally Drug Use: none Marital Status: Housing Status: lives alone Occupation Status: retired Current/Historical Medications Scheduled Allopurinol (Allopurinol), 300 MG PO QAM Atorvastatin (Lipitor), 40 MG PO QPM Bromfenac Sodium (Ophth) (Prolensa), 1 DROP OPL DAILY Difluprednate (Durezol), 1 DROP OPL BID Felodipine (Plendil Er), 5 MG PO QPM Furosemide (Lasix), 40 MG PO QAM Gatifloxacin (Ophth) (Gatifloxacin), 1 DROP OPL TID Home O2 Therapy (Oxygen), 2 LITERS NA CONTINOUS Magnesium Oxide (Mg Supplement (Magnesium), 500 MG PO BID Metoprolol Tartrate (Lopressor) (Lopressor), 25 MG PO BID Mirabegron (Myrbetriq Er), 50 MG PO QAM Multiple Vitamins W/ Minerals (Preservision Areds 2), 2 TABS PO DAILY Multivitamin (Multivitamin), 0.5 TAB PO BID Nitrofurantoin Macrocrystal (Nitrofurantoin Macrocryst), 100 CAP PO HS Pantoprazole (Protonix), 40 MG PO QAM Spironolactone (Aldactone), 25 MG PO QAM Thiamine Mononitrate (Vitamin B1), 100 MG PO BID Warfarin Sod (Coumadin), 7.5 MG PO 5XWK Warfarin Sod (Coumadin), 10 MG PO 2XWK Scheduled PRN Acetaminophen (Tylenol), 500 MG PO BID PRN for Pain Hydrocodone/Acetaminophen 5MG/325MG ([place] 5MG/325MG), 1 TABLET PO Q6H PRN for Pain Miscellaneous Medications Brimonidine Tartrate-Timolol M (Combigan) Allergies Coded Allergies: Ketoprofen (Verified Allergy, Severe, NUMBNESS FROM WAIST DOWN SEVERAL MONTHS, 06/13/17) Lorazepam (Verified Allergy, Severe, pt EXTREMELY sensitive, 06/13/17) Per MD please do NOT administer Ativan for [id number] admission (at a minimum) Penicillins (Verified Allergy, Severe, SEVERE RASH, 06/13/17) Trimethoprim (Verified Allergy, Severe, ELEVATED POTASSIUM LEVELS, 06/13/17) Cephalexin (Verified Allergy, Intermediate, ITCHING, 06/13/17) Iodinated Contrast Media (Verified Adverse Reaction, Severe, PAIN AT INJECTION SITE AND UP THE BONES, 06/13/17) Physical Exam Vital Signs Date Time Temp Pulse Resp B/P (MAP) Pulse Ox O2 Delivery O2 Flow Rate FiO2 06/14/17 00:38 78 06/13/17 23:09 76 21 116/99 96 Nasal Cannula 3.0 06/13/17 22:39 76 20 133/77 94 Nasal Cannula 3.0 06/13/17 20:50 76 18 153/95 95 Nasal Cannula 3.0 06/13/17 20:43 79 06/13/17 19:10 79 18 164/98 96 Nasal Cannula 2.0 06/13/17 17:24 36.4 89 22 94 Nasal Cannula 3.0 Physical Exam GENERAL: Patient is awake, alert, and in no acute distress. Patient is very anxious appearing and in moderate pain. Severe difficulty with ambulation noted.Very antalgic gait noted. EYES: The conjunctivae are clear. The pupils are round and reactive. EARS, NOSE, MOUTH AND THROAT: The nose is without any evidence of any deformity. Mucous membranes are moist tongue is midline NECK: The neck is nontender and supple. RESPIRATORY:Lung sounds diminished throughout, scattered rhonchi throughout. CARDIOVASCULAR: Regular rate and rhythm noted there no murmurs rubs or gallops normal S1 normal S2 GASTROINTESTINAL: The abdomen is soft. Bowel sounds are present in all quadrants. Abdomen is nontender BACK: Low lumbar tenderness to palpation. ROM limited secondary to pain. MUSCULOSKELETAL/EXTREMITIES: There is no evidence of gross deformity full range of motion is noted in the hips and shoulders SKIN: Skin severe stasis dermatitis, severe pedal edema. NEUROLOGIC: Patient is awake alert and oriented x3. Medical Decision & Procedures ER Provider Diagnostic Interpretation: Radiology results as stated below per my review and radiologist interpretation: CHEST ONE VIEW PORTABLE FINDINGS: Moderate cardiomegaly. Prominent pulmonary vasculature. Slight blunting lateral calcific angles. IMPRESSION: Congestive heart failure The above report was generated using voice recognition software. It may contain grammatical, syntax or spelling errors. Electronically signed by: Rick Adamson M.D. LUMBAR SPINE WITHOUT FINDINGS: There is a battery pack projecting over the right lower back with partially imaged single lead noted adjacent to the posterior aspect of the right mid sacrum. Moderate atherosclerosis of the aorta. Small bilateral pleural effusions with bibasilar groundglass opacities suggesting atelectasis. Tiny sliding-type hiatal hernia. No acute fracture or subluxation of the lumbar spine identified. The bones appear moderately demineralized. Severe multilevel facet arthropathy is noted along with multilevel Schmorl's nodes, endplate spurring and discogenic degenerative changes. Vacuum disc phenomenon noted at all levels. No compression deformity identified. No definite high-grade central canal narrowing. Degenerative changes are also seen involving the bilateral SI joints. IMPRESSION: 1. Moderately demineralized appearance of the bones without acute fracture or subluxation identified. 2. Multilevel advanced facet arthropathy, spondylosis and vacuum disc phenomenon. 3. Small bilateral pleural effusions with bibasilar opacities suggesting atelectasis. The above report was generated using voice recognition software. It may contain grammatical, syntax or spelling errors. Electronically signed by: Walker Toussaint M.D. Laboratory Results 06/13/17 19:10 Red Blood Count 5.27, Mean Corpuscular Volume 99.6, Mean Corpuscular Hemoglobin 33.0, Mean Corpuscular Hemoglobin Concent 33.1, Mean Platelet Volume 12.1, Neutrophils (%) (Auto) 84.7, Lymphocytes (%) (Auto) 6.9, Monocytes (%) (Auto) 7.4, Eosinophils (%) (Auto) 0.7, Basophils (%) (Auto) 0.1, Neutrophils # (Auto) 7.60, Lymphocytes # (Auto) 0.62, Monocytes # (Auto) 0.66, Eosinophils # (Auto) 0.06, Basophils # (Auto) 0.01 Test 06/13/17 19:10 White Blood Count 8.97 K/uL (4.8-10.8) Red Blood Count 5.27 M/uL (4.2-5.4) Hemoglobin 17.4 g/dL (12.0-16.0) Hematocrit 52.5 % (37-47) Mean Corpuscular Volume 99.6 fL (80-100) Mean Corpuscular Hemoglobin 33.0 pg (25-34) Mean Corpuscular Hemoglobin Concent 33.1 g/dl (32-36) Platelet Count 184 K/uL (130-400) Mean Platelet Volume 12.1 fL (7.4-10.4) Neutrophils (%) (Auto) 84.7 % Lymphocytes (%) (Auto) 6.9 % Monocytes (%) (Auto) 7.4 % Eosinophils (%) (Auto) 0.7 % Basophils (%) (Auto) 0.1 % Neutrophils # (Auto) 7.60 K/uL (1.4-6.5) Lymphocytes # (Auto) 0.62 K/uL (1.2-3.4) Monocytes # (Auto) 0.66 K/uL (0.11-0.59) Eosinophils # (Auto) 0.06 K/uL (0-0.5) Basophils # (Auto) 0.01 K/uL (0-0.2) RDW Standard Deviation 53.0 fL (36.4-46.3) RDW Coefficient of Variation 14.6 % (11.5-14.5) Immature Granulocyte % (Auto) 0.2 % Immature Granulocyte # (Auto) 0.02 K/uL (0.00-0.02) Prothrombin Time 27.2 SECONDS (9.0-12.0) Prothromb Time International Ratio 2.6 (0.9-1.1) Activated Partial Thromboplast Time 42.3 SECONDS (21.0-31.0) Partial Thromboplastin Ratio 1.6 Total Bilirubin 1.0 mg/dl (0.2-1) Direct Bilirubin 0.3 mg/dl (0-0.2) Aspartate Amino Transf (AST/SGOT) 31 U/L (15-37) Alanine Aminotransferase (ALT/SGPT) 34 U/L (12-78) Alkaline Phosphatase 156 U/L (45-117) Troponin I < 0.015 ng/ml (0-0.045) Total Protein 9.6 gm/dl (6.4-8.2) Albumin 3.0 gm/dl (3.4-5.0) Lipase 202 U/L (73-393) Laboratory results per my review. Medications Administered Medications (Trade) Dose Ordered Sig/Annetta Route Start Time Stop Time Status Last Admin Dose Admin Morphine Sulfate (MoRPHine SULFATE INJ) 4 mg Q15M PRN IV 06/13/17 18:30 06/14/17 02:35 DC 06/14/17 01:52 4 MG Ondansetron HCl (Zofran Inj) 4 mg NOW STAT IV 06/13/17 18:18 06/13/17 18:21 DC 06/13/17 19:18 4 MG ED Course 1815: The patient was evaluated in room B12B. A complete history and physical examination were performed. 1817: Ordered Zofran Inj 4 mg IV. 1829: Ordered Morphine Sulfate 4 mg IV. 2227: I discussed the patient's case with Dr. Valdez. The patient will be evaluated for further management. Medical Decision Differential diagnosis: Etiologies such as musculoskeletal, disc herniation, fracture, aortic disease, metastatic disease, cord compression, discitis, infection, renal colic, gastrointestinal, acute exacerbation of chronic back pain, sciatica, cauda equina, as well as others were entertained. Nursing notes reviewed. Additional history is obtained from the patient's son. The patient is a 71-year-old female who presented to the emergency department for an evaluation of severe pain. The patient's had very severe back pain and unable to ambulate. She's not caring for herself. She does not make it to the bathroom and smells of urine at this time. She is morbidly obese and I'm very concerned about her overall living condition at home. The patient was treated with pain medication in the emergency department. I discussed the patient's laboratory and radiographic studies with her and her son. I also discussed her case with the on-call [facility] hospitalist. They've agreed to evaluate the patient in the emergency department for further management and disposition. The patient may require placement in rehabilitation until she is feeling better and can care for herself as usual. Medication Reconcilliation Current Medication List: was personally reviewed by me Blood Pressure Screening Patient's blood pressure: Elevated blood pressure Blood pressure disposition: Referred to PCP (evaluated by hospitalist) Consults Time Called: 2227 Consulting Physician: Dr. Valdez Returned Call: 2227 I discussed the patient's case with Dr. Valdez. The patient will be evaluated for further management. Impression Primary Impression: Sciatica Additional Impression: Intractable back pain Scribe Attestation The scribe's documentation has been prepared under my direction and personally reviewed by me in its entirety. I confirm that the note above accurately reflects all work, treatment, procedures, and medical decision making performed by me. Departure Information Dispostion Being Evaluated By Hospitalist Referrals ,Rah Gaines M.D. (PCP) Patient Instructions My [facility] Problem Qualifiers Primary Impression: Sciatica Laterality: unspecified laterality Qualified Codes: M54.30 - Sciatica, unspecified side
--- NOTE | 2017-06-13 18:38 | DIAGNOSTIC IMAGING REPORT ---
CHEST ONE VIEW PORTABLE CLINICAL HISTORY: CP dyspnea COMPARISON STUDY: 03/08/2017 FINDINGS: Moderate cardiomegaly. Prominent pulmonary vasculature. Slight blunting lateral calcific angles. IMPRESSION: Congestive heart failure The above report was generated using voice recognition software. It may contain grammatical, syntax or spelling errors. Electronically signed by: Rick Adamson M.D. 06/13/2017 6:37 PM Dictated Date/Time: 06/13/2017 6:36 PM
[2017-06-13] MEDS: MoRPHine SULFATE 4 MG/ML 1 ML CARP\\VIAL IV PRN (19:18)
[2017-06-13 19:43] LABS: BASO % 0.1 %; BASO ABS # 0.01 K/uL (0-0.2); EOS % 0.7 %; EOS ABS # 0.06 K/uL (0-0.5); HEMATOCRIT 52.5 % (37-47); HEMOGLOBIN 17.4 g/dL (12.0-16.0); IG# 0.02 K/uL (0.00-0.02); LYMPH % 6.9 %; LYMPH ABS # 0.62 K/uL (1.2-3.4); MEAN CELL VOLUME 99.6 fL (80-100); MEAN CORPUSCULAR HGB CONC 33.1 g/dl (32-36); MEAN PLATELET VOLUME 12.1 fL (7.4-10.4); MONO % 7.4 %; MONO ABS # 0.66 K/uL (0.11-0.59); NEUT % 84.7 %; PLATELET COUNT 184 K/uL (130-400); RED CELL DISTRIBUTION WIDTH CV 14.6 % (11.5-14.5); WHITE BLOOD COUNT 8.97 K/uL (4.8-10.8)
--- NOTE | 2017-06-13 19:49 | DIAGNOSTIC IMAGING REPORT ---
LUMBAR SPINE WITHOUT HISTORY: 71 years-old Female severe LBP acute severe low back and left leg pain without reported trauma COMPARISON: Lumbar spine radiographs 11/21/2012 TECHNIQUE: Multiple axial CT images of the lumbar spine were obtained without contrast. A dose lowering technique was used consistent with the principals of [place]. FINDINGS: There is a battery pack projecting over the right lower back with partially imaged single lead noted adjacent to the posterior aspect of the right mid sacrum. Moderate atherosclerosis of the aorta. Small bilateral pleural effusions with bibasilar groundglass opacities suggesting atelectasis. Tiny sliding-type hiatal hernia. No acute fracture or subluxation of the lumbar spine identified. The bones appear moderately demineralized. Severe multilevel facet arthropathy is noted along with multilevel Schmorl's nodes, endplate spurring and discogenic degenerative changes. Vacuum disc phenomenon noted at all levels. No compression deformity identified. No definite high-grade central canal narrowing. Degenerative changes are also seen involving the bilateral SI joints. IMPRESSION: 1. Moderately demineralized appearance of the bones without acute fracture or subluxation identified. 2. Multilevel advanced facet arthropathy, spondylosis and vacuum disc phenomenon. 3. Small bilateral pleural effusions with bibasilar opacities suggesting atelectasis. The above report was generated using voice recognition software. It may contain grammatical, syntax or spelling errors. Electronically signed by: Walker Toussaint M.D. 06/13/2017 7:48 PM Dictated Date/Time: 06/13/2017 7:41 PM
[2017-06-13 19:58] LABS: INR 2.6 (0.9-1.1); PTT PATIENT 42.3 SECONDS (21.0-31.0)
[2017-06-13 20:19] LABS: ALT/SGPT 34 U/L (12-78); AST/SGOT 31 U/L (15-37); BLOOD UREA NITROGEN 28 mg/dl (7-18); CARBON DIOXIDE 31 mmol/L (21-32); CREATININE 1.14 mg/dl (0.60-1.20); GLUCOSE 118 mg/dl (70-99); LIPASE 202 U/L (73-393); POTASSIUM 4.2 mmol/L (3.5-5.1); SODIUM 133 mmol/L (136-145)
[2017-06-13] MEDS ORDERED: DIFL0.0519 OPL (20:31)
[2017-06-13] MEDS ORDERED: GATI1SOL2 OPL (20:31)
[2017-06-13] MEDS ORDERED: BROM0.07 OPL (20:31)
[2017-06-13 20:32] LABS: ALKALINE PHOSPHATASE 156 U/L (45-117); TOTAL PROTEIN 9.6 gm/dl (6.4-8.2)
[2017-06-14] MEDS ORDERED: MAGNESIUM HYDROXIDE SUSP 30 ML UDC PO PRN (00:30)
[2017-06-14] MEDS ORDERED: ONDANSETRON INJ 2 MG/ML 2 ML VIAL IV PRN (00:30)
[2017-06-14] MEDS ORDERED: POLYETHYLENE (MIRALAX) 17 GM PACK PO PRN (00:30)
[2017-06-14] MEDS ORDERED: ALUMINUM/MAGNESIUM/SIMETH (MAALOX MAX) 30 ML UDC PO PRN (00:30)
[2017-06-14] MEDS ORDERED: ACETAMINOPHEN 325 MG TAB PO PRN (00:30)
[2017-06-14] MEDS ORDERED: HYDROCODONE/ACETAMOPHEN 5/325MG TAB PO PRN (00:45)
--- NOTE | 2017-06-14 00:57 | History and Physical ---
History & Physical Date & Time of Service: Jun 14, 2017 at 00:22 Chief Complaint: Back Pain, Lt Leg And Foot Pain, Sob Primary Care Physician: Rah Ambrocio M.D. History of Present Illness Source: patient 71 y/o F Hx diastolic CHF, pulmonary HTN, restrictive lung disease, obesity and hypoventilation, chronic AF, HTN, lumbar spinal disease. The pt normally ambulates and is able to help manage her own care. She has had increasing LBP over the past few days and cannot now ambulate due to excessive pain. She denies fevers, SOB above baseline, CP, N/V/D or dysuria. As she is unable to manage at home and does not have family that can tend to her continuously, we will admit the pt for further evaluation and transfer to rehab as possible. Past Medical/Surgical History 1) Restricitve lung disease due to obesity 2) Grade II diastolic CHF - preserved EF 3) Pulmonary hypertension 4) Chronic respiratory failure - obesity hypoventilation 5) Morbid obesity 6) Chronic atrial fibrillation 7) HTN 8) Chronic back pain 9) Lumbar spine degenerative disease 10) Psoriasis Family History FHx: heart disease FHx: hypertension FHx: lung disease FHx: seizures Social History Smoking Status: Former Smoker Drug Use: none Marital Status: Housing status: lives alone Occupational Status: retired Immunizations History of Influenza Vaccine: Yes Influenza Vaccine Date: Mar 09, 2013 History of Tetanus Vaccine?: No History of Pneumococcal: No History of Hepatitis B Vaccine: No Multi-Drug Resistant Organisms History of MDRO: No Allergies Coded Allergies: Ketoprofen (Verified Allergy, Severe, NUMBNESS FROM WAIST DOWN SEVERAL MONTHS, 06/13/17) Lorazepam (Verified Allergy, Severe, pt EXTREMELY sensitive, 06/13/17) Per MD please do NOT administer Ativan for [id number] admission (at a minimum) Penicillins (Verified Allergy, Severe, SEVERE RASH, 06/13/17) Trimethoprim (Verified Allergy, Severe, ELEVATED POTASSIUM LEVELS, 06/13/17) Cephalexin (Verified Allergy, Intermediate, ITCHING, 06/13/17) Iodinated Contrast Media (Verified Adverse Reaction, Severe, PAIN AT INJECTION SITE AND UP THE BONES, 06/13/17) Home Medications Scheduled Allopurinol (Allopurinol), 300 MG PO QAM Atorvastatin (Lipitor), 40 MG PO QPM Bromfenac Sodium (Ophth) (Prolensa), 1 DROP OPL DAILY Difluprednate (Durezol), 1 DROP OPL BID Felodipine (Plendil Er), 5 MG PO QPM Furosemide (Lasix), 40 MG PO QAM Gatifloxacin (Ophth) (Gatifloxacin), 1 DROP OPL TID Home O2 Therapy (Oxygen), 2 LITERS NA CONTINOUS Magnesium Oxide (Mg Supplement (Magnesium), 500 MG PO BID Metoprolol Tartrate (Lopressor) (Lopressor), 25 MG PO BID Mirabegron (Myrbetriq Er), 50 MG PO QAM Multiple Vitamins W/ Minerals (Preservision Areds 2), 2 TABS PO DAILY Multivitamin (Multivitamin), 0.5 TAB PO BID Nitrofurantoin Macrocrystal (Nitrofurantoin Macrocryst), 100 CAP PO HS Pantoprazole (Protonix), 40 MG PO QAM Spironolactone (Aldactone), 25 MG PO QAM Thiamine Mononitrate (Vitamin B1), 100 MG PO BID Warfarin Sod (Coumadin), 7.5 MG PO 5XWK Warfarin Sod (Coumadin), 10 MG PO 2XWK Scheduled PRN Acetaminophen (Tylenol), 500 MG PO BID PRN for Pain Hydrocodone/Acetaminophen 5MG/325MG ([place] 5MG/325MG), 1 TABLET PO Q6H PRN for Pain Review of Systems Constitutional: No fever, No chills, No sweats Eyes: No worsening of vision ENT: No hearing loss, No nasal symptoms Respiratory: No cough, No wheezing Cardiovascular: No chest pain, No orthopnea, No PND Abdomen: No pain, No nausea, No vomiting Musculoskeletal: + joint pain (Chronic back pain - worse over past few days) Genitourinary - Female: No dysuria, No urinary frequency Neurologic: No memory loss, No weakness Psychiatric: No depression symptoms Endocrine: No fatigue Hematologic / Lymphatic: No abnormal bleeding/bruising Integumentary: No rash Allergic / Immunologic: No environmental allergies Physical Exam Vital Signs Date Time Temp Pulse Resp B/P (MAP) Pulse Ox O2 Delivery O2 Flow Rate FiO2 06/13/17 23:09 76 21 116/99 96 Nasal Cannula 3.0 06/13/17 22:39 76 20 133/77 94 Nasal Cannula 3.0 06/13/17 20:50 76 18 153/95 95 Nasal Cannula 3.0 06/13/17 20:43 79 06/13/17 19:10 79 18 164/98 96 Nasal Cannula 2.0 06/13/17 17:24 36.4 89 22 94 Nasal Cannula 3.0 General Appearance: WD/WN, no apparent distress, + pertinent finding (Obese, elderlt female - pleasant - in no distress) Head: normocephalic ENT: normal ENT inspection, pharynx normal Neck: supple, + pertinent finding (cannot evaluate JVD) Respiratory/Chest: chest non-tender, + pertinent finding (limited exam - poor air movement ) Abdomen/GI: normal bowel sounds, non tender, soft Back: normal inspection, no CVA tenderness Extremities/Musculoskelatal: + pedal edema 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, no motor/sensory deficits, oriented x 3 Skin: normal color, + pertinent finding (LE stasis changes) Diagnostics Laboratory Results Results Past 24 Hours Test 06/13/17 19:10 Range/Units White Blood Count 8.97 4.8-10.8 K/uL Red Blood Count 5.27 4.2-5.4 M/uL Hemoglobin 17.4 12.0-16.0 g/dL Hematocrit 52.5 37-47 % Mean Corpuscular Volume 99.6 80-100 fL Mean Corpuscular Hemoglobin 33.0 25-34 pg Mean Corpuscular Hemoglobin Concent 33.1 32-36 g/dl Platelet Count 184 130-400 K/uL Mean Platelet Volume 12.1 7.4-10.4 fL Neutrophils (%) (Auto) 84.7 % Lymphocytes (%) (Auto) 6.9 % Monocytes (%) (Auto) 7.4 % Eosinophils (%) (Auto) 0.7 % Basophils (%) (Auto) 0.1 % Neutrophils # (Auto) 7.60 1.4-6.5 K/uL Lymphocytes # (Auto) 0.62 1.2-3.4 K/uL Monocytes # (Auto) 0.66 0.11-0.59 K/uL Eosinophils # (Auto) 0.06 0-0.5 K/uL Basophils # (Auto) 0.01 0-0.2 K/uL RDW Standard Deviation 53.0 36.4-46.3 fL RDW Coefficient of Variation 14.6 11.5-14.5 % Immature Granulocyte % (Auto) 0.2 % Immature Granulocyte # (Auto) 0.02 0.00-0.02 K/uL Prothrombin Time 27.2 9.0-12.0 SECONDS Prothromb Time International Ratio 2.6 0.9-1.1 Activated Partial Thromboplast Time 42.3 21.0-31.0 SECONDS Partial Thromboplastin Ratio 1.6 Sodium Level 133 136-145 mmol/L Potassium Level 4.2 3.5-5.1 mmol/L Chloride Level 99 98-107 mmol/L Carbon Dioxide Level 31 21-32 mmol/L Anion Gap 3.0 3-11 mmol/L Blood Urea Nitrogen 28 7-18 mg/dl Creatinine 1.14 0.60-1.20 mg/dl Estimated GFR () 55.2 Estimated GFR (Non- 47.7 BUN/Creatinine Ratio 24.7 10-20 Random Glucose 118 70-99 mg/dl Calcium Level 10.0 8.5-10.1 mg/dl Total Bilirubin 1.0 0.2-1 mg/dl Direct Bilirubin 0.3 0-0.2 mg/dl Aspartate Amino Transf (AST/SGOT) 31 15-37 U/L Alanine Aminotransferase (ALT/SGPT) 34 12-78 U/L Alkaline Phosphatase 156 45-117 U/L Troponin I < 0.015 0-0.045 ng/ml Total Protein 9.6 6.4-8.2 gm/dl Albumin 3.0 3.4-5.0 gm/dl Lipase 202 73-393 U/L Diagnostic Radiology CT lumbar: 1. Moderately demineralized appearance of the bones without acute fracture or subluxation identified. 2. Multilevel advanced facet arthropathy, spondylosis and vacuum disc phenomenon. 3. Small bilateral pleural effusions with bibasilar opacities suggesting atelectasis. CXR: CHF EKG AF - no evidence of acute ischemia Impression Assessment and Plan 71 y/o F Hx diastolic CHF, pulmonary HTN, restrictive lung disease, obesity and hypoventilation, chronic AF, HTN, lumbar spinal disease. The pt normally ambulates and is able to help manage her own care. She has had increasing LBP over the past few days and cannot now ambulate due to excessive pain. She denies fevers, SOB above baseline, CP, N/V/D or dysuria. As she is unable to manage at home and does not have family that can tend to her continuously, we will admit the pt for further evaluation and transfer to rehab as possible. 1) Back pain and impaired gait - to be evaluated by PT/OT. There are no acute findings on CT and she may exceed size/weight limitations for an MRI. If she is unable to participate in PT, we may consider an ortho evaluation. Pt may need permanent placement if she does not respond to rehab as her medical needs are complex. 2) Chronic resp failure - multifactorial due to hypoventilation, restrictive disease, pulmonary HTN, CHF - she is 02-dependent and currently at baseline 3) CHF - diastolic - due to dehydration, we have held her AM diuretics - would restart the following day or PM if she becomes SOB as we cannot assess her volume status clinically 4) AF - rate controlled with Metoprolol - anticoagulated with Coumadin - INR is therapeutic Full code - Coumadin prophylaxis Total time for this admit including review of labs, meds, imaging, records - discussion with pt and ER attending - 42 min Level of Care Med/Surg Resuscitation Status FULL RESUSCITATION VTE Prophylaxis Given or contraindicated: Warfarin (Coumadin)
[2017-06-14] MEDS ORDERED: IV FLUIDS COMPLETED PRN (01:30)
[2017-06-14] MEDS: MoRPHine SULFATE 4 MG/ML 1 ML CARP\\VIAL IV PRN ×2 (01:52→22:03)
[2017-06-14 02:30] VITALS: BP 120/78; PULSE 87; TEMP 37.1; O2SAT 93; Ht 152.4 cm; Wt 154.9 kg
[2017-06-14 07:04] VITALS: BP 145/84; PULSE 90; TEMP 37; O2SAT 90
[2017-06-14] MEDS ORDERED: SPIRONOLACTONE 25 MG TAB PO SCH (09:00)
[2017-06-14 09:15] LABS: CALCIUM 9.6 mg/dl (8.5-10.1); CREATININE 1.32 mg/dl (0.60-1.20); POTASSIUM 4.5 mmol/L (3.5-5.1)
[2017-06-14] MEDS: MAGNESIUM OXIDE 400 MG TAB PO SCH ×2 (09:31→21:39)
[2017-06-14] MEDS: METOPROLOL TARTRATE 25 MG TAB PO SCH ×2 (09:32→21:41)
[2017-06-14] MEDS: THIAMINE HCL 100 MG TAB PO SCH ×2 (09:32→20:00)
[2017-06-14] MEDS: MIRABEGRON ER 25 MG TAB PO SCH (09:32)
[2017-06-14] MEDS: ALLOPURINOL 300 MG TAB PO SCH (09:32)
[2017-06-14] MEDS: PANTOprazole SOD 40 MG TAB PO SCH (09:32)
[2017-06-14] MEDS ORDERED: BRIM0.2S (11:52)
[2017-06-14] MEDS ORDERED: NURSING DECISION MEDICATION ORDER SCH (13:00)
[2017-06-14] MEDS ORDERED: MICONAZOLE NITRATE POWDER 43 GM EXT PRN (13:30)
--- NOTE | 2017-06-14 13:43 | Progress Note ---
Progress Note Date of Service Jun 14, 2017. Progress Note Patient has severe non radiating chronic lumbar back pain. Patient will likely benefit from fentanyl patch and lidocaine patch. Patient is not a candidate for back surgery given her comorbidities as well as lack of radiating symptoms. Will hold of prednisone as patient is prediabetic. May consider f/u with pain clinic for an epidural. awaiting PT eval. Patient will likely require rehab,
[2017-06-14] MEDS ORDERED: NURSING VERBAL MED ORDER ONE ×2 (14:15→16:30)
[2017-06-14] MEDS ORDERED: FENTANYL PATCH REMOVE & WASTE SCH (15:14)
[2017-06-14] MEDS ORDERED: FENTANYL 12 MCG/HR TDSY TD SCH (15:15)
[2017-06-14 16:23] VITALS: PULSE 72; TEMP 36.5; O2SAT 95
[2017-06-14] MEDS: CHECK FENTANYL PATCH PLACEMENT SCH ×2 (16:24→23:48)
[2017-06-14] MEDS: WARFARIN SOD 7.5 MG TAB PO SCH (16:25)
[2017-06-14] MEDS: DIFLUPREDNATE 0.05% OP SCH (20:00)
[2017-06-14] MEDS ORDERED: BRIMONIDINE TARTRATE-TIMOLOL M 1 DROP BTL OP SCH (20:00)
[2017-06-14 21:32] VITALS: BP 166/77; PULSE 76
[2017-06-14] MEDS: ATORVASTATIN 40 MG TAB PO SCH (21:43)
[2017-06-14] MEDS: FELODIPINE 2.5 MG TABCR PO SCH (21:44)
[2017-06-14] MEDS: NITROFURANTOIN MONOHYDRATE 100 MG CAP PO SCH (21:45)
[2017-06-14] MEDS: BRIMONIDINE TARTRATE-TIMOLOL M 1 DROP BTL OPL SCH (23:57)
[2017-06-15 06:21] VITALS: BP 136/74
[2017-06-15 07:30] VITALS: BP 136/72
[2017-06-15 07:33] VITALS: PULSE 70; TEMP 36.6; O2SAT 94
[2017-06-15] MEDS ORDERED: PROLENSA 0.07% OP SCH (08:00)
[2017-06-15] MEDS: MoRPHine SULFATE 4 MG/ML 1 ML CARP\\VIAL IV PRN ×2 (09:30→17:40)
[2017-06-15] MEDS: THIAMINE HCL 100 MG TAB PO SCH ×2 (09:30→20:38)
[2017-06-15] MEDS: MAGNESIUM OXIDE 400 MG TAB PO SCH ×2 (09:31→20:38)
[2017-06-15] MEDS: MIRABEGRON ER 25 MG TAB PO SCH (09:31)
[2017-06-15] MEDS: PANTOprazole SOD 40 MG TAB PO SCH (09:31)
[2017-06-15] MEDS: METOPROLOL TARTRATE 25 MG TAB PO SCH ×2 (09:31→20:37)
[2017-06-15] MEDS: ALLOPURINOL 300 MG TAB PO SCH (09:32)
[2017-06-15] MEDS: LIDODERM (LIDOCAINE) PATCH 5% TD SCH (09:33)
[2017-06-15 09:36] LABS: INR 1.9 (0.9-1.1)
[2017-06-15] MEDS: BRIMONIDINE TARTRATE-TIMOLOL M 1 DROP BTL OPL SCH ×2 (09:36→20:40)
[2017-06-15] MEDS: CHECK FENTANYL PATCH PLACEMENT SCH ×3 (09:36→23:39)
[2017-06-15 09:53] LABS: CREATININE 1.12 mg/dl (0.60-1.20); POTASSIUM 4.6 mmol/L (3.5-5.1)
[2017-06-15] MEDS: DIFLUPREDNATE 0.05% OP SCH ×2 (09:59→20:00)
[2017-06-15 10:10] LABS: HEMOGLOBIN 13.6 g/dL (12.0-16.0); MEAN CELL VOLUME 99.1 fL (80-100); MEAN CORPUSCULAR HEMOGLOBIN 32.1 pg (25-34); MEAN CORPUSCULAR HGB CONC 32.4 g/dl (32-36); MEAN PLATELET VOLUME 11.6 fL (7.4-10.4); PLATELET COUNT 139 K/uL (130-400); RED CELL DISTRIBUTION WIDTH CV 14.5 % (11.5-14.5); RED CELL DISTRIBUTION WIDTH SD 51.9 fL (36.4-46.3); WHITE BLOOD COUNT 5.32 K/uL (4.8-10.8)
[2017-06-15] MEDS ORDERED: DEXTROSE 50% 50 ML SYR IV PRN (11:45)
[2017-06-15] MEDS ORDERED: GLUCAGON FOR INJ 1 MG VIAL SQ PRN (11:45)
[2017-06-15] MEDS ORDERED: GLUCOSE 10 TABS/TUBE PO PRN (11:45)
[2017-06-15] MEDS ORDERED: GLUCOSE 40% GEL 15 GM TUBE PO PRN (11:45)
--- NOTE | 2017-06-15 12:05 | Progress Note ---
Subjective Date of Service: Jun 15, 2017. Subjective 71 yo female presents with lower back pain. Today is complaining of left ankle pain and right great toe pain. Patient reports the right toe pain is severe. Patient denies any SOB, N/V/ D. Problem List Medical Problems: (1) Acute lumbar back pain Status: Acute (2) Encounter for removal of sutures Status: Acute (3) Hyperkalemia Status: Acute (4) Intractable back pain Status: Acute (5) Laceration Status: Acute (6) Medication reaction Status: Acute (7) Sciatica Status: Acute Review of Systems Constitutional: No fever, No chills Eyes: No worsening of vision ENT: No hearing loss, No unusual epistaxis Respiratory: No cough, No sputum Cardiac: No chest pain, No orthopnea Musculoskeletal: + joint pain, + muscle pain Female : No dysuria, No urinary frequency Neurologic: No memory loss, No paralysis Heme: No abnormal bleeding/bruising Endo: No fatigue All Other Systems: Reviewed and Negative Medications Current Inpatient Medications Medications (Trade) Dose Ordered Sig/Annetta Route Start Time Stop Time Status Last Admin Dose Admin Acetaminophen (Tylenol Tab) 650 mg Q4H PRN PO 06/14/17 00:30 07/14/17 00:29 Al Hydrox/Mg Hydrox/Simethicone (Maalox Max Susp) 15 ml Q4H PRN PO 06/14/17 00:30 07/14/17 00:29 Magnesium Hydroxide (Milk Of Magnesia Susp) 30 ml Q6H PRN PO 06/14/17 00:30 07/14/17 00:29 Polyethylene (Miralax Powder Packet) 17 gm DAILY PRN PO 06/14/17 00:30 07/14/17 00:29 Ondansetron HCl (Zofran Inj) 4 mg Q6H PRN IV 06/14/17 00:30 07/14/17 00:29 Allopurinol (Zyloprim Tab) 300 mg QAM PO 06/14/17 08:00 07/14/17 08:59 06/15/17 09:32 300 MG Atorvastatin Calcium (Lipitor Tab) 40 mg QPM PO 06/14/17 21:00 07/14/17 20:59 06/15/17 20:37 40 MG Felodipine (Plendil Tabcr) 5 mg QPM PO 06/14/17 21:00 07/14/17 20:59 06/15/17 20:41 5 MG Acetaminophen/ Hydrocodone Bitart (Painter 5/325 Tab) 1 tab Q6H PRN PO 06/14/17 00:45 06/28/17 00:44 06/14/17 16:59 1 TAB Metoprolol Tartrate (Lopressor Tab) 25 mg BID PO 06/14/17 08:00 07/14/17 08:59 06/15/17 20:37 25 MG Mirabegron (Myrbetriq Er) 50 mg QAM PO 06/14/17 08:00 07/14/17 08:59 06/15/17 09:31 50 MG Pantoprazole Sodium (Protonix Tab) 40 mg QAM PO 06/14/17 08:00 07/14/17 08:59 06/15/17 09:31 40 MG Warfarin Sodium (Coumadin Tab) 7.5 mg DAILY@1600 PO 06/14/17 16:00 07/14/17 15:59 06/15/17 15:56 7.5 MG Magnesium Oxide (Mag-Ox Tab) 400 mg BID PO 06/14/17 08:00 07/14/17 08:59 06/15/17 20:38 400 MG Nitrofurantoin Macrocrystals (Macrobid Cap) 100 mg HS PO 06/14/17 21:00 07/14/17 20:59 06/15/17 20:38 100 MG Thiamine HCl (Vitamin B-1 Tab) 100 mg BID PO 06/14/17 08:00 07/14/17 08:59 06/15/17 20:38 100 MG Morphine Sulfate (MoRPHine SULFATE INJ) 4 mg Q4H PRN IV 06/14/17 00:45 06/28/17 00:44 06/15/17 17:40 4 MG Miscellaneous (Iv Fluids Completed) 1 ea PRN PRN N/A 06/14/17 01:30 06/14/18 01:29 Miscellaneous Information (Order Awaiting Action) 1 ea QS N/A 06/14/17 08:00 07/14/17 07:59 Miconazole Nitrate (Desenex Powder) 1 appln PRN PRN EXT 06/14/17 13:30 07/14/17 13:29 06/15/17 09:30 1 APPLN Lidocaine (Lidoderm Patch 5%) 1 patch QAM TD 06/15/17 08:00 07/15/17 07:59 06/15/17 09:33 1 PATCH Miscellaneous (Remove Lidoderm Patch) 1 ea DAILY@21 N/A 06/14/17 21:00 07/14/17 20:59 Fentanyl (Duragesic Patch) 12 mcg Q3D@0900 TD 06/14/17 15:15 06/28/17 15:14 06/14/17 16:23 12 MCG Miscellaneous (Fentanyl Patch Remove & Waste) 1 ea Q3D@0859 N/A 06/14/17 15:14 07/14/17 15:13 Miscellaneous Information (Check Fentanyl Patch Placement) 1 ea QS N/A 06/14/17 16:00 07/14/17 15:59 06/15/17 23:39 1 EA Brimonidine/ Timolol (Combigan 0.2%/ 0.5%) 1 drop BID OPL 06/15/17 08:00 07/15/17 07:59 06/15/17 20:40 1 DROP Bromfenac Sodium (Prolensa 0.07% OPH) 1 drops DAILY OPL 06/16/17 08:00 07/15/17 07:59 Insulin Aspart (novoLOG ASPART) SLIDING SCALE If C... ACHS SC 06/15/17 16:30 07/15/17 16:29 06/15/17 20:47 2 UNITS Glucose (Glucose 40% Gel) 15-30 GRAMS 15 GRAMS... UD PRN PO 06/15/17 11:45 07/15/17 11:44 Glucose (Glucose Chew Tab) 4-8 Tablets 4 Tabl... UD PRN PO 06/15/17 11:45 07/15/17 11:44 Dextrose (Dextrose 50% 50ML Syringe) 25-50ML OF 50% DW IV FOR... UD PRN IV 06/15/17 11:45 07/15/17 11:44 Glucagon (Glucagon Inj) 1 mg UD PRN SQ 06/15/17 11:45 07/15/17 11:44 Objective Vital Signs Date Time Temp Pulse Resp B/P (MAP) Pulse Ox O2 Delivery O2 Flow Rate FiO2 06/15/17 10:30 Nasal Cannula 3.0 CPAP 06/15/17 07:33 36.6 70 20 94 2.0 06/15/17 07:30 136/72 (93) 06/15/17 06:21 136/74 (94) 06/15/17 00:00 Nasal Cannula 3.0 06/14/17 21:32 76 18 166/77 (106) Nasal Cannula 06/14/17 16:23 36.5 72 18 95 Nasal Cannula 3.0 06/14/17 16:00 Nasal Cannula 3.0 Physical Exam Comments: General Appearance: WD/WN, no apparent distress, + pertinent finding (Obese, elderly female - pleasant - in no distress) Head: normocephalic ENT: normal ENT inspection, pharynx normal Neck: supple, + pertinent finding (cannot evaluate JVD) Respiratory/Chest: chest non-tender, + pertinent finding (limited exam - poor air movement ) Abdomen/GI: normal bowel sounds, non tender, soft Back: normal inspection, no CVA tenderness Extremities/Musculoskelatal: + pedal edema, right great toe: redness and tender to palpation. left ankle: swollen on lateral aspect. 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, no motor/sensory deficits, oriented x 3 Skin: normal color, + pertinent finding (LE stasis changes Laboratory Results Last 24 Hours Test 06/15/17 09:11 White Blood Count 5.32 K/uL Red Blood Count 4.24 M/uL Hemoglobin 13.6 g/dL Hematocrit 42.0 % Mean Corpuscular Volume 99.1 fL Mean Corpuscular Hemoglobin 32.1 pg Mean Corpuscular Hemoglobin Concent 32.4 g/dl RDW Standard Deviation 51.9 fL RDW Coefficient of Variation 14.5 % Platelet Count 139 K/uL Mean Platelet Volume 11.6 fL Prothrombin Time 20.1 SECONDS Prothromb Time International Ratio 1.9 Sodium Level 131 mmol/L Potassium Level 4.6 mmol/L Chloride Level 99 mmol/L Carbon Dioxide Level 26 mmol/L Anion Gap 6.0 mmol/L Blood Urea Nitrogen 39 mg/dl Creatinine 1.12 mg/dl Est Creatinine Clear Calc Drug Dose 63.0 ml/min Estimated GFR () 56.4 Estimated GFR (Non- 48.7 BUN/Creatinine Ratio 34.6 Random Glucose 105 mg/dl Calcium Level 9.0 mg/dl Assessment and Plan 71 y/o F Hx diastolic CHF, pulmonary HTN, restrictive lung disease, obesity and hypoventilation, chronic AF, HTN, lumbar spinal disease. The pt normally ambulates and is able to help manage her own care. She has had increasing LBP over the past few days and cannot now ambulate due to excessive pain. She denies fevers, SOB above baseline, CP, N/V/D or dysuria. As she is unable to manage at home and does not have family that can tend to her continuously, we will admit the pt for further evaluation and transfer to rehab as possible. 1) Back pain and impaired gait Back pain has only mildy improved will start prednsione 50mg 2) prediabetes Patient is on prednisone. will place patient on sliding scale Will monitor her blood sugars. 3)right great to pain may be due to gout. starting prednisone 4)left ankle pain likely secondary to her elevated weight. will monitor 5) Chronic resp failure - multifactorial due to hypoventilation, restrictive disease, pulmonary HTN, CHF - she is 02-dependent and currently at baseline 6) CHF - diastolic - stable. will monitor 4) AF - rate controlled with Metoprolol - anticoagulated with Coumadin - INR is therapeutic
--- NOTE | 2017-06-15 13:49 | DIAGNOSTIC IMAGING REPORT ---
R TOE(S) MIN 2 VIEWS CLINICAL HISTORY: 71 years-old Female presenting with right 1st great toe pain. TECHNIQUE: Frontal, oblique, and lateral views of the right first toe were obtained. COMPARISON: 12/24/2012. FINDINGS: Soft tissue calcification again noted along the medial aspect of the head of the first metatarsal. No evidence of erosions. Minimal degenerative change suggested at the first metatarsophalangeal joint not significantly progressed since 2012. No acute fracture or malalignment. Prominent osteophyte noted at the medial aspect of the medial cuneiform. Mild diffuse subcutaneous edema suggested. IMPRESSION: 1. No acute osseous injury. 2. Degenerative changes at the first MTP joint. 3. Soft tissue calcification adjacent to the first MTP joint could be degenerative in etiology, related to chronic/prior injury, or indicate gout. However, no associated erosions to further suggests the diagnosis of gout. Electronically signed by: Braulio Nix M.D. 06/15/2017 1:48 PM Dictated Date/Time: 06/15/2017 1:45 PM
--- NOTE | 2017-06-15 13:49 | DIAGNOSTIC IMAGING REPORT ---
L ANKLE MIN 3 VIEWS ROUTINE HISTORY: 71 years-old Female left ankle pain acute left-sided ankle pain without reported trauma COMPARISON: None available TECHNIQUE: 3 views of the left ankle FINDINGS: Peripheral vascular disease. The bones appear mildly demineralized. Dystrophic appearing ossifications are noted within the region of the distal Achilles tendon. Moderate plantar and small Achilles enthesophytes. There is mild marginal spurring of the tibiotalar joint. No acute fracture or subluxation. 4 mm subchondral lucency involves the medial talar dome seen best on the oblique projection. No intra-articular loose body identified. There is soft tissue prominence of the lower leg and foot. IMPRESSION: 1. No acute fracture or dislocation. 2. 4 mm osteochondral defect of the medial talar dome without intra-articular loose body identified. 3. Degenerative changes as above. 4. Peripheral vascular disease. The above report was generated using voice recognition software. It may contain grammatical, syntax or spelling errors. Electronically signed by: Walker Toussaint M.D. 06/15/2017 1:48 PM Dictated Date/Time: 06/15/2017 1:46 PM
[2017-06-15 15:20] VITALS: PULSE 68; TEMP 36.7; O2SAT 95
[2017-06-15] MEDS: WARFARIN SOD 7.5 MG TAB PO SCH (15:56)
[2017-06-15] MEDS: INSULIN ASPART 100 UNITS/ML 3 ML PEN SC SCH ×2 (18:23→20:47)
[2017-06-15 20:33] VITALS: BP 126/76; PULSE 70
[2017-06-15] MEDS: ATORVASTATIN 40 MG TAB PO SCH (20:37)
[2017-06-15] MEDS: NITROFURANTOIN MONOHYDRATE 100 MG CAP PO SCH (20:38)
[2017-06-15] MEDS: FELODIPINE 2.5 MG TABCR PO SCH (20:41)
[2017-06-16 00:25] VITALS: BP 115/76; PULSE 85; TEMP 36.4; O2SAT 97
[2017-06-16 07:48] VITALS: PULSE 68; TEMP 36.7; O2SAT 90
[2017-06-16] MEDS ORDERED: BROMFENAC SODIUM 0.07% OPL SCH (08:00)
[2017-06-16] MEDS ORDERED: PHARMACY GLYCEMIC MGMT CONSULT PRN (08:34)
[2017-06-16 08:47] VITALS: BP 122/76
[2017-06-16 09:06] LABS: INR 2.2 (0.9-1.1)
[2017-06-16] MEDS: MIRABEGRON ER 25 MG TAB PO SCH (09:17)
[2017-06-16] MEDS: INSULIN ASPART 100 UNITS/ML 3 ML PEN SC SCH (09:17)
[2017-06-16] MEDS: THIAMINE HCL 100 MG TAB PO SCH (09:17)
[2017-06-16] MEDS: ALLOPURINOL 300 MG TAB PO SCH (09:18)
[2017-06-16] MEDS: METOPROLOL TARTRATE 25 MG TAB PO SCH (09:18)
[2017-06-16] MEDS: PANTOprazole SOD 40 MG TAB PO SCH (09:18)
[2017-06-16] MEDS: MAGNESIUM OXIDE 400 MG TAB PO SCH (09:18)
[2017-06-16] MEDS: LIDODERM (LIDOCAINE) PATCH 5% TD SCH (09:18)
[2017-06-16] MEDS: DIFLUPREDNATE 0.05% OP SCH (09:20)
[2017-06-16] MEDS: BRIMONIDINE TARTRATE-TIMOLOL M 1 DROP BTL OPL SCH (09:20)
[2017-06-16] MEDS: CHECK FENTANYL PATCH PLACEMENT SCH ×2 (09:22→16:33)
--- NOTE | 2017-06-16 11:21 | Pharmacy Progress Note ---
Glycemic Control Intl Consult Date of Service Jun 16, 2017. Scope Glycemic Pharmacist consulted by Dr Freed on 06/16/17 for glycemic control and to write orders per [facility] inpatient glycemic control protocol Objective Weight (Kilograms): 154.900 Accuchecks BSG (last 24hrs): Test 06/15/17 17:02 06/15/17 20:06 06/16/17 07:41 Bedside Glucose 162 mg/dl (70-90) 227 mg/dl (70-90) 145 mg/dl (70-90) Recent Pertinent Medications Outpatient Anti-diabetic Regimen: * N/A * A1c = 5.8 % 01/2017 The patient is currently receiving: * Correctional Insulin: Novolog Correction per scale ACHS Goal Range: Low 120 mg/dL - High 160 mg/dL Correction Factor: 35 mg/dL/unit * Prandial insulin: Per carb ratio of 1 unit per 15 grams CHO consumed Risk Factors for Insulin Resistance: * Steroids Assessment & Plan ASSESSMENT: * 71 yo prediabetic female with steroid-induced hyperglycemia * Spoke with Dr. Freed yesterday, initiated low dose Novolog with Prednisone to see how patient tolerated insulin * BSGs trended up through the evening 162 -227, which was expected as daily Prednisone causes the dinner and HS check to be the highest of the day * I will tighten Novolog coverage today and based on her needs/how she responds , either tighten further or add NPH tomorrow based on Prednisone dosing PLAN FOR INPATIENT GLYCEMIC CONTROL: * Correctional Insulin with NOVOLOG per scale ACHS or Q6hrs while NPO * Goal Range: Low 110 mg/dL - High 150 mg/dL * Correction Factor: 20 mg/dL/unit * Nutritional / Prandial insulin per carb ratio of 1 unit per 6 grams CHO consumed * Please note that the plan above was derived based on current level of insulin resistance and hospital stress. These recommendations are appropriate for inpatient admission only. Plan of care upon discharge will need to be reassessed to avoid potential outpatient hypo/hyperglycemia. Thank you.
[2017-06-16 16:13] VITALS: PULSE 78; TEMP 36.6; O2SAT 93
[2017-06-16] MEDS: WARFARIN SOD 7.5 MG TAB PO SCH (16:53)
[2017-06-16] MEDS ORDERED: METFTAB PO (16:54)
[2017-06-16] MEDS ORDERED: PRD20 PO (16:54)
[2017-06-16] MEDS ORDERED: FURO40TA3 PO (16:54)
[2017-06-16] MEDS ORDERED: RXC5 PO ×2 (16:54→17:44)
[2017-06-16 17:01] VITALS: BP 122/76; PULSE 78; TEMP 36.6; O2SAT 93
[2017-06-16] MEDS ORDERED: SENN-65 PO ×2 (17:29→17:44)
--- NOTE | 2017-06-16 17:37 | Discharge Instructions ---
Discharge Instructions Date of Service Jun 16, 2017. Admission Reason for Admission: Gait Abnormality,Intractable Back Pain Discharge Discharge Diagnosis / Problem: Intractable Back pain Discharge Goals Goal(s): Decrease discomfort, Improve function Activity Recommendations Activity Limitations: as noted below Lifting Limitations: gradually increase as tolerated . Instructions / Follow-Up Instructions / Follow-Up F/U with PCP in 1-2 weeks Followup with Pain clinic for likely spinal epidural injections I prescribe oxycodone. I do not want her to take this medicine daily. Only if her pain is severe. The goal is to have her pain controlled with either prednisone or the injections. Patient is tapering her prednisone. Will take 40mg for 3 days and then 20 mg for 3 days. This will increase her blood sugar. For now will start metformin 500mg after breakfast for 1 week. After one week, will take 500 mg after breakfast and dinner. This may cause diarrhea, initially. But it should improve after a few days on this medicine. The following information only pertains to when she finishes her prednisone. She also may continue the metformin after finishing the prednisone as this may help with her weight loss and preventing the onset of diabetes. However, if patient gets sweats or get dizzy like her blood sugar is low. Then we may need to stop it. Will defer this to her primary care provider. Current Hospital Diet Patient's current hospital diet: AHA Diet (Heart Healthy) Discharge Diet Recommended Diet: AHA Diet (Heart Healthy) Pending Studies Studies pending at discharge: no Medical Emergencies . Who to Call and When: Medical Emergencies: If at any time you feel your situation is an emergency, please call 911 immediately. . Non-Emergent Contact Non-Emergency issues call your: Primary Care Provider Call Non-Emergent contact if: your pain is not controlled, your pain is worsening . . "Provider Documentation" section prepared by Devin Freed. . VTE Core Measure Inpt VTE Proph given/why not?: Warfarin (Coumadin)
== END 2017-06-16 17:50 | DRG 552 ==
LOC: C.EDB 17:03 → C.4E 06-14 00:43 → ENRESERV 06-14 01:22 → OBSVTOIN 06-15 22:36
PROVIDERS: ADMIT Internal Medicine; ATTEND Internal Medicine Sports Medicine
DX: M54.40 Lumbago with sciatica, unspecified side (principal); Z68.44 Body mass index [BMI] 60.0-69.9, adult; E66.2 Morbid (severe) obesity with alveolar hypoventilation; I50.32 Chronic diastolic (congestive) heart failure; J96.10 Chronic respiratory failure, unspecified whether with hypoxia or hypercapnia; R26.9 Unspecified abnormalities of gait and mobility; M10.9 Gout, unspecified; M25.572 Pain in left ankle and joints of left foot; M79.674 Pain in right toe(s); R73.03 Prediabetes; I48.2 Chronic atrial fibrillation; J45.909 Unspecified asthma, uncomplicated; I11.9 Hypertensive heart disease without heart failure; I27.20 Pulmonary hypertension, unspecified; K21.9 Gastro-esophageal reflux disease without esophagitis; E78.5 Hyperlipidemia, unspecified; Z79.899 Other long term (current) drug therapy; Z79.01 Long term (current) use of anticoagulants; Z99.81 Dependence on supplemental oxygen; Z87.891 Personal history of nicotine dependence; Z82.49 Family history of ischemic heart disease and other diseases of the circulatory system; Z84.89 Family history of other specified conditions

== ENCOUNTER → 2017-07-20 | Outpatient (CLI) | payer OTHER ==
[~2017-07-20] MED LIST changes: +BRIM0.2S OPL; -CMD25 PO; -HYDR-5688 PO; +NITR-90 PO; -NITR100C2 PO; -WARF-237 PO; +WARF5TAB7 PO
== END | disposition home or self-care (01) ==
LOC: C.LABSPEC 16:47
PROVIDERS: ATTEND Physician Assistant
DX: R21 Rash and other nonspecific skin eruption (principal)

== ENCOUNTER → 2017-07-28 | Outpatient (CLI) | payer OTHER ==
[2017-07-28 17:29] LABS: HEMOGLOBIN 15.2 g/dL (12.0-16.0); MEAN CELL VOLUME 98.1 fL (80-100); MEAN CORPUSCULAR HEMOGLOBIN 32.4 pg (25-34); MEAN PLATELET VOLUME 11.3 fL (7.4-10.4); PLATELET COUNT 192 K/uL (130-400); RED CELL DISTRIBUTION WIDTH CV 15.6 % (11.5-14.5); RED CELL DISTRIBUTION WIDTH SD 55.9 fL (36.4-46.3)
[2017-07-28 17:40] LABS: INR 3.2 (0.9-1.1)
[2017-07-28 18:06] LABS: ALBUMIN 3.3 gm/dl (3.4-5.0); ALT/SGPT 27 U/L (12-78); AST/SGOT 21 U/L (15-37); BLOOD UREA NITROGEN 20 mg/dl (7-18); CALCIUM 9.9 mg/dl (8.5-10.1); CARBON DIOXIDE 25 mmol/L (21-32); CREATININE 0.95 mg/dl (0.60-1.20); GLUCOSE 96 mg/dl (70-99); POTASSIUM 4.2 mmol/L (3.5-5.1); SODIUM 139 mmol/L (136-145)
[2017-07-28 18:08] LABS: ALKALINE PHOSPHATASE 152 U/L (45-117); CHOLESTEROL 164 mg/dl (0-200); LDL CHOLESTEROL CALCULATED 74 mg/dl; TOTAL PROTEIN 7.9 gm/dl (6.4-8.2)
[2017-07-29 08:15] LABS: HEMOGLOBIN A1C 5.6 % (4.5-5.6)
== END | disposition home or self-care (01) ==
LOC: C.LAB1850 16:08
PROVIDERS: ATTEND Internal Medicine
DX: Z51.81 Encounter for therapeutic drug level monitoring (principal); R73.03 Prediabetes; G62.9 Polyneuropathy, unspecified; E78.5 Hyperlipidemia, unspecified

== ENCOUNTER → 2017-08-14 | Outpatient (CLI) | payer OTHER | END | disposition home or self-care (01) | LOC: C.LAB1850 16:32 | PROVIDERS: ATTEND Internal Medicine | DX: Z51.81 Encounter for therapeutic drug level monitoring (principal) ==

== ENCOUNTER → 2017-08-16 | Outpatient (CLI) | payer OTHER ==
[2017-08-16 17:21] LABS: INR 2.5 (0.9-1.1)
== END | disposition home or self-care (01) ==
LOC: C.LAB1850 16:49
PROVIDERS: ATTEND Internal Medicine
DX: Z51.81 Encounter for therapeutic drug level monitoring (principal)

== ENCOUNTER → 2017-08-22 | Outpatient (CLI) | payer OTHER | END | disposition home or self-care (01) | LOC: C.LABSPEC 16:27 | PROVIDERS: ATTEND Nurse Practitioner Adult Health | DX: N39.41 Urge incontinence (principal) ==

== ENCOUNTER → 2017-08-25 | Outpatient (CLI) | payer OTHER ==
[2017-08-25 15:28] LABS: INR 2.6 (0.9-1.1)
== END | disposition home or self-care (01) ==
LOC: C.LAB1850 14:39
PROVIDERS: ATTEND Internal Medicine
DX: Z51.81 Encounter for therapeutic drug level monitoring (principal); Z79.01 Long term (current) use of anticoagulants

== ENCOUNTER → 2017-09-07 | Outpatient (CLI) | payer OTHER ==
[2017-09-07 18:11] LABS: INR 3.7 (0.9-1.1)
== END | disposition home or self-care (01) ==
LOC: C.LAB1850 16:08
PROVIDERS: ATTEND Internal Medicine
DX: Z51.81 Encounter for therapeutic drug level monitoring (principal); Z79.01 Long term (current) use of anticoagulants

== ENCOUNTER → 2017-09-14 | Outpatient (CLI) | payer OTHER ==
--- NOTE | 2017-09-14 16:55 | DIAGNOSTIC IMAGING REPORT ---
CT SCAN OF THE CHEST WITHOUT IV CONTRAST CLINICAL HISTORY: Pulmonary nodule. COMPARISON STUDY: Chest CT scans dated 03/08/2017 and 01/31/2017. TECHNIQUE: CT scan of the thorax was performed from the thoracic inlet to the upper abdomen. Images are reviewed in the axial, sagittal, and coronal planes. IV contrast was not administered for this examination. A dose lowering technique was utilized adhering to the principles of ALARA. The examination is degraded by motion artifact. CT DOSE: 846.83 mGy.cm FINDINGS: Thyroid: Imaged portions of the thyroid gland are normal in size and attenuation. Subcentimeter thyroid nodules and coarse calcifications are noted. Thoracic aorta: There is atherosclerotic calcification of the thoracic aorta, which is normal in caliber and demonstrates standard 3-vessel arch anatomy. Heart: The heart is enlarged and without pericardial effusion. The coronary arteries are densely calcified. The pulmonary trunk is normal in caliber. Lungs and pleural spaces: Evaluation of the lung parenchyma is degraded motion artifact. Trace pleural effusions are identified. No airspace consolidation is seen typical for pneumonia. Numerous scattered calcified granulomas are observed. Dependent atelectasis is noted. There is unchanged appearance of a 1.5 cm lobulated nodule at the left apex seen on image #37 dating back to 01/31/2017. This contains coarse calcifications. No new pulmonary nodule is identified. Mediastinum: Mildly enlarged mediastinal lymph nodes are similar to previous. A precarinal node on image #100 measures 1.4 cm in short axis. Diana: Not well assessed without IV contrast. Axillae: There is no axillary lymphadenopathy. Upper abdomen: There is a small to moderate hiatal hernia. Partially visualized upper abdominal viscera is otherwise within normal limits. Skeletal structures: The skeletal structures are osteopenic. Degenerative change and hyperkyphosis are noted in the thoracic spine. No lytic or blastic bony lesions are seen. Arthritic change is also seen in the shoulders. IMPRESSION: 1. There is unchanged appearance of a lobulated 1.5 cm nodule at the left apex dating back to 01/31/2017. This is pathologically indeterminant but of low suspicion and may represent a hamartoma. Continued follow-up is recommended to document 2 years of stability. See below. 2. No new pulmonary lesion is identified. 3. There is no airspace consolidation or pleural effusion. 4. Cardiomegaly. 5. Mildly enlarged mediastinal lymph nodes are nonspecific and unchanged from previous. 6. Additional findings as above. Please refer to below summary of Fleischner criteria recommendations for follow-up of incidental CT nodules (Tara Dee, Guidelines for management of small pulmonary nodules detected on CT scans: A statement from the Fleischner Society, Radiology 237: [phone].) SOLID NODULES Solitary nodule size: <6 mm * low risk patients: no follow-up needed * high risk patients: optional CT at 12 months Solitary nodule size: 6-8 mm * low risk patients: follow-up at 6-12 months, then consider further follow-up at 18-24 months * high risk patients: initial follow-up CT at 6-12 months and then at 18-24 months if no change Solitary nodule size: >8 mm * either low or high risk patients - consider follow-up CT at 3 months, and/or CT-PET, and/or biopsy Multiple nodules size: <6 mm * low risk patients: no routine follow-up * high risk patients: optional CT at 12 months Multiple nodules size: 6-8 mm * low risk patients: follow-up at 3-6 months, then consider further follow-up at 18-24 months * high risk patients: follow-up at 3-6 months, then at 18-24 months if no change Multiple nodules size: >8 mm * low risk patients: follow-up at 3-6 months, then consider further follow-up at 18-24 months * high risk patients: follow-up at 3-6 months, then at 18-24 months if no change Note: newly detected indeterminate nodule in persons 35 years of age or older. * low risk patients: minimal or absent history of smoking and/or other known risk factors * high risk patients: history of smoking or of other known risk factors (e.g. first degree relative with lung cancer, or exposure to asbestos, radon, uranium) * if a nodule up to 8 mm is partly solid or is ground glass further follow-up is required after 24 months to exclude possible slow growing adenocarcinoma (JEFF) SUBSOLID NODULES Solitary pure ground-glass nodule * nodule size <6 mm - no CT follow-up required * nodule size >=6 mm - follow-up CT at 6-12 months, then every 2 years until 5 years Solitary part-solid nodule * nodule size <6 mm - no CT follow-up required * nodule size >=6 mm - follow-up CT at 3-6 months. If unchanged, and solid component remains <6 mm, then annual follow-up for 5 years Multiple subsolid nodules * nodule size <6 mm - follow-up CT at 3-6 months, consider further follow-up at 2 and 4 years if stable * nodule size >=6 mm - follow-up CT at 3-6 months, subsequent management based on the most suspicious nodule(s) Electronically signed by: Mark Ruiz M.D. 09/14/2017 4:54 PM Dictated Date/Time: 09/14/2017 4:42 PM
== END | disposition home or self-care (01) ==
LOC: C.CTS 15:50
PROVIDERS: ATTEND Internal Medicine
DX: R91.1 Solitary pulmonary nodule (principal); R91.8 Other nonspecific abnormal finding of lung field; I51.7 Cardiomegaly

== ENCOUNTER → 2017-09-19 | Day surgery (SDC) | payer BC ==
[2017-06-07 08:26] VITALS: BMI 65.0
[2017-07-04 13:51] VITALS: BMI 65.0
[2017-09-18 08:58] VITALS: Ht 149.9 cm; Wt 150.0 kg
[~2017-09-19] VITALS: Ht 149.9 cm; Wt 150.0 kg
[~2017-09-19] MED LIST changes: +500ML BSS 0.3ML EPI 1:1000PF IRRIG ONE; +ACETAMINOPHEN 325 MG TAB ONE; +ACETAMINOPHEN 325 MG TAB PO PRN; +AMVISC PLUS 0.8ML SYRINGE INT OCU ONE; +ATROPINE SULFATE 0.1 MG/ML 5ML SYR IV PRN; -BRIM0.2S OPL; +BSS FLUSH ONE; +CYCLOPENTOLATE HCL 1% OP SOLN PER DROP CHARGE OPR SCH; +EpHEDrine SULFATE INJ 50 MG/ML AMP IV PRN; +EpINEphrine INJ 1MG/ML AMP 1 MG/ML AMP ONE; +GATIFLOXACIN OP SOLN PER DROP CHARGE OPR SCH; +LACTATED RINGER'S 1000ML 500 ML IV SCH; +LIDOCAINE 3.5% OPH GEL PER APPLICATION CHARGE ONE; +LIDOCAINE HCL 1% MPF 2 ML VIAL ONE; +MIDAZOLAM HCL 1 MG/ML 2ML VIAL ONE; -NITR-90 PO; +PHENYLEPHRINE HCL 2.5% OP SOLN PER DROP CHARGE OPR SCH; +POVIDONE-IODINE OP SOLN 30 ML BTL ONE; +PROPARACAINE 0.5% OP SOLN PER DROP CHARGE OPR SCH; +TOBRAMYCIN/DEXAMETHASONE OPH OINT PER APPLN CHARGE ONE; +TROPICAMIDE 1% OP SOLN PER DROP CHARGE OPR SCH; +[UNRECOGNIZED DRUG - REMARK] SCH
[2017-09-19] MEDS: PHENYLEPHRINE HCL 2.5% OP SOLN PER DROP CHARGE OPR SCH ×2 (07:37→07:42)
[2017-09-19] MEDS: TROPICAMIDE 1% OP SOLN PER DROP CHARGE OPR SCH ×2 (07:38→07:43)
[2017-09-19] MEDS: CYCLOPENTOLATE HCL 1% OP SOLN PER DROP CHARGE OPR SCH ×2 (07:39→07:44)
[2017-09-19] MEDS: KETOROLAC 0.5% OP SOLN PER DROP CHARGE OPR SCH ×2 (07:40→07:46)
[2017-09-19] MEDS: GATIFLOXACIN OP SOLN PER DROP CHARGE OPR SCH ×2 (07:41→07:51)
--- NOTE | 2017-09-19 07:48 | History & Physical Bridge - SC ---
H&P Re-Evaluation Bridge Note: I have examined the patient, reviewed the History & Physical and in the interval since the performance of the History & Physical I have noted the following changes of clinical significance: No changes noted
--- NOTE | 2017-09-19 08:41 | Discharge Instructions-SurgCtr ---
Discharge Instructions Date of Service Sep 19, 2017. Visit Reason for Visit: Cataract Right Eye Discharge Discharge Diagnosis / Problem: cataract Discharge Goals Goal(s): Improve function Activity Recommendations Activity Limitations: per Instructions/Follow-up section Anesthesia . Post Anesthesia Instructions: If you have had General Anesthesia or IV Sedation: * Do not drive today. * Resume driving when surgeon permits. * Do not make important decisions or sign legal documents today. * Call surgeon for: 1. Temperature elevations greater than 101 degrees F. 2. Uncontrollable pain. 3. Excessive bleeding. 4. Persistent nausea and vomiting. 5. Medication intolerance (nausea, vomiting or rash). * For nausea and vomiting use only clear liquids such as: tea, soda, bouillon until nausea subsides, then gradually increase diet as tolerated. * If you have any concerns or questions, call your surgeon's office. If physician is unavailable and it is an emergency, call 911 or go to the nearest emergency room. . Diet Recommendations Home Diet: resume previous diet Procedures Procedures Performed: Right Cataract Phacoemulsification With Intraocular Lens Implant Pending Studies Studies pending at discharge: no Medical Emergencies . Who to Call and When: Medical Emergencies: If at any time you feel your situation is an emergency, please call 911 immediately. . Non-Emergent Contact Non-Emergency issues call your: Occupational Therapist Home Based . . "Provider Documentation" section prepared by Vineet Serrato. .
--- NOTE | 2017-09-19 08:42 | [facility] Operative Report ---
Operative Report Date of Service Sep 19, 2017. Operative Report 1. PREOPERATIVE DIAGNOSIS: Cataract of the right eye. 2. POSTOPERATIVE DIAGNOSIS: Same. 3. PROCEDURE: Phacoemulsification with intraocular lens implantation of the right eye. SURGEON: Dr. Vineet Serrato. ANESTHESIA: Topical Lidocaine gel, 1% Non- Preserved intracameral Lidocaine, and monitored intravenous sedation. INDICATIONS FOR THE PROCEDURE: The patient is a 72 - year-old female with a history of cataract of the right eye causing significant visual impairment. The details of the proposed procedure were explained to the patient who asked appropriate questions and following discussion of all risks, benefits and alternatives agreed to have the procedure done. 4. OPERATION AND FINDINGS: DESCRIPTION OF PROCEDURE: After informed consent was obtained, the patient was brought to the Operating Room at the [facility]. The patient was placed in a supine position and then the right eye was prepped and draped in the usual sterile fashion for intraocular surgery. A drop of topical Lidocaine gel was placed in the operative eye. A wire lid speculum was then placed in the fornices. A corneal paracentesis was then created temporally. The Non-Preserved Lidocaine was then instilled into the anterior chamber. The anterior chamber was then pressurized with viscoelastic. A 2.0 mm clear corneal incision was then created temporally. A cystotome was inserted into the anterior chamber and used to create a tear in the anterior lens capsule. This capsular tear was then used to create a small flap and the flap was dragged in a counterclockwise direction in order to create a continuous curvilinear capsulorrhexis. Hydrodissection was accomplished with balanced salt solution. Phacoemulsification of the lens nucleus was then performed in a standard [id number] technique. The phaco time was 16 seconds with an average power of 11 %. The remaining cortical material was removed using irrigation aspiration. The capsular bag was then filled with viscoelastic. A [employer] MI60L +23.0 diopters lens was then loaded into the injector and injected into the capsular bag. The remaining viscoelastic was removed with the irrigation aspiration handpiece. The wound was hydrated and then checked and found to be watertight. The intraocular pressure was checked and found to be adequate. The wire lid speculum was removed and the patient's face was cleaned and dried. TobraDex ointment was placed in the inferior fornix. The patient was discharged to the Recovery Room having tolerated the procedure well. There were no complications. The patient will be seen tomorrow in the office for follow-up. I attest to the content of the Intraoperative Record and any orders documented therein. Any exceptions are noted below.
[2017-09-19 08:44] VITALS: TEMP 36.2
--- NOTE | 2017-09-19 09:15 | Anesthesia Progress Nt - [facility] ---
Anesthesia Post Op Note Date & Time Sep 19, 2017 at 09:15 Vital Signs Pain Intensity: 2.0 Vital Signs Past 12 Hours Date Time Temp Pulse Resp B/P (MAP) Pulse Ox O2 Delivery O2 Flow Rate FiO2 09/19/17 08:44 36.2 69 16 148/79 (102) 97 Nasal Cannula 2 09/19/17 07:23 36.3 61 24 142/70 (94) 95 Nasal Cannula 2 Notes Mental Status: alert / awake / arousable, participated in evaluation Pt Amnestic to Procedure: Yes Nausea / Vomiting: adequately controlled Pain: adequately controlled Airway Patency, RR, SpO2: stable & adequate BP & HR: stable & adequate Hydration State: stable & adequate Anesthetic Complications: no major complications apparent
[2017-09-19 09:26] VITALS: BP 142/84; PULSE 64; O2SAT 98
== END | disposition home or self-care (01) ==
LOC: X.SURG 06:57
PROVIDERS: ATTEND Ophthalmology
DX: E11.36 Type 2 diabetes mellitus with diabetic cataract (principal); H26.9 Unspecified cataract; I48.91 Unspecified atrial fibrillation; E78.5 Hyperlipidemia, unspecified; G47.33 Obstructive sleep apnea (adult) (pediatric); E66.01 Morbid (severe) obesity due to excess calories; Z68.44 Body mass index [BMI] 60.0-69.9, adult; Z98.818 Other dental procedure status; Z96.653 Presence of artificial knee joint, bilateral; Z98.42 Cataract extraction status, left eye; Z79.899 Other long term (current) drug therapy; Z88.8 Allergy status to other drugs, medicaments and biological substances; Z88.2 Allergy status to sulfonamides; Z88.0 Allergy status to penicillin

== ENCOUNTER → 2017-09-25 | Outpatient (CLI) | payer BC ==
[~2017-09-25] MED LIST changes: -500ML BSS 0.3ML EPI 1:1000PF IRRIG ONE; -ACETAMINOPHEN 325 MG TAB ONE; -ACETAMINOPHEN 325 MG TAB PO PRN; -AMVISC PLUS 0.8ML SYRINGE INT OCU ONE; -ATROPINE SULFATE 0.1 MG/ML 5ML SYR IV PRN; -BSS FLUSH ONE; -CYCLOPENTOLATE HCL 1% OP SOLN PER DROP CHARGE OPR SCH; -EpHEDrine SULFATE INJ 50 MG/ML AMP IV PRN; -EpINEphrine INJ 1MG/ML AMP 1 MG/ML AMP ONE; -GATIFLOXACIN OP SOLN PER DROP CHARGE OPR SCH; -LACTATED RINGER'S 1000ML 500 ML IV SCH; -LIDOCAINE 3.5% OPH GEL PER APPLICATION CHARGE ONE; -LIDOCAINE HCL 1% MPF 2 ML VIAL ONE; -MIDAZOLAM HCL 1 MG/ML 2ML VIAL ONE; -PHENYLEPHRINE HCL 2.5% OP SOLN PER DROP CHARGE OPR SCH; -POVIDONE-IODINE OP SOLN 30 ML BTL ONE; -PROPARACAINE 0.5% OP SOLN PER DROP CHARGE OPR SCH; -TOBRAMYCIN/DEXAMETHASONE OPH OINT PER APPLN CHARGE ONE; -TROPICAMIDE 1% OP SOLN PER DROP CHARGE OPR SCH; -[UNRECOGNIZED DRUG - REMARK] SCH
[2017-09-25 17:33] LABS: HEMATOCRIT 47.1 % (37-47); HEMOGLOBIN 15.5 g/dL (12.0-16.0); MEAN CELL VOLUME 96.7 fL (80-100); MEAN CORPUSCULAR HEMOGLOBIN 31.8 pg (25-34); MEAN CORPUSCULAR HGB CONC 32.9 g/dl (32-36); MEAN PLATELET VOLUME 11.6 fL (7.4-10.4); PLATELET COUNT 186 K/uL (130-400); RED CELL DISTRIBUTION WIDTH CV 15.6 % (11.5-14.5); RED CELL DISTRIBUTION WIDTH SD 54.7 fL (36.4-46.3); WHITE BLOOD COUNT 5.39 K/uL (4.8-10.8)
[2017-09-25 18:04] LABS: BLOOD UREA NITROGEN 23 mg/dl (7-18); CALCIUM 9.9 mg/dl (8.5-10.1); CARBON DIOXIDE 31 mmol/L (21-32); CREATININE 1.04 mg/dl (0.60-1.20); GLUCOSE 127 mg/dl (70-99); POTASSIUM 4.1 mmol/L (3.5-5.1); SODIUM 139 mmol/L (136-145)
== END | disposition home or self-care (01) ==
LOC: C.LAB1850 15:59
PROVIDERS: ATTEND Internal Medicine
DX: I48.1 Persistent atrial fibrillation (principal)

== ENCOUNTER → 2017-10-25 | Outpatient (CLI) | payer OTHER ==
[2017-10-25 17:24] LABS: INR 2.9 (0.9-1.1)
== END | disposition home or self-care (01) ==
LOC: C.LAB1850 15:51
PROVIDERS: ATTEND Internal Medicine
DX: Z51.81 Encounter for therapeutic drug level monitoring (principal); Z79.01 Long term (current) use of anticoagulants

== ENCOUNTER → 2017-12-29 | Outpatient (CLI) | payer OTHER ==
[2017-12-29 18:05] LABS: INR 1.8 (0.9-1.1)
== END | disposition home or self-care (01) ==
LOC: C.LAB1850 16:09
PROVIDERS: ATTEND Internal Medicine
DX: I48.1 Persistent atrial fibrillation (principal)

== ENCOUNTER 2018-07-21 23:34 | Inpatient (IN) ==
[2018-07-21] MEDS ORDERED: ALBUT/IPRATROP 3MG/0.5MG NEB 3 ML VIAL NEB STA (23:48)
[2018-07-22 00:14] LABS: Base Excess VBG 0.8 mEq/L; HCO3 VBG 28 mmol/L; PCO2 VBG 55 mmHg (38-50); PO2 VBG 28 mmHg; pH VBG 7.33 (7.36-7.41)
[2018-07-22 00:15] LABS: Basophils # (auto) 0.01 K/uL (0-0.2); Basophils % (auto) 0.1 %; Eosinophils # (auto) 0.03 K/uL (0-0.5); Eosinophils % (auto) 0.3 %; Hematocrit (blood only) 47.9 % (37-47); Hemoglobin 15.8 g/dL (12.0-16.0); Immature Granulocytes # (auto) 0.01 K/uL (0.00-0.02); Immature Granulocytes % (auto) 0.1 %; Lymphocytes # (auto) 1.25 K/uL (1.2-3.4); Lymphocytes % (auto) 13.1 %; Mean Corpuscular Volume 101.3 fL (80-100); Monocytes # (auto) 0.85 K/uL (0.11-0.59); Monocytes % (auto) 8.9 %; Neutrophils % (auto) 77.5 %; Platelet Count 188 K/uL (130-400); RDW Coefficient of Variation 15.2 % (11.5-14.5); RDW Standard Deviation 55.7 fL (36.4-46.3); Red Blood Count 4.73 M/uL (4.2-5.4); White Blood Count 9.55 K/uL (4.8-10.8)
[2018-07-22 00:16] LABS: Oxygen Saturation VBG < 60.0 %
[2018-07-22 00:24] LABS: INR 2.2 (0.9-1.1); Prothrombin Time 21.4 Seconds (9.0-12.0)
[2018-07-22] MEDS ORDERED: FUROSEMIDE 40 MG/4 ML VIAL IV STA (00:30)
[2018-07-22 00:36] LABS: BUN Creatinine Ratio 19.5 (10-20); Blood Urea Nitrogen 25 mg/dl (7-18); Calcium 9.5 mg/dl (8.5-10.1); Carbon Dioxide 27 mmol/L (21-32); Chloride 106 mmol/L (98-107); Creatinine Clr Calc Pharmacy 52.6 ml/min; Est GFR (African American) 48.6; Est GFR (Non-African American) 41.9; Glucose 112 mg/dl (70-99); Potassium 4.5 mmol/L (3.5-5.1); Sodium 137 mmol/L (136-145)
[2018-07-22 00:41] LABS: NT Pro B Type Natriuretic Pept 2292 pg/ml (0-900); Troponin I < 0.015 ng/ml (0-0.045)
--- NOTE | 2018-07-22 02:00 | History & Physical Report ---
Date of Service July 22, 2018 Assessment & Plan (1) Acute respiratory failure with hypoxia and hypercapnia: Combination of acute CHF and asthma exacerbation. Continue BiPAP, and attempt to titrate as responds to therapy. Admit to monitored bed. Treat CHF and asthma as noted below Present on Admission?: Yes (2) CHF (congestive heart failure): CHF/hypertension/atrial fibrillation-- Hold oral Lasix and torsemide Given Lasix 40 mg IV in the ED. Continue Lasix 40 mg IV twice daily. Continue verapamil, metoprolol tartrate, telmisartan, spironolactone, potassium chloride, felodipine and mag oxide. Continue warfarin. INR therapeutic at 2.2 Serial CBC with differential, chemistry profile, magnesium level and PT/INR Present on Admission?: Yes (3) Asthma: Duonebs every 4 hours while awake and every 2 hours when necessary. Levofloxacin 500 mg IV every 24 hours. Present on Admission?: Yes (4) Hypertension: As above. Present on Admission?: Yes (5) Afib: See above Present on Admission?: Yes (6) Hyperlipidemia: Continue pravastatin Present on Admission?: Yes (7) Excoriation of multiple sites of buttock: Severe excoriation of multiple areas of buttock and perineum associated with functional fecal and urinary incontinence. Levaquin as above. Consult wound care. But paste/zinc oxide ointment. For urinary incontinence continue Myrbetriq Present on Admission?: Yes (8) Perineal irritation: As above Present on Admission?: Yes (9) Morbid obesity: Patient has functional urinary and fecal incontinence due to morbid obesity. Will ask social media assistant input regarding home care Present on Admission?: Yes History of Present Illness Chief Complaint: The patient reports to the emergency department with complaint of increased shortness of breath that occurred at the end of her day today, after she had not taken her Lasix all day so that she could go shopping without being interrupted. Primary Care Provider: Rah Ambrocio MD The patient is a 72-year-old female with a past medical history including atrial fibrillation, CHF, anasarca, hypertension and morbid obesity, who reports to the emergency department with worsening shortness of breath over the day today, after having not taken her Lasix earlier this morning or evening. She had intermittent cough, she has chronic bilateral shoulder discomfort, in particular after an injury 2 weeks ago. She had been going to physical therapy for her shoulders up until May at [facility], when her insurance ran out. She has chronically excoriated buttock and perineal area due to inability to wipe herself, and nurses report that she was covered in stool and urine in those areas upon arrival. Allergies Allergy/AdvReac Type Severity Reaction Status Date / Time Iodinated Contrast- Oral and Allergy Severe PAIN AT Verified 07/22/18 01:55 IV Dye INJECTION SITE AND UP THE BONES ketoprofen Allergy Severe NUMBNESS Verified 07/22/18 01:55 FROM WAIST DOWN SEVERAL MONTHS lorazepam Allergy Severe pt Verified 07/22/18 01:55 EXTREMELY sensitive Penicillins Allergy Severe SEVERE RASH Verified 07/22/18 01:55 trimethoprim Allergy Severe ELEVATED Verified 07/22/18 01:55 POTASSIUM LEVELS cephalexin Allergy Intermediate ITCHING Verified 07/22/18 01:55 Home Medications Home Medications Medication Instructions Recorded Confirmed Type albuterol sulfate [ProAir HFA] 2 puff INHALATION Q6H PRN 07/22/18 07/22/18 History allopurinol 300 mg PO DAILY 07/22/18 07/22/18 History atenolol 50 mg PO DAILY 07/22/18 07/22/18 History atorvastatin 40 mg PO DAILY 07/22/18 07/22/18 History escitalopram oxalate 10 mg PO DAILY 07/22/18 07/22/18 History felodipine 5 mg PO DAILY 07/22/18 07/22/18 History furosemide 20 mg PO QPM 07/22/18 07/22/18 History furosemide 40 mg PO QAM 07/22/18 07/22/18 History magnesium oxide 400 mg PO DAILY 07/22/18 07/22/18 History metoprolol tartrate 25 mg PO BID 07/22/18 07/22/18 History mirabegron [Myrbetriq] 50 mg PO QAM 07/22/18 07/22/18 History mometasone [Asmanex Twisthaler] 1 inh INHALATION UD 07/22/18 07/22/18 History mometasone [Asmanex Twisthaler] 1 inh INHALATION UD 07/22/18 07/22/18 History [id number]-vit K 1 tab-cap PO QAM 07/22/18 07/22/18 History [Multi For Her] pantoprazole 40 mg PO DAILY 07/22/18 07/22/18 History potassium chloride 10 meq PO BID 07/22/18 07/22/18 History pravastatin 40 mg PO HS 07/22/18 07/22/18 History ranitidine HCl 150 mg PO AMPM 07/22/18 07/22/18 History spironolactone 25 mg PO DAILY 07/22/18 07/22/18 History telmisartan [Micardis] 80 mg PO DAILY 07/22/18 07/22/18 History thiamine HCl (vitamin B1) [Vitamin 100 mg PO DAILY 07/22/18 07/22/18 History B-1] torsemide 100 mg PO DAILY 07/22/18 07/22/18 History verapamil 240 mg PO QAM 07/22/18 07/22/18 History warfarin 10 mg PO QPM 07/22/18 07/22/18 History Past Med/Surg History Medical History Morbid obesity (Chronic) Hypertension (Chronic) Hyperlipidemia (Chronic) Psoriasis (Chronic) Venous stasis dermatitis (Chronic) Osteoarthritis (Chronic) Gout (Chronic) Asthma (Chronic) GERD (gastroesophageal reflux disease) (Chronic) Osteoporosis (Chronic) UTI (urinary tract infection) (Chronic) Afib CHF (congestive heart failure) (Acute) Surgical History History of total knee replacement (Resolved) History of wisdom tooth extraction (Resolved) History of tonsillectomy (Resolved) Social History Feels Safe at Home: Yes Smoking Status: Never smoker Review of Systems The patient denies chest pain, palpitations, sore throat, fevers, chills, sweats , nausea, vomiting, diarrhea , constipation, abdominal pain, pelvic pain, blood in urine or stool, dysuria, urinary frequency or urgency, lightheadedness, dizziness, headache, memory loss, loss of consciousnes, focal weakness, numbness or tingling in arms or legs, neck pain, or night sweats. The review of systems is otherwise negative other than for that already noted above, and at least 10 systems have been reviewed. Physical Exam 2 Vital Signs (Past 24 Hours): Last Vital Signs Temp 36.8 C 07/21/18 23:34 Pulse 94 H 07/22/18 01:03 Resp 27 H 07/22/18 01:03 BP 162/79 H 07/22/18 01:18 Pulse Ox 98 07/22/18 01:03 Physical Exam: The patient is awake, alert and oriented 3, well developed and well nourished, normocephalic and atraumatic, lying in bed and in no acute distress. HEENT--PERRL, EOMI, mucous membranes and oropharynx normal. Neck--supple. No JVD. No bruits. Thyroid normal, trachea midline, no adenopathy. Heart--normal S1 and S2. No murmurs, rubs or gallops. Lungs--few crackles and rhonchi right greater than left, no respiratory distress or accessory muscle use with BiPAP on. Abdomen--normal bowel sounds and soft. Nontender. Nondistended, no hernias or masses, no organomegaly. Extremities--no cyanosis or clubbing. No edema. There are good distal pulses b/ l. Dermatologic--normal skin turgor, normal color, no abnormal lymph nodes, no rash. Neurologic--cranial nerves II through XII grossly intact. Rheumatologic--normal range of motion. Psychiatric--normal affect. Results & Data Laboratory Results Laboratory Results WBC 9.55 K/uL (4.8-10.8) 07/22/18 00:00 RBC 4.73 M/uL (4.2-5.4) 07/22/18 00:00 Hgb 15.8 g/dL (12.0-16.0) 07/22/18 00:00 Hct 47.9 % (37-47) H 07/22/18 00:00 MCV 101.3 fL (80-100) H 07/22/18 00:00 MCH 33.4 pg (25-34) 07/22/18 00:00 MCHC 33.0 g/dL (32-36) 07/22/18 00:00 RDW Std Deviation 55.7 fL (36.4-46.3) H 07/22/18 00:00 RDW Coeff of Priti 15.2 % (11.5-14.5) H 07/22/18 00:00 Plt Count 188 K/uL (130-400) 07/22/18 00:00 MPV 11.0 fL (7.4-10.4) H 07/22/18 00:00 Immature Gran % (Auto) 0.1 % 07/22/18 00:00 Neut % (Auto) 77.5 % 07/22/18 00:00 Lymph % (Auto) 13.1 % 07/22/18 00:00 Alcorn % (Auto) 8.9 % 07/22/18 00:00 Eos % (Auto) 0.3 % 07/22/18 00:00 Baso % (Auto) 0.1 % 07/22/18 00:00 Immature Gran # (Auto) 0.01 K/uL (0.00-0.02) 07/22/18 00:00 Neut # (Auto) 7.40 K/uL (1.4-6.5) H 07/22/18 00:00 Lymph # (Auto) 1.25 K/uL (1.2-3.4) 07/22/18 00:00 Alcorn # (Auto) 0.85 K/uL (0.11-0.59) H 07/22/18 00:00 Eos # (Auto) 0.03 K/uL (0-0.5) 07/22/18 00:00 Baso # (Auto) 0.01 K/uL (0-0.2) 07/22/18 00:00 PT 21.4 Seconds (9.0-12.0) H 07/22/18 00:00 INR 2.2 (0.9-1.1) H 07/22/18 00:00 VBG pH 7.33 (7.36-7.41) L 07/22/18 00:02 VBG pCO2 55 mmHg (38-50) H 07/22/18 00:02 VBG pO2 28 mmHg 07/22/18 00:02 VBG HCO3 28 mmol/L 07/22/18 00:02 VBG O2 Saturation < 60.0 % 07/22/18 00:02 VBG Base Excess 0.8 mEq/L 07/22/18 00:02 Barometric Pressure 748.1 mm/Hg 07/22/18 00:02 Sodium 137 mmol/L (136-145) 07/22/18 00:00 Potassium 4.5 mmol/L (3.5-5.1) 07/22/18 00:00 Chloride 106 mmol/L (98-107) 07/22/18 00:00 Carbon Dioxide 27 mmol/L (21-32) 07/22/18 00:00 Anion Gap 4.0 (3-11) 07/22/18 00:00 BUN 25 mg/dl (7-18) H 07/22/18 00:00 Creatinine 1.26 mg/dl (0.6-1.2) H 07/22/18 00:00 Est Cr Clr Drug Dosing 52.6 ml/min 07/22/18 00:00 Est GFR ( Amer) 48.6 07/22/18 00:00 Est GFR (Non-Af Amer) 41.9 07/22/18 00:00 BUN/Creatinine Ratio 19.5 (10-20) 07/22/18 00:00 Glucose 112 mg/dl (70-99) H 07/22/18 00:00 Calcium 9.5 mg/dl (8.5-10.1) 07/22/18 00:00 Magnesium 2.0 mg/dl (1.8-2.4) 07/22/18 00:00 Troponin I < 0.015 ng/ml (0-0.045) 07/22/18 00:00 NT-Pro-B Natriuret Pep 2292 pg/ml (0-900) H 07/22/18 00:00 Influenza Type A Ag Neg for Influ A (Neg) 07/21/18 23:50 Influenza Type B Ag Neg for Influ B (Neg) 07/21/18 23:50 Code Status & VTE Plan Code Status Full code VTE Prophylaxis Plan VTE Prophylaxis will be ordered: Yes
[2018-07-22] MEDS ORDERED: MAGNESIUM HYDROXIDE SUSP 30 ML UDC PO PRN (03:06)
[2018-07-22] MEDS ORDERED: ACETAMINOPHEN 1000 MG/100 ML IV IV PRN (03:06)
[2018-07-22] MEDS ORDERED: ONDANSETRON INJ 2 MG/ML 2 ML VIAL IV PRN (03:06)
[2018-07-22] MEDS ORDERED: ZINC OXIDE 16% 45 APPLN, HYDROCORTISONE 1% 45 APPLN, ALUMINUM/MAGNESIUM SUSP 15 ML, BAR... TOP PRN (03:06)
[2018-07-22] MEDS ORDERED: POLYETHYLENE (MIRALAX) 17 GM PACK PO PRN (03:06)
[2018-07-22] MEDS ORDERED: ALUMINUM/MAGNESIUM SUSP 30 ML UDC PO PRN (03:06)
[2018-07-22 03:43] LABS: Basophils # (auto) 0.02 K/uL (0-0.2); Basophils % (auto) 0.2 %; Eosinophils # (auto) 0.02 K/uL (0-0.5); Eosinophils % (auto) 0.2 %; Hematocrit (blood only) 41.3 % (37-47); Hemoglobin 13.8 g/dL (12.0-16.0); Immature Granulocytes # (auto) 0.02 K/uL (0.00-0.02); Immature Granulocytes % (auto) 0.2 %; Lymphocytes # (auto) 1.18 K/uL (1.2-3.4); Lymphocytes % (auto) 13.1 %; Mean Corpuscular Hgb Conc 33.4 g/dL (32-36); Mean Corpuscular Volume 100.7 fL (80-100); Mean Platelet Volume 11.3 fL (7.4-10.4); Monocytes # (auto) 0.92 K/uL (0.11-0.59); Monocytes % (auto) 10.2 %; Neutrophils # (auto) 6.82 K/uL (1.4-6.5); Neutrophils % (auto) 76.1 %; Platelet Count 164 K/uL (130-400); RDW Coefficient of Variation 15.2 % (11.5-14.5); RDW Standard Deviation 55.1 fL (36.4-46.3); White Blood Count 8.98 K/uL (4.8-10.8)
[2018-07-22 03:51] LABS: INR 2.3 (0.9-1.1); Partial Thromboplastin Ratio 1.6; Partial Thromboplastin Time 41.4 Seconds (21.0-31.0); Prothrombin Time 22.4 Seconds (9.0-12.0)
[2018-07-22 03:58] LABS: Albumin Level 2.6 gm/dl (3.4-5.0); BUN Creatinine Ratio 21.7 (10-20); Calcium 9.1 mg/dl (8.5-10.1); Creatinine Clr Calc Pharmacy 57.1 ml/min; Est GFR (African American) 53.7; Est GFR (Non-African American) 46.3; Potassium 4.5 mmol/L (3.5-5.1)
[2018-07-22 04:03] LABS: Albumin Globulin Ratio 0.6 (0.9-2); Bilirubin,Total 0.8 mg/dl (0.2-1); Globulin 4.3 gm/dl (2.5-4.0); Total Protein 6.9 gm/dl (6.4-8.2); Troponin I 0.017 ng/ml (0-0.045)
[2018-07-22] MEDS: LEVOFLOXACIN/D5W 500 MG/100 ML BAG IV SCH (05:03)
--- NOTE | 2018-07-22 05:32 | Emergency Department Note ---
Entered by Hazel Beard acting as a scribe for Rishi Murphy MD ED Provider Note Name: Belinda Mckenzie Age: 72 Arrives Via: EMS Informant: The nurse, the patient CC: Shortness of breath HPI: A 72 year old female arrives for evaluation of worsening shortness of breath starting 2 days ago. The patient reports that she is severely short of breath and experienced chest pains 1 day ago. She states that she has not been taking her diuretic and has CHF. The nurse reports that the patient usually uses 3L of oxygen via nasal cannula at home and uses a C-PAP machine at night. She states that the patient has been using her C-PAP machine during the day due to her shortness of breath and that EMS had the patient on 6L of oxygen via nasal cannula [employer]. The patient reports that she has a sore on her buttocks that has been bleeding for weeks along with a mass on her vagina that has been there for almost 1 year. The patient reports that she did receive a flu shot recently. She denies fevers, chills and cough. ROS: See above HPI for pertinent positives & negatives. A total of 10 systems reviewed and were otherwise negative. Past Medical History: HTN, HLD, GERD, CHF, Asthma, A-fib, Gout, Psoriasis, Venous stasis dermatitis, UTI Past Surgical History: Total knee replacement, wisdom tooth extraction, tonsillectomy Family History: [] Social History: Lives at home alone, nevera smoker Home Medications: Tylenol 500 mg PO, Allopurinol 300 mg PO, Atorvastatin 40 mg PO, Plendil ER 5 mg PO, Lasix 40 mg PO, Oxygen 2L NA, MG supplement 500 mg PO, Lopressor 25 mg PO, Myrbetriq ER 50 mg PO, Preservision Areds 2 1 tab PO, Pantoprazole 40 mg PO, Aldactone 25 mg PO, Vitamin B1 100 mg PO, Jantoven 5 mg PO Allergies Iodinated Contrast, Ketoprofen, Lorazepam, Penicillins, Trimethoprim , Cephalexin Physical: Vitals: BP: 162/79, Pulse: 94, Resp: 27, Temp: 98.2F, O2 Sat: 98, Delivery: BiPAP Exam: GENERAL: Patient is very unwell appearing and in moderate distress. EYES: No scleral icterus, unremarkable pupils. ENT: Mucous membranes moist, no nasal congestion. NECK: No masses appreciated, no meningismus, trachea is midline. RESPIRATORY: Dyspnic, tachypnic and belly breathing. Very distant lung sounds throughout. Faint wheezing/upper airway stridor. Clear to auscultation and equal bilaterally. No rhonchi. CARDIOVASCULAR: Irregular heart beat by auscultation. No murmurs, rubs, gallops appreciated. GASTROINTESTINAL: Abdomen soft, non-tender, no peritonitis. Distant bowel sounds. : Purplish mass extruding vagina vault. BACK: No midline tenderness, no CVA tenderness EXTREMITIES: Normal motion all extremities, no cyanosis. 4+ pitting lymphedema bilateral lower extremities. NEUROLOGIC: Alert and oriented, no acute motor or sensory deficits, no focal weakness, cranial nerves grossly intact. SKIN: Extensive skin breakdown over buttock and groin. ED Course: Prior Medical Record, Triage/Nursing Notes, Medications, Allergies reviewed by Me 2340: Past medical records reviewed. The patient was evaluated in room B6, and a complete history and physical examination were performed. 0055: I reevaluated the patient at this time who is breathing better on BiPAP. 0058: I reviewed the patient's case with Dr. [place] - [facility] [place]. He will evaluate the patient for further management. Vital Signs: reviewed and remarkable for Hypoxia, tachypnea, HTN Labs: Reviewed and remarkable for Elevated BNP, therapeautic inr, mild acidosis and retaining on vbg, neg influenza Interventions: Bipap, duoneb, lasix 40mg IV Imaging: X ray results are stated below per my interpretation: Chest: 1 view: Diffuse congestive findings consistent with pulmonary edema. Worsened from previous CXR EKG: Per My Interpretation: Afib 97 no ischemia, qtc 391, similar to EKG 06/13/17 Consults: Dr Richmond [place] Hospitalist Blood pressure: Elevated - Further management by hospitalist. Disposition: Being evaluated by hospitalist Differentials: infections, reactive airway disease, COPD, pneumonia, pleural effusion, pulmonary edema, ARDS, pneumothorax, CHF, cardiac ischemia, cardiac tamponade, dysrhythmia, anemia, pulmonary embolism, musculoskeletal, gastrointestinal process, as well as others were entertained. Medical Decision Making: Unwell 72 yr old female arrives in respiratory distress with significant work of breathing. Distant lung sounds with crackles thoughout and mild wheezing. 4 + pitting edema bilateral lower legs and lymphedema. She also is noted to have diffuse perineal/buttock irritation and skin break down. Exam and story (not taking lasix last few days) consistent with fluid overload. Placed on bipap as not tolerating NC and her significantly increased WOB. Bipap helps immensely. CXR consistent with CHF. Labs looking OK. Therapeautic INR and thus even less likely PE. No fevers, no wbc elevation I do not feel this is pneumonia related. She will need diuresis as well as likely wound care to evaluate her buttocks/perineal region. Hospitalist consulted for further management. Impression: Pulmonary Edema Acute CHF Respiratory Failure Critical Care: I have personally spent greater than 30 minutes of critical care time in the direct management of this patient. Acute respiratory failure due to pulmonary edema requiring BIPAP. This was a life/limb threatening event. This includes time spent evaluating patient, direct bedside care, chart review, placing orders , interpretation of diagnostic studies, discussion with consultants, patient, and family members, as well as other required patient management activities. This 30 minutes is in excess of all separately billable procedures. Rishi Murphy MD The scribe's documentation has been prepared under my direction and personally reviewed by me in its entirety. I confirm that the note above accurately reflects all work, treatment, procedures, and medical decision making performed by me. Impression & Plan Pulmonary edema, Acute CHF (congestive heart failure), Respiratory failure Past Med/Surg History Medical History Morbid obesity (Chronic) Hypertension (Chronic) Hyperlipidemia (Chronic) Psoriasis (Chronic) Venous stasis dermatitis (Chronic) Osteoarthritis (Chronic) Gout (Chronic) Asthma (Chronic) GERD (gastroesophageal reflux disease) (Chronic) Osteoporosis (Chronic) UTI (urinary tract infection) (Chronic) Afib CHF (congestive heart failure) (Acute) Surgical History History of total knee replacement (Resolved) History of wisdom tooth extraction (Resolved) History of tonsillectomy (Resolved) Social History Feels Safe at Home: Yes Smoking Status: Never smoker Results & Data Vital Signs Vital Signs - 24 hr 07/21/18 23:34 07/22/18 00:08 07/22/18 00:27 Temperature 36.8 C Temperature Source Oral Sepsis Recent Fever Within 48 Hours No Sepsis New/Unexplained Change in Mental Status No Sepsis Action Taken by Nursing No Action Required Pulse Rate 88 89 Pulse Rate [Right Finger] 91 H 86 Respiratory Rate 31 H 30 H 28 H Respiratory Effort / Characteristics Labored Short of Breath Spontaneous Labored Respiratory Depth Normal Respiratory Pattern Tachypnea Blood Pressure 140/112 H Blood Pressure [Right Arm] Blood Pressure Mean 121 Blood Pressure Mean [Right Arm] Blood Pressure Position Sitting Pulse Oximetry 88 L 99 99 Oxygen Delivery Method Nasal Cannula BiPAP BiPAP Oxygen Flow Rate 3 Fraction of Inspired Oxygen 40 40 SaO2/FiO2 Ratio 247 07/22/18 01:03 07/22/18 01:18 07/22/18 02:04 Temperature Temperature Source Sepsis Recent Fever Within 48 Hours Sepsis New/Unexplained Change in Mental Status Sepsis Action Taken by Nursing Pulse Rate Pulse Rate [Right Finger] 94 H 90 Respiratory Rate 27 H 24 Respiratory Effort / Characteristics Respiratory Depth Respiratory Pattern Blood Pressure Blood Pressure [Right Arm] 162/79 H 137/89 Blood Pressure Mean Blood Pressure Mean [Right Arm] 106 105 Blood Pressure Position Pulse Oximetry 98 99 Oxygen Delivery Method BiPAP BiPAP Oxygen Flow Rate Fraction of Inspired Oxygen 40 40 SaO2/FiO2 Ratio 245 247 07/22/18 03:45 07/22/18 04:12 Temperature Temperature Source Sepsis Recent Fever Within 48 Hours Sepsis New/Unexplained Change in Mental Status Sepsis Action Taken by Nursing Pulse Rate 86 84 Pulse Rate [Right Finger] Respiratory Rate 24 Respiratory Effort / Characteristics Respiratory Depth Respiratory Pattern Blood Pressure Blood Pressure [Right Arm] Blood Pressure Mean Blood Pressure Mean [Right Arm] Blood Pressure Position Pulse Oximetry 96 Oxygen Delivery Method Oxygen Flow Rate Fraction of Inspired Oxygen 40 SaO2/FiO2 Ratio Home Medications Current Medication List: was personally reviewed by me Laboratory Data Attestation: I reviewed the patient's lab results. Result diagrams: 07/22/18 03:14 07/22/18 03:14 Lab Results 07/21/18 07/22/18 07/22/18 Range/Units 23:50 00:00 00:00 WBC 9.55 (4.8-10.8) K/uL RBC 4.73 (4.2-5.4) M/uL Hgb 15.8 (12.0-16.0) g/dL Hct 47.9 H (37-47) % MCV 101.3 H (80-100) fL MCH 33.4 (25-34) pg MCHC 33.0 (32-36) g/dL RDW Std Deviation 55.7 H (36.4-46.3) fL RDW Coeff of Priti 15.2 H (11.5-14.5) % Plt Count 188 (130-400) K/uL MPV 11.0 H (7.4-10.4) fL Immature Gran % (Auto) 0.1 % Neut % (Auto) 77.5 % Lymph % (Auto) 13.1 % Eddy % (Auto) 8.9 % Eos % (Auto) 0.3 % Baso % (Auto) 0.1 % Immature Gran # (Auto) 0.01 (0.00-0.02) K/uL Neut # (Auto) 7.40 H (1.4-6.5) K/uL Lymph # (Auto) 1.25 (1.2-3.4) K/uL Eddy # (Auto) 0.85 H (0.11-0.59) K/uL Eos # (Auto) 0.03 (0-0.5) K/uL Baso # (Auto) 0.01 (0-0.2) K/uL PT (9.0-12.0) Seconds INR (0.9-1.1) APTT (21.0-31.0) Seconds PTT Ratio VBG pH (7.36-7.41) VBG pCO2 (38-50) mmHg VBG pO2 mmHg VBG HCO3 mmol/L VBG O2 Saturation % VBG Base Excess mEq/L Barometric Pressure mm/Hg Sodium 137 (136-145) mmol/L Potassium 4.5 (3.5-5.1) mmol/L Chloride 106 (98-107) mmol/L Carbon Dioxide 27 (21-32) mmol/L Anion Gap 4.0 (3-11) BUN 25 H (7-18) mg/dl Creatinine 1.26 H (0.6-1.2) mg/dl Est Cr Clr Drug Dosing 52.6 ml/min Est GFR ( Amer) 48.6 Est GFR (Non-Af Amer) 41.9 BUN/Creatinine Ratio 19.5 (10-20) Glucose 112 H (70-99) mg/dl Calcium 9.5 (8.5-10.1) mg/dl Magnesium 2.0 (1.8-2.4) mg/dl Total Bilirubin (0.2-1) mg/dl AST (15-37) U/L ALT (12-78) U/L Alkaline Phosphatase (45-117) U/L Troponin I < 0.015 (0-0.045) ng/ml NT-Pro-B Natriuret Pep 2292 H (0-900) pg/ml Total Protein (6.4-8.2) gm/dl Albumin (3.4-5.0) gm/dl Globulin (2.5-4.0) gm/dl Albumin/Globulin Ratio (0.9-2) Influenza Type A Ag Neg for Influ A (Neg) Influenza Type B Ag Neg for Influ B (Neg) 07/22/18 07/22/18 07/22/18 Range/Units 00:00 00:02 03:14 WBC 8.98 (4.8-10.8) K/uL RBC 4.10 L (4.2-5.4) M/uL Hgb 13.8 (12.0-16.0) g/dL Hct 41.3 (37-47) % MCV 100.7 H (80-100) fL MCH 33.7 (25-34) pg MCHC 33.4 (32-36) g/dL RDW Std Deviation 55.1 H (36.4-46.3) fL RDW Coeff of Priti 15.2 H (11.5-14.5) % Plt Count 164 (130-400) K/uL MPV 11.3 H (7.4-10.4) fL Immature Gran % (Auto) 0.2 % Neut % (Auto) 76.1 % Lymph % (Auto) 13.1 % Eddy % (Auto) 10.2 % Eos % (Auto) 0.2 % Baso % (Auto) 0.2 % Immature Gran # (Auto) 0.02 (0.00-0.02) K/uL Neut # (Auto) 6.82 H (1.4-6.5) K/uL Lymph # (Auto) 1.18 L (1.2-3.4) K/uL Eddy # (Auto) 0.92 H (0.11-0.59) K/uL Eos # (Auto) 0.02 (0-0.5) K/uL Baso # (Auto) 0.02 (0-0.2) K/uL PT 21.4 H (9.0-12.0) Seconds INR 2.2 H (0.9-1.1) APTT (21.0-31.0) Seconds PTT Ratio VBG pH 7.33 L (7.36-7.41) VBG pCO2 55 H (38-50) mmHg VBG pO2 28 mmHg VBG HCO3 28 mmol/L VBG O2 Saturation < 60.0 % VBG Base Excess 0.8 mEq/L Barometric Pressure 748.1 mm/Hg Sodium (136-145) mmol/L Potassium (3.5-5.1) mmol/L Chloride (98-107) mmol/L Carbon Dioxide (21-32) mmol/L Anion Gap (3-11) BUN (7-18) mg/dl Creatinine (0.6-1.2) mg/dl Est Cr Clr Drug Dosing ml/min Est GFR ( Amer) Est GFR (Non-Af Amer) BUN/Creatinine Ratio (10-20) Glucose (70-99) mg/dl Calcium (8.5-10.1) mg/dl Magnesium (1.8-2.4) mg/dl Total Bilirubin (0.2-1) mg/dl AST (15-37) U/L ALT (12-78) U/L Alkaline Phosphatase (45-117) U/L Troponin I (0-0.045) ng/ml NT-Pro-B Natriuret Pep (0-900) pg/ml Total Protein (6.4-8.2) gm/dl Albumin (3.4-5.0) gm/dl Globulin (2.5-4.0) gm/dl Albumin/Globulin Ratio (0.9-2) Influenza Type A Ag (Neg) Influenza Type B Ag (Neg) 07/22/18 07/22/18 Range/Units 03:14 03:14 WBC (4.8-10.8) K/uL RBC (4.2-5.4) M/uL Hgb (12.0-16.0) g/dL Hct (37-47) % MCV (80-100) fL MCH (25-34) pg MCHC (32-36) g/dL RDW Std Deviation (36.4-46.3) fL RDW Coeff of Priti (11.5-14.5) % Plt Count (130-400) K/uL MPV (7.4-10.4) fL Immature Gran % (Auto) % Neut % (Auto) % Lymph % (Auto) % Eddy % (Auto) % Eos % (Auto) % Baso % (Auto) % Immature Gran # (Auto) (0.00-0.02) K/uL Neut # (Auto) (1.4-6.5) K/uL Lymph # (Auto) (1.2-3.4) K/uL Eddy # (Auto) (0.11-0.59) K/uL Eos # (Auto) (0-0.5) K/uL Baso # (Auto) (0-0.2) K/uL PT 22.4 H (9.0-12.0) Seconds INR 2.3 H (0.9-1.1) APTT 41.4 H (21.0-31.0) Seconds PTT Ratio 1.6 VBG pH (7.36-7.41) VBG pCO2 (38-50) mmHg VBG pO2 mmHg VBG HCO3 mmol/L VBG O2 Saturation % VBG Base Excess mEq/L Barometric Pressure mm/Hg Sodium 138 (136-145) mmol/L Potassium 4.5 (3.5-5.1) mmol/L Chloride 108 H (98-107) mmol/L Carbon Dioxide 27 (21-32) mmol/L Anion Gap 3.0 (3-11) BUN 25 H (7-18) mg/dl Creatinine 1.16 (0.6-1.2) mg/dl Est Cr Clr Drug Dosing 57.1 ml/min Est GFR ( Amer) 53.7 Est GFR (Non-Af Amer) 46.3 BUN/Creatinine Ratio 21.7 H (10-20) Glucose 110 H (70-99) mg/dl Calcium 9.1 (8.5-10.1) mg/dl Magnesium (1.8-2.4) mg/dl Total Bilirubin 0.8 (0.2-1) mg/dl AST 20 (15-37) U/L ALT 21 (12-78) U/L Alkaline Phosphatase 124 H (45-117) U/L Troponin I 0.017 (0-0.045) ng/ml NT-Pro-B Natriuret Pep (0-900) pg/ml Total Protein 6.9 (6.4-8.2) gm/dl Albumin 2.6 L (3.4-5.0) gm/dl Globulin 4.3 H (2.5-4.0) gm/dl Albumin/Globulin Ratio 0.6 L (0.9-2) Influenza Type A Ag (Neg) Influenza Type B Ag (Neg) Administered Medications Levofloxacin/Dextrose (Levaquin/D5w) 500 mg in 100 mls @ 100 mls/hr IV Q24H FARRAH Stop: 07/29/18 03:59 Last Admin: 07/22/18 05:03 Dose: 100 mls/hr Discontinued Medications Albuterol (Duoneb) 3 ml NEB NOW STA Stop: 07/21/18 23:49 Last Admin: 07/22/18 00:08 Dose: 3 ml Furosemide (Lasix) 40 mg IV NOW STA Stop: 07/22/18 00:31 Last Admin: 07/22/18 00:37 Dose: 40 mg Blood Pressure Blood Pressure Findings: Elevated blood pressure Blood Pressure Disposition: further management by hospitalist Discharge Plan Visit Data *Final* Discharge Date/Time: 07/22/18 02:31 Chief Complaint: Shortness of Breath/Dyspnea ED Provider: Rishi Murphy Discharge Problem: Pulmonary edema, Acute CHF (congestive heart failure), Respiratory failure Patient Disposition: Admitted As Inpatient Discharge Instructions Interventions: ED Discharge Assessment Last Done: 07/22/18 02:31 The scribe's documentation has been prepared under my direction and personally reviewed by me in its entirety. I confirm that the note above accurately reflects all work, treatment, procedures, and medical decision making performed by me.
[2018-07-22] MEDS ORDERED: HEPARIN SOD 5,000 UNIT/0.5 ML VIAL SQ SCH (06:00)
[2018-07-22] MEDS: ALBUT/IPRATROP 3MG/0.5MG NEB 3 ML VIAL NEB SCH ×4 (07:02→19:04)
--- NOTE | 2018-07-22 07:09 | XRay Report ---
XR chest 1V portable HISTORY: Shortness of breath. COMPARISON: Chest 06/13/2017. FINDINGS: No pneumothorax. Small bilateral pleural effusions and mild interstitial pulmonary edema pe rsists. The heart remains mildly enlarged. Patchy bibasilar densities may represent atelectasis from the pleural effusions. The patient is known left upper lobe nodule is better appreciated on the [address] IMPRESSION: Mild pulmonary edema and small bilateral pleural effusions. Electronically signed by: Alexander Rod M.D. 07/22/2018 7:08 AM
[2018-07-22] MEDS: MAGNESIUM OXIDE 400 MG TAB PO SCH (08:50)
[2018-07-22] MEDS: ALLOPURINOL 300 MG TAB PO SCH (08:50)
[2018-07-22] MEDS: FELODIPINE 5 MG TABCR PO SCH (08:50)
[2018-07-22] MEDS: ATORVASTATIN 40 MG TAB PO SCH (08:51)
[2018-07-22] MEDS: FUROSEMIDE 40 MG in SYRINGE 0 ML IV SCH ×2 (08:51→20:12)
[2018-07-22] MEDS: PANTOprazole 40 MG in SYRINGE 0 ML IV SCH (11:42)
--- NOTE | 2018-07-22 12:50 | Hospitalist Progress Note ---
Date of Service July 22, 2018 Assessment & Plan (1) Acute respiratory failure with hypoxia and hypercapnia: Combination of acute diastolic CHF and asthma exacerbation. Titrate O2 Treat CHF and asthma as noted below CXR with mild pulmonary edema and pleural effusion (2) Hypertension: As below (3) Afib: See below (4) CHF (congestive heart failure): Acute on chronic diastolic CHF/hypertension/atrial fibrillation-- Last echo in 2017 showed normal EF, septal flattening consistent with obesity hypoventilation syndrome, dilated right ventricle with reduced EF, hypokinetic RV free wall and apex, severe pulmonary hypertension with PA systolic pressure 70mmHg, dilated inferior vena cava with severely reduced inspiratory collapse. Hold oral Lasix and torsemide - Given Lasix 40 mg IV in the ED. Continue Lasix 40 mg IV twice daily. Continue verapamil, metoprolol tartrate, telmisartan, spironolactone, potassium chloride, felodipine and mag oxide. Continue warfarin. INR therapeutic at 2.2 Serial CBC with differential, chemistry profile, magnesium level and PT/INR (5) Asthma: Duonebs every 4 hours while awake and every 2 hours when necessary. Levofloxacin 500 mg IV every 24 hours. (6) Excoriation of multiple sites of buttock: Severe excoriation of multiple areas of buttock and perineum associated with functional fecal and urinary incontinence. Levaquin as above. Consult wound care. Barrier creams For urinary incontinence continue Myrbetriq (7) Perineal irritation: As above (8) Morbid obesity: Patient has functional urinary and fecal incontinence due to morbid obesity. Appreciate social worker palliative care input regarding home care (9) Hyperlipidemia: Continue pravastatin (10) DVT prophylaxis: Coumadin Subjective Ms. Mckenzie is most concerned about the excoriation to her perineal area which she says she has been seeing a cloth worker for and is essentially a terrible diaper rash. She does still have some sob, aches and chills but no cough Review of Systems All systems reviewed & are unremarkable except as noted in HPI & below Physical Exam 2 Vital Signs (Past 24 Hours): Last Vital Signs Temp 36.9 C 07/22/18 07:24 Pulse 81 07/22/18 11:19 Resp 18 07/22/18 11:19 BP 111/68 07/22/18 07:24 Pulse Ox 95 07/22/18 11:19 Physical Exam: General: no distress Eyes: normal inspection, PERLL Respiratory: chest non tender, clear to auscultation, normal breath sounds, no respiratory distress, no accessory muscle use Cardiac: regular rate and rhythm, no rub or gallop, no murmur, no edema, no jvd GI/: active bowel sounds, no abd pain or tenderness, soft, non distended Extremities: normal range of motion, normal strength, non tender Neuro/Psych: alert and oriented x 3, normal mood and affect Skin: normal color, dry Results & Data Laboratory Results Abnormal lab results 07/22/18 07/22/18 07/22/18 Range/Units 00:00 00:00 00:00 RBC (4.2-5.4) M/uL Hct 47.9 H (37-47) % MCV 101.3 H (80-100) fL RDW Std Deviation 55.7 H (36.4-46.3) fL RDW Coeff of Priti 15.2 H (11.5-14.5) % MPV 11.0 H (7.4-10.4) fL Neut # (Auto) 7.40 H (1.4-6.5) K/uL Lymph # (Auto) (1.2-3.4) K/uL Grimes # (Auto) 0.85 H (0.11-0.59) K/uL PT 21.4 H (9.0-12.0) Seconds INR 2.2 H (0.9-1.1) APTT (21.0-31.0) Seconds VBG pH (7.36-7.41) VBG pCO2 (38-50) mmHg Chloride (98-107) mmol/L BUN 25 H (7-18) mg/dl Creatinine 1.26 H (0.6-1.2) mg/dl BUN/Creatinine Ratio (10-20) Glucose 112 H (70-99) mg/dl Alkaline Phosphatase (45-117) U/L NT-Pro-B Natriuret Pep 2292 H (0-900) pg/ml Albumin (3.4-5.0) gm/dl Globulin (2.5-4.0) gm/dl Albumin/Globulin Ratio (0.9-2) 07/22/18 07/22/18 07/22/18 Range/Units 00:02 03:14 03:14 RBC 4.10 L (4.2-5.4) M/uL Hct (37-47) % MCV 100.7 H (80-100) fL RDW Std Deviation 55.1 H (36.4-46.3) fL RDW Coeff of Priti 15.2 H (11.5-14.5) % MPV 11.3 H (7.4-10.4) fL Neut # (Auto) 6.82 H (1.4-6.5) K/uL Lymph # (Auto) 1.18 L (1.2-3.4) K/uL Grimes # (Auto) 0.92 H (0.11-0.59) K/uL PT 22.4 H (9.0-12.0) Seconds INR 2.3 H (0.9-1.1) APTT 41.4 H (21.0-31.0) Seconds VBG pH 7.33 L (7.36-7.41) VBG pCO2 55 H (38-50) mmHg Chloride (98-107) mmol/L BUN (7-18) mg/dl Creatinine (0.6-1.2) mg/dl BUN/Creatinine Ratio (10-20) Glucose (70-99) mg/dl Alkaline Phosphatase (45-117) U/L NT-Pro-B Natriuret Pep (0-900) pg/ml Albumin (3.4-5.0) gm/dl Globulin (2.5-4.0) gm/dl Albumin/Globulin Ratio (0.9-2) 07/22/18 Range/Units 03:14 RBC (4.2-5.4) M/uL Hct (37-47) % MCV (80-100) fL RDW Std Deviation (36.4-46.3) fL RDW Coeff of Priti (11.5-14.5) % MPV (7.4-10.4) fL Neut # (Auto) (1.4-6.5) K/uL Lymph # (Auto) (1.2-3.4) K/uL Grimes # (Auto) (0.11-0.59) K/uL PT (9.0-12.0) Seconds INR (0.9-1.1) APTT (21.0-31.0) Seconds VBG pH (7.36-7.41) VBG pCO2 (38-50) mmHg Chloride 108 H (98-107) mmol/L BUN 25 H (7-18) mg/dl Creatinine (0.6-1.2) mg/dl BUN/Creatinine Ratio 21.7 H (10-20) Glucose 110 H (70-99) mg/dl Alkaline Phosphatase 124 H (45-117) U/L NT-Pro-B Natriuret Pep (0-900) pg/ml Albumin 2.6 L (3.4-5.0) gm/dl Globulin 4.3 H (2.5-4.0) gm/dl Albumin/Globulin Ratio 0.6 L (0.9-2)
[2018-07-22] MEDS: WARFARIN SOD 10 MG TAB PO SCH (20:12)
[2018-07-23] MEDS: LEVOFLOXACIN/D5W 500 MG/100 ML BAG IV SCH (03:48)
[2018-07-23 06:24] LABS: Eosinophils # (auto) 0.14 K/uL (0-0.5); Eosinophils % (auto) 2.8 %; Hematocrit (blood only) 39.2 % (37-47); Hemoglobin 12.6 g/dL (12.0-16.0); Immature Granulocytes # (auto) 0.01 K/uL (0.00-0.02); Immature Granulocytes % (auto) 0.2 %; Lymphocytes # (auto) 1.15 K/uL (1.2-3.4); Lymphocytes % (auto) 23.3 %; Mean Corpuscular Hgb Conc 32.1 g/dL (32-36); Mean Platelet Volume 11.3 fL (7.4-10.4); Monocytes # (auto) 0.58 K/uL (0.11-0.59); Monocytes % (auto) 11.8 %; Neutrophils # (auto) 3.05 K/uL (1.4-6.5); Neutrophils % (auto) 61.9 %; Platelet Count 155 K/uL (130-400); RDW Coefficient of Variation 15.3 % (11.5-14.5); RDW Standard Deviation 55.2 fL (36.4-46.3); Red Blood Count 3.92 M/uL (4.2-5.4); White Blood Count 4.93 K/uL (4.8-10.8)
[2018-07-23 06:56] LABS: Albumin Level 2.4 gm/dl (3.4-5.0); BUN Creatinine Ratio 21.4 (10-20); Calcium 8.8 mg/dl (8.5-10.1); Creatinine Clr Calc Pharmacy 49.1 ml/min; Est GFR (African American) 44.7; Est GFR (Non-African American) 38.6; INR 2.4 (0.9-1.1); Potassium 4.1 mmol/L (3.5-5.1); Prothrombin Time 23.2 Seconds (9.0-12.0)
[2018-07-23 06:58] LABS: Albumin Globulin Ratio 0.6 (0.9-2); Bilirubin,Total 0.7 mg/dl (0.2-1); Globulin 4.3 gm/dl (2.5-4.0); Total Protein 6.7 gm/dl (6.4-8.2)
[2018-07-23] MEDS: ALBUT/IPRATROP 3MG/0.5MG NEB 3 ML VIAL NEB SCH ×4 (07:29→19:10)
[2018-07-23] MEDS: ATORVASTATIN 40 MG TAB PO SCH (09:21)
[2018-07-23] MEDS: FUROSEMIDE 40 MG in SYRINGE 0 ML IV SCH ×2 (09:21→21:12)
[2018-07-23] MEDS: ALLOPURINOL 300 MG TAB PO SCH (09:21)
[2018-07-23] MEDS: MAGNESIUM OXIDE 400 MG TAB PO SCH (09:21)
[2018-07-23] MEDS: FELODIPINE 5 MG TABCR PO SCH (09:22)
[2018-07-23] MEDS: PANTOprazole 40 MG in SYRINGE 0 ML IV SCH (12:21)
--- NOTE | 2018-07-23 14:45 | Hospitalist Progress Note ---
Date of Service July 23, 2018 Assessment & Plan (1) Acute respiratory failure with hypoxia and hypercapnia: (2) Hypertension: (3) Afib: (4) CHF (congestive heart failure): (5) Asthma: (6) Excoriation of multiple sites of buttock: (7) Perineal irritation: (8) Morbid obesity: (9) Hyperlipidemia: (10) DVT prophylaxis: 72-year-old white female admitted on July 22, 2018 because of acute on chronic respiratory failure, which is likely secondary to CHF or asthma exacerbation Acute respiratory failure with hypoxia and hypercapnia: Chronic respiratory failure O2 dependent Combination of acute diastolic CHF and asthma exacerbation. CHF is supported by worsening shortness of breath and CXR with mild pulmonary edema and pleural effusion History of hypertension, A. fib on Coumadin, Last echo in 2016 showed normal EF, s with severe pulmonary hypertension with PA systolic pressure 70mmHg, Continue Lasix 40 mg IV twice daily. Possible acute on chronic kidney injury, with worsening creatinine at 1.35 from 1.16, has discussed with patient about the risk and benefit of diuretic, which may harm kidney, he understand and okay to continue diuretic with risk Continue water restriction, IV Lasix, is difficult to monitor patient input and output and body weight, however she report has been gaining weight and for more than 30 pounds, Continue verapamil, metoprolol tartrate, telmisartan, spironolactone, potassium chloride, felodipine and mag oxide. Continue warfarin. INR therapeutic at 2.2 Continue Duonebs every 4 hours while awake and every 2 hours when necessary. Levofloxacin 500 mg IV every 24 hours. Excoriation of multiple sites of buttock: Continue wound care and follow-up as instructed Morbid obesity: functional urinary and fecal incontinence due to morbid obesity. Appreciate psychotherapist social worker input regarding home care Hyperlipidemia: Continue pravastatin DVT prophylaxis: Coumadin Subjective Sitting on chair, conversational, report no obvious increased urine output, even after oral p.o. Report was home O2 dependent on 3 L/min and CPAP at home, still has cough which is nonproductive and lower extremity swelling, Nurse report urine incontinence, and getting worse when she cough Review of Systems Constitutional: Positive weakness, or fatigue Respiratory: Shortness of breath possible in baseline, however some wheezing, and dyspnea on exertion Cardiac: No chest pain, No orthopnea, Abdomen: No pain, No nausea, No vomiting, No diarrhea, Musculoskeletal: No joint pain, No muscle pain, : No dysuria, No urinary frequency, No incontinence, No hematuria Neurologic: No paralysis, No weakness, No numbness/tingling, Psychiatric: No depression symptoms, No anhedonism, No anxiety Heme: No abnormal bleeding/bruising, No clotting problems, Skin: No itch, No new/changing skin lesions, Physical Exam 2 Vital Signs (Past 24 Hours): Last Vital Signs Temp 36.4 C L 07/23/18 12:00 Pulse 102 H 07/23/18 12:00 Resp 16 07/23/18 12:00 BP 142/67 H 07/23/18 12:00 Pulse Ox 97 07/23/18 12:00 Physical Exam: General: no distress, sitting on chair, conversational Eyes: normal inspection, PERLL Respiratory: chest non tender, significant decreased breathing sound, clear to auscultation, no respiratory distress, no accessory muscle use Cardiac: regular rate and rhythm, no rub or gallop, no murmur, no edema, no jvd GI/: active bowel sounds, no abd pain or tenderness, soft, non distended Extremities: 2-3+ edema, normal range of motion, normal strength, non tender Neuro/Psych: alert and oriented x 3, normal mood and affect Skin: normal color, dry Results & Data Laboratory Results Laboratory Results - last 24 hr 07/23/18 07/23/18 07/23/18 06:08 06:08 06:08 WBC 4.93 RBC 3.92 L Hgb 12.6 Hct 39.2 MCV 100.0 MCH 32.1 MCHC 32.1 RDW Std Deviation 55.2 H RDW Coeff of Priti 15.3 H Plt Count 155 MPV 11.3 H Immature Gran % (Auto) 0.2 Neut % (Auto) 61.9 Lymph % (Auto) 23.3 [place] % (Auto) 11.8 Eos % (Auto) 2.8 Baso % (Auto) 0.0 Immature Gran # (Auto) 0.01 Neut # (Auto) 3.05 Lymph # (Auto) 1.15 L [place] # (Auto) 0.58 Eos # (Auto) 0.14 Baso # (Auto) 0.00 PT 23.2 H INR 2.4 H Sodium 138 Potassium 4.1 Chloride 104 Carbon Dioxide 28 Anion Gap 6.0 BUN 29 H Creatinine 1.35 H Est Cr Clr Drug Dosing 49.1 Est GFR ( Amer) 44.7 Est GFR (Non-Af Amer) 38.6 BUN/Creatinine Ratio 21.4 H Glucose 84 Calcium 8.8 Total Bilirubin 0.7 AST 21 ALT 23 Alkaline Phosphatase 113 Total Protein 6.7 Albumin 2.4 L Globulin 4.3 H Albumin/Globulin Ratio 0.6 L
[2018-07-23] MEDS: MENTHOL-ZINC OXIDE 360 APPLN/120 GM TUBE EXT SCH (18:36)
[2018-07-23] MEDS: WARFARIN SOD 10 MG TAB PO SCH (21:12)
[2018-07-24] MEDS: LEVOFLOXACIN/D5W 500 MG/100 ML BAG IV SCH (03:55)
[2018-07-24] MEDS: ACETAMINOPHEN 325 MG TAB PO PRN (03:58)
[2018-07-24 05:55] LABS: Basophils # (auto) 0.01 K/uL (0-0.2); Basophils % (auto) 0.2 %; Eosinophils # (auto) 0.28 K/uL (0-0.5); Eosinophils % (auto) 4.7 %; Hematocrit (blood only) 40.4 % (37-47); Hemoglobin 13.2 g/dL (12.0-16.0); Lymphocytes # (auto) 1.03 K/uL (1.2-3.4); Lymphocytes % (auto) 17.1 %; Mean Corpuscular Hgb Conc 32.7 g/dL (32-36); Monocytes % (auto) 11.6 %; Neutrophils % (auto) 66.4 %; Platelet Count 173 K/uL (130-400); RDW Standard Deviation 54.4 fL (36.4-46.3); Red Blood Count 4.04 M/uL (4.2-5.4); White Blood Count 6.02 K/uL (4.8-10.8)
[2018-07-24 06:06] LABS: Prothrombin Time 28.5 Seconds (9.0-12.0)
[2018-07-24 06:28] LABS: BUN Creatinine Ratio 22.8 (10-20); Creatinine Clr Calc Pharmacy 50.9 ml/min; Est GFR (African American) 46.8; Est GFR (Non-African American) 40.4; Potassium 4.3 mmol/L (3.5-5.1)
[2018-07-24 06:29] LABS: Albumin Level 2.6 gm/dl (3.4-5.0); Calcium 9.1 mg/dl (8.5-10.1); Magnesium 1.7 mg/dl (1.8-2.4)
[2018-07-24 06:31] LABS: Albumin Globulin Ratio 0.6 (0.9-2); Bilirubin,Total 0.5 mg/dl (0.2-1); Globulin 4.5 gm/dl (2.5-4.0); Total Protein 7.1 gm/dl (6.4-8.2)
[2018-07-24] MEDS: ALBUT/IPRATROP 3MG/0.5MG NEB 3 ML VIAL NEB SCH ×4 (06:52→19:02)
[2018-07-24] MEDS: MICONAZOLE NITRATE POWDER 43 GM EXT PRN (08:50)
[2018-07-24] MEDS: FELODIPINE 5 MG TABCR PO SCH (08:50)
[2018-07-24] MEDS: ALLOPURINOL 300 MG TAB PO SCH (08:50)
[2018-07-24] MEDS: MENTHOL-ZINC OXIDE 360 APPLN/120 GM TUBE EXT SCH ×2 (08:51→21:02)
[2018-07-24] MEDS: FUROSEMIDE 40 MG in SYRINGE 0 ML IV SCH (08:52)
[2018-07-24] MEDS: MAGNESIUM OXIDE 400 MG TAB PO SCH ×3 (08:54→20:59)
[2018-07-24] MEDS: ATORVASTATIN 40 MG TAB PO SCH (08:56)
[2018-07-24] MEDS ORDERED: MAGNESIUM SULFATE / D5W 1 GM/100 ML BAG IV ONE (09:00)
--- NOTE | 2018-07-24 11:32 | Hospitalist Progress Note ---
Date of Service July 24, 2018 Assessment & Plan (1) Acute respiratory failure with hypoxia and hypercapnia: (2) Hypertension: (3) Afib: (4) CHF (congestive heart failure): (5) Asthma: (6) Excoriation of multiple sites of buttock: (7) Perineal irritation: As above (8) Morbid obesity: (9) Hyperlipidemia: Continue pravastatin (10) DVT prophylaxis: 72-year-old white female admitted on July 22, 2018 because of acute on chronic respiratory failure, which is likely secondary to CHF or asthma exacerbation Acute respiratory failure with hypoxia and hypercapnia upon admission: Resolved Chronic respiratory failure O2 dependent, possible in baseline Combination of acute diastolic CHF and asthma exacerbation, stable improving CHF is supported by worsening shortness of breath, significant elevated BNP and CXR with mild pulmonary edema and pleural effusion History of hypertension, A. fib on Coumadin, Last echo in 2017 showed normal EF, repeat echo shows normal LVEF, therefore possible diastolic CHF exacerbation, Change Lasix 40 mg IV twice daily to p.o. Possible acute on chronic kidney injury, with worsening creatinine at 1.35 from 1.16, Today's creatinine is stable at 1.3, Continue water restriction, IV Lasix, is difficult to monitor patient input and output and body weight, Continue metoprolol tartrate, spironolactone, potassium chloride, Continue warfarin. INR therapeutic at 3 Continue Duonebs every 4 hours while awake and every 2 hours when necessary. Levofloxacin 500 mg IV every 24 hours, will switch to p.o. Excoriation of multiple sites of buttock: Continue wound care and follow-up as instructed Morbid obesity: functional urinary and fecal incontinence due to morbid obesity. Appreciate social service assistant input regarding home care Hyperlipidemia: Continue pravastatin Fell on right hand 3 weeks ago, now has shooting pain when range of motion radiation to right forearm, want to rule out wrist fracture DVT prophylaxis: Coumadin Subjective Sitting on chair, conversational, no obvious difficulty breathing, was home O2 dependent on 3 L/min and CPAP at home, possible in baseline now, still has cough which is nonproductive and lower extremity swelling, Nurse report urine incontinence, and getting worse when she cough Report right hand pain after the fell 3 weeks ago at home Review of Systems Constitutional: Positive weakness, or fatigue Respiratory: Shortness of breath possible in baseline, however some wheezing, and dyspnea on exertion Cardiac: No chest pain, No orthopnea, Abdomen: No pain, No nausea, No vomiting, No diarrhea, Musculoskeletal: No joint pain, No muscle pain, : No dysuria, No urinary frequency, No incontinence, No hematuria Neurologic: No paralysis, No weakness, No numbness/tingling, Psychiatric: No depression symptoms, No anhedonism, No anxiety Heme: No abnormal bleeding/bruising, No clotting problems, Skin: No itch, No new/changing skin lesions, Physical Exam 2 Vital Signs (Past 24 Hours): Last Vital Signs Temp 36.4 C L 07/24/18 07:26 Pulse 92 H 07/24/18 09:00 Resp 20 07/24/18 07:26 BP 148/78 H 07/24/18 09:00 Pulse Ox 95 07/24/18 07:26 Physical Exam: General: no distress, sitting on chair, conversational, pleasant on oxygen, Eyes: normal inspection, PERLL Respiratory: chest non tender, significant decreased breathing sound, no obvious wheezing, no respiratory distress, no accessory muscle use Cardiac: regular rate and rhythm, no rub or gallop, no murmur, no edema, no jvd GI/: active bowel sounds, no abd pain or tenderness, soft, non distended Extremities: 2+ edema, normal range of motion, normal strength, non tender , right wrist mild pain when range of motion, no local deformities Neuro/Psych: alert and oriented x 3, normal mood and affect Skin: normal color, dry Results & Data Laboratory Results Laboratory Results - last 24 hr 07/24/18 07/24/18 07/24/18 05:35 05:35 05:35 WBC 6.02 RBC 4.04 L Hgb 13.2 Hct 40.4 MCV 100.0 MCH 32.7 MCHC 32.7 RDW Std Deviation 54.4 H RDW Coeff of Priti 15.0 H Plt Count 173 MPV 11.0 H Immature Gran % (Auto) 0.0 Neut % (Auto) 66.4 Lymph % (Auto) 17.1 [place] % (Auto) 11.6 Eos % (Auto) 4.7 Baso % (Auto) 0.2 Immature Gran # (Auto) 0.00 Neut # (Auto) 4.00 Lymph # (Auto) 1.03 L [place] # (Auto) 0.70 H Eos # (Auto) 0.28 Baso # (Auto) 0.01 PT 28.5 H INR 3.0 H Sodium 137 Potassium 4.3 Chloride 104 Carbon Dioxide 28 Anion Gap 5.0 BUN 30 H Creatinine 1.30 H Est Cr Clr Drug Dosing 50.9 Est GFR ( Amer) 46.8 Est GFR (Non-Af Amer) 40.4 BUN/Creatinine Ratio 22.8 H Glucose 89 Calcium 9.1 Magnesium 1.7 L Total Bilirubin 0.5 AST 21 ALT 26 Alkaline Phosphatase 121 H Total Protein 7.1 Albumin 2.6 L Globulin 4.5 H Albumin/Globulin Ratio 0.6 L
[2018-07-24] MEDS ORDERED: MOMETASONE INH SCH (11:45)
--- NOTE | 2018-07-24 12:32 | XRay Report ---
RIGHT WRIST 4 VIEWS HISTORY: Fell on right hand 3 weeks ago, now has shooting pain when range of motion radiation to right forearm, want to rule out wrist fracture COMPARISON: Right hand 07/02/2015. FINDINGS: There is no fracture or dislocation. Mild soft tissue swelling. Chondrocalcinosis. Vascular calcifications are noted. Mild osteoarthritis at the radiocarpal joint. No radiopaque foreign bodies . IMPRESSION: No fracture or dislocation within the right wrist. Electronically signed by: Alexander Rod M.D. 07/24/2018 12:31 PM
[2018-07-24] MEDS: METOPROLOL TARTRATE 25 MG TAB PO SCH ×2 (13:00→20:58)
[2018-07-24] MEDS: SPIRONOLACTONE 25 MG TAB PO SCH (13:00)
[2018-07-24] MEDS: ESCITALOPRAM OXALATE 10 MG TAB PO SCH (13:00)
[2018-07-24] MEDS: PANTOprazole 40 MG TAB PO SCH (13:26)
[2018-07-24] MEDS ORDERED: PRAVASTATIN SOD 40 MG TAB PO SCH (21:00)
[2018-07-24] MEDS ORDERED: FUROSEMIDE 40 MG TAB PO SCH (21:00)
[2018-07-24] MEDS: WARFARIN SOD 10 MG TAB PO SCH (21:00)
[2018-07-25] MEDS: ALBUT/IPRATROP 3MG/0.5MG NEB 3 ML VIAL NEB SCH ×3 (07:12→15:22)
[2018-07-25 07:59] LABS: Hematocrit (blood only) 39.8 % (37-47); Hemoglobin 12.7 g/dL (12.0-16.0); Mean Corpuscular Hgb Conc 31.9 g/dL (32-36); Mean Platelet Volume 10.9 fL (7.4-10.4); Platelet Count 177 K/uL (130-400); RDW Coefficient of Variation 15.2 % (11.5-14.5); RDW Standard Deviation 55.5 fL (36.4-46.3); Red Blood Count 3.98 M/uL (4.2-5.4); White Blood Count 4.86 K/uL (4.8-10.8)
[2018-07-25 08:08] LABS: INR 3.3 (0.9-1.1); Prothrombin Time 30.8 Seconds (9.0-12.0)
[2018-07-25] MEDS: METOPROLOL TARTRATE 25 MG TAB PO SCH (08:11)
[2018-07-25] MEDS: SPIRONOLACTONE 25 MG TAB PO SCH (08:11)
[2018-07-25] MEDS: ALLOPURINOL 300 MG TAB PO SCH (08:12)
[2018-07-25] MEDS: ATORVASTATIN 40 MG TAB PO SCH (08:12)
[2018-07-25] MEDS: FELODIPINE 5 MG TABCR PO SCH (08:12)
[2018-07-25] MEDS: ESCITALOPRAM OXALATE 10 MG TAB PO SCH (08:12)
[2018-07-25] MEDS: MAGNESIUM OXIDE 400 MG TAB PO SCH (08:13)
[2018-07-25] MEDS: MICONAZOLE NITRATE POWDER 43 GM EXT PRN (08:14)
[2018-07-25] MEDS: ACETAMINOPHEN 325 MG TAB PO PRN (08:15)
[2018-07-25] MEDS: MENTHOL-ZINC OXIDE 360 APPLN/120 GM TUBE EXT SCH (08:15)
[2018-07-25 08:34] LABS: BUN Creatinine Ratio 25.9 (10-20); Calcium 9.3 mg/dl (8.5-10.1); Est GFR (African American) 49.1; Est GFR (Non-African American) 42.3; Magnesium 2.2 mg/dl (1.8-2.4)
[2018-07-25 08:39] LABS: Phosphorus 3.6 mg/dl (2.5-4.9)
[2018-07-25] MEDS ORDERED: CEROVITE ADV FORMULA TAB PO SCH (09:00)
[2018-07-25] MEDS: PANTOprazole 40 MG TAB PO SCH (09:00)
[2018-07-25] MEDS ORDERED: PANTOprazole 40 MG TAB PO SCH (09:00)
[2018-07-25] MEDS ORDERED: MIRABEGRON ER 25 MG TAB PO SCH (09:00)
[2018-07-25] MEDS ORDERED: FUROSEMIDE 40 MG TAB PO SCH (09:00)
[2018-07-25] MEDS ORDERED: THIAMINE HCL 100 MG TAB PO SCH (09:00)
[2018-07-25] MEDS ORDERED: levoFLOXacin 500 MG TAB PO SCH (11:00)
--- NOTE | 2018-07-25 14:32 | Discharge Summary ---
Date of Service July 25, 2018 Admission HPI Per Admitting Provider The patient is a 72-year-old female with a past medical history including atrial fibrillation, CHF, anasarca, hypertension and morbid obesity, who reports to the emergency department with worsening shortness of breath over the day today, after having not taken her Lasix earlier this morning or evening. She had intermittent cough, she has chronic bilateral shoulder discomfort, in particular after an injury 2 weeks ago. She had been going to physical therapy for her shoulders up until May at [facility], when her insurance ran out. She has chronically excoriated buttock and perineal area due to inability to wipe herself, and nurses report that she was covered in stool and urine in those areas upon arrival. Principal Diagnosis no Discharge Data Allergies Allergy/AdvReac Type Severity Reaction Status Date / Time Iodinated Contrast- Oral and Allergy Severe PAIN AT Verified 07/22/18 01:55 IV Dye INJECTION SITE AND UP THE BONES ketoprofen Allergy Severe NUMBNESS Verified 07/22/18 01:55 FROM WAIST DOWN SEVERAL MONTHS lorazepam Allergy Severe pt Verified 07/22/18 01:55 EXTREMELY sensitive Penicillins Allergy Severe SEVERE RASH Verified 07/22/18 01:55 trimethoprim Allergy Severe ELEVATED Verified 07/22/18 01:55 POTASSIUM LEVELS cephalexin Allergy Intermediate ITCHING Verified 07/22/18 01:55 Consultations 07/22/18 00:54 ED Decision to Admit Stat 07/22/18 03:06 Consult Case Management - Discharge Planning Routine Hospital Course (1) Acute respiratory failure with hypoxia and hypercapnia: (2) Hypertension: (3) Afib: (4) CHF (congestive heart failure): (5) Asthma: (6) Excoriation of multiple sites of buttock: (7) Perineal irritation: (8) Morbid obesity: (9) Hyperlipidemia: (10) DVT prophylaxis: 72-year-old white female admitted on July 22, 2018 because of acute on chronic respiratory failure, which is likely secondary to CHF or asthma exacerbation Acute respiratory failure with hypoxia and hypercapnia upon admission: Resolved Chronic respiratory failure O2 dependent, to be stable in baseline Combination of acute diastolic CHF and asthma exacerbation, stable improving CHF is supported by worsening shortness of breath, significant elevated BNP and CXR with mild pulmonary edema and pleural effusion History of hypertension, A. fib on Coumadin, Last echo in 2017 showed normal EF, repeat echo shows normal LVEF, therefore possible diastolic CHF exacerbation, Change Lasix 40 mg IV twice daily to p.o. Possible acute on chronic kidney injury, with worsening creatinine at 1.35 from 1.16, Today's creatinine is stable at 1.2 from .3, Continue water restriction, changed IV lasix to oral Lasix 40 twice daily, will continue upon discharge Continue metoprolol tartrate, spironolactone, potassium chloride, Continue warfarin. INR therapeutic at 3.3 today, has advised to take half dose of Coumadin today which is 5 mg, Has been on levofloxacin 500 mg IV every 24 hours for 3 days, I do not believe she has pneumonia or infection, will discontinue Levaquin upon discharge Excoriation of multiple sites of buttock: Continue wound care and follow-up as instructed Morbid obesity: functional urinary and fecal incontinence due to morbid obesity. Appreciate social services counselor input regarding home care Hyperlipidemia: Continue pravastatin Fell on right hand 3 weeks ago, was having shooting pain when range of motion radiation to right forearm, has done wrist x-ray and rule out wrist fracture DVT prophylaxis: Coumadin Patient was discharged home with home health care today has give prescription to check BMP PT/INR, and report results to PCP Total Time Total Time Spent Total Time Spent (In Minutes): 32 Discharge Plan Discharge Items Patient Disposition: Home - Home Health Services Reason For Visit: CHF, PNEUMONIA Discharge Diagnosis: you have Acute respiratory failure with hypoxia and hypercapnia upon admission: Resolved you are having Chronic respiratory failure O2 dependent, possible in baseline you have A. fib on Coumadin, INR is 3.3 today Discharge Goals: Decrease discomfort, Diagnostic testing, Improve disease control and Improve function Activity: Resume your previous activity Non-emergency contact: Primary Care Provider Call non-emergency contact if: you have any medication questions Follow-up/Referrals: Rah Ambrocio MD [Primary Care Provider] - 07/31/18 1:00 pm (Please, follow up at Dr. Ambrocio's office with his reproductive healthcare assistant, Natalie Pacheco PA-C, on MondayJuly 31 at 1:00 pm. *If you need to change this appointment, call the office at [phone].) Diet: Heart Healthy and Low Sodium (2gm) Fluids: 1800ml (7 cups) Addtl Provider Instructions: you have Acute respiratory failure with hypoxia and hypercapnia upon admission: Resolved you are having Chronic respiratory failure O2 dependent, possible in baseline you have A. fib on Coumadin, INR is 3.3 today you need to continue Lasix 40 mg twice daily to p.o. you need to follow up with your primary care physician in 1 week, need labs tested of bmp, mag, INR on this Monday, Rx enclosed, adn report the result to pcp - take medication as instructed, never overdose or any misuse, or take with alcohol, because misuse of medicine may cause organ damage or , call me , or your primary care physician if have questions of discharge medicaitons. - call your primary care physician, or go to local emergency room if has any fever/chill, chest pain, shortness of breathing, nausea/vomiting/abdominal pain , facial droop/slurry speech/local weakness, or if has any questions. - fall precaution - diet as instructed Prescriptions: New magnesium oxide 400 mg (241.3 mg magnesium) Tablet 400 mg PO BID 7 Days Qty: 14 RF: 0 Continue furosemide 40 mg tablet 40 mg PO QAM RF: 0 atorvastatin 40 mg tablet 40 mg PO DAILY RF: 0 felodipine 5 mg tablet extended release 24 hr 5 mg PO DAILY RF: 0 allopurinol 300 mg tablet 300 mg PO DAILY RF: 0 magnesium oxide 400 mg magnesium Tablet 400 mg PO DAILY RF: 0 potassium chloride 10 mEq Capsule, Extended Release 10 meq PO BID RF: 0 pravastatin 40 mg Tablet 40 mg PO HS RF: 0 thiamine HCl (vitamin B1) [Vitamin B-1] 100 mg Tablet 100 mg PO DAILY RF: 0 spironolactone 25 mg Tablet 25 mg PO DAILY RF: 0 pantoprazole 40 mg Tablet,Delayed Release (Dr/Ec) 40 mg PO DAILY RF: 0 ranitidine HCl 150 mg Tablet 150 mg PO AMPM RF: 0 telmisartan [Micardis] 80 mg Tablet 80 mg PO DAILY RF: 0 verapamil 240 mg Tablet Extended Release 240 mg PO QAM RF: 0 albuterol sulfate [ProAir HFA] 90 mcg/actuation Hfa Aerosol Inhaler 2 puff INHALATION Q6H PRN (Reason: Shortness Of Breath Or Wheezing) RF: 0 escitalopram oxalate 10 mg Tablet 10 mg PO DAILY RF: 0 mirabegron 50 mg tablet extended release 24 hr 50 mg PO QAM RF: 0 warfarin 10 mg tablet 10 mg PO QPM RF: 0 [id number] K [Multi For Her] 18 mg iron-600 mcg-40 mcg Capsule 1 tab-cap PO QAM RF: 0 Changed metoprolol tartrate 25 mg tablet 12.5 mg PO BID Qty: 0 RF: 0 furosemide 40 mg tablet 40 mg PO QPM Qty: 0 RF: 0 Discontinued torsemide 100 mg tablet 100 mg PO DAILY RF: 0 atenolol 50 mg Tablet 50 mg PO DAILY RF: 0 Stand-Alone Forms: [facility] Discharge Orders: Discharge Order (Routine); Ordered 07/25/18 Ordered By: Rishi Hill Admission Data Admit Date/Time: 07/22/18 01:59 Attending Provider: Rishi Hill Admit Provider: Clarke Richmond Primary Care Provider: Rah Ambrocio Other Providers: Clarke Richmond ; Denny Fermin Service: Telemetry Medical Other Interventions: Discharge Summary Assessment (RN) Last Done: 07/25/18 13:02
[2018-07-25] MEDS ORDERED: WARFARIN SOD 5 MG TAB PO SCH (21:00)
== END 2018-07-25 16:06 | disposition home health service (06) | DRG 291 ==
LOC: ED 23:34 → 2N 07-22 01:59 → SUATTDRO 07-22 01:59 → 2N 07-22 02:31

== ENCOUNTER 2018-07-31 00:22 | Inpatient (IN) ==
[2018-07-31] MEDS ORDERED: FUROSEMIDE 40 MG/4 ML VIAL IV STA (01:09)
[2018-07-31 01:28] LABS: Basophils # (auto) 0.03 K/uL (0-0.2); Basophils % (auto) 0.4 %; Eosinophils % (auto) 5.1 %; Hematocrit (blood only) 44.5 % (37-47); Hemoglobin 14.7 g/dL (12.0-16.0); Immature Granulocytes # (auto) 0.02 K/uL (0.00-0.02); Immature Granulocytes % (auto) 0.3 %; Lymphocytes # (auto) 1.17 K/uL (1.2-3.4); Mean Corpuscular Volume 100.5 fL (80-100); Mean Platelet Volume 10.7 fL (7.4-10.4); Monocytes # (auto) 0.74 K/uL (0.11-0.59); Monocytes % (auto) 9.5 %; Neutrophils # (auto) 5.46 K/uL (1.4-6.5); Neutrophils % (auto) 69.7 %; Platelet Count 178 K/uL (130-400); RDW Standard Deviation 55.2 fL (36.4-46.3); Red Blood Count 4.43 M/uL (4.2-5.4); White Blood Count 7.82 K/uL (4.8-10.8)
[2018-07-31 01:44] LABS: Alanine Aminotransferase 28 U/L (12-78); Albumin Level 2.9 gm/dl (3.4-5.0); Aspartate Aminotransferase 23 U/L (15-37); BUN Creatinine Ratio 23.4 (10-20); Blood Urea Nitrogen 25 mg/dl (7-18); Calcium 9.2 mg/dl (8.5-10.1); Carbon Dioxide 29 mmol/L (21-32); Chloride 107 mmol/L (98-107); Creatinine Clr Calc Pharmacy 62.8 ml/min; Est GFR (African American) 60.6; Est GFR (Non-African American) 52.3; Glucose 99 mg/dl (70-99); Magnesium 1.8 mg/dl (1.8-2.4); Potassium 4.3 mmol/L (3.5-5.1); Sodium 140 mmol/L (136-145)
[2018-07-31 01:49] LABS: Albumin Globulin Ratio 0.6 (0.9-2); Alkaline Phosphatase 145 U/L (45-117); Bilirubin,Total 0.5 mg/dl (0.2-1); Globulin 4.9 gm/dl (2.5-4.0); Total Protein 7.8 gm/dl (6.4-8.2); Troponin I < 0.015 ng/ml (0-0.045)
[2018-07-31 02:16] LABS: Partial Thromboplastin Ratio 2.1; Prothrombin Time 52.3 Seconds (9.0-12.0)
[2018-07-31 02:24] LABS: INR 5.7 (0.9-1.1); Partial Thromboplastin Time 54.6 Seconds (21.0-31.0)
[2018-07-31 02:43] LABS: Appearance Urine Clear (Clear); Bacteria Urine Automated Negative (Negative); Bilirubin Urine Negative (Negative); Blood Urine 1+ (Negative); Color Urine Yellow; Epithelial Cell Urine Auto 20-30 /lpf (0-5); Glucose Urine UA Negative (Negative); Ketones Urine Negative (Negative); Leukocyte Esterase Urine Negative (Negative); Nitrite Urine Negative (Negative); Protein Urine Trace (Negative); Specific Gravity Urine 1.012 (1.000-1.030); Urobilinogen Urine Negative (Negative)
[2018-07-31 02:57] LABS: RBC Urine Automated 0-4 /hpf (0-4)
--- NOTE | 2018-07-31 04:26 | History & Physical Report ---
Date of Service July 31, 2018 Assessment & Plan (1) Acute on chronic diastolic CHF (congestive heart failure), NYHA class 2: Acute on chronic diastolic CHF/hypertension/atrial fibrillation-- Hold warfarin, as INR is 5.7, and repeat lab tomorrow. Hold torsemide 100 mg p.o. daily. Continue felodipine 5 mg p.o. daily, metoprolol tartrate 25 mg p.o. twice daily and spironolactone [address] on albumin 25 g with Lasix 40 mg IV twice daily. Follow serial physical exams and chest x-rays. Follow serial chemistry profile and magnesium level. Present on Admission?: Yes (2) Afib: As above. Present on Admission?: Yes (3) Hypertension: As above. Present on Admission?: Yes (4) Noncompliance: Patient has a long history, for different reasons, of not taking medications as directed. This at least in part appears to be difficulty in understanding directions. Present on Admission?: Yes (5) Morbid obesity: Large contributing factor to all of her medical issues. Present on Admission?: Yes (6) Hyperlipidemia: Continue atorvastatin 40 mg daily Present on Admission?: Yes History of Present Illness Chief Complaint: The patient presents to the emergency department with progressively worsening shortness of breath over the past few days. Primary Care Provider: Rah Ambrocio MD The patient is a 72-year-old female most recently admitted to this hospital from July 22 - July 25, reports that she had some confusion about medications that she was supposed to take, and since that time has not been taking any of her diuretics. She reports that fluid has reaccumulated, she feels short of breath again, but denies any chest pain or any other new symptoms. Allergies Allergy/AdvReac Type Severity Reaction Status Date / Time Iodinated Contrast- Oral and Allergy Severe PAIN AT Verified 07/31/18 02:02 IV Dye INJECTION SITE AND UP THE BONES ketoprofen Allergy Severe NUMBNESS Verified 07/31/18 02:02 FROM WAIST DOWN SEVERAL MONTHS lorazepam Allergy Severe pt Verified 07/31/18 02:02 EXTREMELY sensitive Penicillins Allergy Severe SEVERE RASH Verified 07/31/18 02:02 trimethoprim Allergy Severe ELEVATED Verified 07/31/18 02:02 POTASSIUM LEVELS cephalexin Allergy Intermediate ITCHING Verified 07/31/18 02:02 Home Medications Home Medications Medication Instructions Recorded Confirmed Type albuterol sulfate [ProAir HFA] 2 puff INHALATION Q6H PRN 07/22/18 07/31/18 History atorvastatin 40 mg PO DAILY 07/22/18 07/31/18 History felodipine 5 mg PO DAILY 07/22/18 07/31/18 History mirabegron 50 mg PO QAM 07/22/18 07/31/18 History xfzxsodtiynt-apl-aznk-FA-vit K 1 tab-cap PO QAM 07/22/18 07/31/18 History [Multi For Her] pantoprazole 40 mg PO DAILY 07/22/18 07/31/18 History magnesium oxide 400 mg PO BID 7 Days #14 tab 07/25/18 07/31/18 Rx allopurinol 300 mg PO DAILY 07/31/18 07/31/18 History betamethasone valerate 1 applic TOPICAL DAILY PRN 07/31/18 07/31/18 History clotrimazole-betamethasone 1 applic TOPICAL DAILY 07/31/18 07/31/18 History metoprolol tartrate 25 mg PO BID 07/31/18 07/31/18 History nystatin [Nystop] 1 applic TOPICAL BID 07/31/18 07/31/18 History silver sulfadiazine [Silvadene] 1 applic TOPICAL BID 07/31/18 07/31/18 History spironolactone 25 mg PO QAM 07/31/18 07/31/18 History hqir-libryqumf-yilcczyu-aldiox 1 applic TOPICAL BID 07/31/18 07/31/18 History [Zeasorb] thiamine HCl (vitamin B1) [Vitamin 100 mg PO DAILY 07/31/18 07/31/18 History B-1] torsemide 100 mg PO DAILY 07/31/18 07/31/18 History triamcinolone acetonide 1 applic TOPICAL BID 07/31/18 07/31/18 History vit C,V-Of-zudtc-lutein-zeaxan 1 tab PO AMHS 07/31/18 07/31/18 History [PreserVision AREDS-2] warfarin 2.5 mg PO UD 07/31/18 07/31/18 History warfarin 10 mg PO UD 07/31/18 07/31/18 History Past Med/Surg History Social History Current Living Situation: Alone Other Information That Helps Us Care for You: No Feels Safe at Home: Yes Safety Concerns: Feels Safe At This Time Smoking Status: Former smoker Hx Alcohol Use: Yes Alcohol type: beer and hard liquor Alcohol Intake Frequency : holidays/special occasions only Hx Substance Use: No Beliefs That Will Affect Care: None Communication Ability: Effective Review of Systems The patient denies chest pain, palpitations, cough, sore throat, fevers, chills , sweats, nausea, vomiting, diarrhea , constipation, abdominal pain, pelvic pain , blood in urine or stool, dysuria, urinary frequency or urgency, lightheadedness, dizziness, headache, memory loss, loss of consciousness, rash, abnormal bruising or bleeding, focal or generalized weakness, numbness or tingling in arms or legs, or night sweats. The review of systems is otherwise negative other than for that already noted above, and at least 10 systems have been reviewed. Physical Exam 2 Vital Signs (Past 24 Hours): Last Vital Signs Temp 36.6 C 07/31/18 00:26 Pulse 74 07/31/18 02:06 Resp 20 07/31/18 02:06 BP 146/97 H 07/31/18 02:06 Pulse Ox 96 07/31/18 02:06 Physical Exam: The patient is awake, alert and oriented 3, normocephalic and atraumatic, lying in bed and in no acute distress. HEENT--PERRL, EOMI, mucous membranes and oropharynx normal. Neck--supple. No JVD. No bruits. Thyroid normal, trachea midline, no adenopathy. Heart--normal S1 and S2. No murmurs, rubs or gallops. Lungs--decreased breath sounds throughout Abdomen--normal bowel sounds and soft. Nontender. Nondistended. Morbidly obese Extremities--no cyanosis or clubbing. 1+ bilateral pretibial pitting edema. There are good distal pulses b/l. Dermatologic--chronic venous stasis dermatitis changes Neurologic--cranial nerves II through XII grossly intact. Rheumatologic--normal range of motion. Psychiatric--normal affect. Results & Data Laboratory Results Laboratory Results WBC 7.82 K/uL (4.8-10.8) 07/31/18 01:22 RBC 4.43 M/uL (4.2-5.4) 07/31/18 01:22 Hgb 14.7 g/dL (12.0-16.0) 07/31/18 01:22 Hct 44.5 % (37-47) 07/31/18 01:22 MCV 100.5 fL (80-100) H 07/31/18 01:22 MCH 33.2 pg (25-34) 07/31/18 01:22 MCHC 33.0 g/dL (32-36) 07/31/18 01:22 RDW Std Deviation 55.2 fL (36.4-46.3) H 07/31/18 01:22 RDW Coeff of Priti 15.0 % (11.5-14.5) H 07/31/18 01:22 Plt Count 178 K/uL (130-400) 07/31/18 01:22 MPV 10.7 fL (7.4-10.4) H 07/31/18 01:22 Immature Gran % (Auto) 0.3 % 07/31/18 01:22 Neut % (Auto) 69.7 % 07/31/18 01:22 Lymph % (Auto) 15.0 % 07/31/18 01:22 Curry % (Auto) 9.5 % 07/31/18 01:22 Eos % (Auto) 5.1 % 07/31/18 01:22 Baso % (Auto) 0.4 % 07/31/18 01:22 Immature Gran # (Auto) 0.02 K/uL (0.00-0.02) 07/31/18 01:22 Neut # (Auto) 5.46 K/uL (1.4-6.5) 07/31/18 01:22 Lymph # (Auto) 1.17 K/uL (1.2-3.4) L 07/31/18 01:22 Curry # (Auto) 0.74 K/uL (0.11-0.59) H 07/31/18 01:22 Eos # (Auto) 0.40 K/uL (0-0.5) 07/31/18 01:22 Baso # (Auto) 0.03 K/uL (0-0.2) 07/31/18 01:22 PT 52.3 Seconds (9.0-12.0) H 07/31/18 01:39 INR 5.7 (0.9-1.1) H* 07/31/18 01:39 APTT 54.6 Seconds (21.0-31.0) H* 07/31/18 01:39 PTT Ratio 2.1 07/31/18 01:39 Sodium 140 mmol/L (136-145) 07/31/18 01:22 Potassium 4.3 mmol/L (3.5-5.1) 07/31/18 01:22 Chloride 107 mmol/L (98-107) 07/31/18 01:22 Carbon Dioxide 29 mmol/L (21-32) 07/31/18 01:22 Anion Gap 4.0 (3-11) 07/31/18 01:22 BUN 25 mg/dl (7-18) H 07/31/18 01:22 Creatinine 1.05 mg/dl (0.6-1.2) 07/31/18 01:22 Est Cr Clr Drug Dosing 62.8 ml/min 07/31/18 01:22 Est GFR ( Amer) 60.6 07/31/18 01:22 Est GFR (Non-Af Amer) 52.3 07/31/18 01:22 BUN/Creatinine Ratio 23.4 (10-20) H 07/31/18 01:22 Glucose 99 mg/dl (70-99) 07/31/18 01:22 Calcium 9.2 mg/dl (8.5-10.1) 07/31/18 01:22 Magnesium 1.8 mg/dl (1.8-2.4) 07/31/18 01:22 Total Bilirubin 0.5 mg/dl (0.2-1) 07/31/18 01:22 AST 23 U/L (15-37) 07/31/18 01:22 ALT 28 U/L (12-78) 07/31/18 01:22 Alkaline Phosphatase 145 U/L (45-117) H 07/31/18 01:22 Troponin I < 0.015 ng/ml (0-0.045) 07/31/18 01:22 Total Protein 7.8 gm/dl (6.4-8.2) 07/31/18 01:22 Albumin 2.9 gm/dl (3.4-5.0) L 07/31/18 01:22 Globulin 4.9 gm/dl (2.5-4.0) H 07/31/18 01:22 Albumin/Globulin Ratio 0.6 (0.9-2) L 07/31/18 01:22 Urine Color Yellow 07/31/18 02:32 Urine Appearance Clear (Clear) 07/31/18 02:32 Urine pH 5.0 (4.5-7.5) 07/31/18 02:32 Ur Specific Spencer 1.012 (1.000-1.030) 07/31/18 02:32 Urine Protein Trace (Negative) H 07/31/18 02:32 Urine Glucose (UA) Negative (Negative) 07/31/18 02:32 Urine Ketones Negative (Negative) 07/31/18 02:32 Urine Blood 1+ (Negative) H 07/31/18 02:32 Urine Nitrite Negative (Negative) 07/31/18 02:32 Urine Bilirubin Negative (Negative) 07/31/18 02:32 Urine Urobilinogen Negative (Negative) 07/31/18 02:32 Ur Leukocyte Esterase Negative (Negative) 07/31/18 02:32 Urine WBC (Auto) 1-5 /hpf (0-5) 07/31/18 02:32 Urine RBC (Auto) 0-4 /hpf (0-4) 07/31/18 02:32 U Hyaline Cast (Auto) 1-5 /lpf (0-5) 07/31/18 02:32 U Epithel Cells (Auto) 20-30 /lpf (0-5) H 07/31/18 02:32 Urine Bacteria (Auto) Negative (Negative) 07/31/18 02:32 Urine Yeast Not Reportable 07/31/18 02:32 Medications Administered Home Medications Medication Instructions Recorded Confirmed albuterol sulfate [ProAir HFA] 2 puff INHALATION Q6H PRN 07/22/18 07/31/18 atorvastatin 40 mg PO DAILY 07/22/18 07/31/18 felodipine 5 mg PO DAILY 07/22/18 07/31/18 mirabegron 50 mg PO QAM 07/22/18 07/31/18 gtuxcchemgfp-gex-bnem-FA-vit K 1 tab-cap PO QAM 07/22/18 07/31/18 [Multi For Her] pantoprazole 40 mg PO DAILY 07/22/18 07/31/18 allopurinol 300 mg PO DAILY 07/31/18 07/31/18 betamethasone valerate 1 applic TOPICAL DAILY PRN 07/31/18 07/31/18 clotrimazole-betamethasone 1 applic TOPICAL DAILY 07/31/18 07/31/18 metoprolol tartrate 25 mg PO BID 07/31/18 07/31/18 nystatin [Nystop] 1 applic TOPICAL BID 07/31/18 07/31/18 silver sulfadiazine [Silvadene] 1 applic TOPICAL BID 07/31/18 07/31/18 spironolactone 25 mg PO QAM 07/31/18 07/31/18 ciok-etyeohaoa-exlxutnl-aldiox 1 applic TOPICAL BID 07/31/18 07/31/18 [Zeasorb] thiamine HCl (vitamin B1) [Vitamin 100 mg PO DAILY 07/31/18 07/31/18 B-1] torsemide 100 mg PO DAILY 07/31/18 07/31/18 triamcinolone acetonide 1 applic TOPICAL BID 07/31/18 07/31/18 vit C,N-Sl-xwxrv-lutein-zeaxan 1 tab PO AMHS 07/31/18 07/31/18 [PreserVision AREDS-2] warfarin 2.5 mg PO UD 07/31/18 07/31/18 warfarin 10 mg PO UD 07/31/18 07/31/18 Previous Rx's Medication Instructions Recorded magnesium oxide 400 mg PO BID 7 Days #14 tab 07/25/18 Code Status & VTE Plan Code Status Full code VTE Prophylaxis Plan VTE Prophylaxis will be ordered: Yes
[2018-07-31] MEDS ORDERED: ACETAMINOPHEN 1000 MG/100 ML IV IV PRN (05:32)
[2018-07-31] MEDS ORDERED: ALBUTEROL HFA 8 GM INHALER INH PRN (05:32)
[2018-07-31] MEDS ORDERED: POLYETHYLENE (MIRALAX) 17 GM PACK PO PRN (05:32)
[2018-07-31] MEDS ORDERED: ONDANSETRON INJ 2 MG/ML 2 ML VIAL IV PRN (05:32)
[2018-07-31] MEDS ORDERED: BETAMETHASONE VAL 0.1% CR 15 GM TOP PRN (05:32)
--- NOTE | 2018-07-31 06:46 | XRay Report ---
XR chest 1V portable CLINICAL HISTORY: Dyspnea COMPARISON STUDY: July 22, 2018 FINDINGS: There is continued radiographic evidence of congestive failure and pulmonary edema. Small p leural effusions are visualized. There are left basilar opacities, likely representing atelectasis/fo melita edema. A superimposed pneumonia could appear similar.[ IMPRESSION: Pulmonary edema and small pleural effusions. Associated left basilar airspace opacities Electronically signed by: Fantasma Johnson M.D. 07/31/2018 6:44 AM
--- NOTE | 2018-07-31 07:05 | Emergency Department Note ---
Entered by Denny Soni acting as a scribe for History of Present Illness General Chief complaint: Respiratory Problems Stated complaint: TROUBLE BREATHING Source: patient Mode of arrival: ambulatory Limitations: no limitations History of Present Illness Onset (ago): unknown (Recent) Location: chest Pain Consistency: + other (Worsening) Quality: + sharp Relieved By: + other (Sitting up) Associated symptoms: + headaches and + other (Leg swelling, muscle/joint achiness); no fever/chills The patient is 72 year old female who presents to the ER with her son due to complaints of worsening SOB which began recently. Patient states she also has had an intermittent sharp pain along her side upon inhaling which is relieved when she sits up. Patient adds that she also has swelling in her legs but does not know if this has worsened/improved recently. Patient adds that she was discharged from the hospital 6 days ago and told to discontinue taking her torsemide because she was going to be put back on Lasix. Pt states the lasix prescription was never sent in at discharge. Patient states she has tried contacting Dr. Ambrocio about her getting a prescription but has been unable to reach him. Patient adds that she took two Tylenol an hour ago to try and relieve her headache and muscle/joint achiness. Patients past medical history includes atrial fibrillation which she takes Coumadin. She adds that she is on 3L of oxygen chronically which she wears nightly but only intermittently during the day. Patient denies any fevers. Home Medications Home Medications Medication Instructions Recorded Confirmed Type albuterol sulfate [ProAir HFA] 2 puff INHALATION Q6H PRN 07/22/18 07/31/18 History atorvastatin 40 mg PO DAILY 07/22/18 07/31/18 History felodipine 5 mg PO DAILY 07/22/18 07/31/18 History mirabegron 50 mg PO QAM 07/22/18 07/31/18 History bnlngqavkpgv-cyo-gbmf-FA-vit K 1 tab-cap PO QAM 07/22/18 07/31/18 History [Multi For Her] pantoprazole 40 mg PO DAILY 07/22/18 07/31/18 History allopurinol 300 mg PO DAILY 07/31/18 07/31/18 History betamethasone valerate 1 applic TOPICAL DAILY PRN 07/31/18 07/31/18 History clotrimazole-betamethasone 1 applic TOPICAL DAILY 07/31/18 07/31/18 History metoprolol tartrate 25 mg PO BID 07/31/18 07/31/18 History nystatin [Nystop] 1 applic TOPICAL BID 07/31/18 07/31/18 History silver sulfadiazine [Silvadene] 1 applic TOPICAL BID 07/31/18 07/31/18 History spironolactone 25 mg PO QAM 07/31/18 07/31/18 History mjxq-sdjcuinuh-ywgecymm-aldiox 1 applic TOPICAL BID 07/31/18 07/31/18 History [Zeasorb] thiamine HCl (vitamin B1) [Vitamin 100 mg PO DAILY 07/31/18 07/31/18 History B-1] torsemide 100 mg PO DAILY 07/31/18 07/31/18 History triamcinolone acetonide 1 applic TOPICAL BID 07/31/18 07/31/18 History vit C,I-Hd-krqpt-lutein-zeaxan 1 tab PO AMHS 07/31/18 07/31/18 History [PreserVision AREDS-2] warfarin 2.5 mg PO UD 07/31/18 07/31/18 History warfarin 10 mg PO UD 07/31/18 07/31/18 History Allergies Allergy/AdvReac Type Severity Reaction Status Date / Time Iodinated Contrast- Oral and Allergy Severe PAIN AT Verified 07/31/18 02:02 IV Dye INJECTION SITE AND UP THE BONES ketoprofen Allergy Severe NUMBNESS Verified 07/31/18 02:02 FROM WAIST DOWN SEVERAL MONTHS lorazepam Allergy Severe pt Verified 07/31/18 02:02 EXTREMELY sensitive Penicillins Allergy Severe SEVERE RASH Verified 07/31/18 02:02 trimethoprim Allergy Severe ELEVATED Verified 07/31/18 02:02 POTASSIUM LEVELS cephalexin Allergy Intermediate ITCHING Verified 07/31/18 02:02 Past Med/Surg History Social History Current Living Situation: Alone Other Information That Helps Us Care for You: No Feels Safe at Home: Yes Safety Concerns: Feels Safe At This Time Smoking Status: Former smoker Hx Alcohol Use: Yes Alcohol type: beer and hard liquor Alcohol Intake Frequency : holidays/special occasions only Hx Substance Use: No Beliefs That Will Affect Care: None Communication Ability: Effective Review of Systems See HPI for pertinent positives & negatives. and A total of 10 systems reviewed and were otherwise negative Physical Exam Vital Signs Vital Signs - 24 hr 08/01/18 11:54 08/01/18 12:00 08/01/18 13:03 Temperature 36.8 C Temperature Source Oral Pulse Rate Pulse Rate [Left Finger] Pulse Rate [Left Radial] 62 Respiratory Rate 18 Respiratory Effort / Characteristics Spontaneous Short of Breath SOB on Exertion Respiratory Depth Normal Normal Respiratory Pattern Regular Blood Pressure [Left Arm] 135/64 Blood Pressure Mean [Left Arm] 87 Blood Pressure Position [Left Arm] Sitting Pulse Oximetry 94 Pulse Oximetry [At Rest] 94 Pulse Oximetry [Post Treatment/Recovery] 93 Pulse Oximetry [with Activity] 87 L Oxygen Delivery Method Nasal Cannula Nasal Cannula CPAP Oxygen Flow Rate 4 4 Oxygen Flow Rate [At Rest] 3 Oxygen Flow Rate [Post Treatment/Recovery] 3 Oxygen Flow Rate [with Activity] 3 08/01/18 15:29 08/01/18 20:00 08/02/18 00:04 Temperature 36.4 C L 36.6 C 36.6 C Temperature Source Oral Oral Oral Pulse Rate Pulse Rate [Left Finger] 72 85 57 L Pulse Rate [Left Radial] Respiratory Rate 20 20 20 Respiratory Effort / Characteristics Spontaneous Respiratory Depth Normal Respiratory Pattern Blood Pressure [Left Arm] 120/77 152/70 H 128/72 Blood Pressure Mean [Left Arm] 91 97 90 Blood Pressure Position [Left Arm] Lying Lying Lying Pulse Oximetry 95 92 93 Pulse Oximetry [At Rest] Pulse Oximetry [Post Treatment/Recovery] Pulse Oximetry [with Activity] Oxygen Delivery Method Nasal Cannula Nasal Cannula Nasal Cannula Oxygen Flow Rate 3.5 3 3 Oxygen Flow Rate [At Rest] Oxygen Flow Rate [Post Treatment/Recovery] Oxygen Flow Rate [with Activity] 08/02/18 01:57 08/02/18 03:57 08/02/18 07:32 Temperature 36.5 C 36.6 C Temperature Source Axillary Oral Pulse Rate 70 Pulse Rate [Left Finger] 66 60 Pulse Rate [Left Radial] Respiratory Rate 20 16 Respiratory Effort / Characteristics Respiratory Depth Respiratory Pattern Blood Pressure [Left Arm] 129/70 145/53 H Blood Pressure Mean [Left Arm] 89 83 Blood Pressure Position [Left Arm] Lying Lying Pulse Oximetry 94 90 Pulse Oximetry [At Rest] Pulse Oximetry [Post Treatment/Recovery] Pulse Oximetry [with Activity] Oxygen Delivery Method BiPAP Nasal Cannula Oxygen Flow Rate 3.5 Oxygen Flow Rate [At Rest] Oxygen Flow Rate [Post Treatment/Recovery] Oxygen Flow Rate [with Activity] Vital signs reviewed. General: Chronically ill-appearing morbidly obese female on 3L nasal cannula, in no significant distress. HEENT: No scleral icterus, PERRLA, neck supple. Atraumatic. Cardiovascular: Regular rate and rhythm, no extra sounds. Pulmonary: Diminished breath sounds with crackles at bases otherwise clear to auscultation bilaterally, mild increased work of breathing. Abdomen: Soft, nontender, nondistended, positive bowel sounds. Musculoskeletal: Atraumatic, no peripheral edema. Neurologic: Patient awake alert and oriented x 3. Skin: Venous stasis changes to BLE otherwise warm, dry Course 0100: Past medical records reviewed. The patient was evaluated in room B11B, and a complete history and physical examination were performed. 0220: I reevaluated the patient and updated her on her treatment plan and findings. Patient is comfortable but still working pretty hard to breath. 0443: Upon reevaluation, the patient will be further evaluated. I updated the patient on her treatment plan and findings. Patient is agreeable to the treatment plan. Patient will be assessed for further evaluation. Consultations Consultation #1: I reviewed the patient's case with Dr. Richmond. He will evaluate the patient for further management. Time: 04:31 Administered Medications Acetaminophen (Tylenol) 650 mg PO Q4H PRN PRN Reason: Pain or Fever Stop: 08/30/18 05:31 Last Admin: 08/02/18 07:40 Dose: 650 mg Admin: 08/01/18 17:29 Dose: 650 mg Admin: 08/01/18 09:45 Dose: 650 mg Allopurinol (Zyloprim) 300 mg PO DAILY [facility] Stop: 08/30/18 08:59 Last Admin: 08/02/18 08:52 Dose: 300 mg Admin: 08/01/18 09:16 Dose: 300 mg Admin: 07/31/18 09:06 Dose: 300 mg Atorvastatin Calcium (Lipitor) 40 mg PO DAILY [facility] Stop: 08/30/18 08:59 Last Admin: 08/02/18 08:52 Dose: 40 mg Admin: 08/01/18 09:16 Dose: 40 mg Admin: 07/31/18 09:06 Dose: 40 mg Felodipine (Plendil) 5 mg PO DAILY [facility] Stop: 08/30/18 08:59 Last Admin: 08/02/18 08:52 Dose: 5 mg Admin: 08/01/18 09:16 Dose: 5 mg Admin: 07/31/18 09:06 Dose: 5 mg Furosemide 80 mg/ Syringe 8 mls @ 4 mls/min IV BID [facility] Stop: 08/31/18 20:59 Last Admin: 08/02/18 08:54 Dose: 4 mls/min Magnesium Oxide (Mag-Ox) 400 mg PO BID [facility] Stop: 08/30/18 08:59 Last Admin: 08/02/18 08:53 Dose: 400 mg Admin: 08/01/18 20:10 Dose: 400 mg Admin: 08/01/18 09:17 Dose: 400 mg Admin: 07/31/18 20:39 Dose: 400 mg Admin: 07/31/18 09:06 Dose: 400 mg Metoprolol Tartrate (Lopressor) 25 mg PO BID [facility] Stop: 08/30/18 08:59 Last Admin: 08/02/18 08:52 Dose: 25 mg Admin: 08/01/18 20:09 Dose: 25 mg Admin: 08/01/18 09:16 Dose: 25 mg Admin: 07/31/18 20:39 Dose: 25 mg Admin: 07/31/18 09:06 Dose: 25 mg Miconazole Nitrate (Desenex) 1 appln TOP BID [facility] Stop: 08/30/18 08:59 Last Admin: 08/02/18 08:48 Dose: 1 appln Admin: 08/01/18 20:08 Dose: 1 appln Admin: 08/01/18 09:18 Dose: 1 appln Admin: 07/31/18 20:37 Dose: 1 appln Admin: 07/31/18 09:05 Dose: 1 appln Mirabegron (Myrbetriq Er) 50 mg PO QAM [facility] Stop: 08/30/18 08:59 Last Admin: 08/02/18 08:52 Dose: 50 mg Admin: 08/01/18 09:17 Dose: 50 mg Admin: 07/31/18 09:06 Dose: 50 mg Focus Select~Non- Formulary Patient's Own Med 1 ea PO BID [facility] Stop: 09/01/18 08:59 Last Admin: 08/02/18 08:53 Dose: 1 tab Pantoprazole Sodium (Protonix) 40 mg PO DAILY [facility] Stop: 08/30/18 08:59 Last Admin: 08/02/18 08:51 Dose: 40 mg Admin: 08/01/18 09:17 Dose: 40 mg Admin: 07/31/18 09:06 Dose: 40 mg Silver Sulfadiazine (Silvadene 1% 50gm) 1 appln TOP BID [facility] Stop: 08/30/18 08:59 Last Admin: 08/02/18 08:53 Dose: 1 appln Admin: 08/01/18 20:08 Dose: 1 appln Admin: 08/01/18 09:18 Dose: 1 appln Admin: 07/31/18 20:38 Dose: 1 appln Admin: 07/31/18 09:05 Dose: 1 appln Spironolactone (Aldactone) 25 mg PO QAM [facility] Stop: 08/30/18 08:59 Last Admin: 08/02/18 08:48 Dose: 25 mg Admin: 08/01/18 09:17 Dose: 25 mg Admin: 07/31/18 09:06 Dose: 25 mg Thiamine HCl (Vitamin B-1) 100 mg PO DAILY [facility] Stop: 08/30/18 08:59 Last Admin: 08/02/18 08:53 Dose: 100 mg Admin: 08/01/18 09:17 Dose: 100 mg Admin: 07/31/18 09:06 Dose: 100 mg Triamcinolone Acetonide (Kenalog 0.1%) 1 appln TOP BID [facility] Stop: 08/30/18 08:59 Last Admin: 08/02/18 08:49 Dose: 1 appln Admin: 08/01/18 20:08 Dose: 1 appln Admin: 08/01/18 09:17 Dose: 1 appln Admin: 07/31/18 20:37 Dose: 1 appln Admin: 07/31/18 09:05 Dose: 1 appln Discontinued Medications Furosemide (Lasix) 60 mg IV NOW STA Stop: 07/31/18 01:10 Last Admin: 07/31/18 01:47 Dose: 60 mg Furosemide 40 mg/ Albumin (Human) 54 mls @ 54 mls/hr IV BID [facility] Stop: 08/01/18 21:59 Last Infusion: 08/01/18 10:23 Dose: 0 mls/hr Admin: 08/01/18 09:15 Dose: 54 mls/hr Infusion: 07/31/18 20:55 Dose: 0 mls/hr Admin: 07/31/18 20:36 Dose: 54 mls/hr Infusion: 07/31/18 10:04 Dose: 0 mls/hr Admin: 07/31/18 09:04 Dose: 54 mls/hr Furosemide 40 mg/ Syringe 4 mls @ 4 mls/min IV ONE ONE Stop: 08/01/18 18:31 Last Admin: 08/01/18 20:02 Dose: 4 mls/min Furosemide 80 mg/ Syringe 8 mls @ 4 mls/min IV 2200 ONE Stop: 08/01/18 22:01 Last Admin: 08/01/18 22:02 Dose: 4 mls/min Multivitamins/Minerals (Multivitamin W/ Minerals Tab) 1 tab PO AMHS [facility] Stop: 08/30/18 08:59 Last Admin: 08/01/18 20:11 Dose: 1 tab Admin: 08/01/18 09:17 Dose: 1 tab Admin: 07/31/18 20:39 Dose: 1 tab Admin: 07/31/18 09:06 Dose: 1 tab Medical Decision Making Differential Diagnosis Differential diagnosis: Etiologies such as infections, reactive airway disease, COPD, pneumonia, pleural effusion, pulmonary edema, ARDS, pneumothorax, CHF, cardiac ischemia, cardiac tamponade, dysrhythmia, anemia, pulmonary embolism, musculoskeletal, gastrointestinal process, as well as others were entertained. Medical Records Attestation: I reviewed the patient's medical records. Home Medications Current Medication List: was personally reviewed by me Laboratory Data Attestation: I reviewed the patient's lab results. Result diagrams: 08/02/18 07:16 08/02/18 07:16 Lab Results 07/31/18 07/31/18 07/31/18 Range/Units 01:22 01:22 01:22 WBC 7.82 (4.8-10.8) K/uL RBC 4.43 (4.2-5.4) M/uL Hgb 14.7 (12.0-16.0) g/dL Hct 44.5 (37-47) % MCV 100.5 H (80-100) fL MCH 33.2 (25-34) pg MCHC 33.0 (32-36) g/dL RDW Std Deviation 55.2 H (36.4-46.3) fL RDW Coeff of Priti 15.0 H (11.5-14.5) % Plt Count 178 (130-400) K/uL MPV 10.7 H (7.4-10.4) fL Immature Gran % (Auto) 0.3 % Neut % (Auto) 69.7 % Lymph % (Auto) 15.0 % Rogers % (Auto) 9.5 % Eos % (Auto) 5.1 % Baso % (Auto) 0.4 % Immature Gran # (Auto) 0.02 (0.00-0.02) K/uL Neut # (Auto) 5.46 (1.4-6.5) K/uL Lymph # (Auto) 1.17 L (1.2-3.4) K/uL Rogers # (Auto) 0.74 H (0.11-0.59) K/uL Eos # (Auto) 0.40 (0-0.5) K/uL Baso # (Auto) 0.03 (0-0.2) K/uL PT Cancelled INR Cancelled APTT Cancelled PTT Ratio Cancelled Sodium 140 (136-145) mmol/L Potassium 4.3 (3.5-5.1) mmol/L Chloride 107 (98-107) mmol/L Carbon Dioxide 29 (21-32) mmol/L Anion Gap 4.0 (3-11) BUN 25 H (7-18) mg/dl Creatinine 1.05 (0.6-1.2) mg/dl Est Cr Clr Drug Dosing 62.8 ml/min Est GFR ( Amer) 60.6 Est GFR (Non-Af Amer) 52.3 BUN/Creatinine Ratio 23.4 H (10-20) Glucose 99 (70-99) mg/dl Calcium 9.2 (8.5-10.1) mg/dl Magnesium 1.8 (1.8-2.4) mg/dl Total Bilirubin 0.5 (0.2-1) mg/dl AST 23 (15-37) U/L ALT 28 (12-78) U/L Alkaline Phosphatase 145 H (45-117) U/L Troponin I < 0.015 (0-0.045) ng/ml Total Protein 7.8 (6.4-8.2) gm/dl Albumin 2.9 L (3.4-5.0) gm/dl Globulin 4.9 H (2.5-4.0) gm/dl Albumin/Globulin Ratio 0.6 L (0.9-2) Urine Color Urine Appearance (Clear) Urine pH (4.5-7.5) Ur Specific [place] (1.000-1.030) Urine Protein (Negative) Urine Glucose (UA) (Negative) Urine Ketones (Negative) Urine Blood (Negative) Urine Nitrite (Negative) Urine Bilirubin (Negative) Urine Urobilinogen (Negative) Ur Leukocyte Esterase (Negative) Urine WBC (Auto) (0-5) /hpf Urine RBC (Auto) (0-4) /hpf U Hyaline Cast (Auto) (0-5) /lpf U Epithel Cells (Auto) (0-5) /lpf Urine Bacteria (Auto) (Negative) Urine Yeast 07/31/18 07/31/18 07/31/18 Range/Units 01:39 02:32 10:08 WBC (4.8-10.8) K/uL RBC (4.2-5.4) M/uL Hgb (12.0-16.0) g/dL Hct (37-47) % MCV (80-100) fL MCH (25-34) pg MCHC (32-36) g/dL RDW Std Deviation (36.4-46.3) fL RDW Coeff of Priti (11.5-14.5) % Plt Count (130-400) K/uL MPV (7.4-10.4) fL Immature Gran % (Auto) % Neut % (Auto) % Lymph % (Auto) % Rogers % (Auto) % Eos % (Auto) % Baso % (Auto) % Immature Gran # (Auto) (0.00-0.02) K/uL Neut # (Auto) (1.4-6.5) K/uL Lymph # (Auto) (1.2-3.4) K/uL Rogers # (Auto) (0.11-0.59) K/uL Eos # (Auto) (0-0.5) K/uL Baso # (Auto) (0-0.2) K/uL PT 52.3 H 49.5 H INR 5.7 H* 5.4 H APTT 54.6 H* PTT Ratio 2.1 Sodium (136-145) mmol/L Potassium (3.5-5.1) mmol/L Chloride (98-107) mmol/L Carbon Dioxide (21-32) mmol/L Anion Gap (3-11) BUN (7-18) mg/dl Creatinine (0.6-1.2) mg/dl Est Cr Clr Drug Dosing ml/min Est GFR ( Amer) Est GFR (Non-Af Amer) BUN/Creatinine Ratio (10-20) Glucose (70-99) mg/dl Calcium (8.5-10.1) mg/dl Magnesium (1.8-2.4) mg/dl Total Bilirubin (0.2-1) mg/dl AST (15-37) U/L ALT (12-78) U/L Alkaline Phosphatase (45-117) U/L Troponin I (0-0.045) ng/ml Total Protein (6.4-8.2) gm/dl Albumin (3.4-5.0) gm/dl Globulin (2.5-4.0) gm/dl Albumin/Globulin Ratio (0.9-2) Urine Color Yellow Urine Appearance Clear (Clear) Urine pH 5.0 (4.5-7.5) Ur Specific [place] 1.012 (1.000-1.030) Urine Protein Trace H (Negative) Urine Glucose (UA) Negative (Negative) Urine Ketones Negative (Negative) Urine Blood 1+ H (Negative) Urine Nitrite Negative (Negative) Urine Bilirubin Negative (Negative) Urine Urobilinogen Negative (Negative) Ur Leukocyte Esterase Negative (Negative) Urine WBC (Auto) 1-5 (0-5) /hpf Urine RBC (Auto) 0-4 (0-4) /hpf U Hyaline Cast (Auto) 1-5 (0-5) /lpf U Epithel Cells (Auto) 20-30 H (0-5) /lpf Urine Bacteria (Auto) Negative (Negative) Urine Yeast Not Reportable 08/01/18 08/01/18 08/01/18 Range/Units 06:45 06:45 06:45 WBC 5.30 (4.8-10.8) K/uL RBC 3.91 L (4.2-5.4) M/uL Hgb 12.7 (12.0-16.0) g/dL Hct 39.3 (37-47) % MCV 100.5 H (80-100) fL MCH 32.5 (25-34) pg MCHC 32.3 (32-36) g/dL RDW Std Deviation 54.5 H (36.4-46.3) fL RDW Coeff of Priti 15.0 H (11.5-14.5) % Plt Count 161 (130-400) K/uL MPV 10.9 H (7.4-10.4) fL Immature Gran % (Auto) 0.2 % Neut % (Auto) 59.1 % Lymph % (Auto) 25.8 % Rogers % (Auto) 10.2 % Eos % (Auto) 4.5 % Baso % (Auto) 0.2 % Immature Gran # (Auto) 0.01 (0.00-0.02) K/uL Neut # (Auto) 3.13 (1.4-6.5) K/uL Lymph # (Auto) 1.37 (1.2-3.4) K/uL Rogers # (Auto) 0.54 (0.11-0.59) K/uL Eos # (Auto) 0.24 (0-0.5) K/uL Baso # (Auto) 0.01 (0-0.2) K/uL PT 34.0 H INR 3.6 H APTT 52.1 H* PTT Ratio 1.9 Sodium 138 (136-145) mmol/L Potassium 3.7 (3.5-5.1) mmol/L Chloride 102 (98-107) mmol/L Carbon Dioxide 31 (21-32) mmol/L Anion Gap 5.0 (3-11) BUN 25 H (7-18) mg/dl Creatinine 0.91 (0.6-1.2) mg/dl Est Cr Clr Drug Dosing 72.0 ml/min Est GFR ( Amer) 72.0 Est GFR (Non-Af Amer) 62.2 BUN/Creatinine Ratio 27.6 H (10-20) Glucose 88 (70-99) mg/dl Calcium 9.0 (8.5-10.1) mg/dl Magnesium (1.8-2.4) mg/dl Total Bilirubin 0.8 (0.2-1) mg/dl AST 15 (15-37) U/L ALT 21 (12-78) U/L Alkaline Phosphatase 113 (45-117) U/L Troponin I (0-0.045) ng/ml Total Protein 6.7 (6.4-8.2) gm/dl Albumin 2.5 L (3.4-5.0) gm/dl Globulin 4.2 H (2.5-4.0) gm/dl Albumin/Globulin Ratio 0.6 L (0.9-2) Urine Color Urine Appearance (Clear) Urine pH (4.5-7.5) Ur Specific [place] (1.000-1.030) Urine Protein (Negative) Urine Glucose (UA) (Negative) Urine Ketones (Negative) Urine Blood (Negative) Urine Nitrite (Negative) Urine Bilirubin (Negative) Urine Urobilinogen (Negative) Ur Leukocyte Esterase (Negative) Urine WBC (Auto) (0-5) /hpf Urine RBC (Auto) (0-4) /hpf U Hyaline Cast (Auto) (0-5) /lpf U Epithel Cells (Auto) (0-5) /lpf Urine Bacteria (Auto) (Negative) Urine Yeast 08/02/18 08/02/18 08/02/18 Range/Units 07:16 07:16 07:16 WBC 4.91 (4.8-10.8) K/uL RBC 4.44 (4.2-5.4) M/uL Hgb 14.3 (12.0-16.0) g/dL Hct 44.6 (37-47) % MCV 100.5 H (80-100) fL MCH 32.2 (25-34) pg MCHC 32.1 (32-36) g/dL RDW Std Deviation 54.8 H (36.4-46.3) fL RDW Coeff of Priti 14.9 H (11.5-14.5) % Plt Count 195 (130-400) K/uL MPV 11.5 H (7.4-10.4) fL Immature Gran % (Auto) 0.0 % Neut % (Auto) 53.4 % Lymph % (Auto) 28.3 % Rogers % (Auto) 11.4 % Eos % (Auto) 6.5 % Baso % (Auto) 0.4 % Immature Gran # (Auto) 0.00 (0.00-0.02) K/uL Neut # (Auto) 2.62 (1.4-6.5) K/uL Lymph # (Auto) 1.39 (1.2-3.4) K/uL Rogers # (Auto) 0.56 (0.11-0.59) K/uL Eos # (Auto) 0.32 (0-0.5) K/uL Baso # (Auto) 0.02 (0-0.2) K/uL PT 22.1 H INR 2.3 H APTT PTT Ratio Sodium 138 (136-145) mmol/L Potassium 3.9 (3.5-5.1) mmol/L Chloride 98 (98-107) mmol/L Carbon Dioxide 33 H (21-32) mmol/L Anion Gap 7.0 (3-11) BUN 31 H (7-18) mg/dl Creatinine 1.07 (0.6-1.2) mg/dl Est Cr Clr Drug Dosing 60.5 ml/min Est GFR ( Amer) 59.2 Est GFR (Non-Af Amer) 51.1 BUN/Creatinine Ratio 29.3 H (10-20) Glucose 85 (70-99) mg/dl Calcium 9.7 (8.5-10.1) mg/dl Magnesium 1.7 L (1.8-2.4) mg/dl Total Bilirubin 0.8 (0.2-1) mg/dl AST 22 (15-37) U/L ALT 27 (12-78) U/L Alkaline Phosphatase 136 H (45-117) U/L Troponin I (0-0.045) ng/ml Total Protein 7.9 (6.4-8.2) gm/dl Albumin 3.0 L (3.4-5.0) gm/dl Globulin 4.9 H (2.5-4.0) gm/dl Albumin/Globulin Ratio 0.6 L (0.9-2) Urine Color Urine Appearance (Clear) Urine pH (4.5-7.5) Ur Specific [place] (1.000-1.030) Urine Protein (Negative) Urine Glucose (UA) (Negative) Urine Ketones (Negative) Urine Blood (Negative) Urine Nitrite (Negative) Urine Bilirubin (Negative) Urine Urobilinogen (Negative) Ur Leukocyte Esterase (Negative) Urine WBC (Auto) (0-5) /hpf Urine RBC (Auto) (0-4) /hpf U Hyaline Cast (Auto) (0-5) /lpf U Epithel Cells (Auto) (0-5) /lpf Urine Bacteria (Auto) (Negative) Urine Yeast Imaging Data Attestation: I personally reviewed and interpreted this imaging study as follows : My Impression: Chest x-ray to my interpretation reveals CHF. ECG Data Attestation: I personally reviewed and interpreted this ECG as follows: Indication: chest pain Rate (beats per minute): 85 Rhythm: atrial fibrillation Findings: + other (Low voltage, anterior q waves); no acute ischemic change Blood Pressure Blood Pressure Findings: Elevated blood pressure Blood Pressure Disposition: further management by hospitalist MDM Narrative This pt was evaluated and appeared to be in no distress. Pt was on n/c O2, with mod increased WOB, but maintaining saturations. Pt was given 60 mg of IV lasix as CXR confirms CHF. Trop is negative. EKG is rate controlled a fib. Pt was observed in the ED for several hours and began to diurese. I/O difficult as pt has difficulty with mobility and wet the bed several times. Pt was d/w the hospitalist service for further management. Impression & Plan CHF (congestive heart failure), Morbid obesity, Noncompliance Discharge Plan Visit Data *Final* Discharge Date/Time: 07/31/18 04:50 Chief Complaint: Respiratory Problems Stated Complaint: TROUBLE BREATHING ED Provider: Ashia Crespo Discharge Problem: CHF (congestive heart failure), Morbid obesity, Noncompliance Patient Disposition: Admitted As Inpatient Discharge Instructions Interventions: ED Discharge Assessment Last Done: 07/31/18 04:50 The scribe's documentation has been prepared under my direction and personally reviewed by me in its entirety. I confirm that the note above accurately reflects all work, treatment, procedures, and medical decision making performed by me.
--- NOTE | 2018-07-31 08:19 | Hospitalist Progress Note ---
Date of Service July 31, 2018 Assessment & Plan (1) Acute on chronic diastolic CHF (congestive heart failure), NYHA class 2: Acute on chronic diastolic CHF/hypertension/atrial fibrillation-- INR is 5.7, and repeat lab Continue felodipine 5 mg p.o. daily, metoprolol tartrate 25 mg p.o. twice daily and spironolactone [address] on albumin 25 g with Lasix 40 mg IV twice daily. (2) Afib: rate controlled with metoprolol tartarate (3) Hypertension: metoprolol plus diuretic and felodipine (4) Noncompliance: Patient has a long history, for different reasons, of not taking medications as directed. This at least in part appears to be difficulty in understanding directions. (5) Morbid obesity: Large contributing factor to all of her medical issues. (6) Hyperlipidemia: Continue atorvastatin 40 mg daily Subjective Patient feels much better than last evening she does voice frustration and confusion of her discharge medications and feels she did not have furosemide prescribed at discharge subsequently she is off all diuretic therapy for 6 days having escalation of weight and eventual readmission for heart failure. I spent 20 minutes at the bedside educating her about heart failure treatment and we will enroll her in the heart failure program Review of Systems ROS: well nourished well developed. No double vision blurry vision No problems with speech or swallowing No palpitations, chest pain or pressure No Wheezing does have dyspnea on exertion No abdominal pain nausea vomiting diarrhea recent marked increase in weight No burning urine urine frequency or changes in color No focal joint pain or muscle pain but does have persistent lower extremity edema She does have chronic skin changes to her lower extremities No unusual bruising or bleeding No focused back pain or numbness or loss of strength No changes in memory or confusion Physical Exam 2 Vital Signs (Past 24 Hours): Last Vital Signs Temp 36.3 C L 07/31/18 06:34 Pulse 77 07/31/18 06:34 Resp 24 07/31/18 06:34 BP 143/80 H 07/31/18 06:34 Pulse Ox 96 07/31/18 06:34 The patient appeared in mild distress and morbidly obese Vital signs as documented. Head exam is unremarkable. normocephalic, atraumatic Neck is with moderate jugular venous distension, thyromegaly, or lymphademopathy Lungs are diminished with rales at the base Cardiac exam reveals Rhythm is regular. Systolic ejection murmur is heard Abdominal exam reveals normal bowel sounds, no masses, no organomegaly Extremities are moderately edematous with changes of chronic venous stasis, both pedal pulses are present Neurologic exam is A&Ox3, no focal deficits, strength is equal bilateral Psychologically seems neither anxious or depressed Skin is warm Dry with exception of her lower legs
[2018-07-31] MEDS ORDERED: PNEUMOCOCCAL POLYSACCHARIDES 25 MCG/0.5 ML VIAL/SYR IM ONE (08:45)
[2018-07-31] MEDS ORDERED: PNEUMOCOCCAL ADMINISTRATION CHARGE ONE (08:45)
[2018-07-31] MEDS ORDERED: NON-FORMULARY MEDICATION (Multivitamin-Min-Iron-Fa-Vit K [Multi For Her] 1 TABCAP) PO SCH (09:00)
[2018-07-31] MEDS: ALBUMIN 25% 50 ML with FUROSEMIDE 40 MG IV SCH ×2 (09:04→20:36)
[2018-07-31] MEDS: SILVER SULFADIAZINE 1% CR 50 GM JAR TOP SCH ×2 (09:05→20:38)
[2018-07-31] MEDS: TRIAMCINOLONE ACET 0.1% OINT 15 GM TUBE TOP SCH ×2 (09:05→20:37)
[2018-07-31] MEDS: MICONAZOLE NITRATE POWDER 43 GM TOP SCH ×2 (09:05→20:37)
[2018-07-31] MEDS: CEROVITE ADV FORMULA TAB PO SCH ×2 (09:06→20:39)
[2018-07-31] MEDS: FELODIPINE 5 MG TABCR PO SCH (09:06)
[2018-07-31] MEDS: PANTOprazole 40 MG TAB PO SCH (09:06)
[2018-07-31] MEDS: SPIRONOLACTONE 25 MG TAB PO SCH (09:06)
[2018-07-31] MEDS: ALLOPURINOL 300 MG TAB PO SCH (09:06)
[2018-07-31] MEDS: THIAMINE HCL 100 MG TAB PO SCH (09:06)
[2018-07-31] MEDS: MAGNESIUM OXIDE 400 MG TAB PO SCH ×2 (09:06→20:39)
[2018-07-31] MEDS: MIRABEGRON ER 25 MG TAB PO SCH (09:06)
[2018-07-31] MEDS: ATORVASTATIN 40 MG TAB PO SCH (09:06)
[2018-07-31] MEDS: METOPROLOL TARTRATE 25 MG TAB PO SCH ×2 (09:06→20:39)
[2018-07-31 10:47] LABS: Prothrombin Time 49.5 Seconds (9.0-12.0)
[2018-07-31 10:58] LABS: INR 5.4 (0.9-1.1)
[2018-08-01 07:10] LABS: Basophils # (auto) 0.01 K/uL (0-0.2); Basophils % (auto) 0.2 %; Eosinophils # (auto) 0.24 K/uL (0-0.5); Eosinophils % (auto) 4.5 %; Hematocrit (blood only) 39.3 % (37-47); Hemoglobin 12.7 g/dL (12.0-16.0); Immature Granulocytes # (auto) 0.01 K/uL (0.00-0.02); Immature Granulocytes % (auto) 0.2 %; Lymphocytes # (auto) 1.37 K/uL (1.2-3.4); Lymphocytes % (auto) 25.8 %; Mean Corpuscular Hgb Conc 32.3 g/dL (32-36); Mean Corpuscular Volume 100.5 fL (80-100); Mean Platelet Volume 10.9 fL (7.4-10.4); Monocytes # (auto) 0.54 K/uL (0.11-0.59); Monocytes % (auto) 10.2 %; Neutrophils # (auto) 3.13 K/uL (1.4-6.5); Neutrophils % (auto) 59.1 %; Platelet Count 161 K/uL (130-400); RDW Standard Deviation 54.5 fL (36.4-46.3); Red Blood Count 3.91 M/uL (4.2-5.4)
[2018-08-01 07:30] LABS: Partial Thromboplastin Ratio 1.9
[2018-08-01 07:34] LABS: INR 3.6 (0.9-1.1)
[2018-08-01 07:35] LABS: Partial Thromboplastin Time 52.1 Seconds (21.0-31.0)
[2018-08-01 07:44] LABS: Albumin Level 2.5 gm/dl (3.4-5.0); BUN Creatinine Ratio 27.6 (10-20); Est GFR (Non-African American) 62.2; Potassium 3.7 mmol/L (3.5-5.1)
[2018-08-01 07:47] LABS: Albumin Globulin Ratio 0.6 (0.9-2); Bilirubin,Total 0.8 mg/dl (0.2-1); Globulin 4.2 gm/dl (2.5-4.0); Total Protein 6.7 gm/dl (6.4-8.2)
[2018-08-01] MEDS: ALBUMIN 25% 50 ML with FUROSEMIDE 40 MG IV SCH (09:15)
[2018-08-01] MEDS: ATORVASTATIN 40 MG TAB PO SCH (09:16)
[2018-08-01] MEDS: FELODIPINE 5 MG TABCR PO SCH (09:16)
[2018-08-01] MEDS: METOPROLOL TARTRATE 25 MG TAB PO SCH ×2 (09:16→20:09)
[2018-08-01] MEDS: ALLOPURINOL 300 MG TAB PO SCH (09:16)
[2018-08-01] MEDS: PANTOprazole 40 MG TAB PO SCH (09:17)
[2018-08-01] MEDS: THIAMINE HCL 100 MG TAB PO SCH (09:17)
[2018-08-01] MEDS: CEROVITE ADV FORMULA TAB PO SCH ×2 (09:17→20:11)
[2018-08-01] MEDS: TRIAMCINOLONE ACET 0.1% OINT 15 GM TUBE TOP SCH ×2 (09:17→20:08)
[2018-08-01] MEDS: MIRABEGRON ER 25 MG TAB PO SCH (09:17)
[2018-08-01] MEDS: MAGNESIUM OXIDE 400 MG TAB PO SCH ×2 (09:17→20:10)
[2018-08-01] MEDS: SPIRONOLACTONE 25 MG TAB PO SCH (09:17)
[2018-08-01] MEDS: SILVER SULFADIAZINE 1% CR 50 GM JAR TOP SCH ×2 (09:18→20:08)
[2018-08-01] MEDS: MICONAZOLE NITRATE POWDER 43 GM TOP SCH ×2 (09:18→20:08)
[2018-08-01] MEDS: ACETAMINOPHEN 325 MG TAB PO PRN ×2 (09:45→17:29)
--- NOTE | 2018-08-01 12:08 | Heart Failure Progress Note ---
Addendum entered and electronically signed by Jesika Madera PA-C 08/02/18 08:19: Addendum (Blank) Addendum August 02, 2018 08:11 After further chart review and discussion with Dr. Felder, it has been determined that this patient has been previously expelled from the [facility] in 2017. We will not be able to see her in follow up. Original Note: Date of Service August 01, 2018 Assessment & Plan (1) Acute on chronic diastolic CHF (congestive heart failure), NYHA class 2: She remains hypervolemic at this time. She should continue current IV diuretics and spironolactone with close monitoring of renal function and electrolytes. Would continue until her creatinine increases. We had a long discussion today regarding the nature of the heart failure program. She reports she does track her weight at least 5-6 days per week. We discussed low sodium diet recommendations and the importance of medical compliance with her diuretics. At this point, she does not seem receptive to lifestyle changes. We will continue to follow along and delinquency counselor her during this admission. Anticipate close follow up with heart failure program within 7 days of discharge. Supervising Physician Co-Signing Physician Notes Ms. Mckenzie was released from [facility] in the past and reestablished care with another provider locally. She can continue to follow- up with her primary site medical director. This was communicated with Dr. Fermin. Subjective Ms. Mckenzie is a pleasant 70-year-old female with a history significant for atrial fibrillation (diagnosed 07/16/15) sleep apnea on CPAP, hypertension, dyslipidemia , right heart failure/cor pulmonale and pulmonary hypertension. She also has a history of DVT/PE per records. She has seen Dr. Felder in the past. She is currently admitted for progressive shortness of breath. She was recently admittted from 07/22/18-07/25/18 for CHF exacerbation. There was confusion regarding discharge medications and she was not taking any diuretics for several days. Patient also has a significant history for medical non- compliance. She is currently resting comfortably on 4 L supplemental O2. Her estimated dry weight is 295-300 on her home scale. She states she was only up approximately 10lbs prior to her last admission. Physical Exam 2 Vital Signs (Past 24 Hours): Last Vital Signs Temp 36.8 C 08/01/18 11:54 Pulse 62 08/01/18 11:54 Resp 18 08/01/18 11:54 BP 135/64 08/01/18 11:54 Pulse Ox 94 08/01/18 11:54
--- NOTE | 2018-08-01 15:11 | Hospitalist Progress Note ---
Date of Service August 01, 2018 Assessment & Plan (1) Acute on chronic diastolic CHF (congestive heart failure), NYHA class 2: Acute on chronic diastolic CHF/hypertension/atrial fibrillation-- INR was elevated on presentation is now down to the 3 range we will continue to hold her warfarin at this time Continue felodipine 5 mg p.o. daily, metoprolol tartrate 25 mg p.o. twice daily and spironolactone 25 mg every morning. Increase Lasix dosing to 80 mg twice a day following weights creatinine and potassium (2) Afib: Remains rate controlled with metoprolol tartarate, also treated with warfarin for anticoagulation (3) Hypertension: Remains on metoprolol plus diuretic and felodipine (4) Noncompliance: Patient has a long history, for different reasons, of not taking medications as directed. This at least in part appears to be difficulty in understanding directions. Patient has been expelled from the [facility] cardiology practice and therefore that she cannot be enrolled in her heart failure program (5) Morbid obesity: Large contributing factor to all of her medical issues. (6) Hyperlipidemia: Continue atorvastatin 40 mg daily Subjective Patient feels improved compared to when she presented to the facility but not over the last day. Her weight is been stable and she is on a significant diuresis. She denies any any other new problems or complaints does continue to feel mildly short of breath Review of Systems ROS: No double vision blurry vision No problems with speech or swallowing No palpitations, chest pain or pressure Dyspnea on exertion and at rest No abdominal pain nausea vomiting diarrhea No burning urine urine frequency or changes in color No focal joint pain or muscle pain Persistent lower extremity skin changes and swelling No unusual bruising or bleeding No focused back pain or numbness or loss of strength No changes in memory or confusion Physical Exam 2 Vital Signs (Past 24 Hours): Last Vital Signs Temp 36.8 C 08/01/18 11:54 Pulse 62 08/01/18 11:54 Resp 18 08/01/18 11:54 BP 135/64 08/01/18 11:54 Pulse Ox 94 08/01/18 13:03 The patient appeared morbidly obese with a BMI of 57.7 Vital signs as documented. Weight is not reduced Head exam is unremarkable. normocephalic, atraumatic Neck is without jugular venous distension, thyromegaly, or lymphademopathy Lungs are clear to auscultation with the exception of mild rales at the base Cardiac exam reveals Rhythm is regular. Systolic ejection murmur is heard Abdominal exam reveals normal bowel sounds, no masses, no organomegaly Extremities are moderately edematous and both pedal pulses are present Neurologic exam is A&Ox3, no focal deficits, strength is equal bilateral Psychologically seems neither anxious or depressed Skin is warm changes of chronic venous stasis to her lower extremities
[2018-08-01] MEDS ORDERED: FUROSEMIDE 40 MG in SYRINGE 0 ML IV ONE (18:30)
[2018-08-01] MEDS ORDERED: FUROSEMIDE 80 MG in SYRINGE 0 ML IV ONE (22:00)
[2018-08-02] MEDS: ACETAMINOPHEN 325 MG TAB PO PRN (07:40)
[2018-08-02 07:55] LABS: Basophils # (auto) 0.02 K/uL (0-0.2); Basophils % (auto) 0.4 %; Eosinophils # (auto) 0.32 K/uL (0-0.5); Eosinophils % (auto) 6.5 %; Hematocrit (blood only) 44.6 % (37-47); Hemoglobin 14.3 g/dL (12.0-16.0); Lymphocytes # (auto) 1.39 K/uL (1.2-3.4); Lymphocytes % (auto) 28.3 %; Mean Corpuscular Hgb Conc 32.1 g/dL (32-36); Mean Corpuscular Volume 100.5 fL (80-100); Mean Platelet Volume 11.5 fL (7.4-10.4); Monocytes # (auto) 0.56 K/uL (0.11-0.59); Monocytes % (auto) 11.4 %; Neutrophils # (auto) 2.62 K/uL (1.4-6.5); Neutrophils % (auto) 53.4 %; Platelet Count 195 K/uL (130-400); RDW Coefficient of Variation 14.9 % (11.5-14.5); RDW Standard Deviation 54.8 fL (36.4-46.3); Red Blood Count 4.44 M/uL (4.2-5.4); White Blood Count 4.91 K/uL (4.8-10.8)
[2018-08-02 08:04] LABS: INR 2.3 (0.9-1.1); Prothrombin Time 22.1 Seconds (9.0-12.0)
[2018-08-02 08:25] LABS: BUN Creatinine Ratio 29.3 (10-20); Calcium 9.7 mg/dl (8.5-10.1); Creatinine Clr Calc Pharmacy 60.5 ml/min; Est GFR (African American) 59.2; Est GFR (Non-African American) 51.1; Magnesium 1.7 mg/dl (1.8-2.4); Potassium 3.9 mmol/L (3.5-5.1)
[2018-08-02 08:28] LABS: Albumin Globulin Ratio 0.6 (0.9-2); Bilirubin,Total 0.8 mg/dl (0.2-1); Globulin 4.9 gm/dl (2.5-4.0); Total Protein 7.9 gm/dl (6.4-8.2)
[2018-08-02] MEDS: SPIRONOLACTONE 25 MG TAB PO SCH (08:48)
[2018-08-02] MEDS: MICONAZOLE NITRATE POWDER 43 GM TOP SCH ×2 (08:48→20:49)
[2018-08-02] MEDS: TRIAMCINOLONE ACET 0.1% OINT 15 GM TUBE TOP SCH ×2 (08:49→20:08)
[2018-08-02] MEDS: PANTOprazole 40 MG TAB PO SCH (08:51)
[2018-08-02] MEDS: FELODIPINE 5 MG TABCR PO SCH (08:52)
[2018-08-02] MEDS: ALLOPURINOL 300 MG TAB PO SCH (08:52)
[2018-08-02] MEDS: METOPROLOL TARTRATE 25 MG TAB PO SCH ×2 (08:52→20:09)
[2018-08-02] MEDS: MIRABEGRON ER 25 MG TAB PO SCH (08:52)
[2018-08-02] MEDS: ATORVASTATIN 40 MG TAB PO SCH (08:52)
[2018-08-02] MEDS: SILVER SULFADIAZINE 1% CR 50 GM JAR TOP SCH ×2 (08:53→20:08)
[2018-08-02] MEDS: THIAMINE HCL 100 MG TAB PO SCH (08:53)
[2018-08-02] MEDS: FOCUS SELECT PO SCH ×2 (08:53→20:06)
[2018-08-02] MEDS: MAGNESIUM OXIDE 400 MG TAB PO SCH ×2 (08:53→20:06)
[2018-08-02] MEDS: FUROSEMIDE 80 MG in SYRINGE 0 ML IV SCH ×2 (08:54→20:06)
[2018-08-02] MEDS ORDERED: MAGNESIUM SULFATE / D5W 1 GM/100 ML BAG IV ONE (09:30)
[2018-08-02] MEDS: WARFARIN SOD 5 MG TAB PO SCH (15:37)
[2018-08-02] MEDS ORDERED: CIPROFLOXACIN 500 MG TAB PO SCH (21:00)
[2018-08-03] MEDS: ACETAMINOPHEN 325 MG TAB PO PRN (06:09)
[2018-08-03 07:22] LABS: Basophils # (auto) 0.02 K/uL (0-0.2); Basophils % (auto) 0.4 %; Eosinophils % (auto) 5.9 %; Hematocrit (blood only) 42.2 % (37-47); Hemoglobin 13.6 g/dL (12.0-16.0); Lymphocytes # (auto) 1.05 K/uL (1.2-3.4); Lymphocytes % (auto) 20.8 %; Mean Corpuscular Hgb Conc 32.2 g/dL (32-36); Mean Corpuscular Volume 99.1 fL (80-100); Mean Platelet Volume 11.3 fL (7.4-10.4); Monocytes # (auto) 0.57 K/uL (0.11-0.59); Monocytes % (auto) 11.3 %; Neutrophils # (auto) 3.12 K/uL (1.4-6.5); Neutrophils % (auto) 61.6 %; Platelet Count 188 K/uL (130-400); RDW Coefficient of Variation 14.8 % (11.5-14.5); RDW Standard Deviation 53.4 fL (36.4-46.3); Red Blood Count 4.26 M/uL (4.2-5.4); White Blood Count 5.06 K/uL (4.8-10.8)
[2018-08-03 07:33] LABS: INR 1.8 (0.9-1.1); Prothrombin Time 17.9 Seconds (9.0-12.0)
[2018-08-03 08:02] LABS: Albumin Level 2.7 gm/dl (3.4-5.0); BUN Creatinine Ratio 35.1 (10-20); Calcium 9.2 mg/dl (8.5-10.1); Creatinine Clr Calc Pharmacy 51.6 ml/min; Est GFR (African American) 48.6; Est GFR (Non-African American) 41.9; Magnesium 1.8 mg/dl (1.8-2.4)
[2018-08-03 08:05] LABS: Albumin Globulin Ratio 0.6 (0.9-2); Bilirubin,Total 0.6 mg/dl (0.2-1); Globulin 4.4 gm/dl (2.5-4.0); Total Protein 7.1 gm/dl (6.4-8.2)
[2018-08-03] MEDS: FELODIPINE 5 MG TABCR PO SCH (08:09)
[2018-08-03] MEDS: ALLOPURINOL 300 MG TAB PO SCH (08:09)
[2018-08-03] MEDS: MAGNESIUM OXIDE 400 MG TAB PO SCH (08:09)
[2018-08-03] MEDS: FUROSEMIDE 80 MG in SYRINGE 0 ML IV SCH (08:09)
[2018-08-03] MEDS: SPIRONOLACTONE 25 MG TAB PO SCH (08:09)
[2018-08-03] MEDS: ATORVASTATIN 40 MG TAB PO SCH (08:09)
[2018-08-03] MEDS: MIRABEGRON ER 25 MG TAB PO SCH (08:09)
[2018-08-03] MEDS: TRIAMCINOLONE ACET 0.1% OINT 15 GM TUBE TOP SCH (08:10)
[2018-08-03] MEDS: PANTOprazole 40 MG TAB PO SCH (08:10)
[2018-08-03] MEDS: MICONAZOLE NITRATE POWDER 43 GM TOP SCH (08:10)
[2018-08-03] MEDS: METOPROLOL TARTRATE 25 MG TAB PO SCH (08:10)
[2018-08-03] MEDS: THIAMINE HCL 100 MG TAB PO SCH (08:10)
[2018-08-03] MEDS: SILVER SULFADIAZINE 1% CR 50 GM JAR TOP SCH (08:11)
[2018-08-03] MEDS: FOCUS SELECT PO SCH (08:11)
--- NOTE | 2018-08-03 15:19 | Discharge Summary ---
Date of Service August 03, 2018 Admission HPI Per Admitting Provider The patient is a 72-year-old female most recently admitted to this hospital from July 22 - July 25, reports that she had some confusion about medications that she was supposed to take, and since that time has not been taking any of her diuretics. She reports that fluid has reaccumulated, she feels short of breath again, but denies any chest pain or any other new symptoms. Principal Diagnosis acute diastolic heart failure Discharge Exam Patient was appearing to be comfortable resting with no respiratory distress however she does get distress with movement. Her cardiac exam was distant but regular lungs were clear without wheezes or crackles or no rales. Tremors are with a chronic venous stasis changes in 1-2+ edema bilaterally to the knees which is stable for her Discharge Data Allergies Allergy/AdvReac Type Severity Reaction Status Date / Time Iodinated Contrast- Oral and Allergy Severe PAIN AT Verified 07/31/18 02:02 IV Dye INJECTION SITE AND UP THE BONES ketoprofen Allergy Severe NUMBNESS Verified 07/31/18 02:02 FROM WAIST DOWN SEVERAL MONTHS lorazepam Allergy Severe pt Verified 07/31/18 02:02 EXTREMELY sensitive Penicillins Allergy Severe SEVERE RASH Verified 07/31/18 02:02 trimethoprim Allergy Severe ELEVATED Verified 07/31/18 02:02 POTASSIUM LEVELS cephalexin Allergy Intermediate ITCHING Verified 07/31/18 02:02 Consultations 07/31/18 04:22 ED Decision to Admit Stat 07/31/18 05:32 Consult Case Management - Discharge Planning Routine Hospital Course (1) Acute on chronic diastolic CHF (congestive heart failure), NYHA class 2: Acute on chronic diastolic CHF/hypertension/atrial fibrillation-- INR was elevated on presentation is now down resume warfarin at 5 mg a day and follow inr Continue felodipine 5 mg p.o. daily, metoprolol tartrate 25 mg p.o. twice daily and spironolactone 25 mg every morning. Increase Lasix dosing to 80 mg daily following weights creatinine and potassium , will have outpt home health check labs (2) Afib: Remains rate controlled with metoprolol tartarate, also treated with warfarin for anticoagulation (3) Hypertension: Remains on metoprolol plus diuretic and felodipine (4) Noncompliance: Patient has a long history, for different reasons, of not taking medications as directed. I personally educated the pt regarding her need to keep diuretics in her life Patient has been expelled from the [facility] cardiology practice and therefore that she cannot be enrolled in her heart failure program (5) Morbid obesity: Large contributing factor to all of her medical issues. (6) Hyperlipidemia: Continue atorvastatin 40 mg daily Total Time Total Time Spent Total Time Spent (In Minutes): greater than 30 minutes were required to prepare discharge Discharge Plan Discharge Items Patient Disposition: Home - Home Health Services Reason For Visit: CHF EXACERBATION Discharge Diagnosis: fluid retention, shortness of breath Discharge Goals: Decrease discomfort Activity: Resume your previous activity Non-emergency contact: Primary Care Provider and Package Winder Call non-emergency contact if: you have any medication questions Follow-up/Referrals: Rah Ambrocio MD [Primary Care Provider] - 08/09/18 1:00 pm (Please, follow up at Dr. Ambrocio's office with Natalie Pacheco PA-C on August 09 at 1:00 pm. *If you need to change or cancel this appointment, call the office at [phone].) Diet: Low Sodium (2gm) Addtl Provider Instructions: Call your Primary Care doctor if any of the following symptoms or problems start or get worse: * Shortness of breath or difficulty breathing * Wake up at night short of breath * Chest pain * Cough * Swelling of your hands, feet, or legs * More fatigued or tired with your normal activity * Palpitations - sudden fast heart beats WEIGHT * Weigh yourself every morning after using the bathroom. * Use the same scale. * Wear the same amount of clothing. * Write your weight down on a chart. * Call your Primary Care doctor if you gain more than 2-3 pounds in 1-2 days. MEDICATIONS * Use this discharge instruction sheet for medication instructions. * Take your medications at the time your doctor ordered. * Do not skip a dose of your medicines. * If you miss a dose of medicine, take it as soon as possible, but DO NOT DOUBLE A DOSE. * Read your medicine information when you get home. * Know all of the side effects of your medicine. If in doubt, ask your pharmacist * Call your Primary Care doctor's office if you have any side effects. * Be sure all of your doctors know what medicine and herbs you take (including cold, flu, and herbal medicine). Take the following with you to your follow-up doctor appointments: * Weight Chart * Medication List * List of questions Do not drink excessive alcohol, beer or wine. Prescriptions: New furosemide [Lasix] 80 mg tablet 80 mg PO DAILY Qty: 30 RF: 6 Continue atorvastatin 40 mg tablet 40 mg PO DAILY RF: 0 felodipine 5 mg tablet extended release 24 hr 5 mg PO DAILY RF: 0 pantoprazole 40 mg Tablet,Delayed Release (Dr/Ec) 40 mg PO DAILY RF: 0 mirabegron 50 mg tablet extended release 24 hr 50 mg PO QAM RF: 0 yrwpyomjbhkg-iun-yotd-FA-vit K [Multi For Her] 18 mg iron-600 mcg-40 mcg Capsule 1 tab-cap PO QAM RF: 0 spironolactone 25 mg tablet 25 mg PO QAM RF: 0 allopurinol 300 mg tablet 300 mg PO DAILY RF: 0 metoprolol tartrate 25 mg Tablet 25 mg PO BID RF: 0 thiamine HCl (vitamin B1) [Vitamin B-1] 100 mg Tablet 100 mg PO DAILY RF: 0 vit C,G-Cl-ochce-lutein-zeaxan [PreserVision AREDS-2] 293-049-52-1 mg-unit-mg- mg Capsule 1 tab PO AMHS RF: 0 silver sulfadiazine [Silvadene] 1 % Cream 1 applic TOPICAL BID RF: 0 betamethasone valerate 0.1 % Cream 1 applic TOPICAL DAILY PRN (Reason: psoriasis) RF: 0 oylx-prosuhaqe-bkgneace-aldiox [Zeasorb] Powder 1 applic topical BID RF: 0 clotrimazole-betamethasone 1-0.05 % Cream 1 applic TOPICAL DAILY RF: 0 warfarin 10 mg tablet 5 mg PO UD Qty: 30 RF: 0 Discontinued torsemide 100 mg tablet 100 mg PO DAILY RF: 0 warfarin 2.5 mg tablet 2.5 mg PO UD RF: 0 Stand-Alone Forms: [facility] Discharge Orders: Discharge Order (Routine); Ordered 08/03/18 Ordered By: Denny Fermin Admission Data Admit Date/Time: 08/02/18 08:35 Attending Provider: Denny Fermin Admit Provider: Clarke Ricmhond Primary Care Provider: Rah Ambrocio Other Providers: Clarke Richmond Service: Telemetry Other Interventions: Discharge Summary Assessment (RN) Last Done: 08/03/18 13:40
[2018-08-03] MEDS: WARFARIN SOD 5 MG TAB PO SCH (15:48)
--- NOTE | 2018-08-07 08:26 | Hospitalist Progress Note ---
Date of Service August 02, 2018 Assessment & Plan (1) Acute on chronic diastolic CHF (congestive heart failure), NYHA class 2: Acute on chronic diastolic CHF/hypertension/atrial fibrillation-- INR was elevated on presentation is now down follow inr Continue felodipine 5 mg p.o. daily, metoprolol tartrate 25 mg p.o. twice daily and spironolactone 25 mg every morning. following weights creatinine and potassium (2) Afib: Remains rate controlled with metoprolol tartarate, also treated with warfarin for anticoagulation (3) Hypertension: Remains on metoprolol plus diuretic and felodipine (4) Noncompliance: Patient has a long history, for different reasons, of not taking medications as directed. I personally educated the pt regarding her need to keep diuretics in her life Patient has been expelled from the [facility] cardiology practice and therefore that she cannot be enrolled in her heart failure program (5) Morbid obesity: Large contributing factor to all of her medical issues. (6) Hyperlipidemia: Continue atorvastatin 40 mg daily Subjective Patient continues to feel improved, she is still willing to have additional diuresis her concerns are having to go to the bathroom in the evening and wants to move toward once a day dosing of lasix Constitutional: + fatigue and + weakness Respiratory: + dyspnea (with exertion); no cough and no chest congestion Cardiovascular: + dyspnea on exertion; no chest pain and no chest pain at rest Gastrointestinal: no abdominal pain, no nausea and no vomiting Musculoskeletal: + swelling; no joint pain Integumentary: no rash and no lesions Physical Exam 2 Vital Signs (Past 24 Hours): Last Vital Signs Temp 36.4 C L 08/03/18 13:40 Pulse 59 L 08/03/18 13:40 Resp 20 08/03/18 13:40 BP 99/60 L 08/03/18 13:40 Pulse Ox 96 08/03/18 13:40 Constitutional: well developed and average body habitus Eyes: no conjunctival abnormality and no scleral abnormality Neck: normal visual inspection and trachea midline Respiratory: normal respiratory effort; no respiratory distress Auscultation: lungs clear to auscultation bilaterally Cardiovascular: RRR, no murmur, no edema Gastrointestinal (Abdomen): normal bowel sounds, soft, nontender, no hepatosplenomegaly Musculoskeletal: no cyanosis or clubbing, extremities motor strength 5/5
== END 2018-08-03 16:10 | disposition home health service (06) | DRG 292 ==
LOC: ED 00:22 → 2S 00:22 → SUATTDRO 04:25 → 2S 04:50 → 2W 08-01 14:07
DX: Z99.81 Dependence on supplemental oxygen; G47.30 Sleep apnea, unspecified; E66.01 Morbid (severe) obesity due to excess calories; I11.0 Hypertensive heart disease with heart failure; Z88.8 Allergy status to other drugs, medicaments and biological substances; Z91.19 Patient's noncompliance with other medical treatment and regimen; Z87.891 Personal history of nicotine dependence; I50.33 Acute on chronic diastolic (congestive) heart failure; Z68.43 Body mass index [BMI] 50.0-59.9, adult; I48.91 Unspecified atrial fibrillation; Z91.041 Radiographic dye allergy status; Z88.0 Allergy status to penicillin; Z79.01 Long term (current) use of anticoagulants; Z86.711 Personal history of pulmonary embolism; E78.5 Hyperlipidemia, unspecified

== ENCOUNTER 2018-11-02 20:31 | Inpatient (IN) ==
--- NOTE | 2018-11-02 23:10 | Emergency Department Note ---
Entered by Sarah Mims acting as a scribe for Isacc Almonte DO History of Present Illness General Chief complaint: Weakness Time Seen by Provider: 11/02/18 21:47 Source: patient History of Present Illness Onset (ago): hour(s) (just prior to arrival) Pain Consistency: + other (episode ) Maximum Pain Intensity: 0 Quality: + other (weakness) Associated symptoms: + shortness of breath and + other (positive bowel incontinence ) Treatments prior to arrival: none The patient is a 73 year old female who presents to the Emergency Room with complaints of an episode of weakness that began just prior to arrival. The patient states that she was unable to get off of the toilet. She states that she was weak just prior to going to the bathroom, but states that she was able to walk there. The patient states that over the past 10 days she has had worsening shortness of breath and bowel incontinence. She states that she wears 3L of oxygen all of the time. Home Medications Home Medications Medication Instructions Recorded Confirmed Type Multi For Her 1 tab-cap PO QAM 07/22/18 11/02/18 History atorvastatin 40 mg PO DIRECTED 07/22/18 11/02/18 History felodipine 5 mg PO QAM 07/22/18 11/02/18 History pantoprazole 40 mg PO QAM 07/22/18 11/02/18 History PreserVision AREDS-2 1 tab PO BID 07/31/18 11/02/18 History allopurinol 300 mg PO DAILY 07/31/18 11/02/18 History metoprolol tartrate 25 mg PO BID 07/31/18 11/02/18 History silver sulfadiazine [Silvadene] 1 applic TOPICAL BID PRN 07/31/18 11/02/18 History spironolactone 25 mg PO QAM 07/31/18 11/02/18 History thiamine HCl (vitamin B1) [Vitamin 100 mg PO QAM 07/31/18 11/02/18 History B-1] warfarin 5 mg PO UD #30 tab 08/03/18 11/02/18 Rx furosemide [Lasix] 80 mg PO QAM 10/24/18 11/02/18 History gabapentin 300 mg PO TID 10/24/18 11/02/18 History magnesium oxide 400 mg PO BID 10/24/18 11/02/18 History nystatin 1 applic TOPICAL BID PRN 10/24/18 11/02/18 History clindamycin HCl See Rx Instructions .ROUTE .COMPLEX 11/01/18 11/02/18 History diclofenac sodium 1 % TOPICAL DIRECTED PRN 11/01/18 11/02/18 History mirabegron [Myrbetriq] 50 mg PO QAM 11/01/18 11/02/18 History varicella-zoster gE-AS01B (PF) 0.5 ml IM DIRECTED 11/01/18 11/02/18 History [Shingrix (PF)] warfarin 0 mg PO UNKNOWN 11/01/18 11/02/18 History Allergies Allergy/AdvReac Type Severity Reaction Status Date / Time ketoprofen Allergy Severe NUMBNESS Verified 11/02/18 21:16 FROM WAIST DOWN SEVERAL MONTHS cephalexin Allergy Intermediate ITCHING Verified 11/02/18 21:16 Iodinated Contrast- Oral and Allergy Intermediate PAIN AT Verified 11/02/18 21:16 IV Dye INJECTION SITE AND UP THE BONES Penicillins Allergy Intermediate SEVERE RASH Verified 11/02/18 21:16 trimethoprim Allergy Intermediate ELEVATED Verified 11/02/18 21:16 POTASSIUM LEVELS Benzodiazepines Allergy Unknown Unverified 11/02/18 21:16 lorazepam AdvReac Intermediate pt Verified 11/02/18 21:16 EXTREMELY sensitive Past Med/Surg History Medical History Cervical radiculopathy (Chronic) Cervical spondylosis (Chronic) Perineal irritation Acute respiratory failure with hypoxia and hypercapnia ON 3 LITERS OXYGEN 02/01 Morbid obesity (Chronic) Hypertension (Chronic) Hyperlipidemia (Chronic) Psoriasis (Chronic) Venous stasis dermatitis (Chronic) Osteoarthritis (Chronic) Gout (Chronic) GERD (gastroesophageal reflux disease) (Chronic) Osteoporosis (Chronic) Afib (Chronic) CHF (congestive heart failure) (Acute) Chest pain (Acute) Gait abnormality (Chronic) Hand pain, left (Acute) UNSURE IF R/T NECK ISSUE SOB (shortness of breath) (Acute 05/15/13) Chronic pain RIGHT SHOULDER - RADIATING DOWN RIGHT ARM AND SOME PAIN IN LEFT ARM. WEAKNESS IN RIGHT ARM Diaper rash STATES HAS BEEN DIAGNOSED WITH "SEVERE DIAPER RASH" - USES CREAM WHICH IS HELPING AREAS History of asthma CHILD Hx of deep venous thrombosis Macular degeneration Sleep apnea Surgical History S/P implantation of urinary electronic stimulator device (Resolved) History of total knee replacement (Resolved) X3; LEFT X2, RIGHT X1 History of wisdom tooth extraction (Resolved) History of tonsillectomy (Resolved) Social History Preferred Language: Ugandan Communication Ability: Effective Beliefs That Will Affect Care: None Current Living Situation: Alone Feels Safe at Home: Yes Smoking Status: Former smoker Tobacco Type: cigarettes Second Hand Exposure: Yes (OCCASSIONALLY) Hx Alcohol Use: Yes Alcohol type: beer and hard liquor Hx Substance Use: No Review of Systems See HPI for pertinent positives & negatives. and A total of 10 systems reviewed and were otherwise negative Physical Exam Vital Signs Vital Signs - 24 hr 11/02/18 20:30 11/02/18 22:30 Temperature 36.8 C Temperature Source Oral Sepsis Recent Fever Within 48 Hours No Sepsis Action Taken by Nursing No Action Required Pulse Rate 88 Pulse Rate [Apical] 91 H Respiratory Rate 18 18 Respiratory Effort / Characteristics Non-Labored Spontaneous Non-Labored Spontaneous Respiratory Depth Normal Normal Respiratory Pattern Regular Regular Blood Pressure 177/124 H Blood Pressure [Left Arm] 193/118 H Blood Pressure Mean 141 Blood Pressure Mean [Left Arm] 143 Blood Pressure Position Sitting Blood Pressure Position [Left Arm] Sitting Pulse Oximetry 96 97 Oxygen Delivery Method Nasal Cannula Room Air Oxygen Flow Rate 3 CONSTITUTIONAL/VITAL SIGNS: Reviewed / noted above. GENERAL: Non-toxic in appearance. Generalized weakness INTEGUMENTARY: Warm, dry, and [place]. HEAD: Normocephalic. EYES: without scleral icterus or trauma. ENT/OROPHARYNX: clear and moist. LYMPHADENOPATHY/NECK: Is supple without lymphadenopathy or meningismus. RESPIRATORY: Lungs clear and equal. CARDIOVASCULAR: Regular rate and rhythm. GI/ABDOMEN: Soft and nontender. No organomegaly or pulsatile mass. No rebound or guarding. Normal bowel sounds. EXTREMITIES: Warm and well perfused. BACK: No CVA tenderness. NEUROLOGICAL: Intact without focal deficits. PSYCHIATRIC: normal affect. MUSCULOSKELETAL: Normally developed with good muscle tone. Course 2147: The patient was evaluated in room B10, and a complete history and physical examination were performed. 2306: I discussed the case with Dr. Arroyo-[facility] Hospitalist who accepted the patient for further evaluation. Medical Decision Making Differential Diagnosis Differential diagnosis: Etiologies such as metabolic, infection, hypo/hyperglycemia, electrolyte abnormalities, cardiac sources, intracerebral event, toxicologic, neurologic, as well as others were entertained. Medical Records Attestation: I reviewed the patient's medical records. Home Medications Current Medication List: was personally reviewed by me Blood Pressure Blood Pressure Findings: Elevated blood pressure Blood Pressure Disposition: further management by hospitalist DELROY Narrative This is a 73-year-old female who presents to the ED with a chief complaint of weakness. Patient states that she has been sick for about the past 10 days with an upper respiratory infection. She does use home oxygen 3 L at all times. She also uses CPAP at night. She states that she had some loose stools for the past week and a half but her stools have improved over the past 4 days. She was seen in the emergency department for shortness of breath yesterday. There was nothing significant found on her evaluation yesterday. She was discharged home. Today, the patient sat down on the toilet and was unable to get up. She called EMS and was brought in here. The patient feels that she has become deconditioned over the past 10 days from sitting around a lot and not being mobile because of her recent illness. Her illness symptoms have mostly resolved and her evaluation yesterday did not show any evidence of bone or other acute abnormality. The patient feels too weak to go home. She lives alone. The patient was offered inpatient rehab and is agreeable to this. Because of the commercial insurance, the patient will need PT/OT evaluation tomorrow. She will be seen by Dr. Arroyo for observation overnight for her evaluation tomorrow. Impression & Plan Physical deconditioning, Weakness Discharge Plan Visit Data Chief Complaint: Weakness ED Provider: Isacc Almonte Discharge Problem: Physical deconditioning, Weakness Forms Stand Alone Forms: My [facility] Prescriptions Prescriptions: No Action furosemide [Lasix] 80 mg tablet 80 mg PO QAM RF: 0 gabapentin 300 mg capsule 300 mg PO TID RF: 0 nystatin 100,000 unit/gram Powder 1 applic TOPICAL BID PRN (Reason: FUNGAL ISSUES UNDER BREAST) RF: 0 magnesium oxide 400 mg magnesium Tablet 400 mg PO BID RF: 0 atorvastatin 40 mg tablet 40 mg PO DIRECTED RF: 0 felodipine 5 mg tablet extended release 24 hr 5 mg PO QAM RF: 0 pantoprazole 40 mg Tablet,Delayed Release (Dr/Ec) 40 mg PO QAM RF: 0 Multi For Her 18 mg iron-600 mcg-40 mcg Capsule 1 tab-cap PO QAM RF: 0 spironolactone 25 mg tablet 25 mg PO QAM RF: 0 allopurinol 300 mg tablet 300 mg PO DAILY RF: 0 metoprolol tartrate 25 mg Tablet 25 mg PO BID RF: 0 thiamine HCl (vitamin B1) [Vitamin B-1] 100 mg Tablet 100 mg PO QAM RF: 0 PreserVision AREDS-2 [id number] Capsule 1 tab PO BID RF: 0 silver sulfadiazine [Silvadene] 1 % Cream 1 applic TOPICAL BID PRN (Reason: SKIN ISSUES) RF: 0 warfarin 10 mg tablet 5 mg PO UD Qty: 30 RF: 0 clindamycin HCl 150 mg capsule See Rx Instructions .ROUTE .COMPLEX RF: 0 warfarin 2.5 mg tablet PO UNKNOWN RF: 0 diclofenac sodium 1 % Gel 1 % TOPICAL DIRECTED PRN (Reason: Pain) RF: 0 Myrbetriq 50 mg tablet extended release 24 hr 50 mg PO QAM RF: 0 Shingrix (PF) 50 mcg/0.5 mL Suspension For Reconstitution 0.5 ml IM DIRECTED RF: 0 Referrals Referrals: Pro,Rah Gaines MD [Primary Care Provider] - The scribe's documentation has been prepared under my direction and personally reviewed by me in its entirety. I confirm that the note above accurately reflects all work, treatment, procedures, and medical decision making performed by me.
--- NOTE | 2018-11-03 00:53 | History & Physical Report ---
Date of Service November 03, 2018 Assessment & Plan (1) Acute on chronic diastolic CHF (congestive heart failure), NYHA class 2: Acute on chronic diastolic CHF (congestive heart failure), NYHA class 2: -Pt having increased difficulty breathing despite being chronically on home oxygen of 3L-4L -Crackles appreciated on exam (pt has not been taking lasix x 4 days) -CXR CHF and small bilateral pleural effusion -BNP elevated at 2406 -troponin neg -EKG 86 Afib Qtc 452 -Lasix 40mg IV x 1 -Continue Lasix 80mg PO in the AM -Continue felodipine 5 mg p.o. daily, metoprolol tartrate 25 mg p.o. twice daily and spironolactone 25 mg every morning Deconditioning: in the setting of recent illness (headaches and diarrhea which improved) -Pt reports being sick for 10 days prior to presentation and deconditioning due to being more sedentary -PT/OT ordered -May need inpatient rehab Afib: -EKG 86 Afib Qtc 452 Continue rate control with metoprolol tartarate, also treated with warfarin for anticoagulation Hypertension: Continue on metoprolol, felodipine, spironolactone and lasix Hyperlipidemia: Continue atorvastatin 40 mg daily Gout: Continue allopurinol GERD: Continue protonix Overactive bladder: Continue mirabegron Chronic pain Continue gabapentin and voltaren gel Morbid obesity: Large contributing factor to all of her medical issues. Noncompliance: Has not taken medication for the last 4 days Patient has a long history, for different reasons, of not taking medications as directed Patient has been expelled from the [facility] cardiology practice and therefore that she cannot be enrolled in her heart failure program DVT prop: on coumadin for afib, SCDs Code: Full Dispo: med/surg telemetry (2) Morbid obesity: (3) Hypertension: (4) Hyperlipidemia: (5) Gout: (6) GERD (gastroesophageal reflux disease): (7) Afib: (8) Physical deconditioning: History of Present Illness Chief Complaint: sob, weakness Primary Care Provider: Rah Ambrocio MD 73yoF with hx of CHF NYHA class 2, Afib, HTN, HLD, gout, overactive bladder, GERD, morbidly obese and non-compliance with medical care presents with weakness and sob. Pt reports 10 days of recurrent headache episodes and diarrhea which improved 4 days ago as a result of which she was more sedentary and deconditioned. She presented to the ED on 11/01/18 and had a normal thorough work up for sob/weakness. Today she was brought again to the ED by EMS after she had trouble getting off the toilet seat and her son could not help her either. She was able to get to the bathroom but too weak to pull herself up by holding onto the side of the tub. She felt more tired today, had sob even on chronic O2 at 3-4L, and headache. Otherwise she was asymptomatic and denies any f/c, cp, abdominal pain, n/v, d/c, dysuria. Attempts were made to get pt to inpatient rehab tonight but she needed PT/OT evaluation. Allergies Allergy/AdvReac Type Severity Reaction Status Date / Time ketoprofen Allergy Severe NUMBNESS Verified 11/02/18 21:16 FROM WAIST DOWN SEVERAL MONTHS cephalexin Allergy Intermediate ITCHING Verified 11/02/18 21:16 Iodinated Contrast- Oral and Allergy Intermediate PAIN AT Verified 11/02/18 21:16 IV Dye INJECTION SITE AND UP THE BONES Penicillins Allergy Intermediate SEVERE RASH Verified 11/02/18 21:16 trimethoprim Allergy Intermediate ELEVATED Verified 11/02/18 21:16 POTASSIUM LEVELS Benzodiazepines Allergy Unknown Unverified 11/02/18 21:16 lorazepam AdvReac Intermediate pt Verified 11/02/18 21:16 EXTREMELY sensitive Home Medications Home Medications Medication Instructions Recorded Confirmed Type Multi For Her 1 tab-cap PO QAM 07/22/18 11/02/18 History atorvastatin 40 mg PO DIRECTED 07/22/18 11/02/18 History felodipine 5 mg PO QAM 07/22/18 11/02/18 History pantoprazole 40 mg PO QAM 07/22/18 11/02/18 History PreserVision AREDS-2 1 tab PO BID 07/31/18 11/02/18 History allopurinol 300 mg PO DAILY 07/31/18 11/02/18 History metoprolol tartrate 25 mg PO BID 07/31/18 11/02/18 History silver sulfadiazine [Silvadene] 1 applic TOPICAL BID PRN 07/31/18 11/02/18 History spironolactone 25 mg PO QAM 07/31/18 11/02/18 History thiamine HCl (vitamin B1) [Vitamin 100 mg PO QAM 07/31/18 11/02/18 History B-1] warfarin 5 mg PO UD #30 tab 08/03/18 11/02/18 Rx furosemide [Lasix] 80 mg PO QAM 10/24/18 11/02/18 History gabapentin 300 mg PO TID 10/24/18 11/02/18 History magnesium oxide 400 mg PO BID 10/24/18 11/02/18 History nystatin 1 applic TOPICAL BID PRN 10/24/18 11/02/18 History clindamycin HCl See Rx Instructions .ROUTE .COMPLEX 11/01/18 11/02/18 History diclofenac sodium 1 % TOPICAL DIRECTED PRN 11/01/18 11/02/18 History mirabegron [Myrbetriq] 50 mg PO QAM 11/01/18 11/02/18 History varicella-zoster gE-AS01B (PF) 0.5 ml IM DIRECTED 11/01/18 11/02/18 History [Shingrix (PF)] warfarin 0 mg PO UNKNOWN 11/01/18 11/02/18 History Past Med/Surg History Medical History Cervical radiculopathy (Chronic) Cervical spondylosis (Chronic) Perineal irritation Acute respiratory failure with hypoxia and hypercapnia ON 3 LITERS OXYGEN 02/01 Morbid obesity (Chronic) Hypertension (Chronic) Hyperlipidemia (Chronic) Psoriasis (Chronic) Venous stasis dermatitis (Chronic) Osteoarthritis (Chronic) Gout (Chronic) GERD (gastroesophageal reflux disease) (Chronic) Osteoporosis (Chronic) Afib (Chronic) CHF (congestive heart failure) (Acute) Chest pain (Acute) Gait abnormality (Chronic) Hand pain, left (Acute) UNSURE IF R/T NECK ISSUE SOB (shortness of breath) (Acute 05/15/13) Chronic pain RIGHT SHOULDER - RADIATING DOWN RIGHT ARM AND SOME PAIN IN LEFT ARM. WEAKNESS IN RIGHT ARM Diaper rash STATES HAS BEEN DIAGNOSED WITH "SEVERE DIAPER RASH" - USES CREAM WHICH IS HELPING AREAS History of asthma CHILD Hx of deep venous thrombosis Macular degeneration Sleep apnea Surgical History S/P implantation of urinary electronic stimulator device (Resolved) History of total knee replacement (Resolved) X3; LEFT X2, RIGHT X1 History of wisdom tooth extraction (Resolved) History of tonsillectomy (Resolved) Social History Preferred Language: Palauan Communication Ability: Effective Beliefs That Will Affect Care: None Current Living Situation: Alone Feels Safe at Home: Yes Smoking Status: Former smoker Tobacco Type: cigarettes Second Hand Exposure: Yes (OCCASSIONALLY) Hx Alcohol Use: Yes Alcohol type: beer and hard liquor Hx Substance Use: No Review of Systems Review of Systems: As per HPI Physical Exam Physical Exam: General: In NAD CV: RRR, no m/r/g PULM: Crackles appreciated over posterior mid and bibasilar lung white, equal breath sounds bilaterally, able to speak in full sentences but has to stop before next sentence ABDOMEN: +BS, non-distended, non-tender to palpation in all quadrants, obese LE: no calf TTP, trace LE edema, chronic venous stasis skin changes Results & Data Vital Signs (Past 12 Hours) Vital Signs Temp Pulse Pulse Resp BP BP Pulse Ox 11/03/18 00:19 87 18 113/67 97 11/02/18 22:30 91 H 18 193/118 H 97 11/02/18 20:30 36.8 C 88 18 177/124 H 96 Code Status & VTE Plan Code Status Full Supervising Physician Co-Signing Physician Notes Pt seen/examined in conjunction with resident MD Laron Dobbins. Orders and plan of admission formulated with resident. 73 y/o F Hx CHF, AF, HTN, HLD, gout, overactive bladder, GERD, morbidly obese , medically noncompliant - presenting with progressive weakness and dyspnea. Has not recently complied with Lasix. She sat on the toilet today and was too weak to get up. She is unable to ambulate independently and will need placement at rehab. OE AAO x 3 S1,2 irr, faint reduced air entry at bases NT, ND Minimal edema P: CHF - restart Lasix, Aldactone - cont b aaron AF - Metoprolol, anticoagulated with Coumadin, however, INR is 1.1 so compliance is not likely - we will restart HTN, HLD - statin, B aaron, diuretics, Felodipine Transfer to acute rehab AM if possible Resident Activity Tracking Resident Involvement: Resident Care Provided Care Provided: Adult Hospital Medicine
[2018-11-03] MEDS ORDERED: SILVER SULFADIAZINE 1% CR 50 GM JAR TOP PRN (01:38)
[2018-11-03] MEDS ORDERED: WARFARIN SOD 2.5 MG TAB PO SCH (01:38)
[2018-11-03] MEDS ORDERED: WARFARIN SOD 10 MG TAB PO SCH (01:38)
[2018-11-03] MEDS ORDERED: FUROSEMIDE 40 MG in SYRINGE 0 ML IV ONE (02:15)
[2018-11-03] MEDS: METOPROLOL TARTRATE 25 MG TAB PO SCH ×3 (02:50→20:44)
[2018-11-03 07:44] LABS: Basophils # (auto) 0.01 K/uL (0-0.2); Basophils % (auto) 0.2 %; Eosinophils # (auto) 0.09 K/uL (0-0.5); Eosinophils % (auto) 1.5 %; Hemoglobin 14.8 g/dL (12.0-16.0); Immature Granulocytes # (auto) 0.01 K/uL (0.00-0.02); Immature Granulocytes % (auto) 0.2 %; Lymphocytes # (auto) 1.04 K/uL (1.2-3.4); Lymphocytes % (auto) 16.9 %; Mean Corpuscular Hgb Conc 34.4 g/dL (32-36); Mean Platelet Volume 11.6 fL (7.4-10.4); Neutrophils # (auto) 4.19 K/uL (1.4-6.5); Neutrophils % (auto) 68.2 %; Platelet Count 158 K/uL (130-400); RDW Coefficient of Variation 15.5 % (11.5-14.5); RDW Standard Deviation 54.4 fL (36.4-46.3); Red Blood Count 4.48 M/uL (4.2-5.4); White Blood Count 6.14 K/uL (4.8-10.8)
[2018-11-03 07:52] LABS: BUN Creatinine Ratio 20.1 (10-20); Calcium 9.1 mg/dl (8.5-10.1); Est GFR (African American) 78.8; Potassium 3.3 mmol/L (3.5-5.1)
[2018-11-03] MEDS: ACETAMINOPHEN 325 MG TAB PO PRN ×2 (08:53→23:32)
[2018-11-03] MEDS: FELODIPINE 5 MG TABCR PO SCH (08:54)
[2018-11-03] MEDS: MIRABEGRON ER 25 MG TAB PO SCH (08:54)
[2018-11-03] MEDS: THIAMINE HCL 100 MG TAB PO SCH (08:54)
[2018-11-03] MEDS: SPIRONOLACTONE 25 MG TAB PO SCH (08:54)
[2018-11-03] MEDS: GABAPENTIN 300 MG CAP PO SCH ×3 (08:55→20:44)
[2018-11-03] MEDS: CEROVITE ADV FORMULA TAB PO SCH ×2 (08:55→20:44)
[2018-11-03] MEDS: ALLOPURINOL 300 MG TAB PO SCH (08:55)
[2018-11-03] MEDS: FUROSEMIDE 80 MG TAB PO SCH (08:55)
[2018-11-03] MEDS: MAGNESIUM OXIDE 400 MG TAB PO SCH ×2 (08:55→20:44)
[2018-11-03] MEDS ORDERED: POTASSIUM CHLORIDE 20 MEQ TABCR PO ONE (09:00)
[2018-11-03] MEDS: PANTOprazole 40 MG TAB PO SCH (09:11)
[2018-11-03] MEDS: ATORVASTATIN 40 MG TAB PO SCH (09:20)
[2018-11-03] MEDS: DICLOFENAC SOD 1% GEL 100 GM TUBE EXT SCH ×2 (09:21→20:46)
[2018-11-03 09:23] LABS: INR 1.3 (0.9-1.1); Prothrombin Time 13.2 Seconds (9.0-12.0)
--- NOTE | 2018-11-03 14:56 | History & Physical Bridge Note ---
Date of Service November 03, 2018 History & Physical Bridge Note I have examined the patient, reviewed the History & Physical and in the interval since the performance of the History & Physical I have noted the following changes of clinical significance: Pt feeling only slightly improved with her dyspnea. Feels generally weak but participated in OT eval so far today. Denies chest pain. Admits to not taking her coumadin for a few days and not taking diuretics. headache is now improved with taking tylenol. Vitals reviewed Tele with atrial fibrillation with rates in the 50s to 90s. Gen: AAOx3, NAD, morbidly obese, lying in bed HEENT: Anicteric sclerae, EOMI CV: Irregularly irregular no mgr nl S1S2 Pulm: Diminished lung sounds throughout, morbidly obese and difficult examination Abd: +BS soft NT ND no masses or hernias, morbidly obese abdomen Ext: Chronic woody edema of the lower extremities 2+ to the thighs bilaterally Skin: Chronic venous stasis changes of the legs bilaterally Neuro: Moving all extremities, generally weak throughout 73-year-old female here with acute on chronic diastolic CHF secondary to noncompliance with diuretics. With generalized weakness and acute on chronic hypoxic respiratory failure. -Improved with IV diuretics -Continue p.o. diuretics from home without further IV diuresis at this time as she was just noncompliant with them for many days -Restarted Coumadin and will monitor INR -Looking for rehab placement which would not likely be now till Monday
[2018-11-03] MEDS: WARFARIN SOD 7.5 MG TAB PO SCH (16:28)
[2018-11-03] MEDS ORDERED: DICLOFENAC SOD 1% GEL 100 GM TUBE EXT SCH (21:00)
--- NOTE | 2018-11-04 06:25 | Progress Note ---
Date of Service November 04, 2018 Assessment & Plan (1) Afib: Floor call regarding bradycardia. Patient was sleeping, asx. Called again later in the night bc sinus pauses seen on monitor. Again patient was sleeping, asx. vitals; pressures stable EKG; slow afib Plan; - Patient asymptomatic, nothing to do at the moment - Discussed with attending, pads applied, cardiology consulted Results & Data Vital Signs (Past 12 Hours) Vital Signs Temp Pulse Pulse Resp BP BP Pulse Ox 11/04/18 04:41 36.7 C 51 L 18 162/77 H 93 11/04/18 02:51 56 L 110/60 11/03/18 23:48 36.5 C 60 20 142/78 H 96 11/03/18 23:23 53 L 11/03/18 20:09 36.7 C 65 18 137/85 93
[2018-11-04 06:43] LABS: INR 1.3 (0.9-1.1); Prothrombin Time 13.1 Seconds (9.0-12.0)
[2018-11-04 07:00] LABS: BUN Creatinine Ratio 20.8 (10-20); Calcium 9.5 mg/dl (8.5-10.1); Creatinine Clr Calc Pharmacy 64.8 ml/min; Est GFR (African American) 64.6; Est GFR (Non-African American) 55.7; Magnesium 1.9 mg/dl (1.8-2.4); Potassium 3.9 mmol/L (3.5-5.1)
[2018-11-04] MEDS: CEROVITE ADV FORMULA TAB PO SCH ×2 (08:42→20:48)
[2018-11-04] MEDS: PANTOprazole 40 MG TAB PO SCH (08:42)
[2018-11-04] MEDS: MIRABEGRON ER 25 MG TAB PO SCH (08:43)
[2018-11-04] MEDS: THIAMINE HCL 100 MG TAB PO SCH (08:43)
[2018-11-04] MEDS: ALLOPURINOL 300 MG TAB PO SCH (08:43)
[2018-11-04] MEDS: FELODIPINE 5 MG TABCR PO SCH (08:44)
[2018-11-04] MEDS: ATORVASTATIN 40 MG TAB PO SCH (08:44)
[2018-11-04] MEDS: GABAPENTIN 300 MG CAP PO SCH ×3 (08:44→20:49)
[2018-11-04] MEDS: METOPROLOL TARTRATE 25 MG TAB PO SCH (08:44)
[2018-11-04] MEDS: FUROSEMIDE 80 MG TAB PO SCH (08:44)
[2018-11-04] MEDS: MAGNESIUM OXIDE 400 MG TAB PO SCH ×2 (08:45→20:48)
[2018-11-04] MEDS: DICLOFENAC SOD 1% GEL 100 GM TUBE EXT SCH ×2 (08:45→20:51)
[2018-11-04] MEDS: SPIRONOLACTONE 25 MG TAB PO SCH (08:45)
[2018-11-04] MEDS ORDERED: MAGNESIUM SULFATE / D5W 1 GM/100 ML BAG IV ONE (09:49)
--- NOTE | 2018-11-04 13:04 | Cardiology Consultation ---
Date of Consultation November 04, 2018 Assessment & Plan (1) Chronic diastolic CHF (congestive heart failure), NYHA class 3: Patient with recurrence of diastolic congestive heart failure felt secondary to medication noncompliance. Would take advantage of her current inpatient stay to aggressively diurese with the addition of metolazone to her current furosemide 80 milligram daily diuretic regimen. Correction of her relative bradycardia will further aid in addressing her volume retention. She is clearly hypervolemic presently, monitor weight, clinical status, and renal function as she diuresis next few days. (2) Atrial fibrillation with slow ventricular response: Ventricular rate was only in the 50s on initial ECG and she had further bradycardia overnight. Completely hold metoprolol for now, if she exhibits tachycardia could add back very low-dose metoprolol (12.5 mg metoprolol tartrate b.i.d.), otherwise would keep her off beta aaron given evidence of underlying conduction system disease (slow heart rate with minimal beta-aaron). Would continue on telemetry for now to allow for more accurate titration of her medication (3) Morbid obesity: (4) SOB (shortness of breath): Secondary to congestive heart failure, but she does have a history of pulmonary embolism in the past as well. Therefore, reestablishment of therapeutic INR will be important. 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 Of note, she apparently had been non compliant with her diuretics (as well as likely with warfarin, given her subtherapeutic INR). She is admitted now for further volume unloading, reestablishment of therapeutic INR, adjustment of her negative chronotropic medications to allow for more physiologic heart rate response to her atrial fibrillation, and assisted living facility placement. When I spoke with her, she was angry that she had been misled" as to the length of her hospital stay, but she was willing to make the best of it and allow for inpatient diuresis and correction of her relatively bradycardic ventricular response to her atrial fibrillation. She sleeps sitting upright in becomes dyspneic after tender 12 feet when she walks with a walker. No chest pain, subjective palpitations, presyncope, or syncope. No over paroxysmal nocturnal dyspnea, but she does have difficulty sleeping due to her breathing issues. At the time my evaluation, she had no acute complaints. Allergies Allergy/AdvReac Type Severity Reaction Status Date / Time ketoprofen Allergy Severe NUMBNESS Verified 11/02/18 21:16 FROM WAIST DOWN SEVERAL MONTHS cephalexin Allergy Intermediate ITCHING Verified 11/02/18 21:16 Iodinated Contrast- Oral and Allergy Intermediate PAIN AT Verified 11/02/18 21:16 IV Dye INJECTION SITE AND UP THE BONES Penicillins Allergy Intermediate SEVERE RASH Verified 11/02/18 21:16 trimethoprim Allergy Intermediate ELEVATED Verified 11/02/18 21:16 POTASSIUM LEVELS Benzodiazepines Allergy Unknown Unverified 11/02/18 21:16 lorazepam AdvReac Intermediate pt Verified 11/02/18 21:16 EXTREMELY sensitive Home Medications Home Medications Medication Instructions Recorded Confirmed Type Multi For Her 1 tab-cap PO QAM 07/22/18 11/02/18 History felodipine 5 mg PO QAM 07/22/18 11/02/18 History pantoprazole 40 mg PO QAM 07/22/18 11/02/18 History PreserVision AREDS-2 1 tab PO BID 07/31/18 11/02/18 History allopurinol 300 mg PO DAILY 07/31/18 11/02/18 History metoprolol tartrate 25 mg PO BID 07/31/18 11/02/18 History silver sulfadiazine [Silvadene] 1 applic TOPICAL BID PRN 07/31/18 11/02/18 History spironolactone 25 mg PO QAM 07/31/18 11/02/18 History thiamine HCl (vitamin B1) [Vitamin 100 mg PO QAM 07/31/18 11/02/18 History B-1] warfarin 5 mg PO UD #30 tab 08/03/18 11/02/18 Rx furosemide [Lasix] 80 mg PO QAM 10/24/18 11/02/18 History gabapentin 300 mg PO TID 10/24/18 11/02/18 History magnesium oxide 400 mg PO BID 10/24/18 11/02/18 History nystatin 1 applic TOPICAL BID PRN 10/24/18 11/02/18 History clindamycin HCl See Rx Instructions .ROUTE .COMPLEX 11/01/18 11/02/18 History mirabegron [Myrbetriq] 50 mg PO QAM 11/01/18 11/02/18 History varicella-zoster [id number] (PF) 0.5 ml IM DIRECTED 11/01/18 11/02/18 History [Shingrix (PF)] warfarin 0 mg PO UNKNOWN 11/01/18 11/02/18 History atorvastatin 40 mg PO DAILY 11/03/18 11/03/18 History diclofenac sodium 1 % TOPICAL BID 11/03/18 11/03/18 History Patient History Medical History Cervical radiculopathy (Chronic) Cervical spondylosis (Chronic) Perineal irritation Acute respiratory failure with hypoxia and hypercapnia ON 3 LITERS OXYGEN 02/01 Morbid obesity (Chronic) Hypertension (Chronic) Hyperlipidemia (Chronic) Psoriasis (Chronic) Venous stasis dermatitis (Chronic) Osteoarthritis (Chronic) Gout (Chronic) GERD (gastroesophageal reflux disease) (Chronic) Osteoporosis (Chronic) Afib (Chronic) CHF (congestive heart failure) (Acute) Chest pain (Acute) Gait abnormality (Chronic) Hand pain, left (Acute) UNSURE IF R/T NECK ISSUE SOB (shortness of breath) (Acute 05/15/13) Chronic diastolic CHF (congestive heart failure), NYHA class 3 Noncompliance Permanent atrial fibrillation Chronic pain RIGHT SHOULDER - RADIATING DOWN RIGHT ARM AND SOME PAIN IN LEFT ARM. WEAKNESS IN RIGHT ARM Diaper rash STATES HAS BEEN DIAGNOSED WITH "SEVERE DIAPER RASH" - USES CREAM WHICH IS HELPING AREAS History of asthma CHILD Hx of deep venous thrombosis Macular degeneration Sleep apnea Surgical History S/P implantation of urinary electronic stimulator device (Resolved) History of total knee replacement (Resolved) X3; LEFT X2, RIGHT X1 History of wisdom tooth extraction (Resolved) History of tonsillectomy (Resolved) Social History Preferred Language: Greek Communication Ability: Effective [employer] Att[employer] Required: No Beliefs That Will Affect Care: None Current Living Situation: Alone Other Information That Helps Us Care for You: No Feels Safe at Home: Yes Safety Concerns: Feels Safe At This Time Smoking Status: Former smoker Tobacco Type: cigarettes Second Hand Exposure: Yes (OCCASSIONALLY) Hx Alcohol Use: Yes Alcohol type: beer and hard liquor Hx Substance Use: No Review of Systems Review of Systems: All systems reviewed & are unremarkable except as noted in HPI & below Constitutional: + weakness and + weight gain; no fever and no chills Eyes: no problem reported Ear, Nose, Mouth, Throat: no problem reported Respiratory: as per Subjective / HPI Cardiovascular: as per Subjective / HPI, + dyspnea on exertion and + edema; no chest pain and no palpitations Gastrointestinal: no abdominal pain Musculoskeletal: no problem reported Integumentary: no rash Physical Exam Physical Exam: No distress. Appears reasonably comfortable at rest. Skin: No unusual lesions or ecchymosis. HEENT: Unremarkable. Neck: Jugular venous pulse 1/2 way to the angle of the jaw at 90, no carotid bruits. Lungs: Few basilar crackles, generally clear. No wheezing or accessory muscle use. Cardiac: Irregular rhythm with 2/6 harsh basal systolic ejection murmur right upper sternal border, 3/6 apical systolic murmur radiating to the axilla. No diastolic murmur or distinct gallop. Abdomen: Benign. Extremities: Nontender with 2+ pretibial edema and chronic stasis changes. Neurologic: Angry affect inititally, nonfocal Results & Data Vital Signs (Past 12 Hours) Vital Signs Temp Pulse Pulse Resp BP BP Pulse Ox 11/04/18 11:56 96 11/04/18 08:12 36.4 C L 61 20 160/83 H 90 11/04/18 07:03 54 L 11/04/18 04:41 36.7 C 51 L 18 162/77 H 93 11/04/18 02:51 56 L 110/60 Laboratory Results Laboratory Tests 11/01/18 11/04/18 18:33 06:12 Potassium 3.9 D BUN 21 H Creatinine 0.99 Troponin I < 0.015 NT-Pro-B Natriuret Pep 2406 H Laboratory Tests 11/03/18 11/03/18 11/04/18 06:47 06:47 06:12 Hgb 14.8 INR 1.3 H BUN 17 Creatinine 0.84 11/04/18 06:12 Hgb INR BUN 21 H Creatinine 0.99 Diagnostic Findings CXR: Moderate cardiomegaly. Prominent pulmonary vasculature. Small bilateral pleural effusions. Potential consolidative change left lung base. IMPRESSION: Congestive heart failure. Small bilateral pleural effusions. ECG showed atrial fibrillation with a ventricular rate of 54 bpm, rightward axis, possible old septal infarct. Compared with ECG from 3 days earlier, ventricular rate had slowed by 32 bpm, otherwise no significant change. Echocardiogram July 2018 showed EF is 60-65 % with no significant valvular pathology but evidence of elevated central venous pressure and a moderate left- sided pleural effusion.
[2018-11-04] MEDS: WARFARIN SOD 7.5 MG TAB PO SCH (15:35)
--- NOTE | 2018-11-04 19:26 | Hospitalist Progress Note ---
Date of Service November 04, 2018 Assessment & Plan (1) Acute on chronic diastolic CHF (congestive heart failure), NYHA class 2: Pt is a 73 y/o F Hx CHF, AF, HTN, HLD, gout, overactive bladder, GERD, morbidly obese , medically noncompliant - presenting with progressive weakness and dyspnea. Has not recently complied with her diuretics or her coumadin at home She sat on the toilet on the day of admission and was too weak to get up. She is unable to ambulate independently and will need placement at rehab. Is significantly volume overloaded which contributed to her dyspnea on exertion and generalized weakness CXR shows CHF and small bilateral pleural effusion -BNP elevated at 2406 -troponin neg x 3 -EKG 86 Afib Qtc 452 -was given IV lasix initially upon admission, then restarted on home diuretics which she had not taken Diuresing somewhat-unable to calculate I/Os due to significant urinary incontinence but weight is down 1.6kg since admission -continue lasix 80mg daily, aldactone 25mg qAM, and Cardiology recommends adding metolazone 2.5mg at least as a one time dose in the AM tomorrow -reassess daily and diurese -continue daily weights Overactive bladder: Continue mirabegron Chronic pain Continue gabapentin and voltaren gel Morbid obesity: Large contributing factor to all of her medical issues. Noncompliance: Has not taken medication for the last 4 days Patient has a long history, for different reasons, of not taking medications as directed Patient has been expelled from the [facility] cardiology practice and therefore that she cannot be enrolled in her heart failure program DVT prop: on coumadin for afib, SCDs Code: Full (2) Afib: with slow ventricular reposnse which could be indicative of significant conduction disease at her age -Velasquez into the 30s overnight -HOLD metoprolol and already heart rate up into the 80s by midday after holding it -appreciate Cardiology consultation -continue to monitor on tele -restarted home coumadin 7.5mg daily on admission as she had been noncompliant with it -follow INR (3) Hypertension: BPs acceptable -Continue on metoprolol, felodipine, spironolactone and lasix (4) Physical deconditioning: morbidly obese, with chronic O2 dependence contributing to sedentary lifestyle -PT/OT consults placed and will need rehab placement (5) Chronic anticoagulation: On coumadin for A-fib, Check INR daily (6) S/P implantation of urinary electronic stimulator device: With plans to have this removed as per Urology on 11/12/18 -need to check with Urology on Monday if she needs to HOLD her coumadin prior to the procedure? (7) Hypoxia: with acute on chronic respiratory failure with home O2 2-3LNC -with resp distress on admission -continue O2 (8) GERD (gastroesophageal reflux disease): Continue protonix (9) Gout: Continue allopurinol (10) Hyperlipidemia: Continue atorvastatin 40 mg daily (11) Morbid obesity: BMI 57 Needs encouraged weight loss (12) DVT prophylaxis: coumadin Dispo-remain on tele, case man to assist with getting her to rehab on Monday Subjective Pt quiet today, slow to answer questions. Denies chest pain. Confirms she is to have her bladder stimulator removed on November 12-unsure if she was to stop her coumadin prior to the procedure. Had bradycardia to the high 30s overnight and Cardio was consulted by overnight MD. Pt reported to be incontinent to large amounts of urine Review of Systems Review of Systems: All systems reviewed & are unremarkable except as noted in HPI & below Physical Exam Constitutional: + morbidly obese; no acute distress Eyes: + anicteric sclerae Neck: trachea midline, no thyromegaly Respiratory: Auscultation: + diminished lung sounds (throughout due to obese body habitus); no crackles and no wheezes Cardiovascular: Rate/Rhythm: + bradycardic and + irregularly irregular Heart Sounds: no murmur Extremities: + edema (woody edema 2+ to the thighs) Gastrointestinal (Abdomen): normal bowel sounds, soft, nontender, no hepatosplenomegaly Musculoskeletal: Extremities: extremities normal to inspection; no cyanosis and no clubbing Skin: chronic venous stasis and woody edema with ichthyosis of skin of LEs bilat Neurologic: moves all extremities and awake; no focal motor deficits Psychiatric: Orientation: alert, oriented to person, oriented to place, orie nted to time and cooperative Eye Contact: + fair eye contact Motor Behavior: + psychomotor retardation Affect: + flat affect Results & Data Vital Signs (Past 12 Hours) Vital Signs Temp Pulse Pulse Resp BP BP Pulse Ox 11/04/18 16:00 82 11/04/18 15:32 156/72 H 11/04/18 11:56 96 11/04/18 08:12 36.4 C L 61 20 160/83 H 90 Laboratory Results 11/04/18 11/04/18 Range/Units 06:12 06:12 PT 13.1 H (9.0-12.0) Seconds INR 1.3 H (0.9-1.1) Sodium 146 H (136-145) mmol/L Potassium 3.9 D (3.5-5.1) mmol/L Chloride 110 H (98-107) mmol/L Carbon Dioxide 32 (21-32) mmol/L Anion Gap 4.0 (3-11) BUN 21 H (7-18) mg/dl Creatinine 0.99 (0.6-1.2) mg/dl Est Cr Clr Drug Dosing 64.8 ml/min Est GFR ( Amer) 64.6 Est GFR (Non-Af Amer) 55.7 BUN/Creatinine Ratio 20.8 H (10-20) Glucose 84 (70-99) mg/dl Calcium 9.5 (8.5-10.1) mg/dl Magnesium 1.9 (1.8-2.4) mg/dl
[2018-11-04] MEDS: ACETAMINOPHEN 325 MG TAB PO PRN (20:48)
[2018-11-05 05:56] LABS: INR 1.4 (0.9-1.1); Prothrombin Time 13.6 Seconds (9.0-12.0)
[2018-11-05 06:20] LABS: BUN Creatinine Ratio 19.8 (10-20); Calcium 9.5 mg/dl (8.5-10.1); Creatinine Clr Calc Pharmacy 58.9 ml/min; Est GFR (African American) 57.5; Est GFR (Non-African American) 49.6; Potassium 4.1 mmol/L (3.5-5.1)
--- NOTE | 2018-11-05 08:25 | Hospitalist Progress Note ---
Date of Service November 05, 2018 Assessment & Plan (1) Acute on chronic diastolic CHF (congestive heart failure), NYHA class 2: Pt is a 73 y/o F Hx CHF, AF, HTN, HLD, gout, overactive bladder, GERD, morbidly obese , medically noncompliant - presenting with progressive weakness and dyspnea. Has not recently complied with her diuretics or her coumadin at home She sat on the toilet on the day of admission and was too weak to get up. Presented with volume overload admission CXR had shown CHF and small bilateral pleural effusion -troponin neg x 3 -EKG 86 Afib Qtc 452 -was given IV lasix initially upon admission, then restarted on home diuretics which she had not taken Diuresing, weight is down since admission -continue lasix 80mg daily, aldactone 25mg qAM, and Cardiology recommends adding metolazone 2.5mg at least as a one time dose in the AM -reassess daily and diurese -continue daily weights Overactive bladder: Continue mirabegron Chronic pain Continue gabapentin and voltaren gel Morbid obesity: Large contributing factor to all of her medical issues. Noncompliance: Has not taken medication for the last 4 days Patient has a long history, for different reasons, of not taking medications as directed Patient has been expelled from the [facility] cardiology practice and therefore that she cannot be enrolled in her heart failure program DVT prop: on coumadin for afib, SCDs Code: Full (2) Afib: with slow ventricular response which could be indicative of significant conduction disease at her age -Velasquez overnight -HOLDING metoprolol with Cardiology consultation -restarted home coumadin 7.5mg daily on admission as she had been noncompliant with it -follow INR, subtherapeutic 11/05 (3) Hypertension: BPs treated with, felodipine, spironolactone and lasix (4) Physical deconditioning: morbidly obese, with chronic O2 dependence contributing to sedentary lifestyle -PT/OT consults placed and will need rehab placement (5) Chronic anticoagulation: On coumadin for thromboembolic prevention of A-fib, Check INR daily (6) S/P implantation of urinary electronic stimulator device: With plans to have this removed as per Urology on 11/12/18 -need to check with Urology on Monday if she needs to HOLD her coumadin prior to the procedure? (7) Hypoxia: with acute on chronic respiratory failure with home O2 2-3LNC -with resp distress on admission -continue O2 (8) GERD (gastroesophageal reflux disease): Continue protonix (9) Gout: Continue allopurinol (10) Hyperlipidemia: Continue atorvastatin 40 mg daily (11) Morbid obesity: BMI 57 councelled about weight loss (12) DVT prophylaxis: coumadin Subjective pt seems a bit agitated to be in the hospital but she is acceptable of the plan to continue to diurese to the maximal extent. she has no chest pain but notes to be requiring oxygen with her home BiPap. she has no chest pain and has not had significant exertion to determine GRAJEDA Review of Systems Review of Systems: ROS: morbidly obese No double vision blurry vision No problems with speech or swallowing No palpitations, chest pain or pressure No Wheezing does have GRAJEDA with movement in room No abdominal pain nausea vomiting diarrhea No burning urine urine frequency or changes in color No focal joint pain or muscle pain No skin rashes or oral lesions No unusual bruising or bleeding No focused back pain or numbness or loss of strength No changes in memory or confusion Physical Exam Physical Exam: The patient appeared in mild to moderate distress, she is morbidly obese Vital signs as documented. Head exam is unremarkable. normocephalic, atraumatic Neck is with difficult to assess, jugular venous distension, thyromegaly, or lymph ademopathy Lungs are decreased at bases Cardiac exam reveals Rhythm is regular. LIZETH Extremities are moderately edematous Neurologic exam is A&Ox3, no focal deficits, strength is reduced with difficulty ambulating Psychologically seems neither anxious or depressed Skin is warm / Dry Results & Data Vital Signs (Past 12 Hours) Vital Signs Temp Pulse Pulse Resp BP BP Pulse Ox 11/05/18 07:28 36.4 C L 60 20 159/100 H 92 11/05/18 07:23 72 11/05/18 04:48 36.8 C 54 L 18 147/84 H 93 11/04/18 23:57 37 C 69 16 142/83 H 96 11/04/18 23:37 61
[2018-11-05] MEDS ORDERED: metOLazone 2.5 MG TABLET PO ONE (08:30)
[2018-11-05] MEDS: GABAPENTIN 300 MG CAP PO SCH ×3 (08:30→20:42)
[2018-11-05] MEDS: SPIRONOLACTONE 25 MG TAB PO SCH (08:31)
[2018-11-05] MEDS: ATORVASTATIN 40 MG TAB PO SCH (08:31)
[2018-11-05] MEDS: MAGNESIUM OXIDE 400 MG TAB PO SCH ×2 (08:31→20:42)
[2018-11-05] MEDS: MIRABEGRON ER 25 MG TAB PO SCH (08:31)
[2018-11-05] MEDS: ALLOPURINOL 300 MG TAB PO SCH (08:31)
[2018-11-05] MEDS: THIAMINE HCL 100 MG TAB PO SCH (08:31)
[2018-11-05] MEDS: DICLOFENAC SOD 1% GEL 100 GM TUBE EXT SCH ×2 (08:32→20:43)
[2018-11-05] MEDS: FUROSEMIDE 80 MG TAB PO SCH (08:32)
[2018-11-05] MEDS: CEROVITE ADV FORMULA TAB PO SCH ×2 (08:33→20:42)
[2018-11-05] MEDS: PANTOprazole 40 MG TAB PO SCH (08:33)
[2018-11-05] MEDS: FELODIPINE 5 MG TABCR PO SCH (08:33)
--- NOTE | 2018-11-05 11:06 | Cardiology Progress Note ---
Date of Service November 05, 2018 Assessment & Plan (1) Chronic diastolic CHF (congestive heart failure), NYHA class 3: Patient with recurrence of diastolic congestive heart failure felt secondary to medication noncompliance. Some clinical improvement overnight but no weight change, output not measured. Metolazone added to her regimen as of this morning, monitor for further diuresis with the addition of this medication. (2) Atrial fibrillation with slow ventricular response: Ventricular rate gradually increasing with no evidence of tachycardia off metoprolol completely. Continue to monitor heart rate. (3) Morbid obesity: (4) SOB (shortness of breath): Secondary to congestive heart failure, but she does have a history of pulmonary embolism in the past as well. Therefore, reestablishment of the rapeutic INR will be important. 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 She slept well overnight and is feeling a bit better. She ate a good breakfast but has not yet walk about. No chest pain. No dyspnea at rest. She feels her leg edema is slightly reduced. Monitor showed heart rate in the 50s overnight, 60s this morning (off the metoprolol) At the time my evaluation, she had no acute complaint Review of Systems Constitutional: no fever and no chills Respiratory: no dyspnea Cardiovascular: as per Subjective / HPI; no chest pain Physical Exam Physical Exam: No distress. Appears very comfortable at rest. Skin: No unusual lesions or ecchymosis. HEENT: Unremarkable. Neck: Jugular venous pulse just above the clavicle at 90, no carotid bruits. Lungs: Clear today. No wheezing or accessory muscle use. Cardiac: Irregular rhythm with 2/6 harsh basal systolic ejection murmur right upper sternal border, 3/6 apical systolic murmur radiating to the axilla. No diastolic murmur or distinct gallop. Abdomen: Benign. Extremities: Nontender with 1-2+ pretibial edema and chronic stasis changes. Neurologic: Normal affect, nonfocal Results & Data Vital Signs (Past 12 Hours) Vital Signs Temp Pulse Pulse Resp BP BP Pulse Ox 11/05/18 07:28 36.4 C L 60 20 159/100 H 92 05/27/19 07:23 72 11/05/18 04:48 36.8 C 54 L 18 147/84 H 93 11/04/18 23:57 37 C 69 16 142/83 H 96 11/04/18 23:37 61 Laboratory Results Laboratory Tests 11/04/18 11/05/18 06:12 05:20 BUN 21 H 22 H Creatinine 0.99 1.09
[2018-11-05] MEDS: WARFARIN SOD 7.5 MG TAB PO SCH (16:45)
[2018-11-06 06:10] LABS: INR 1.5 (0.9-1.1); Prothrombin Time 14.8 Seconds (9.0-12.0)
--- NOTE | 2018-11-06 07:59 | Hospitalist Progress Note ---
Date of Service November 06, 2018 Assessment & Plan (1) Acute on chronic diastolic CHF (congestive heart failure), NYHA class 2: Pt is a 73 y/o F Hx CHF, AF, HTN, HLD, gout, overactive bladder, GERD, morbidly obese , medically noncompliant - presenting with progressive weakness and dyspnea. Has not recently complied with her diuretics or her coumadin at home She sat on the toilet on the day of admission and was too weak to get up. Presented with volume overload admission CXR had shown CHF and small bilateral pleural effusion -troponin neg x 3 -EKG 86 Afib Qtc 452 -was given IV lasix initially upon admission, then restarted on home diuretics which she had not taken Diuresing, weight is down since admission -continue lasix 80mg daily, aldactone 25mg qAM, and Cardiology recommends adding metolazone 2.5mg at least as a one time dose in the A Overactive bladder: Continue mirabegron Chronic pain Continue gabapentin and voltaren gel Morbid obesity: Large contributing factor to all of her medical issues. Noncompliance: Has not taken medication at home due to family discord and personal dispair Patient has a long history, for different reasons, of not taking medications as directed Patient has been expelled from the [facility] cardiology practice and therefore that she cannot be enrolled in her heart failure program DVT prop: on coumadin for afib, SCDs Code: Full (2) Afib: with slow ventricular response which could be indicative of significant conduction disease at her age -Velasquez overnight -HOLDING metoprolol with Cardiology consultation will re hold coumadin as angie will need normal coagulation for upcoming urology procedure (3) Hypertension: BPs treated with, felodipine, spironolactone and lasix (4) Physical deconditioning: morbidly obese, with chronic O2 dependence contributing to sedentary lifestyle -PT/OT consults placed and will need rehab placement (5) Chronic anticoagulation: On coumadin for thromboembolic prevention of A-fib, Check INR daily (6) S/P implantation of urinary electronic stimulator device: With plans to have this removed as per Urology on 11/12/18 -need to check with Urology on Monday if she needs to HOLD her coumadin prior to the procedure? (7) Hypoxia: with acute on chronic respiratory failure with home O2 2-3LNC -with resp distress on admission -continue O2 (8) GERD (gastroesophageal reflux disease): Continue protonix (9) Gout: Continue allopurinol (10) Hyperlipidemia: Continue atorvastatin 40 mg daily (11) Morbid obesity: BMI 57 councelled about weight loss (12) DVT prophylaxis: coumadin Subjective Patient's in no significant distress although she did not have a negative ins and outs she does have stable weight. We are hopeful that her diuretics are in a good dosing pattern with Lasix and spironolactone. We did reinstitute her beta-aaron today as she is having a slow mall creeping of her heart rate otherwise she is looking forward to subacute rehab at the [facility] if approved Review of Systems Review of Systems: ROS: Fatigue morbidly obese No double vision blurry vision No problems with speech or swallowing No palpitations, chest pain or pressure No Wheezing or breathing issues No abdominal pain nausea vomiting diarrhea No burning urine urine frequency or changes in color No focal joint pain or muscle pain significant lower extremity swelling Patient has some intertrigo using antifungal powder No unusual bruising or bleeding No focused back pain or numbness or loss of strength No changes in memory or confusion Results & Data Vital Signs (Past 12 Hours) Vital Signs Temp Pulse Pulse Resp BP Pulse Ox 11/06/18 07:38 37.3 C 83 18 157/77 H 90 11/06/18 07:11 73 11/06/18 04:00 36.8 C 104 H 20 159/97 H 92 11/05/18 23:00 36.4 C L 81 21 96 11/05/18 20:22 36.3 C L 81 20 159/76 H 97
[2018-11-06 08:30] LABS: BUN Creatinine Ratio 23.1 (10-20); Calcium 9.8 mg/dl (8.5-10.1); Creatinine Clr Calc Pharmacy 59.1 ml/min; Est GFR (African American) 58.2; Est GFR (Non-African American) 50.2; Potassium 3.9 mmol/L (3.5-5.1)
[2018-11-06] MEDS: FELODIPINE 5 MG TABCR PO SCH (09:18)
[2018-11-06] MEDS: ATORVASTATIN 40 MG TAB PO SCH (09:18)
[2018-11-06] MEDS: SPIRONOLACTONE 25 MG TAB PO SCH (09:19)
[2018-11-06] MEDS: PANTOprazole 40 MG TAB PO SCH (09:19)
[2018-11-06] MEDS: GABAPENTIN 300 MG CAP PO SCH ×3 (09:19→21:31)
[2018-11-06] MEDS: FUROSEMIDE 80 MG TAB PO SCH (09:19)
[2018-11-06] MEDS: CEROVITE ADV FORMULA TAB PO SCH ×2 (09:19→21:31)
[2018-11-06] MEDS: THIAMINE HCL 100 MG TAB PO SCH (09:19)
[2018-11-06] MEDS: MAGNESIUM OXIDE 400 MG TAB PO SCH ×2 (09:20→21:31)
[2018-11-06] MEDS: ALLOPURINOL 300 MG TAB PO SCH (09:20)
[2018-11-06] MEDS: MIRABEGRON ER 25 MG TAB PO SCH (09:20)
[2018-11-06] MEDS: DICLOFENAC SOD 1% GEL 100 GM TUBE EXT SCH ×2 (09:21→21:32)
[2018-11-06] MEDS: ACETAMINOPHEN 325 MG TAB PO PRN ×2 (11:14→16:39)
[2018-11-06] MEDS: METOPROLOL TARTRATE 25 MG TAB PO SCH (21:31)
[2018-11-07] MEDS: ACETAMINOPHEN 325 MG TAB PO PRN (05:05)
[2018-11-07 07:04] LABS: INR 1.4 (0.9-1.1); Prothrombin Time 14.3 Seconds (9.0-12.0)
[2018-11-07 07:19] LABS: BUN Creatinine Ratio 28.3 (10-20); Calcium 9.4 mg/dl (8.5-10.1); Est GFR (African American) 48.3; Est GFR (Non-African American) 41.6
[2018-11-07] MEDS: FUROSEMIDE 20 MG TAB PO SCH (09:31)
[2018-11-07] MEDS: THIAMINE HCL 100 MG TAB PO SCH (09:31)
[2018-11-07] MEDS: MAGNESIUM OXIDE 400 MG TAB PO SCH ×2 (09:31→22:12)
[2018-11-07] MEDS: SPIRONOLACTONE 25 MG TAB PO SCH (09:32)
[2018-11-07] MEDS: FELODIPINE 5 MG TABCR PO SCH (09:32)
[2018-11-07] MEDS: ATORVASTATIN 40 MG TAB PO SCH (09:32)
[2018-11-07] MEDS: GABAPENTIN 300 MG CAP PO SCH ×3 (09:32→22:11)
[2018-11-07] MEDS: CEROVITE ADV FORMULA TAB PO SCH ×2 (09:32→22:12)
[2018-11-07] MEDS: PANTOprazole 40 MG TAB PO SCH (09:33)
[2018-11-07] MEDS: METOPROLOL TARTRATE 25 MG TAB PO SCH ×2 (09:33→22:11)
[2018-11-07] MEDS: ALLOPURINOL 300 MG TAB PO SCH (09:33)
[2018-11-07] MEDS: MIRABEGRON ER 25 MG TAB PO SCH (09:34)
[2018-11-07] MEDS: DICLOFENAC SOD 1% GEL 100 GM TUBE EXT SCH ×2 (09:42→22:15)
--- NOTE | 2018-11-07 19:22 | Hospitalist Progress Note ---
Date of Service November 07, 2018 Assessment & Plan (1) Acute on chronic diastolic CHF (congestive heart failure), NYHA class 2: Pt is a 73 y/o F Hx CHF, AF, HTN, HLD, gout, overactive bladder, GERD, morbidly obese , medically noncompliant - presenting with progressive weakness and dyspnea. Has not recently complied with her diuretics or her coumadin at home She sat on the toilet on the day of admission and was too weak to get up. Presented with volume overload admission CXR had shown CHF and small bilateral pleural effusion -troponin neg x 3 -EKG 86 Afib Qtc 452 -was given IV lasix initially upon admission, then restarted on home diuretics which she had not taken Diuresing, weight is down since admission -continue lasix 80mg daily, aldactone 25mg qAM, and Cardiology recommends adding metolazone 2.5mg at least as a one time dose in the A Overactive bladder: pt is refusing mirabegron Chronic pain Continue gabapentin and voltaren gel Morbid obesity: Large contributing factor to all of her medical issues. Noncompliance: Has not taken medication at home due to family discord and personal dispair Patient has a long history, for different reasons, of not taking medications as directed Patient has been expelled from the [facility] cardiology practice and therefore that she cannot be enrolled in her heart failure program DVT prop: on coumadin for afib, SCDs Code: Full (2) Afib: with slow ventricular response which could be indicative of significant conduction disease at her age -HOLDING metoprolol with Cardiology consultation will re hold coumadin as angie will need normal coagulation for upcoming urology procedure (3) Hypertension: BPs treated with, felodipine, spironolactone and lasix (4) Physical deconditioning: morbidly obese, with chronic O2 dependence contributing to sedentary lifestyle -PT/OT consults placed and will need rehab placement (5) Chronic anticoagulation: On coumadin for thromboembolic prevention of A-fib, Check INR daily (6) S/P implantation of urinary electronic stimulator device: With plans to have this removed as per Urology on 11/12/18 -need to check with Urology HOLD her coumadin prior to the procedure? (7) Hypoxia: with acute on chronic respiratory failure with home O2 2-3LNC -with resp distress on admission -continue O2 (8) GERD (gastroesophageal reflux disease): Continue protonix (9) Gout: Continue allopurinol (10) Hyperlipidemia: Continue atorvastatin 40 mg daily (11) Morbid obesity: BMI 57 counselled about weight loss (12) DVT prophylaxis: coumadin on hold will resoume lovenox Subjective pt has no new complaints or problems, she does have some elevation of renal numbers will have modest reduction of diuretics and loosen fluid restriction she is still motivated to have physical therapy to improve her functional ability Review of Systems Review of Systems: ROS: Deconditioning complains of fatigue No double vision blurry vision No problems with speech or swallowing No palpitations, chest pain or pressure No Wheezing or breathing issues No abdominal pain nausea vomiting diarrhea changes in appetite or weight No burning urine urine frequency or changes in color No focal joint pain or muscle pain Some rashes on her body folds consistent with intertrigo No unusual bruising or bleeding No focused back pain or numbness or loss of strength No changes in memory or confusion Physical Exam 2 Physical Exam: The patient appeared obese in mild distress Vital signs as documented. Head exam is unremarkable. normocephalic, atraumatic Neck is without jugular venous distension, thyromegaly, or lymphademopathy Lungs are clear to auscultation and percussion. Cardiac exam reveals Rhythm is regular. Abdominal exam reveals normal bowel sounds, no masses, no organomegaly Extremities are mildly to moderately edematous and both pedal pulses are present Neurologic exam is A&Ox3, no focal deficits, strength is equal bilateral but reduced Psychologically seems neither angry and abrasive Skin is warm Dry with some intertrigo Results & Data Vital Signs (Past 12 Hours) Vital Signs Temp Pulse Pulse Resp BP Pulse Ox 11/07/18 17:00 73 11/07/18 15:35 36.8 C 70 24 141/77 H 95 11/07/18 11:53 36.4 C L 63 20 119/74 90
[2018-11-07] MEDS: ENOXAPARIN INJ 40 MG/0.4 ML SYR SQ SCH (22:15)
[2018-11-08 07:09] LABS: Calcium 9.5 mg/dl (8.5-10.1); Creatinine Clr Calc Pharmacy 58.3 ml/min; Est GFR (African American) 58.2; Est GFR (Non-African American) 50.2; Potassium 3.8 mmol/L (3.5-5.1)
[2018-11-08] MEDS: MAGNESIUM OXIDE 400 MG TAB PO SCH ×2 (08:23→21:06)
[2018-11-08] MEDS: CEROVITE ADV FORMULA TAB PO SCH ×2 (08:23→21:06)
[2018-11-08] MEDS: GABAPENTIN 300 MG CAP PO SCH ×3 (08:23→21:06)
[2018-11-08] MEDS: MIRABEGRON ER 25 MG TAB PO SCH (08:24)
[2018-11-08] MEDS: METOPROLOL TARTRATE 25 MG TAB PO SCH ×2 (08:25→21:05)
[2018-11-08] MEDS: ATORVASTATIN 40 MG TAB PO SCH (09:06)
[2018-11-08] MEDS: PANTOprazole 40 MG TAB PO SCH (09:06)
[2018-11-08] MEDS: FELODIPINE 5 MG TABCR PO SCH (09:06)
[2018-11-08] MEDS: ALLOPURINOL 300 MG TAB PO SCH (09:07)
[2018-11-08] MEDS: THIAMINE HCL 100 MG TAB PO SCH (09:07)
[2018-11-08] MEDS: FUROSEMIDE 20 MG TAB PO SCH (09:08)
[2018-11-08] MEDS: SPIRONOLACTONE 25 MG TAB PO SCH (09:08)
[2018-11-08] MEDS: DICLOFENAC SOD 1% GEL 100 GM TUBE EXT SCH ×2 (09:08→21:07)
[2018-11-08] MEDS: ACETAMINOPHEN 325 MG TAB PO PRN (09:24)
--- NOTE | 2018-11-08 14:39 | Urology Consultation ---
Date of Consultation November 08, 2018 Assessment & Plan (1) Urinary incontinence: 73yo F with multiple comorbidities, urinary incontinence with interstim device. She appears to be at baseline general health, INR 1.4 today with coumadin on hold. We discussed option for potential interstim device removal tomorrow with Dr. Bender. Pt agreeable to pursue, risks and benefits to be reviewed by Dr. Bender at time of procedure. Vancomycin 1gm IV to be given preop. EKG and CXR done. NPO after MN. We will formally consult Anesthesiology today to discuss anesthesia plan of care, local and sedation sufficient per Dr. Bender's perspective. Pt should be able to discharge to rehab facility per original plan s/p procedure tomorrow pending no complications arise. Thank you for allowing us to participate in the acute care of Ms. Samson. History of Present Illness Reason for Consultation: 73yo F with PMhx including CHF on continuous O2 supplementation, HTN, permanent afib on coumadin, morbid obesity, urinary incontinence with interstim device complicated by medication noncompliance was admitted to [facility] 5 days ago, on 11/03, with SOB and increased weakness. She was diagnosed with CHF exacerbation. She has been aggressively diuresed and has been medically optimized per primary team. We have been consulted due to her pending interstim removal originally scheduled for Monday, 11/10. She would like device removed due to questionable shoulder pain, requiring MRI which is unable to be performed with interstim in place per dry transfer worker. We have had difficulty with patient adhering to outpatient H&P visits, etc. Dr. Fermin made us aware of patient's inpatient status and medical optimization for potential removal while inpatient. Coumadin has been on hold, INR this AM was 1.4. Ms. Samson is alert and oriented this AM. Sitting up in chair, no family members at bedside at time of evaluation. Attending Physician: Denny Fermin MD Allergies Allergy/AdvReac Type Severity Reaction Status Date / Time ketoprofen Allergy Severe NUMBNESS Verified 11/02/18 21:16 FROM WAIST DOWN SEVERAL MONTHS cephalexin Allergy Intermediate ITCHING Verified 11/02/18 21:16 Iodinated Contrast- Oral and Allergy Intermediate PAIN AT Verified 11/02/18 21:16 IV Dye INJECTION SITE AND UP THE BONES Penicillins Allergy Intermediate SEVERE RASH Verified 11/02/18 21:16 trimethoprim Allergy Intermediate ELEVATED Verified 11/02/18 21:16 POTASSIUM LEVELS Benzodiazepines Allergy Unknown Unverified 11/02/18 21:16 lorazepam AdvReac Intermediate pt Verified 11/02/18 21:16 EXTREMELY sensitive Home Medications Home Medications Medication Instructions Recorded Confirmed Type Multi For Her 1 tab-cap PO QAM 07/22/18 11/02/18 History felodipine 5 mg PO QAM 07/22/18 11/02/18 History pantoprazole 40 mg PO QAM 07/22/18 11/02/18 History PreserVision AREDS-2 1 tab PO BID 07/31/18 11/02/18 History allopurinol 300 mg PO DAILY 07/31/18 11/02/18 History metoprolol tartrate 25 mg PO BID 07/31/18 11/02/18 History silver sulfadiazine [Silvadene] 1 applic TOPICAL BID PRN 07/31/18 11/02/18 History spironolactone 25 mg PO QAM 07/31/18 11/02/18 History thiamine HCl (vitamin B1) [Vitamin 100 mg PO QAM 07/31/18 11/02/18 History B-1] warfarin 5 mg PO UD #30 tab 08/03/18 11/02/18 Rx furosemide [Lasix] 80 mg PO QAM 10/24/18 11/02/18 History gabapentin 300 mg PO TID 10/24/18 11/02/18 History magnesium oxide 400 mg PO BID 10/24/18 11/02/18 History nystatin 1 applic TOPICAL BID PRN 10/24/18 11/02/18 History clindamycin HCl See Rx Instructions .ROUTE .COMPLEX 11/01/18 11/02/18 History mirabegron [Myrbetriq] 50 mg PO QAM 11/01/18 11/02/18 History varicella-zoster gE-AS01B (PF) 0.5 ml IM DIRECTED 11/01/18 11/02/18 History [Shingrix (PF)] warfarin 0 mg PO UNKNOWN 11/01/18 11/02/18 History atorvastatin 40 mg PO DAILY 11/03/18 11/03/18 History diclofenac sodium 1 % TOPICAL BID 11/03/18 11/03/18 History Patient History Medical History Cervical radiculopathy (Chronic) Cervical spondylosis (Chronic) Perineal irritation Acute respiratory failure with hypoxia and hypercapnia ON 3 LITERS OXYGEN 24/ Morbid obesity (Chronic) Hypertension (Chronic) Hyperlipidemia (Chronic) Psoriasis (Chronic) Venous stasis dermatitis (Chronic) Osteoarthritis (Chronic) Gout (Chronic) GERD (gastroesophageal reflux disease) (Chronic) Osteoporosis (Chronic) Afib (Chronic) CHF (congestive heart failure) (Acute) Chest pain (Acute) Gait abnormality (Chronic) Hand pain, left (Acute) UNSURE IF R/T NECK ISSUE SOB (shortness of breath) (Acute 05/15/13) Chronic diastolic CHF (congestive heart failure), NYHA class 3 Noncompliance Permanent atrial fibrillation Chronic pain RIGHT SHOULDER - RADIATING DOWN RIGHT ARM AND SOME PAIN IN LEFT ARM. WEAKNESS IN RIGHT ARM Diaper rash STATES HAS BEEN DIAGNOSED WITH "SEVERE DIAPER RASH" - USES CREAM WHICH IS HELPING AREAS History of asthma CHILD Hx of deep venous thrombosis Macular degeneration Sleep apnea Surgical History S/P implantation of urinary electronic stimulator device (Resolved) History of total knee replacement (Resolved) X3; LEFT X2, RIGHT X1 History of wisdom tooth extraction (Resolved) History of tonsillectomy (Resolved) Social History Preferred Language: Norwegian Communication Ability: Effective Beliefs That Will Affect Care: None Current Living Situation: Alone Feels Safe at Home: Yes Safety Concerns: Feels Safe At This Time Smoking Status: Former smoker Tobacco Type: cigarettes Smoking End Date: 1979 Second Hand Exposure: Yes (OCCASSIONALLY) Hx Alcohol Use: Yes Alcohol type: beer and hard liquor Hx Substance Use: No Review of Systems Constitutional: no fever and no chills Eyes: no blind spots Ear, Nose, Mouth, Throat: no ear pain and no tinnitus Respiratory: + dyspnea (baseline, nothing new or different); no cough and no hemoptysis Cardiovascular: + edema; no chest pain and no syncope Gastrointestinal: no abdominal pain, no nausea and no vomiting Genitourinary: + urinary incontinence (baseline); no dysuria and no urinary frequency Musculoskeletal: no back pain bilateral shoulder pain, chronic Integumentary: no acne and no rash very dry facial skin Neurologic: no numbness and no paresthesia Psychiatric: no behavioral changes and no hopelessness Endocrine: no fatigue Hematologic / Lymphatic: no easy bleeding and no coagulopathy Physical Exam Constitutional: well developed and + morbidly obese; no acute distress and not ill appearing Eyes: no nystagmus corrective lenses intact ENMT: Ears: no hearing impairment Neck: trachea midline Respiratory: no respiratory distress, does not use accessory muscles and no cough Cardiovascular: Rate/Rhythm: + irregularly irregular Vessels: no JVD Extremities: + edema Gastrointestinal (Abdomen): Inspection/Auscultation: abdomen not distended and no abdominal edema Percussion/Palpation: abdomen soft; abdomen nontender Musculoskeletal: Head/Neck/Chest: normocephalic and head atraumatic Skin: no lesions and no ulcers Neurologic: awake; not confused and not obtunded Motor/Sensory: no tremor Psychiatric: Orientation: alert and oriented x 3 Eye Contact: good eye contact Speech: no pressured speech Genitourinary: no suprapubic tenderness Results & Data Vital Signs (Past 12 Hours) Vital Signs Temp Pulse Pulse Resp BP Pulse Ox 11/08/18 08:21 118/68 11/08/18 07:13 64 11/08/18 03:00 36.4 C L 89 16 138/75 90
[2018-11-08] MEDS ORDERED: VANCOMYCIN CONSULT ACTIVE PRN (15:45)
--- NOTE | 2018-11-08 17:25 | Anesthesiology Consultation ---
Date of Service November 08, 2018 Assessment & Plan (1) Encounter for pre-operative examination: Chart Review Chart Review: Acceptable Risk for Surgery (as long as she can tolerate lying flat without being too short of breath) History Surgery Operation Date: 11/09/18 09:30 Proposed Procedures p Interstim Device Removal - Sherif Bender MD Height/Weight Height: 5 ft 1 in Weight: 134 kg Allergies Allergy/AdvReac Type Severity Reaction Status Date / Time ketoprofen Allergy Severe NUMBNESS Verified 11/02/18 21:16 FROM WAIST DOWN SEVERAL MONTHS cephalexin Allergy Intermediate ITCHING Verified 11/02/18 21:16 Iodinated Contrast- Oral and Allergy Intermediate PAIN AT Verified 11/02/18 21:16 IV Dye INJECTION SITE AND UP THE BONES Penicillins Allergy Intermediate SEVERE RASH Verified 11/02/18 21:16 trimethoprim Allergy Intermediate ELEVATED Verified 11/02/18 21:16 POTASSIUM LEVELS Benzodiazepines Allergy Unknown Unverified 11/02/18 21:16 lorazepam AdvReac Intermediate pt Verified 11/02/18 21:16 EXTREMELY sensitive Medications Home Medications Medication Instructions Recorded Confirmed Last Taken Multi For Her 1 tab-cap PO QAM 07/22/18 11/02/18 Unknown felodipine 5 mg PO QAM 07/22/18 11/02/18 Unknown pantoprazole 40 mg PO QAM 07/22/18 11/02/18 Unknown PreserVision AREDS-2 1 tab PO BID 07/31/18 11/02/18 Unknown allopurinol 300 mg PO DAILY 07/31/18 11/02/18 Unknown metoprolol tartrate 25 mg PO BID 07/31/18 11/02/18 Unknown silver sulfadiazine [Silvadene] 1 applic TOPICAL BID PRN 07/31/18 11/02/18 Unknown spironolactone 25 mg PO QAM 07/31/18 11/02/18 Unknown thiamine HCl (vitamin B1) [Vitamin 100 mg PO QAM 07/31/18 11/02/18 Unknown B-1] warfarin 5 mg PO UD #30 tab 08/03/18 11/02/18 Unknown furosemide [Lasix] 80 mg PO QAM 10/24/18 11/02/18 Unknown gabapentin 300 mg PO TID 10/24/18 11/02/18 Unknown magnesium oxide 400 mg PO BID 10/24/18 11/02/18 Unknown nystatin 1 applic TOPICAL BID PRN 10/24/18 11/02/18 Unknown clindamycin HCl See Rx Instructions .ROUTE .COMPLEX 11/01/18 11/02/18 Unknown mirabegron [Myrbetriq] 50 mg PO QAM 11/01/18 11/02/18 Unknown varicella-zoster gE-AS01B (PF) 0.5 ml IM DIRECTED 11/01/18 11/02/18 Unknown [Shingrix (PF)] warfarin 0 mg PO UNKNOWN 11/01/18 11/02/18 Unknown atorvastatin 40 mg PO DAILY 11/03/18 11/03/18 Unknown diclofenac sodium 1 % TOPICAL BID 11/03/18 11/03/18 Unknown Active Medications Generic Name Dose Route Start Last Admin Trade Name Freq PRN Reason Stop Dose Admin Acetaminophen 650 mg 11/03/18 01:38 11/08/18 09:24 Tylenol PO 12/03/18 01:37 650 mg Q4H PRN Administration Pain or Fever Allopurinol 300 mg 11/03/18 09:00 11/08/18 09:07 Zyloprim PO 12/03/18 08:59 300 mg DAILY FARRAH Administration Atorvastatin Calcium 40 mg 11/03/18 09:00 11/08/18 09:06 Lipitor PO 12/03/18 08:59 40 mg DAILY FARRAH Administration Diclofenac Sodium 1 appln 11/03/18 09:00 11/08/18 09:08 Voltaren 1% Top EXT 12/03/18 08:59 Not Given BID FARRAH Enoxaparin Sodium 40 mg 11/07/18 21:00 11/07/18 22:15 Lovenox SQ 12/07/18 20:59 Not Given Q24H FARRAH Felodipine 5 mg 11/03/18 09:00 11/08/18 09:06 Plendil PO 12/03/18 08:59 5 mg QAM FARRAH Administration Furosemide 60 mg 11/07/18 09:00 11/08/18 09:08 Lasix PO 12/07/18 08:59 60 mg QAM FARRAH Administration Gabapentin 300 mg 11/03/18 09:00 11/08/18 14:15 Neurontin PO 12/03/18 08:59 300 mg TID FARRAH Administration Magnesium Oxide 400 mg 11/03/18 09:00 11/08/18 08:23 Mag-Ox PO 12/03/18 08:59 400 mg BID FARRAH Administration Metoprolol Tartrate 25 mg 11/03/18 01:38 11/04/18 08:44 Lopressor PO 12/03/18 01:37 Not Given BID FARRAH Metoprolol Tartrate 12.5 mg 11/06/18 21:00 11/08/18 08:25 Lopressor PO 12/06/18 20:59 12.5 mg BID FARRAH Administration Mirabegron 50 mg 11/03/18 09:00 11/08/18 08:24 Myrbetriq Er PO 12/03/18 08:59 Not Given QAM FARRAH Multivitamins/Minerals 1 tab 11/03/18 09:00 11/08/18 08:23 Multivitamin W/ Minerals Tab PO 12/03/18 08:59 1 tab BID FARRAH Administration Pantoprazole Sodium 40 mg 11/03/18 09:00 11/08/18 09:06 Protonix PO 12/03/18 08:59 40 mg QAM FARRAH Administration Spironolactone 25 mg 11/03/18 09:00 11/08/18 09:08 Aldactone PO 12/03/18 08:59 25 mg QAM FARRAH Administration Thiamine HCl 100 mg 11/03/18 09:00 11/08/18 09:07 Vitamin B-1 PO 12/03/18 08:59 100 mg QAM FARRAH Administration Warfarin Sodium 7.5 mg 11/03/18 16:00 11/05/18 16:45 Coumadin PO 12/03/18 15:59 7.5 mg DAILY@1600 FARRAH Administration Past Medical History Medical History Cervical radiculopathy (Chronic) Cervical spondylosis (Chronic) Perineal irritation Acute respiratory failure with hypoxia and hypercapnia ON 3 LITERS OXYGEN 02/01 Morbid obesity (Chronic) Hypertension (Chronic) Hyperlipidemia (Chronic) Psoriasis (Chronic) Venous stasis dermatitis (Chronic) Osteoarthritis (Chronic) Gout (Chronic) GERD (gastroesophageal reflux disease) (Chronic) Osteoporosis (Chronic) Afib (Chronic) CHF (congestive heart failure) (Acute) Chest pain (Acute) Gait abnormality (Chronic) Hand pain, left (Acute) UNSURE IF R/T NECK ISSUE SOB (shortness of breath) (Acute 05/15/13) Chronic diastolic CHF (congestive heart failure), NYHA class 3 Noncompliance Permanent atrial fibrillation Chronic pain RIGHT SHOULDER - RADIATING DOWN RIGHT ARM AND SOME PAIN IN LEFT ARM. WEAKNESS IN RIGHT ARM Diaper rash STATES HAS BEEN DIAGNOSED WITH "SEVERE DIAPER RASH" - USES CREAM WHICH IS HELPING AREAS History of asthma CHILD Hx of deep venous thrombosis Macular degeneration Sleep apnea Past Surgical History Surgical History S/P implantation of urinary electronic stimulator device (Resolved) History of total knee replacement (Resolved) X3; LEFT X2, RIGHT X1 History of wisdom tooth extraction (Resolved) History of tonsillectomy (Resolved) Social History Smoking Status: Former smoker tobacco type: cigarettes Hx Alcohol Use: Yes Alcohol type: beer and hard liquor alcohol intake frequency: a few times a month Hx Substance Use: No Physical Exam Vital Signs Last Vital Signs Temp 37.1 C 11/08/18 15:21 Pulse 66 11/08/18 15:21 Resp 20 11/08/18 15:21 BP 122/75 11/08/18 15:21 Pulse Ox 93 11/08/18 15:21 Testing Laboratory Results 11/03/18 06:47 11/08/18 06:14 Electrocardiogram Date: 11/04/18 Findings: + AFIB @ (54) and + CT (old septal infarct)
--- NOTE | 2018-11-08 17:52 | Hospitalist Progress Note ---
Date of Service November 08, 2018 Assessment & Plan (1) Acute on chronic diastolic CHF (congestive heart failure), NYHA class 2: Pt is a 73 y/o F Hx CHF, AF, HTN, HLD, gout, overactive bladder, GERD, morbidly obese , medically noncompliant - presenting with progressive weakness and dyspnea. Has not recently complied with her diuretics or her coumadin at home She sat on the toilet on the day of admission and was too weak to get up. Presented with volume overload admission CXR had shown CHF and small bilateral pleural effusion -troponin neg x 3 -EKG 86 Afib Qtc 452 -was given IV lasix initially upon admission, then restarted on home diuretics which she had not taken Diuresing, weight is down she is almost at her lowest point at 293 pounds. -continue lasix 80mg daily, aldactone 25mg qAM, Overactive bladder: pt is refusing mirabegron Chronic pain Continue gabapentin and voltaren gel Morbid obesity: Large contributing factor to all of her medical issues. Noncompliance: Has not taken medication at home due to family discord and personal dispair Patient has a long history, for different reasons, of not taking medications as directed Patient has been expelled from the [facility] cardiology practice and therefore that she cannot be enrolled in her heart failure program DVT prop: on coumadin for afib, SCDs Code: Full (2) Afib: with slow ventricular response which could be indicative of significant conduction disease at her age -Use metoprolol 12.5 due to poor blood pressure and rate issues will re hold coumadin as angie will need normal coagulation for upcoming urology procedure (3) Hypertension: BPs treated with, felodipine, spironolactone and lasix plus metoprolol 12.5 twice daily (4) Physical deconditioning: morbidly obese, with chronic O2 dependence contributing to sedentary lifestyle -PT/OT consults placed and will need rehab placement (5) Chronic anticoagulation: On coumadin for thromboembolic prevention of A-fib, Check INR daily (6) S/P implantation of urinary electronic stimulator device: With plans to have this removed as per Urology on 11/12/18 -need to check with Urology HOLD her coumadin (7) Hypoxia: with acute on chronic respiratory failure with home O2 2-3LNC -with resp distress on admission -continue O2 (8) GERD (gastroesophageal reflux disease): Continue protonix (9) Gout: Continue allopurinol (10) Hyperlipidemia: Continue atorvastatin 40 mg daily (11) Morbid obesity: BMI 57 counselled about weight loss (12) DVT prophylaxis: coumadin on hold will resoume lovenox Subjective Patient is in stable states she is disappointed that there was possibility of postponing her urological procedure however we are able to facilitate that and less likely to occur on 11/09 Review of Systems Review of Systems: ROS: Patient is better steady state No double vision blurry vision No problems with speech or swallowing No palpitations, chest pain or pressure No Wheezing or breathing issues No abdominal pain nausea vomiting diarrhea changes in appetite or weight No burning urine urine frequency or changes in color persistent focal joint pain which is very likely related to RSD arthritis Some intertrigo No unusual bruising or bleeding No focused back pain or numbness or loss of strength No changes in memory or confusion Physical Exam Physical Exam: The patient appeared morbidly obese Vital signs as documented. Head exam is unremarkable. normocephalic, atraumatic Neck is without jugular venous distension, thyromegaly, or lymphademopathy Lungs are clear to auscultation and percussion. Cardiac exam reveals Rhythm is regular. First and second heart sounds normal. Abdominal exam reveals normal bowel sounds, no masses, no organomegaly Extremities are mild to moderately edematous and use of stasis dermatitis is seen Neurologic exam is A&Ox3, no focal deficits, strength is equal bilateral Psychologically seems neither anxious or depressed Results & Data Vital Signs (Past 12 Hours) Vital Signs Temp Pulse Pulse Resp BP Pulse Ox 11/08/18 15:21 37.1 C 66 20 122/75 93 11/08/18 08:21 118/68 11/08/18 07:13 64
[2018-11-08] MEDS: ENOXAPARIN INJ 40 MG/0.4 ML SYR SQ SCH (21:05)
[2018-11-09] MEDS ORDERED: VANCOMYCIN HCL 1,000 MG/270 ML BAG IV SCH (06:00)
[2018-11-09 07:05] LABS: Calcium 9.7 mg/dl (8.5-10.1); Creatinine Clr Calc Pharmacy 57.5 ml/min; Est GFR (African American) 57.5; Est GFR (Non-African American) 49.6; Potassium 3.8 mmol/L (3.5-5.1)
--- NOTE | 2018-11-09 07:56 | Urology Progress Note ---
Date of Service November 09, 2018 Assessment & Plan (1) Urinary incontinence: 73yo F with multiple comorbidities, urinary incontinence with interstim device. No new issues or concerns overnight. Remains agreeable to pursue interstim device removal today with Dr. Bender. OR notified. Risks and benefits to be reviewed by Dr. Bender. IV vancomycin preop already ordered. Pt should be able to discharge to rehab facility per original plan s/p procedure tomorrow pending no complications arise. Thank you for allowing us to participate in the acute care of Ms. Samson. Subjective 73yo F with multiple comorbidities, admitted with CHF exacerbation which is now stabilized, with implated interstim device for urinary incontinence which she would like removed. She is resting comfortable in bed at time of evaluation today. She remains agreeable to pursue interstim device removal today. No new questions or concerns. Denies n/v/f/c. Denies chest pain. No changes overnight, continues to be mildly SOB when asked. Nothing new from baseline. Review of Systems Review of Systems: All systems reviewed & are unremarkable except as noted in HPI & below Physical Exam Physical Exam: A&Ox3 RRR nasal Cpap intact Abd large, soft, nontender Results & Data Vital Signs (Past 12 Hours) Vital Signs Temp Pulse Resp BP Pulse Ox 11/09/18 05:01 120/73 11/09/18 04:00 36.8 C 56 L 20 167/76 H 92 11/08/18 23:32 36.6 C 75 20 132/77 95 11/08/18 20:00 36.8 C 69 20 135/71 94 Laboratory Results Laboratory Results - last 48 hr 11/08/18 11/09/18 06:14 06:17 Sodium 138 139 Potassium 3.8 3.8 Chloride 100 100 Carbon Dioxide 36 H 35 H Anion Gap 2.0 L 4.0 BUN 34 H 34 H Creatinine 1.08 1.09 Est Cr Clr Drug Dosing 58.3 57.5 Est GFR ( Amer) 58.2 57.5 Est GFR (Non-Af Amer) 50.2 49.6 BUN/Creatinine Ratio 31.0 H 31.0 H Glucose 90 86 Calcium 9.5 9.7
[2018-11-09] MEDS ORDERED: LIDOCAINE HCL 1% 20 ML VIAL ONE ×2 (08:44→10:15)
[2018-11-09] MEDS: METOPROLOL TARTRATE 25 MG TAB PO SCH ×2 (09:25→20:51)
[2018-11-09] MEDS: CEROVITE ADV FORMULA TAB PO SCH ×2 (09:27→20:36)
[2018-11-09] MEDS: MAGNESIUM OXIDE 400 MG TAB PO SCH ×2 (09:27→20:35)
[2018-11-09] MEDS: GABAPENTIN 300 MG CAP PO SCH ×3 (09:27→20:36)
[2018-11-09] MEDS ORDERED: fentaNYL citrate 100 MCG/2 ML VIAL ONE (10:45)
[2018-11-09] MEDS ORDERED: fentaNYL citrate 100 MCG/2 ML VIAL IV PRN (10:57)
[2018-11-09] MEDS ORDERED: ONDANSETRON INJ 2 MG/ML 2 ML VIAL IV PRN (10:57)
[2018-11-09] MEDS ORDERED: ePHEDrine sulfate 50 MG/ML AMP IV PRN (10:57)
[2018-11-09] MEDS ORDERED: ATROPINE SULFATE 0.1 MG/ML 10ML SYR IV PRN (10:57)
[2018-11-09] MEDS ORDERED: BACITRACIN INJ 50,000 UNIT VIAL ONE (11:05)
--- NOTE | 2018-11-09 11:32 | Operative Report ---
Post Operative Report Pre & Post Diagnosis Operation Date: 11/09/18 09:30 Pre-Op Diagnosis: Retained interstim, need for MRI Post-Op Diagnosis: Retained interstim, need for MRI Procedure Operation Date: 11/09/18 09:30 Actual Procedures p Interstim Device Removal(Not Applicable) - Sherif Bender MD Surgeon Sherif Bender MD [employer] GABRIEL DORMAN Estimated Blood Loss 10 Findings Consistent with Post-Op Diagnosis Specimens Interstim pseudocapsule, Interstim device Description of Procedure Removal of Interstim Device I attest to the content of the Intraoperative Record and any orders documented therein. Any exceptions are noted below.
[2018-11-09] MEDS ORDERED: DOXYCYCLINE HYCLATE 100 MG CAP PO SCH (12:00)
--- NOTE | 2018-11-09 13:16 | Operative Report ---
DATE OF OPERATION: 11/09/2018 PREOPERATIVE DIAGNOSIS: Retained InterStim device with the need for an MRI. POSTOPERATIVE DIAGNOSIS: Same. PROCEDURE: Removal of InterStim device. SURGEON: Sherif Bender MD CALENDER LET OFF HELPER: DANDY Escobedo. System Developer Associate Manager was present throughout the case for retraction, instrument passage, hemostasis, positioning, and general patient safety. ANESTHESIA: Monitored anesthesia care with sedation plus local. ESTIMATED BLOOD LOSS: 10 mL. DRAINS LEFT IN PLACE: Quarter-inch Jakub drain via separate stab incision. SPECIMENS SENT TO PATHOLOGY: InterStim pseudocapsule, InterStim device. COMPLICATIONS: None. FINDINGS: Excellent hemostasis after completion of case with InterStim device able to be removed intact including leads. BRIEF HISTORY: Ms. Mckenzie is a comorbid, morbidly obese, 73-year-old female who is well known to our service and has been seen for a longstanding history of refractory urinary incontinence. She has an InterStim device placed several years in the past but has felt that this has been overall ineffective. She currently requires MRI imaging for orthopedic difficulties and is therefore requesting to undergo explantation of her InterStim device. She was previously scheduled for outpatient surgery but failed to show for preoperative testing or anesthesia evaluation. It was discovered that the patient was no longer taking her home medications and was developing signs and symptoms of congestive heart failure. The patient was admitted to the hospital several days ago and has undergone significant stabilization of her medical condition. She is currently felt by the hospitalist service to be well stabilized for surgical intervention, which is therefore being done ahead of schedule today. Please see urology consultation note for further details. DESCRIPTION OF PROCEDURE: The patient was properly identified and brought into the operative suite after identification of appropriate consent on the chart. Monitored anesthesia care with sedation was initiated, and the patient was prepped and draped in a gentle right flank up position. Generous instillation of plain lidocaine at the level of the skin at the site of her previous incision and palpable InterStim device was performed. A 15 blade was used to make an incision over the InterStim device through her prior incision and carried down through the subcutaneous tissues using sharp dissection and Bovie cautery as necessary. Local anesthesia was instilled in the tissue throughout the course of the case as necessary for comfort. The patient remained quite comfortable throughout the procedure. The pseudocapsule to the InterStim device was sharply entered using a 15 blade, and the InterStim was bluntly dissected free from its attachments. With gentle traction, both the InterStim and the InterStim lead were able to be removed intact and without difficulties. These were sent for pathologic analysis. Pseudocapsule of InterStim device was resected to allow for more complete healing at the site of the device's previous location. Excellent hemostasis was obtained using Bovie cautery as necessary. A separate stab incision was made after instilling local at the level of the skin using a 15 blade, and a quarter-inch Jakub drain was placed within the base of the incision. Incision was closed in 2 layers using 2-0 Vicryl interrupted sutures for the deeper layers of tissue and interrupted 3-0 Monocryl tissues at the level of the skin. A 3-0 silk was used to secure the quarter-inch Jakub drain in place. Steri-Strips were placed over the incision in a loose fashion to allow for drainage as some subcutaneous fat necrosis was seen in the patient's body habitus as expected. The patient was covered with intravenous antibiotics for the procedure. Anesthesia was reversed. The patient was transferred to the recovery room in stable condition. FOLLOWUP CARE: The patient will be readmitted to the hospitalist service for further medical management. We will arrange for outpatient followup as scheduled for wound check and drain removal. I will provide a short postoperative course of antibiotics. The patient is to contact our service should she note any fevers, chills, nausea, vomiting, or other difficulties in the postoperative period. I attest to the content of the Intraoperative Record and any orders documented therein. Any exception s are noted below.
[2018-11-09] MEDS ORDERED: OXYCODONE HCL IR 5 MG TAB (IMMEDIATE RELEASE) PO PRN (13:37)
[2018-11-09] MEDS ORDERED: MoRPHine SULFATE 2 MG/ML CARP IV PRN (13:37)
[2018-11-09] MEDS ORDERED: MoRPHine SULFATE 4 MG/ML 1 ML CARP\\VIAL IV PRN (13:39)
[2018-11-09] MEDS: SPIRONOLACTONE 25 MG TAB PO SCH (13:56)
[2018-11-09] MEDS: ATORVASTATIN 40 MG TAB PO SCH (13:57)
[2018-11-09] MEDS: FUROSEMIDE 20 MG TAB PO SCH (13:57)
[2018-11-09] MEDS: FELODIPINE 5 MG TABCR PO SCH (13:58)
[2018-11-09] MEDS: MIRABEGRON ER 25 MG TAB PO SCH ×2 (13:58→14:05)
[2018-11-09] MEDS: THIAMINE HCL 100 MG TAB PO SCH (13:59)
[2018-11-09] MEDS: PANTOprazole 40 MG TAB PO SCH (13:59)
[2018-11-09] MEDS: ALLOPURINOL 300 MG TAB PO SCH (14:00)
[2018-11-09] MEDS: ACETAMINOPHEN 500 MG TAB PO PRN (14:01)
--- NOTE | 2018-11-09 14:47 | Anesthesiology Progress Note ---
Date of Service November 09, 2018 Anesthesia Post Procedure Vital Signs Vital Signs: Temp Pulse Pulse Resp BP Pulse Ox 11/09/18 12:45 36.4 C L 70 16 109/50 L 91 11/09/18 12:24 60 23 141/52 H 94 11/09/18 12:00 36.8 C 61 25 H 126/62 95 11/09/18 11:50 70 23 134/73 95 11/09/18 11:42 36.7 C 71 11 L 134/73 95 11/09/18 10:54 59 L 11/09/18 09:56 36.6 C 60 20 98 11/09/18 08:10 36.6 C 61 14 135/75 95 11/09/18 05:01 120/73 11/09/18 04:00 36.8 C 56 L 20 167/76 H 92 11/08/18 23:32 36.6 C 75 20 132/77 95 11/08/18 20:00 36.8 C 69 20 135/71 94 11/08/18 17:00 62 11/08/18 15:21 37.1 C 66 20 122/75 93 Pain Intensity Back: Pain Intensity: 4 Transfer of Care Handoff Completed per policy Notes Mental Status: alert / awake / arousable and participated in evaluation Nausea / Vomiting: adequately controlled Pain: adequately controlled Airway Patency, RR, SpO2: stable & adequate BP & HR: stable & adequate Hydration State: stable & adequate Anesthetic Complications: no major complications apparent
[2018-11-09] MEDS: NYSTATIN POWDER 15GM BTL EXT PRN (15:40)
--- NOTE | 2018-11-09 17:09 | Hospitalist Progress Note ---
Date of Service November 09, 2018 Assessment & Plan (1) Acute on chronic diastolic CHF (congestive heart failure), NYHA class 2: Pt is a 73 y/o F Hx CHF, AF, HTN, HLD, gout, overactive bladder, GERD, morbidly obese , medically noncompliant - presenting with progressive weakness and dyspnea. Has not recently complied with her diuretics or her coumadin at home She sat on the toilet on the day of admission and was too weak to get up. Presented with volume overload admission CXR had shown CHF and small bilateral pleural effusion -troponin neg x 3 -EKG 86 Afib Qtc 452 -was given IV lasix initially upon admission, then restarted on home diuretics which she had not taken Diuresing, weight is down she is almost at her lowest point at 291 pounds. Still showing no signs of renal distress -continue lasix 80mg daily, aldactone 25mg qAM, Overactive bladder: pt is refusing mirabegron Chronic pain Continue gabapentin and voltaren gel Morbid obesity: Large contributing factor to all of her medical issues. Noncompliance: Has not taken medication at home due to family discord and personal dispair Patient has a long history, for different reasons, of not taking medications as directed Patient has been expelled from the [facility] cardiology practice and therefore that she cannot be enrolled in her heart failure program DVT prop: on coumadin for afib, SCDs Code: Full (2) Afib: with slow ventricular response which could be indicative of significant conduction disease at her age -Use metoprolol 12.5 due to poor blood pressure and rate issues will restart coumadin 11/10 (3) Hypertension: BPs treated with, felodipine, spironolactone and lasix plus metoprolol 12.5 twice daily (4) Physical deconditioning: morbidly obese, with chronic O2 dependence contributing to sedentary lifestyle -PT/OT consults placed and will need home health (5) Chronic anticoagulation: On coumadin for thromboembolic prevention of A-fib, Check INR daily (6) S/P implantation of urinary electronic stimulator device: With plans to have this removed as per Urology on 11/12/18 -need to check with Urology resume her coumadin (7) Hypoxia: with acute on chronic respiratory failure with home O2 2-3LNC -with resp distress on admission -continue O2 (8) GERD (gastroesophageal reflux disease): Continue protonix (9) Gout: Continue allopurinol (10) Hyperlipidemia: Continue atorvastatin 40 mg daily (11) Morbid obesity: BMI 57 counselled about weight loss (12) DVT prophylaxis: coumadin will resume 11/10 Subjective Patient's for her urological device removal today then we will need to assure that she resumes her physical activity prior to her being discharged home with home health that she did not have insurance approval or personal satisfaction with any of the alternative choices for rehab Review of Systems Review of Systems: ROS: Morbidly obese minor distress No double vision blurry vision No problems with speech or swallowing No palpitations, chest pain or pressure No Wheezing or breathing issues still with some dyspnea on exertion but this may be from deconditioning No abdominal pain nausea vomiting diarrhea changes in appetite or weight No burning urine urine frequency or changes in color No focal joint pain or muscle pain No skin rashes or oral lesions No unusual bruising or bleeding No focused back pain or numbness or loss of strength No changes in memory or confusion Physical Exam Physical Exam: The patient appeared anxious but in no significant distress Vital signs as documented. Head exam is unremarkable. normocephalic, atraumatic Neck is without jugular venous distension, thyromegaly, or lymphademopathy Lungs are clear diminished at the bases Cardiac exam reveals Rhythm is regular. Systolic ejection murmur Abdominal exam reveals normal bowel sounds, no masses, no organomegaly Extremities are moderately edematous and both pedal pulses are present Neurologic exam is A&Ox3, no focal deficits, strength is equal bilateral Psychologically seems neither anxious or depressed Skin is warm Dry with again changes of chronic venous stasis of her lower extremities Results & Data Vital Signs (Past 12 Hours) Vital Signs Temp Pulse Pulse Resp BP Pulse Ox 11/09/18 15:12 108/66 11/09/18 15:08 36.5 C 60 21 92 11/09/18 12:45 36.4 C L 70 16 109/50 L 91 11/09/18 12:24 60 23 141/52 H 94 11/09/18 12:00 36.8 C 61 25 H 126/62 95 11/09/18 11:50 70 23 134/73 95 11/09/18 11:42 36.7 C 71 11 L 134/73 95 11/09/18 10:54 59 L 11/09/18 09:56 36.6 C 60 20 98 11/09/18 08:10 36.6 C 61 14 135/75 95
[2018-11-10 07:00] LABS: BUN Creatinine Ratio 32.8 (10-20); Calcium 9.5 mg/dl (8.5-10.1); Creatinine Clr Calc Pharmacy 59.1 ml/min; Est GFR (African American) 59.5; Est GFR (Non-African American) 51.3
[2018-11-10] MEDS ORDERED: ATORVASTATIN 40 MG TAB PO SCH (09:00)
--- NOTE | 2018-11-10 09:12 | Urology Progress Note ---
Date of Service November 10, 2018 Assessment & Plan (1) Urinary incontinence: A/P 73 yo female POD#1 s/p removal of Interstim device. Healing well. Expected postop course reviewed. Rx for doxycycline placed in chart by our service. Drain removal this coming week, postop appointment as previously scheduled. Placement per primary service. Thank you for facilitating intervention in this comorbid patient. Please contact our service with any questions or concerns. Subjective 73 yo female POD#1 s/p removal of Interstim device due to need for MRI. She denies significant incisional pain, resting comfortable with CPAP in place. Her past notes and hospitalist notes are reviewed. Review of Systems Constitutional: no fever and no chills Ear, Nose, Mouth, Throat: no ear pain Respiratory: no hemoptysis Cardiovascular: no chest pain Gastrointestinal: no abdominal pain, no nausea and no vomiting Genitourinary: + urinary incontinence Integumentary: no acne Neurologic: no paralysis Physical Exam Constitutional: + morbidly obese Eyes: eyes not dysmorphic Neck: trachea midline Respiratory: not tachypneic Cardiovascular: Vessels: radial pulses present Gastrointestinal (Abdomen): Percussion/Palpation: abdomen soft; abdomen nontender R posterior incision c/d/i with steri-strips, minimal bruising, some serosanginous staining on dressing, no excess bleeding or drainage, nontender, no evidence of infection Psychiatric: Orientation: oriented x 3 Results & Data Laboratory Results Laboratory Results - last 48 hr 11/09/18 11/10/18 06:17 05:38 Sodium 139 139 Potassium 3.8 4.0 Chloride 100 101 Carbon Dioxide 35 H 35 H Anion Gap 4.0 3.0 BUN 34 H 35 H Creatinine 1.09 1.06 Est Cr Clr Drug Dosing 57.5 59.1 Est GFR ( Amer) 57.5 59.5 Est GFR (Non-Af Amer) 49.6 51.3 BUN/Creatinine Ratio 31.0 H 32.8 H Glucose 86 85 Calcium 9.7 9.5
[2018-11-10] MEDS: SPIRONOLACTONE 25 MG TAB PO SCH (10:10)
[2018-11-10] MEDS: FUROSEMIDE 20 MG TAB PO SCH (10:11)
[2018-11-10] MEDS: MAGNESIUM OXIDE 400 MG TAB PO SCH ×2 (10:12→21:25)
[2018-11-10] MEDS: METOPROLOL TARTRATE 25 MG TAB PO SCH ×2 (10:12→21:24)
[2018-11-10] MEDS: GABAPENTIN 300 MG CAP PO SCH ×2 (10:13→21:25)
[2018-11-10] MEDS: CEROVITE ADV FORMULA TAB PO SCH ×2 (10:13→21:25)
[2018-11-10] MEDS: FELODIPINE 5 MG TABCR PO SCH (10:14)
[2018-11-10] MEDS: PANTOprazole 40 MG TAB PO SCH (10:14)
[2018-11-10] MEDS: THIAMINE HCL 100 MG TAB PO SCH (10:14)
[2018-11-10] MEDS: ALLOPURINOL 300 MG TAB PO SCH (10:15)
[2018-11-10] MEDS: ACETAMINOPHEN 500 MG TAB PO PRN (10:16)
[2018-11-10] MEDS: NYSTATIN POWDER 15GM BTL EXT PRN (10:22)
[2018-11-10] MEDS ORDERED: GABAPENTIN 300 MG CAP PO PRN (12:49)
--- NOTE | 2018-11-10 13:03 | Hospitalist Progress Note ---
Date of Service November 10, 2018 Assessment & Plan (1) Acute on chronic diastolic CHF (congestive heart failure), NYHA class 2: Pt is a 73 y/o F Hx CHF, AF, HTN, HLD, gout, overactive bladder, GERD, morbidly obese , medically noncompliant - presenting with progressive weakness and dyspnea. Has not recently complied with her diuretics or her coumadin at home She sat on the toilet on the day of admission and was too weak to get up. Presented with volume overload admission CXR had shown CHF and small bilateral pleural effusion Patient had steady negative urine output days except for her BUN and creatinine are stable continue to follow her trends she is at her lowest weight and record for quite some time -troponin neg x 3 -EKG 86 Afib Qtc 452 -was given IV lasix initially upon admission, then restarted on home diuretics which she had not taken Diuresing, weight is down she is almost at her lowest point at 291 pounds. Still showing no signs of renal distress -continue lasix 80mg daily, aldactone 25mg qAM, Overactive bladder: pt is refusing mirabegron, she is in no complaints since the InterStim is been removed Chronic pain Continue gabapentin and voltaren gel adding as needed gabapentin dose Morbid obesity: Large contributing factor to all of her medical issues. Noncompliance: Has not taken medication at home due to family discord and personal dispair Patient has a long history, for different reasons, of not taking medications as directed Patient has been expelled from the [facility] cardiology practice and therefore that she cannot be enrolled in her heart failure program DVT prop: on coumadin for afib, SCDs Code: Full (2) Afib: with slow ventricular response which could be indicative of significant conduction disease at her age -Use metoprolol 12.5 due to poor blood pressure and rate issues will restart coumadin 11/10 (3) Hypertension: BPs treated with, felodipine, spironolactone and lasix plus metoprolol 12.5 twice daily (4) Physical deconditioning: morbidly obese, with chronic O2 dependence contributing to sedentary lifestyle -PT/OT consults placed and will need home health (5) Chronic anticoagulation: On coumadin for thromboembolic prevention of A-fib, Check INR daily (6) S/P implantation of urinary electronic stimulator device: With plans to have this removed as per Urology on 11/12/18 -need to check with Urology resume her coumadin (7) Hypoxia: with acute on chronic respiratory failure with home O2 2-3LNC -with resp distress on admission since resolved but his heart failure is treated -continue O2 (8) GERD (gastroesophageal reflux disease): Continue protonix (9) Gout: Continue allopurinol (10) Hyperlipidemia: Continue atorvastatin 40 mg daily (11) Morbid obesity: BMI 57 counselled about weight loss (12) DVT prophylaxis: coumadin will resume 11/10 Subjective Patient has no new complaints or problems today mostly complaining now about her right shoulder. We discussed her eventual disposition as acute rehab is been denied and the patient's choice of subacute rehab does not have a working contract with her insurer. Patient herself does not wish to go to [facility] or the [facility]. He would be in agreement to consider [facility] or if there is a swing bed available at [facility] or the [facility]. Otherwise she is had no new complaints or problems she is tolerating her medications well discuss further attempts of pain control for her shoulder pain she wishes just to have a PRN dose of gabapentin available and does not wish to pursue topical lidocaine or escalating doses of opiates Review of Systems Review of Systems: ROS: well nourished well developed. No double vision blurry vision No problems with speech or swallowing No palpitations, chest pain or pressure No Wheezing or breathing issues No abdominal pain nausea vomiting diarrhea No burning urine urine frequency or changes in color since the InterStim removal Typical right shoulder pain which is tender to move No skin rashes or oral lesions No unusual bruising or bleeding No focused back pain or numbness or loss of strength No changes in memory or confusion Physical Exam Physical Exam: The patient appeared morbidly obese Vital signs as documented. Head exam is unremarkable. normocephalic, atraumatic Neck is without jugular venous distension, thyromegaly, or lymphademopathy Lungs are decreased at the bases Cardiac exam reveals Rhythm is regular. No murmurs are heard Abdominal exam reveals normal bowel sounds, no masses, no organomegaly Extremities are mildly edematous and both pedal pulses are present Neurologic exam is A&Ox3, no focal deficits, strength is equal bilateral Psychologically seems neither anxious or depressed Skin is warm Dry with some areas of intertrigo noted Results & Data Vital Signs (Past 12 Hours) Vital Signs Temp Pulse Resp BP Pulse Ox 11/10/18 08:00 36.7 C 60 16 159/72 H 96
[2018-11-10] MEDS: WARFARIN SOD 5 MG TAB PO SCH (18:16)
[2018-11-11] MEDS: ACETAMINOPHEN 500 MG TAB PO PRN ×2 (05:06→21:11)
[2018-11-11 08:03] LABS: INR 1.1 (0.9-1.1); Prothrombin Time 11.6 Seconds (9.0-12.0)
[2018-11-11] MEDS: SPIRONOLACTONE 25 MG TAB PO SCH (09:38)
[2018-11-11] MEDS: FUROSEMIDE 20 MG TAB PO SCH (09:40)
[2018-11-11] MEDS: METOPROLOL TARTRATE 25 MG TAB PO SCH ×2 (09:41→21:09)
[2018-11-11] MEDS: GABAPENTIN 300 MG CAP PO SCH ×2 (09:42→21:08)
[2018-11-11] MEDS: MAGNESIUM OXIDE 400 MG TAB PO SCH ×2 (09:42→21:07)
[2018-11-11] MEDS: CEROVITE ADV FORMULA TAB PO SCH ×2 (09:42→21:07)
[2018-11-11] MEDS: PANTOprazole 40 MG TAB PO SCH (09:43)
[2018-11-11] MEDS: FELODIPINE 5 MG TABCR PO SCH (09:43)
[2018-11-11] MEDS: THIAMINE HCL 100 MG TAB PO SCH (09:44)
[2018-11-11] MEDS: ALLOPURINOL 300 MG TAB PO SCH (09:44)
--- NOTE | 2018-11-11 14:08 | Hospitalist Progress Note ---
Date of Service November 11, 2018 Assessment & Plan (1) Acute on chronic diastolic CHF (congestive heart failure), NYHA class 2: Pt is a 73 y/o F Hx CHF, AF, HTN, HLD, gout, overactive bladder, GERD, morbidly obese , medically noncompliant - presenting with progressive weakness and dyspnea. Has not recently complied with her diuretics or her coumadin at home She sat on the toilet on the day of admission and was too weak to get up. Presented with volume overload admission CXR had shown CHF and small bilateral pleural effusion Patient had steady negative urine output continues with weight loss and now with mild bun elevation, will follow for another day and if trends consider reducing am lasix -troponin neg x 3 -EKG 86 Afib Qtc 452 -was given IV lasix initially upon admission, then restarted on home diuretics which she had not taken Diuresing, weight is down -continue lasix 80mg daily, aldactone 25mg qAM Overactive bladder: pt is refusing mirabegron, she is in no complaints since the InterStim is been removed Chronic pain Continue gabapentin and voltaren gel adding as needed gabapentin dose Morbid obesity: Large contributing factor to all of her medical issues. Noncompliance: Has not taken medication at home due to family discord and personal dispair Patient has a long history, for different reasons, of not taking medications as directed Patient has been expelled from the [facility] cardiology practice and therefore that she cannot be enrolled in her heart failure program this makes disposition a challenge, but do to her lack of acceptance of certain subacute snf's she may eventually land at home with home health which will be a less than optimal situation DVT prop: on coumadin for afib, SCDs Code: Full (2) Afib: with slow ventricular response which could be indicative of significant conduction disease at her age -Use metoprolol 12.5 due to poor blood pressure and rate issues did restart coumadin 11/10 (3) Hypertension: BPs treated with, felodipine, spironolactone and lasix plus metoprolol 12.5 twice daily (4) Physical deconditioning: morbidly obese, with chronic O2 dependence contributing to sedentary lifestyle -PT/OT consults placed and will need home health and hopefully med teaching if she goes home (5) Chronic anticoagulation: On coumadin for thromboembolic prevention of A-fib, follow INR daily (6) S/P implantation of urinary electronic stimulator device: removed as per Urology on 11/12/18 no issues post removal (7) Hypoxia: with acute on chronic respiratory failure with home O2 2-3LNC -with resp distress on admission since resolved but his heart failure is treated -continue O2, check 2 step (8) GERD (gastroesophageal reflux disease): Continue protonix (9) Gout: Continue allopurinol (10) Hyperlipidemia: Continue atorvastatin 40 mg daily (11) Morbid obesity: BMI 54 counselled about weight loss (12) DVT prophylaxis: coumadin did resume 11/10 Subjective Patient is in no significant distress currently trying to still determine the best disposition for her she is still open to possibly going to fdc facility, she has some elevation of her BMP her creatinine remained stable at 1.06 Review of Systems Review of Systems: ROS: Is morbidly obese No double vision blurry vision No problems with speech or swallowing No palpitations, chest pain or pressure No Wheezing does have dyspnea with exertion No abdominal pain nausea vomiting diarrhea changes in appetite or weight No burning urine urine frequency or changes in color No focal joint pain or muscle pain Have some irritated skin No unusual bruising or bleeding No focused back pain or numbness or loss of strength No changes in memory or confusion Physical Exam Physical Exam: The patient appeared well nourished and normally developed. Vital signs as documented. Head exam is unremarkable. normocephalic, atraumatic Neck is with minor jugular venous distension, thyromegaly, or lymphademopathy Lungs are clear to auscultation and percussion. Cardiac exam reveals Rhythm is regular. mild cammie heard Abdominal exam reveals normal bowel sounds, no masses, no organomegaly Extremities are moderately edematous and both pedal pulses are present Neurologic exam is A&Ox3, no focal deficits, strength is equal bilateral Psychologically seems neither anxious or depressed Skin is warm Dry without intertrigo in body folds Results & Data Vital Signs (Past 12 Hours) Vital Signs Temp Pulse Resp BP BP Pulse Ox 11/11/18 11:50 36.8 C 68 20 152/78 H 92 11/11/18 08:14 36.7 C 78 19 114/65 94
[2018-11-11] MEDS: WARFARIN SOD 5 MG TAB PO SCH (15:38)
[2018-11-12 06:44] LABS: INR 1.1 (0.9-1.1); Prothrombin Time 11.1 Seconds (9.0-12.0)
[2018-11-12 08:24] LABS: Hematocrit (blood only) 46.8 % (37-47); Mean Corpuscular Hgb Conc 32.1 g/dL (32-36); Mean Corpuscular Volume 99.2 fL (80-100); Platelet Count 148 K/uL (130-400); RDW Coefficient of Variation 14.6 % (11.5-14.5); RDW Standard Deviation 52.9 fL (36.4-46.3); Red Blood Count 4.72 M/uL (4.2-5.4); White Blood Count 4.33 K/uL (4.8-10.8)
[2018-11-12] MEDS: FUROSEMIDE 20 MG TAB PO SCH (08:25)
[2018-11-12] MEDS: METOPROLOL TARTRATE 25 MG TAB PO SCH ×2 (08:25→21:42)
[2018-11-12] MEDS: SPIRONOLACTONE 25 MG TAB PO SCH (08:25)
[2018-11-12] MEDS: THIAMINE HCL 100 MG TAB PO SCH (08:25)
[2018-11-12] MEDS: ALLOPURINOL 300 MG TAB PO SCH (08:25)
[2018-11-12] MEDS: GABAPENTIN 300 MG CAP PO SCH ×2 (08:26→21:42)
[2018-11-12] MEDS: MAGNESIUM OXIDE 400 MG TAB PO SCH ×2 (08:26→21:41)
[2018-11-12] MEDS: PANTOprazole 40 MG TAB PO SCH (08:26)
[2018-11-12] MEDS: CEROVITE ADV FORMULA TAB PO SCH ×2 (08:26→21:05)
[2018-11-12] MEDS: FELODIPINE 5 MG TABCR PO SCH (08:26)
[2018-11-12 08:31] LABS: BUN Creatinine Ratio 32.6 (10-20); Est GFR (African American) 49.2; Est GFR (Non-African American) 42.5; Potassium 3.9 mmol/L (3.5-5.1)
[2018-11-12] MEDS: ACETAMINOPHEN 500 MG TAB PO PRN (08:43)
--- NOTE | 2018-11-12 14:18 | Urology Progress Note ---
Date of Service November 12, 2018 Assessment & Plan (1) Urinary incontinence: POD #3 s/p interstim device removal. Patient feeling well, pending facility placement. Drain to be removed tomorrow. Antibiotics as prescribed. Thank you for allowing us to participate in the inpatient care of Ms. Mckenzie. Please contact our service with questions/concerns. Subjective 73YO female POD #3 s/p interstim device removal. Patient reports feeling well today, resting comfortably. No pain, urination is at baseline. Offers no complaints. Review of Systems Review of Systems: All systems reviewed & are unremarkable except as noted in HPI & below Physical Exam Physical Exam: +Obese, NAD. Resp effort normal +O2 via NC. No JVD. Abd soft, nontender. A&O x3 appropriate affect. : bladder non-distended. Patient declined wound check upon exam. No wound pain reported.
[2018-11-12] MEDS: WARFARIN SOD 5 MG TAB PO SCH (15:34)
--- NOTE | 2018-11-12 16:43 | Hospitalist Progress Note ---
Date of Service November 12, 2018 Assessment & Plan (1) Acute on chronic diastolic CHF (congestive heart failure), NYHA class 2: - Presented with acute CHF likely related to non-compliance at home. - TTE showed EF 60-65%, no valvular abnormalities. - CXR on 11/01 showed CHF, small bilat pleural effusions. - Monitor intake and output, daily weights -- weight decreased by ~15 kg since admission. - Home lasix dose decreased to 60 mg PO daily -- will continue this dose with close monitoring of labs (BUN and Creat trending up) - Continue home Spironolactone and Metoprolol as prescribed. - Fluid restriction 1800 cc; low sodium diet. - Follows with PCP -- has been expelled [place] [facility] [place] clinic due to non-compliance. (2) S/P implantation of urinary electronic stimulator device: - POD#3 interstim device removal. - Drain will be removed on 11/13/18. - Urology following. (3) Atrial fibrillation with slow ventricular response: - Slow conduction likely age related; HR is now improved, 60-70's. - Decreased Metoprolol to 12.5 mg BID (previously 25 BID) - Continue Coumadin - INR remains subtherapeutic at 1.1. - Will start Lovenox bridging, 1 mg/kg BID. (4) Hypertension: - Continue Felodipine, Spironolactone, Metoprolol and Lasix. - BP has been well controlled. (5) Hyperlipidemia: - Not currently on a statin agent. (6) Gout: - Continue Allopurinol 300 mg daily. (7) GERD (gastroesophageal reflux disease): - PPI daily. (8) Physical deconditioning: - Very sedentary lifestyle, chronic O2 requirements. - PT/OT recommending SNF -- pt. was initially refusing placement but is now agreeable. (9) Morbid obesity: - BMI 54 - encourage weight loss and exercise. (10) DVT prophylaxis: - Coumadin with Lovenox bridging. Dispo: Med/surg for treatment of CHF; discharge to SNF pending placement. Supervising Physician Co-Signing Physician Notes PA Supervision Note: I did not personally see or examine the patient today, but I verified all to points of MYESHA Beatty's assessment and plan with the following exceptions/additions: None Subjective Pt. is short of breath but feels like breathing is back to baseline. She is on home O2 requirements. Denies increased SOB with exertion but has not been ambulating in the hospital. Discussed discharge planning -- pt. is open to the idea of a SNF. non destructive evaluation manager following. Review of Systems Review of Systems: All systems reviewed & are unremarkable except as noted in HPI & below Constitutional: + fatigue and + weakness; no fever and no chills Respiratory: + dyspnea and + dyspnea on exertion; no cough and no wheezing Cardiovascular: + edema; no chest pain and no palpitations Gastrointestinal: no abdominal pain, no nausea and no constipation Genitourinary: no difficulty urinating Musculoskeletal: no back pain and no joint pain Integumentary: no non-healing lesions Allergy / Immunological: no rash Physical Exam Physical Exam: General: Resting comfortably in no apparent distress HEENT: NC/AT; PERRLA with EOMI; [place] conjunctiva, MMM. No erythema of posterior pharynx Neck: Supple and nontender Cardiac: RRR Lungs: CTA bilaterally; No rhonchi, wheezing, or rales Abdomen: Bowel normoactive X 4; Nontender to palpation Extremities: Warm. +2 bilat non pitting chronic edema; rubor of bilat LE. Neuro: No focal weakness Skin: No rash Results & Data Vital Signs (Past 12 Hours) Vital Signs Temp Pulse Resp BP Pulse Ox 11/12/18 15:30 36.8 C 66 20 135/76 97 Laboratory Results 11/12/18 11/12/18 11/12/18 Range/Units 06:27 06:24 06:24 WBC 4.33 L (4.8-10.8) K/uL RBC 4.72 (4.2-5.4) M/uL Hgb 15.0 (12.0-16.0) g/dL Hct 46.8 (37-47) % MCV 99.2 (80-100) fL MCH 31.8 (25-34) pg MCHC 32.1 (32-36) g/dL RDW Std Deviation 52.9 H (36.4-46.3) fL RDW Coeff of Priti 14.6 H (11.5-14.5) % Plt Count 148 (130-400) K/uL MPV 12.0 H (7.4-10.4) fL PT 11.1 (9.0-12.0) Seconds INR 1.1 (0.9-1.1) Sodium 141 (136-145) mmol/L Potassium 3.9 (3.5-5.1) mmol/L Chloride 102 (98-107) mmol/L Carbon Dioxide 34 H (21-32) mmol/L Anion Gap 5.0 (3-11) BUN 40 H (7-18) mg/dl Creatinine 1.24 H (0.6-1.2) mg/dl Est Cr Clr Drug Dosing 50.0 ml/min Est GFR ( Amer) 49.2 Est GFR (Non-Af Amer) 42.5 BUN/Creatinine Ratio 32.6 H (10-20) Glucose 94 (70-99) mg/dl Calcium 10.0 (8.5-10.1) mg/dl
[2018-11-12] MEDS: ENOXAPARIN 150 MG/ML SYR SQ SCH (16:56)
[2018-11-13] MEDS: ACETAMINOPHEN 500 MG TAB PO PRN (02:59)
[2018-11-13] MEDS: ENOXAPARIN 150 MG/ML SYR SQ SCH ×2 (03:00→16:02)
[2018-11-13] MEDS: MAGNESIUM OXIDE 400 MG TAB PO SCH (07:55)
[2018-11-13] MEDS: THIAMINE HCL 100 MG TAB PO SCH (07:55)
[2018-11-13] MEDS: FELODIPINE 5 MG TABCR PO SCH (07:56)
[2018-11-13] MEDS: PANTOprazole 40 MG TAB PO SCH (07:56)
[2018-11-13] MEDS: GABAPENTIN 300 MG CAP PO SCH (07:56)
[2018-11-13] MEDS: ALLOPURINOL 300 MG TAB PO SCH (07:56)
[2018-11-13] MEDS: FUROSEMIDE 20 MG TAB PO SCH (07:56)
[2018-11-13] MEDS: METOPROLOL TARTRATE 25 MG TAB PO SCH (07:56)
[2018-11-13] MEDS: SPIRONOLACTONE 25 MG TAB PO SCH (07:56)
[2018-11-13] MEDS: CEROVITE ADV FORMULA TAB PO SCH (07:56)
[2018-11-13 08:39] LABS: Hematocrit (blood only) 42.9 % (37-47); Hemoglobin 14.1 g/dL (12.0-16.0); Mean Corpuscular Hgb Conc 32.9 g/dL (32-36); Mean Corpuscular Volume 98.4 fL (80-100); Mean Platelet Volume 11.9 fL (7.4-10.4); Platelet Count 168 K/uL (130-400); RDW Coefficient of Variation 14.6 % (11.5-14.5); RDW Standard Deviation 52.7 fL (36.4-46.3); Red Blood Count 4.36 M/uL (4.2-5.4); White Blood Count 4.54 K/uL (4.8-10.8)
[2018-11-13 08:46] LABS: INR 1.2 (0.9-1.1); Prothrombin Time 12.3 Seconds (9.0-12.0)
[2018-11-13 09:06] LABS: BUN Creatinine Ratio 36.7 (10-20); Calcium 10.1 mg/dl (8.5-10.1); Creatinine Clr Calc Pharmacy 53.5 ml/min; Est GFR (African American) 52.8; Est GFR (Non-African American) 45.5; Potassium 3.9 mmol/L (3.5-5.1)
--- NOTE | 2018-11-13 16:18 | Discharge Summary ---
Date of Service November 13, 2018 Admission HPI Per Admitting Provider 73yoF with hx of CHF NYHA class 2, Afib, HTN, HLD, gout, overactive bladder, GERD, morbidly obese and non-compliance with medical care presents with weakness and sob. Pt reports 10 days of recurrent headache episodes and diarrhea which improved 4 days ago as a result of which she was more sedentary and deconditioned. She presented to the ED on 11/01/18 and had a normal thorough work up for sob/weakness. Today she was brought again to the ED by EMS after she had trouble getting off the toilet seat and her son could not help her either. She was able to get to the bathroom but too weak to pull herself up by holding onto the side of the tub. She felt more tired today, had sob even on chronic O2 at 3-4L, and headache. Otherwise she was asymptomatic and denies any f/c, cp, abdominal pain, n/v, d/c, dysuria. Attempts were made to get pt to inpatient rehab tonight but she needed PT/OT evaluation. Admission Exam Per Admitting Provider General: In NAD CV: RRR, no m/r/g PULM: Crackles appreciated over posterior mid and bibasilar lung white, equal breath sounds bilaterally, able to speak in full sentences but has to stop before next sentence ABDOMEN: +BS, non-distended, non-tender to palpation in all quadrants, obese LE: no calf TTP, trace LE edema, chronic venous stasis skin changes Principal Diagnosis Acute CHF Discharge Exam General: Resting comfortably in no apparent distress HEENT: NC/AT; PERRLA with EOMI; [place] conjunctiva, MMM. No erythema of posterior pharynx Neck: Supple and nontender Cardiac: RRR Lungs: CTA bilaterally; No rhonchi, wheezing, or rales Abdomen: Bowel normoactive X 4; Nontender to palpation Extremities: Warm. +2 bilat non pitting chronic edema; rubor of bilat LE. Neuro: No focal weakness Skin: No rash Discharge Data Allergies Allergy/AdvReac Type Severity Reaction Status Date / Time ketoprofen Allergy Severe NUMBNESS Verified 11/02/18 21:16 FROM WAIST DOWN SEVERAL MONTHS cephalexin Allergy Intermediate ITCHING Verified 11/02/18 21:16 Iodinated Contrast- Oral and Allergy Intermediate PAIN AT Verified 11/02/18 21:16 IV Dye INJECTION SITE AND UP THE BONES Penicillins Allergy Intermediate SEVERE RASH Verified 11/02/18 21:16 trimethoprim Allergy Intermediate ELEVATED Verified 11/02/18 21:16 POTASSIUM LEVELS Benzodiazepines Allergy Unknown Unverified 11/02/18 21:16 lorazepam AdvReac Intermediate pt Verified 11/02/18 21:16 EXTREMELY sensitive Consultations 11/02/18 23:19 ED Decision to Admit Stat 11/03/18 08:09 Consult Case Management - Discharge Planning Routine 11/04/18 05:13 Consult Cardiology Routine 11/08/18 14:46 Consult Anesthesiology Routine 11/08/18 17:52 Consult Urology Routine Procedures Performed Operation Date: 11/09/18 09:30 Actual Procedures p Interstim Device Removal(Not Applicable) - Sherif Bender MD Ordered Studies CXR 11/01/18 Hospital Course (1) Acute on chronic diastolic CHF (congestive heart failure), NYHA class 2: Presented with acute CHF likely related to non-compliance at home. TTE showed EF 60-65%, no valvular abnormalities. CXR on 11/01 showed CHF, small bilat pleural effusions. Monitored intake and output, daily weights -- weight decreased by ~15 kg throughout course of admission. Lasix administered daily -- dose was decreased to 60 mg PO daily (previously on 80 mg daily at home but was not routinely taking it) - will continue this dose at discharge with monitoring of renal function. Continued home Spironolactone and Metoprolol as prescribed. Fluid restriction 1800 cc; low sodium diet. Will need to f/u with Dr. Ambrocio -- has been expelled by the [facility] cardiology and HF clinic due to non-compliance. (2) S/P implantation of urinary electronic stimulator device: POD#4 interstim device removal. Drain removed. Will need to complete 3 day course of Doxycycline. Urology consulted, will f/u with Dr. Bender on 11/28/18. (3) Atrial fibrillation with slow ventricular response: Slow conduction likely age related; HR is now improved, 60-70's. Decreased Metoprolol to 12.5 mg BID (previously 25 BID) Continued Coumadin - INR was subtherapeutic on discharge, 1.2. Will continue 5 mg daily with Lovenox bridging, 1 mg/kg BID. (4) Hypertension: Continued Felodipine, Spironolactone, Metoprolol and Lasix. (5) Hyperlipidemia: Resumed statin. (6) Gout: Continued Allopurinol 300 mg daily. (7) GERD (gastroesophageal reflux disease): PPI daily. (8) Physical deconditioning: Very sedentary lifestyle, chronic O2 requirements. PT/OT recommending SNF -- discharged to [facility]. (9) Morbid obesity: BMI 54 - encouraged weight loss and exercise. (10) DVT prophylaxis: Coumadin with Lovenox bridging. Discharged to [facility] on 11/13/18. Total Time Total Time Spent Total Time Spent (In Minutes): >30 minutes Total Time Includes: Examination of the Patient, Discharge Planning, Medication Reconciliation, Communication With Other Providers and Other Discharge Plan Discharge Items Patient Disposition: Transfer Correction Fac Reason For Visit: INCREASED SOB Discharge Diagnosis: Acute CHF Condition: Fair Discharge Goals: Decrease discomfort, Improve disease control, Improve function, Increase independence and Prevent disease Activity: As commented below Exercise/Sports: Gradually increase as tolerated Non-emergency contact: Primary Care Provider Call non-emergency contact if: you have any medication questions, your symptoms worsen, your pain is not controlled, your pain is worsening, your pain is unusual for you, your pain is concerning for you and you have a fever Follow-up/Referrals: Sherif Bender MD [Physician] - 11/28/18 1:35 am (post op visit with Dr. Bender) Rah Ambrocio MD [Primary Care Provider] - Regina Moon CRNP [Nurse Practitioner] - 11/12/18 11:30 am (For drain removal/skin check) Diet: Heart Healthy and Low Sodium (2gm) Fluids: 1800ml (7 cups) Addtl Provider Instructions: 1. Acute on Chronic CHF * Please continue Lasix 60 mg daily and Spironolactone as prescribed. * Monitor daily weights - consider additional diuresis if pt. gains >2-3 pounds. * Continue a 1800 cc fluid restriction and low sodium diet. * Please schedule a follow up with Dr. Ambrocio in 1-2 weeks. * Monitor renal function every 2-3 days (during PT/INR lab work). 2. S/p implantation of urinary electric stimulator device * Now removed; pt. will need to follow up with urology on 11/28/18. * Change dressing as needed. * Please take Doxycycline 100 mg twice daily as prescribed to complete a 3 day course. 3. Atrial Fibrillation * Please continue Coumadin 5 mg daily -- most recent INR was 1.2. * Continue Lovenox bridging therapy -- 1 mg/kg twice daily. * Please monitor INR levels every 2-3 days -- first level should be monitored on 11/15/18. * Metoprolol dose has been decreased to 12.5 mg twice daily due to bradycardia. 4. Please schedule a follow up with Dr. Ambrocio in 1-2 weeks. Call 911 and go to the Emergency Room if: * You are very short of breath even with rest Call your doctor if any of the following symptoms or problems start or get worse: * Shortness of breath or difficulty breathing * Wake up at night short of breath * Chest pain * Cough * Swelling of your hands, fee, or legs * More fatigued or tired with your normal activity * Palpitations - sudden fast heart beats WEIGHT * Weigh yourself every morning after using the bathroom. * Use the same scale. * Wear the same amount of clothing. * Write your weight down on your chart. * Call your doctor if you gain more than 2-3 pounds in 1-2 days. MEDICATIONS * Use this discharge instruction sheet for instructions. * Take your medications at the time your doctor ordered. * Do not skip a dose of your medicines. * If you miss a dose of medicine, take as soon as possible, but DO NOT DOUBLE A DOSE. * Read your medicine information when you get home. * Know all of the side effects of your medicine. * Call your doctor's office if you have any side effects. * Be sure all of your doctors know what medicine and herbs you take (including cold, flu, and herbal medicine). Take the following with you to your follow-up doctor appointments: * Weight Chart * Medication List * List of questions Do not drink excessive alcohol, beer or wine. Prescriptions: New enoxaparin [Lovenox] 150 mg/mL Syringe 129 mg subcut Q12H Qty: 1 RF: 0 doxycycline hyclate 100 mg tablet 100 mg PO BID Qty: 6 RF: 0 Continued gabapentin 300 mg capsule 300 mg PO TID RF: 0 nystatin 100,000 unit/gram Powder 1 applic TOPICAL BID PRN (Reason: FUNGAL ISSUES UNDER BREAST) RF: 0 magnesium oxide 400 mg magnesium Tablet 400 mg PO BID RF: 0 atorvastatin 40 mg tablet 40 mg PO DAILY RF: 0 diclofenac sodium 1 % gel 1 % topical BID RF: 0 felodipine 5 mg tablet extended release 24 hr 5 mg PO QAM RF: 0 pantoprazole 40 mg Tablet,Delayed Release (Dr/Ec) 40 mg PO QAM RF: 0 Multi For Her 18 mg iron-600 mcg-40 mcg Capsule 1 tab-cap PO QAM RF: 0 spironolactone 25 mg tablet 25 mg PO QAM RF: 0 allopurinol 300 mg tablet 300 mg PO DAILY RF: 0 thiamine HCl (vitamin B1) [Vitamin B-1] 100 mg Tablet 100 mg PO QAM RF: 0 PreserVision AREDS-2 [id number] Capsule 1 tab PO BID RF: 0 clindamycin HCl 150 mg capsule See Rx Instructions .ROUTE .COMPLEX RF: 0 Myrbetriq 50 mg tablet extended release 24 hr 50 mg PO QAM RF: 0 Shingrix (PF) 50 mcg/0.5 mL Suspension For Reconstitution 0.5 ml IM DIRECTED RF: 0 Discontinued furosemide [Lasix] 80 mg tablet 80 mg PO QAM RF: 0 metoprolol tartrate 25 mg Tablet 25 mg PO BID RF: 0 silver sulfadiazine [Silvadene] 1 % Cream 1 applic TOPICAL BID PRN (Reason: SKIN ISSUES) RF: 0 warfarin 10 mg tablet 5 mg PO UD Qty: 30 RF: 0 warfarin 2.5 mg tablet PO UNKNOWN RF: 0 Stand-Alone Forms: [facility] Discharge Orders: Discharge Order (Routine); Ordered 11/13/18 Ordered By: Sara Morton Skilled Items Patient informed of condition?: Yes DNR: No Discharge Level of Care: Skilled Communicable Disease: No Discharge Prognosis: Improving Admission Data Admit Date/Time: 11/04/18 16:53 Attending Provider: Florina Baum Admit Provider: Mariano Arroyo Primary Care Provider: Rah Ambrocio Other Providers: Florina Buam ; IRB Approved Study,[place] ; Mariano Arroyo ; Naveen Kuo ; Megan Prieto ; Shannen Muñoz ; Mary Edwards ; Roro Lion ; Tyesha Miller ; Shari Harrell ; Desmond Arias ; Josias Steen ; Ti Garcia ; Alexander Mendoza ; April Mendoza ; Jaime Velazquez ; Jesika Mckenna ; Brian Huntley ; Enzo Coelho ; Gerardo Morse ; Kwame Cloud ; Alan Tamayo ; Annmarie Tate ; Rick Kang ; Mery Cortez ; Sara Kang ; Michele Sandhu ; Geetha Keene ; Lavon Reyes ; Lelia Foster ; Laura Baldwin ; Siva Moon ; Malina Elizabeth ; Yana Moore ; Sari Willard ; Ashia David ; Robin David V ; Blair Juarez ; Mary Cox ; Landry Stone ; Preethi Raphael V ; Dagoberto Champagne ; Miesha Cedeno ; Toyin Betts ; Dana Cox ; Robin Mejia ; Blayne Tate ; Kisha Gonzalez ; Sari Rodriguez ; Ti Kim ; Deborah Camacho. ; Petros Tamayo ; Gudelia Eldridge ; Emmanuel Stack ; [facility] ; Sherif Bender I. Service: Medical Other Interventions: Discharge Summary Assessment (RN) Last Done: 11/13/18 14:07 Pending Studies at Discharge: No DC Date/Time DO NOT enter until pt leaves facility: 11/13/18 16:55 Supervising Physician Co-Signing Physician Notes PA Supervision Note: I personally saw and examined the patient. I verified all to points and agree with MYESHA Morton with the following exceptions and/or additions: Pt improved from admission, less SOB, weight down significantly. Had bladder stimulator removed while here and bridged for her anticoagulation. Vitals reviewed Morbidly obese Lungs diminished throughout due to body habitus Ext chronic edema 1-2+ SKin-very dry Stable for discharge on diuretics as above
[2018-11-13] MEDS: WARFARIN SOD 5 MG TAB PO SCH (16:32)
== END 2018-11-13 16:55 | DRG 292 ==
LOC: ED 20:31 → 2N 20:31 → SUATTDRO 11-03 00:46 → 2N 11-03 01:50 → SUATTDRO 11-04 16:53

== ENCOUNTER 2018-12-19 16:56 | Inpatient (IN) ==
[2018-12-19] MEDS ORDERED: SODIUM CHLORIDE 0.9% 1000ML 500 ML IV ONE (17:37)
[2018-12-19] MEDS ORDERED: ACETAMINOPHEN 500 MG TAB PO STA (17:37)
[2018-12-19] MEDS ORDERED: SODIUM CHLORIDE 0.9% 1000ML 1,000 ML IV STA (17:37)
[2018-12-19] MEDS ORDERED: DAPTOmycin 500 MG in SYRINGE 0 ML IV ONE (17:41)
[2018-12-19] MEDS ORDERED: AZTREONAM 2,000 MG in DEXTROSE 5% 100 ML IV STA (17:41)
--- NOTE | 2018-12-19 17:43 | XRay Report ---
XR chest 1V portable HISTORY: 73 years-old Female weakness acute weakness COMPARISON: Chest radiograph 11/01/2018 TECHNIQUE: Portable AP view of the chest FINDINGS: Cardiac silhouette is enlarged, unchanged. Pulmonary vascular congestion. Suggestion of trace pleural effusions. No pneumothorax. Calcification of the thoracic aortic arch. No lobar airspace consolidati on. Degenerative changes of the shoulders and spine. IMPRESSION: 1. Cardiomegaly with pulmonary vascular congestion. 2. Probable trace pleural effusions. The above report was generated using voice recognition software. It may contain grammatical, syntax o r spelling errors. Electronically signed by: Walker Toussaint M.D. 12/19/2018 5:41 PM
[2018-12-19 18:06] LABS: Appearance Urine Turbid (Clear); Bacteria Urine Automated 4+ (Negative); Bilirubin Urine Negative (Negative); Blood Urine 3+ (Negative); Color Urine Yellow; Epithelial Cell Urine Auto >30 /lpf (0-5); Glucose Urine UA Negative (Negative); Ketones Urine Negative (Negative); Leukocyte Esterase Urine 2+ (Negative); Nitrite Urine Negative (Negative); Protein Urine 3+ (Negative); Specific Gravity Urine 1.017 (1.000-1.030); Urobilinogen Urine Negative (Negative); WBC Urine Automated >30 /hpf (0-5); pH Urine 5.5 (4.5-7.5)
--- NOTE | 2018-12-19 18:25 | CT Scan Report ---
CT head/brain wo con CLINICAL HISTORY: 73 years-old Female presenting with AMS, fall. TECHNIQUE: Multidetector CT imaging of the head was performed without the use of intravenous contrast . IV contrast: None. One or more dose lowering techniques were used consistent with the principles of ALARA (as low as reasonably achievable), including automatic exposure control, mA or kV adjustment t o individual patient size, and/or use of iterative reconstruction. COMPARISON: 03/28/2014. CT DOSE (mGy.cm): The estimated cumulative dose is 614.27 mGy.cm. FINDINGS: Platen Drier Operator topogram: Unremarkable. Ventricles and sulci normal in size. No hemorrhage. Periventricular and subcortical white matter hypo attenuation, nonspecific but likely indicative of chronic small vessel ischemic change. No acute terr itorial infarct. No mass effect or midline shift. No extra-axial fluid collection. Paranasal sinuses and mastoid air cells clear. Calvarium intact. IMPRESSION: 1. Chronic small vessel ischemic change. No acute intracranial abnormality. Electronically signed by: Braulio Nix M.D. 12/19/2018 6:22 PM
[2018-12-19 18:27] LABS: Cast Urine Automated 0 /lpf (0-5); Renal Epithelial Cells Urine 0-5 /lpf (0-5)
[2018-12-19 19:03] LABS: Basophils # (auto) 0.01 K/uL (0-0.2); Eosinophils # (auto) 0.01 K/uL (0-0.5); Hematocrit (blood only) 51.1 % (37-47); Hemoglobin 17.1 g/dL (12.0-16.0); Immature Granulocytes # (auto) 0.26 K/uL (0.00-0.02); Immature Granulocytes % (auto) 1.2 %; Lymphocytes % (auto) 4.6 %; Mean Corpuscular Hgb Conc 33.5 g/dL (32-36); Mean Corpuscular Volume 98.5 fL (80-100); Mean Platelet Volume 12.5 fL (7.4-10.4); Monocytes # (auto) 0.99 K/uL (0.11-0.59); Monocytes % (auto) 4.5 %; Neutrophils % (auto) 89.7 %; Platelet Count 166 K/uL (130-400); RDW Coefficient of Variation 16.6 % (11.5-14.5); RDW Standard Deviation 57.1 fL (36.4-46.3); Red Blood Count 5.19 M/uL (4.2-5.4); White Blood Count 21.87 K/uL (4.8-10.8)
[2018-12-19 20:36] LABS: Alanine Aminotransferase 137 U/L (12-78); Albumin Level 2.3 gm/dl (3.4-5.0); Aspartate Aminotransferase 668 U/L (15-37); BUN Creatinine Ratio 21.5 (10-20); Blood Urea Nitrogen 49 mg/dl (7-18); Calcium 8.9 mg/dl (8.5-10.1); Carbon Dioxide 20 mmol/L (21-32); Chloride 108 mmol/L (98-107); Est GFR (African American) 23.7; Est GFR (Non-African American) 20.4; Glucose 119 mg/dl (70-99); Potassium 5.3 mmol/L (3.5-5.1); Sodium 138 mmol/L (136-145)
[2018-12-19 20:39] LABS: Albumin Globulin Ratio 0.5 (0.9-2); Alkaline Phosphatase 130 U/L (45-117); Bilirubin,Total 0.7 mg/dl (0.2-1); Globulin 4.6 gm/dl (2.5-4.0); Total Protein 6.9 gm/dl (6.4-8.2)
[2018-12-19] MEDS ORDERED: LORazepam 2 MG/4 ML VIAL IV PRN (22:12)
[2018-12-19] MEDS ORDERED: LORazepam 1 MG/2 ML VIAL IV PRN (22:12)
[2018-12-19] MEDS ORDERED: LORazepam 3 MG/6 ML VIAL IV PRN (22:12)
[2018-12-19] MEDS ORDERED: ATIVAN IV ALCOHOL WITHDRAWL IV SCH (22:15)
[2018-12-19] MEDS ORDERED: DAPTOMYCIN CONSULT ACTIVE PRN (22:22)
[2018-12-19] MEDS ORDERED: AZTREONAM CONSULT ACTIVE PRN (22:22)
--- NOTE | 2018-12-19 23:09 | History & Physical Report ---
Date of Service December 19, 2018 Assessment & Plan (1) Sepsis: Sepsis/altered mental status/UTI/hypotension/hypoxia- WBC 21.87 upon admission. History of UTIs with enterococcus faecalis and E. coli. She has been started on daptomycin IV and aztreonam IV in the ED, which will be continued. Follow urine culture and sensitivities. We will continue IV fluids per sepsis protocol. Chest x-ray suggest possible right lower lobe infiltrate, which should be covered above antibiotics. Present on Admission?: Yes (2) Altered mental status: See above Present on Admission?: Yes (3) UTI (urinary tract infection): Enterococcus faecalis UTI on 07/31/2018. E. coli UTI on 03/23/2018. Sensitivities reviewed, and will continue daptomycin IV and aztreonam IV as noted above. Present on Admission?: Yes (4) Hypotension: Lowest blood pressure was 81/60. She responded to fluid rehydration, and will be monitored on telemetry. Present on Admission?: Yes (5) Chronic diastolic (congestive) heart failure: Had recent admission for CHF from 11/03-11/13. We will watch for symptoms of fluid intolerance as she is rehydrated following her hypotension. Present on Admission?: Yes (6) Atrial fibrillation, persistent: Anticoagulated with warfarin. They have been having difficulty with blood hemolyzing and attempting to check her INR. INR is been reordered and is pending at this time. Will hold warfarin until results are available. Present on Admission?: Yes (7) Acute kidney injury (nontraumatic): Creatinine is 2.27 upon admission. Baseline creatinine is 1.14. Follow laboratory serially as she is rehydrated. Present on Admission?: Yes (8) Hypertension: Will hold felodipine, furosemide metoprolol tartrate and spironolactone until blood pressure recovers. Present on Admission?: Yes (9) Abnormal LFTs (liver function tests): AST 668, ALT 137 upon admission. Unclear etiology at this time, but with difficulty in drawing blood from his patient, these may be hemolyzed results. We will repeat laboratories in a.m., and if still abnormal, will pursue additional work-up and imaging then. Present on Admission?: Yes (10) Hyperlipidemia: Continue atorvastatin 40 mg daily. Present on Admission?: Yes History of Present Illness Chief Complaint: The patient is brought to the emergency department by EMS, after a reported fall at home with unknown circumstances. Primary Care Provider: Rah Ambrocio MD The patient is a 73-year-old female with most recent admission to [facility] from 11/02-11/13/18 for acute CHF and removal of InterStim device. She was found v eric confused and lying on the floor at home by EMS, in what was described as a filthy household. She was thought to have a fall, but the mechanism and exact time that took place is not clear. The patient herself is too confused to adequately contribute to her HPI upon arrival. Allergies Allergy/AdvReac Type Severity Reaction Status Date / Time ketoprofen Allergy Severe NUMBNESS Verified 12/19/18 18:08 FROM WAIST DOWN SEVERAL MONTHS cephalexin Allergy Intermediate ITCHING Verified 12/19/18 18:08 Iodinated Contrast- Oral and Allergy Intermediate PAIN AT Verified 12/19/18 18:08 IV Dye INJECTION SITE AND UP THE BONES Penicillins Allergy Intermediate SEVERE RASH Verified 12/19/18 18:08 trimethoprim Allergy Intermediate ELEVATED Verified 12/19/18 18:08 POTASSIUM LEVELS Benzodiazepines Allergy Unknown Unverified 12/19/18 18:08 lorazepam AdvReac Intermediate pt Verified 12/19/18 18:08 EXTREMELY sensitive Home Medications Home Medications Medication Instructions Recorded Confirmed Type pantoprazole 40 mg PO QAM 07/22/18 12/19/18 History allopurinol 300 mg PO DAILY 07/31/18 12/19/18 History spironolactone 25 mg PO QAM 07/31/18 12/19/18 History nystatin 1 applic TOPICAL BID PRN 10/24/18 12/19/18 History atorvastatin 40 mg PO DAILY 11/03/18 12/19/18 History felodipine 2.5 mg PO DAILY 12/19/18 12/19/18 History furosemide 20 mg PO DAILY 12/19/18 12/19/18 History furosemide 40 mg PO DAILY 12/19/18 12/19/18 History metoprolol tartrate 12.5 mg PO BID 12/19/18 12/19/18 History warfarin 6 mg PO DAILY 12/19/18 12/19/18 History Past Med/Surg History Medical History Hyperventilation syndrome (Acute) BMI 60.0-69.9, adult (Acute) Low back pain (Acute) Esophageal dysmotility (Acute) Paroxysmal ventricular tachycardia (Acute) Pickwickian syndrome (Acute) Obstructive sleep apnea (Acute) Restrictive lung disease (Acute) Lung nodule seen on imaging study (Acute) Renal insufficiency (Acute) Edema (Acute) Atrial fibrillation, persistent (Acute) Memory loss (Acute) Chronic diastolic (congestive) heart failure (Acute) Polyneuropathy (Acute) Vitamin D deficiency (Acute) Anticoagulated on Coumadin (Acute) Abnormal dobutamine stress echo (Acute) Diverticulosis of colon (Acute) Adenomatous polyp of colon (Acute) Carotid artery plaque (Acute) Atrial fibrillation with slow ventricular response (Acute) Asthma (Chronic) Pulmonary hypertension (Chronic) Hypertension (Chronic) Hyperlipidemia (Chronic) Psoriasis (Chronic) Venous stasis dermatitis (Chronic) Osteoarthritis (Chronic) GERD (gastroesophageal reflux disease) (Chronic) Cervical radiculopathy Cervical spondylosis Chronic diastolic CHF (congestive heart failure), NYHA class 3 Chronic pain RIGHT SHOULDER - RADIATING DOWN RIGHT ARM AND SOME PAIN IN LEFT ARM. WEAKNESS IN RIGHT ARM Diaper rash STATES HAS BEEN DIAGNOSED WITH "SEVERE DIAPER RASH" - USES CREAM WHICH IS HELPING AREAS History of asthma CHILD Hx of deep venous thrombosis Macular degeneration Noncompliance Permanent atrial fibrillation Sleep apnea Surgical History History of colonoscopy History of tonsillectomy History of total knee replacement X3; LEFT X2, RIGHT X1 History of wisdom tooth extraction Family History Mother Hypertension Cardiac disorder Cerebral artery occlusion with cerebral infarction Pericarditis Rheumatoid arthritis Father Asthma Hypertension Cardiac disorder COPD (chronic obstructive pulmonary disease) Coronary heart disease Family history of CABG Macular degeneration Skin cancer Brother Obesity Grandfather Diabetes Social History Preferred Language: Bahamian Communication Ability: Effective Communication Ability Comment: confused at times Investigation Officer Required: No Beliefs That Will Affect Care: None Current Living Situation: Alone Other Information That Helps Us Care for You: No Feels Safe at Home: Yes Safety Concerns: Feels Safe At This Time Smoking Status: Never smoker Tobacco Type: cigarettes Do You Dip or Chew Tobacco: No Smoking End Date: > 30 years ago Second Hand Exposure: Yes (OCCASSIONALLY) Hx Alcohol Use: No Hx Substance Use: No Review of Systems Review of Systems: Review of systems is limited due to patient's altered consciousness. Physical Exam Physical Exam: The patient is awake and disoriented, normocephalic and atraumatic, lying in bed and in no acute distress. HEENT--PERRL, EOMI, mucous membranes and oropharynx dry. Neck--supple. No JVD. No bruits. Thyroid normal, trachea midline, no adenopathy. Heart--normal S1 and S2. No murmurs, rubs or gallops. Lungs--clear bilaterally, no respiratory distress, no accessory muscle use. Abdomen--normal bowel sounds and soft. Nontender. Nondistended. Obese. Extremities--no cyanosis or clubbing. No edema. There are good distal pulses b/l. Dermatologic--normal skin turgor, normal color, no abnormal lymph nodes, no rash. Neurologic--cranial nerves II through XII grossly intact. Rheumatologic--limited exam Psychiatric--confused Results & Data Vital Signs (Past 12 Hours) Vital Signs Temp Pulse Resp BP Pulse Ox 12/19/18 22:31 97 H 21 111/63 96 12/19/18 22:30 100 H 26 H 96 12/19/18 22:16 93 H 24 100/63 96 12/19/18 22:05 107 H 32 H 85/50 L 94 12/19/18 22:01 100 H 21 81/60 L 95 12/19/18 22:00 92 H 28 H 96 12/19/18 21:31 96 H 33 H 103/67 96 12/19/18 21:30 95 H 15 96 12/19/18 21:01 101 H 26 H 106/62 94 12/19/18 20:59 96 H 14 107/71 96 12/19/18 20:32 88/72 L 95 12/19/18 20:30 95 12/19/18 20:02 106 H 20 123/90 96 12/19/18 20:00 105 H 28 H 96 12/19/18 19:31 103 H 33 H 131/97 96 12/19/18 19:30 33 H 92 12/19/18 19:03 108 H 21 12/19/18 19:02 107 H 32 H 128/113 H 12/19/18 19:00 97 H 25 H 12/19/18 18:30 116 H 25 H 12/19/18 18:00 113 H 24 12/19/18 17:30 104 H 30 H 124/96 12/19/18 17:24 100.0 F H 96 H 32 H 146/109 H 97 Laboratory Results Laboratory Results WBC 21.87 K/uL (4.8-10.8) H 12/19/18 18:49 RBC 5.19 M/uL (4.2-5.4) 12/19/18 18:49 Hgb 17.1 g/dL (12.0-16.0) H 12/19/18 18:49 Hct 51.1 % (37-47) H 12/19/18 18:49 MCV 98.5 fL (80-100) 12/19/18 18:49 MCH 32.9 pg (25-34) 12/19/18 18:49 MCHC 33.5 g/dL (32-36) 12/19/18 18:49 RDW Std Deviation 57.1 fL (36.4-46.3) H 12/19/18 18:49 RDW Coeff of Priti 16.6 % (11.5-14.5) H 12/19/18 18:49 Plt Count 166 K/uL (130-400) 12/19/18 18:49 MPV 12.5 fL (7.4-10.4) H 12/19/18 18:49 Immature Gran % (Auto) 1.2 % 12/19/18 18:49 Neut % (Auto) 89.7 % 12/19/18 18:49 Lymph % (Auto) 4.6 % 12/19/18 18:49 [place] % (Auto) 4.5 % 12/19/18 18:49 Eos % (Auto) 0.0 % 12/19/18 18:49 Baso % (Auto) 0.0 % 12/19/18 18:49 Immature Gran # (Auto) 0.26 K/uL (0.00-0.02) H 12/19/18 18:49 Neut # (Auto) 19.60 K/uL (1.4-6.5) H 12/19/18 18:49 Lymph # (Auto) 1.00 K/uL (1.2-3.4) L 12/19/18 18:49 [place] # (Auto) 0.99 K/uL (0.11-0.59) H 12/19/18 18:49 Eos # (Auto) 0.01 K/uL (0-0.5) 12/19/18 18:49 Baso # (Auto) 0.01 K/uL (0-0.2) 12/19/18 18:49 PT 14.6 Seconds (9.0-12.0) H 12/19/18 22:15 INR 1.5 (0.9-1.1) H 12/19/18 22:15 Sodium 138 mmol/L (136-145) 12/19/18 19:54 Potassium 5.3 mmol/L (3.5-5.1) H 12/19/18 19:54 Chloride 108 mmol/L (98-107) H 12/19/18 19:54 Carbon Dioxide 20 mmol/L (21-32) L 12/19/18 19:54 Anion Gap 11.0 (3-11) 12/19/18 19:54 BUN 49 mg/dl (7-18) H 12/19/18 19:54 Creatinine 2.27 mg/dl (0.6-1.2) H 12/19/18 19:54 Est Cr Clr Drug Dosing Not Reportable 12/19/18 19:54 Est GFR ( Amer) 23.7 12/19/18 19:54 Est GFR (Non-Af Amer) 20.4 12/19/18 19:54 BUN/Creatinine Ratio 21.5 (10-20) H 12/19/18 19:54 Glucose 119 mg/dl (70-99) H 12/19/18 19:54 Lactate 2.2 mmol/L (0.4-2.0) H* 12/19/18 22:16 Calcium 8.9 mg/dl (8.5-10.1) 12/19/18 19:54 Magnesium Cancelled 12/19/18 18:49 Total Bilirubin 0.7 mg/dl (0.2-1) 12/19/18 19:54 AST 668 U/L (15-37) H 12/19/18 19:54 ALT 137 U/L (12-78) H 12/19/18 19:54 Alkaline Phosphatase 130 U/L (45-117) H 12/19/18 19:54 Total Protein 6.9 gm/dl (6.4-8.2) 12/19/18 19:54 Albumin 2.3 gm/dl (3.4-5.0) L 12/19/18 19:54 Globulin 4.6 gm/dl (2.5-4.0) H 12/19/18 19:54 Albumin/Globulin Ratio 0.5 (0.9-2) L 12/19/18 19:54 Folate > 24.00 ng/ml (>5.38) 12/19/18 22:16 TSH Cancelled 12/19/18 18:49 Urine Color Yellow 12/19/18 17:30 Urine Appearance Turbid (Clear) A 12/19/18 17:30 Urine pH 5.5 (4.5-7.5) 12/19/18 17:30 Ur Specific [place] 1.017 (1.000-1.030) 12/19/18 17:30 Urine Protein 3+ (Negative) H 12/19/18 17:30 Urine Glucose (UA) Negative (Negative) 12/19/18 17:30 Urine Ketones Negative (Negative) 12/19/18 17:30 Urine Blood 3+ (Negative) H 12/19/18 17:30 Urine Nitrite Negative (Negative) 12/19/18 17:30 Urine Bilirubin Negative (Negative) 12/19/18 17:30 Urine Urobilinogen Negative (Negative) 12/19/18 17:30 Ur Leukocyte Esterase 2+ (Negative) H 12/19/18 17:30 Urine WBC (Auto) >30 /hpf (0-5) H 12/19/18 17:30 Urine RBC (Auto) 10-30 /hpf (0-4) H 12/19/18 17:30 U Hyaline Cast (Auto) 0 /lpf (0-5) 12/19/18 17:30 U Epithel Cells (Auto) >30 /lpf (0-5) H 12/19/18 17:30 Urine Bacteria (Auto) 4+ (Negative) H 12/19/18 17:30 Ur Renal Epithelial Cell 0-5 /lpf (0-5) 12/19/18 17:30 Urine Yeast Present (None Prsent) A 12/19/18 17:30 Nasal Screen MRSA (PCR) Negative (Negative) 12/20/18 00:44 Ethyl Alcohol mg/dL < 3.0 mg/dl (0-3) 12/19/18 22:16 Diagnostic Findings [facility], [place] [phone] CT Scan Report Patient: ASHLEIGH WEBER Date: 12/19/18 MR#: [id number]: [address] [place] [address] Acct ID:[id number]: Date: [address] [place] [address] Zip: [place] [address] Age: 73Location: ED Sex: F Room/Bed: Att Phy: Diagnosis: FALL, CONFUSION Lenore Phy: Rah Ambrocio, MDService Date: 12/19/18 Fam Phy: Interpreting Phy: Braulio Nix MD Admit Phy: Ordering Phy: Petros Park MD cc: ~ CT head/brain wo con CLINICAL HISTORY: 73 years-old Female presenting with AMS, fall. TECHNIQUE: Multidetector CT imaging of the head was performed without the use of intravenous contrast. IV contrast: None. One or more dose lowering techniques were used consistent with the principles of ALARA (as low as reasonably achievable), including automatic exposure control, mA or kV adjustment to individual patient size, and/or use of iterative reconstruction. COMPARISON: 03/28/2014. CT DOSE (mGy.cm): The estimated cumulative dose is 614.27 mGy.cm. FINDINGS: Senior Software Tester topogram: Unremarkable. Ventricles and sulci normal in size. No hemorrhage. Periventricular and subcortical white matter hypoattenuation, nonspecific but likely indicative of chronic small vessel ischemic change. No acute territorial infarct. No mass effect or midline shift. No extra-axial fluid collection. Paranasal sinuses and mastoid air cells clear. Calvarium intact. IMPRESSION: 1. Chronic small vessel ischemic change. No acute intracranial abnormality. Electronically signed by: Braulio Nix M.D. 12/19/2018 6:22 PM Dictated: 12/19/181818 Transcribed: 12/19/181818 [facility] [place] [phone] XRay Report Patient: ASHLEIGH WEBER Date: 12/19/18 MR#: [id number]: [address] [place] [address] Acct ID:[id number]: Date: [address] [place] [address] Zip: [place] [address] Age: 73Location: ED Sex: F Room/Bed: Att Phy: Diagnosis: FALL, CONFUSION Lenore Phy: RahVincent, MDService Date: 12/19/18 [facility] Phy: Interpreting Phy: Graeme Toussaint Admit Phy: Ordering Phy: Petros Park MD cc: ~ XR chest 1V portable HISTORY: 73 years-old Female weakness acute weakness COMPARISON: Chest radiograph 11/01/2018 TECHNIQUE: Portable AP view of the chest FINDINGS: Cardiac silhouette is enlarged, unchanged. Pulmonary vascular congestion. Suggestion of trace pleural effusions. No pneumothorax. Calcification of the thoracic aortic arch. No lobar airspace consolidation. Degenerative changes of the shoulders and spine. IMPRESSION: 1. Cardiomegaly with pulmonary vascular congestion. 2. Probable trace pleural effusions. The above report was generated using voice recognition software. It may contain grammatical, syntax or spelling errors. Electronically signed by: Walker Toussaint M.D. 12/19/2018 5:41 PM Dictated: 12/19/181739 Transcribed: 12/19/181739 Code Status & VTE Plan Code Status Full code VTE Prophylaxis Plan VTE Prophylaxis will be ordered: Yes PG Care Time/CCT Total # of Minutes Spent Total Time Spent with Patient: Total time spent is greater than 50% in coordination of care (as documented) at patient's floor/unit and/or counseling patient: (1) Sepsis Sepsis type: sepsis due to unspecified organism Qualified Code(s): A41.9 - Sepsis, unspecified organism (2) UTI (urinary tract infection) Hematuria presence: without hematuria Urinary tract infection type: site unspecified Qualified Code(s): N39.0 - Urinary tract infection, site not specified
--- NOTE | 2018-12-19 23:18 | Emergency Department Note ---
Entered by Linda Bingham acting as a scribe for Petros Park MD ED Provider Note CHIEF COMPLAINT: Fall HISTORY OF PRESENT ILLNESS: The patient is a 73 year old female who presents to the Emergency Room with complaints of a fall that occurred at an unknown time. Per EMS, the patient lives in a filthy household and was found lying on the ground very confused. The patient denies back pain, kidney pain, headache, and nausea. Limited secondary to confusion. REVIEW OF SYSTEMS: See HPI for pertinent positives and negatives. Limited HPI and ROS due to confusion. PMHx/PSHx: Memory loss, GERD, HTN, HLD, carotid artery plaque, diverticulitis, pickwickian syndrome, asthma, psoriasis SOCIAL HISTORY: Patient lives at home. PHYSICAL EXAM: GENERAL: Awake, ill-appearing, in no distress, moving extremities but not following commands. HENT: Normocephalic, atraumatic. Dry mucous membrane. Oropharynx unremarkable. EYES: PERRL. Pale conjunctiva. Sclera non-icteric. NECK: Inspection normal. Non-tender. Supple. No nuchal rigidity. FROM. No masses. RESPIRATORY: Tachypnea, increased work of breathing. Clear to auscultation. No wheezes. No rales. CARDIAC: Tachycardia. Normal rhythm. No murmurs. No rubs. Extremities warm and well perfused. Pulses equal. No JVD. GI: Soft, non-distended. No tenderness to palpation. No rebound or guarding. No masses. RECTAL: Deferred. MUSCULOSKELETAL: Atraumatic. Chest examination reveals no tenderness. The back is symmetrical on inspection without obvious abnormality. There is no CVA tenderness to palpation. No joint edema. LOWER EXTREMITIES: 2+ edema bilaterally. Calves are equal size bilaterally and non-tender. NEURO: Altered sensorium. No sensory or motor deficits noted. SKIN: Chronic skin changes bilaterally. Chronic thickening of the skin. No rash or jaundice noted. EMERGENCY DEPARTMENT COURSE: 1736: Past medical records reviewed. The patient was evaluated in room A10, and a complete history and physical examination were performed. 1809: I performed a venipuncture on the patient. Hemodynamically stable. 1955: Family updated. Patient stable. I discussed the patient's case with Dr. Richmond[facility] Hospitalist. He will evaluate the patient for further manage ment. MEDICAL DECISION MAKING: Prior records/ancillary studies reviewed and summarized above. Nursing notes reviewed and agree them. Additional history obtained from son. Additional history is also obtained from the blood bank laboratory technologist. The patient's history was concerning for altered mental status. Differential diagnosis: Etiologies such as infection, hypoglycemia, electrolyte abnormalities, cardiac sources, intracerebral event, toxicologic, neurologic, as well as others were entertained. Physical examination: As above. The patient was disoriented. ER treatment provided: IV Lock Normal saline hydration IV daptomycin IV aztreonam Oral Tylenol. On reassessment the patient was hemodynamically stable. Diagnostics interpretation by me: ECG: No acute ischemia. The labs revealed significant leukocytosis on CBC. Chemistry panel was unremarkable. Baseline renal insufficiency. Urinalysis very concerning for infection. Blood cultures pending. Imaging studies: Head CT performed and was no negative for acute disease. Chest x-ray performed and negative for infectious pathology or acute disease. Patient has a urinary tract infection. She has physical and blood work findings concerning for sepsis. She had a large bore IV placed by IV team. Lab had a difficult time drawing blood. I did draw blood on the patient laboratory analysis. Patient will need further management in the hospital. Case management is aware of her current living situation and medical condition. Family made aware as well. Consultation: A consultation was placed with the hospitalist. The case was discussed and diagnostics were reviewed. The patient was evaluated in the ER for further treatment. IMPRESSION: Sepsis, altered mental status, UTI, leukocytosis. PLAN: Being evaluated by Hospitalist PROCEDURE: Procedure: Venipuncture by physician. CRITICAL CARE: I have personally spent 32 minutes of critical care time in the direct management of this patient. This includes bedside care, interpretation of diagnostic studies, and testing, discussion with consultants, patient, and family members, and other required patient management activities. This 32 minutes is in excess of all separately billable procedures. The scribe's documentation has been prepared under my direction and personally reviewed by me in its entirety. I confirm that the note above accurately reflects all work, treatment, procedures, and medical decision making performed by me. Impression & Plan Sepsis, Altered mental status, UTI (urinary tract infection), Leukocytosis Past Med/Surg History Medical History Hyperventilation syndrome (Acute) BMI 60.0-69.9, adult (Acute) Low back pain (Acute) Esophageal dysmotility (Acute) Paroxysmal ventricular tachycardia (Acute) Pickwickian syndrome (Acute) Obstructive sleep apnea (Acute) Restrictive lung disease (Acute) Lung nodule seen on imaging study (Acute) Renal insufficiency (Acute) Edema (Acute) Atrial fibrillation, persistent (Acute) Memory loss (Acute) Chronic diastolic (congestive) heart failure (Acute) Polyneuropathy (Acute) Vitamin D deficiency (Acute) Anticoagulated on Coumadin (Acute) Abnormal dobutamine stress echo (Acute) Diverticulosis of colon (Acute) Adenomatous polyp of colon (Acute) Carotid artery plaque (Acute) Atrial fibrillation with slow ventricular response (Acute) Asthma (Chronic) Pulmonary hypertension (Chronic) Hypertension (Chronic) Hyperlipidemia (Chronic) Psoriasis (Chronic) Venous stasis dermatitis (Chronic) Osteoarthritis (Chronic) GERD (gastroesophageal reflux disease) (Chronic) Cervical radiculopathy Cervical spondylosis Chronic diastolic CHF (congestive heart failure), NYHA class 3 Chronic pain RIGHT SHOULDER - RADIATING DOWN RIGHT ARM AND SOME PAIN IN LEFT ARM. WEAKNESS IN RIGHT ARM Diaper rash STATES HAS BEEN DIAGNOSED WITH "SEVERE DIAPER RASH" - USES CREAM WHICH IS HELPING AREAS History of asthma CHILD Hx of deep venous thrombosis Macular degeneration Noncompliance Permanent atrial fibrillation Sleep apnea Surgical History History of colonoscopy History of tonsillectomy History of total knee replacement X3; LEFT X2, RIGHT X1 History of wisdom tooth extraction Family History Mother Hypertension Cardiac disorder Cerebral artery occlusion with cerebral infarction Pericarditis Rheumatoid arthritis Father Asthma Hypertension Cardiac disorder COPD (chronic obstructive pulmonary disease) Coronary heart disease Family history of CABG Macular degeneration Skin cancer Brother Obesity Grandfather Diabetes Social History Preferred Language: P[place]in[place] Communication Ability: Effective Communication Ability Comment: confused at times Sewage Plant Supervisor Required: No Beliefs That Will Affect Care: None Current Living Situation: Alone Other Information That Helps Us Care for You: No Feels Safe at Home: Yes Safety Concerns: Feels Safe At This Time Smoking Status: Former smoker Tobacco Type: cigarettes Do You Dip or Chew Tobacco: No Smoking End Date: > 30 years ago Second Hand Exposure: Yes (OCCASSIONALLY) Hx Alcohol Use: Yes Alcohol type: beer and hard liquor Hx Substance Use: No Results & Data Vital Signs Vital Signs - 24 hr 12/19/18 17:24 12/19/18 17:30 12/19/18 18:00 Temperature 37.8 C H Temperature Source Oral Sepsis Recent Fever Within 48 Hours Yes Sepsis New/Unexplained Change in Mental Status Yes Sepsis Action Taken by Nursing Physician Notified Pulse Rate 96 H 104 H 113 H Pulse Rate from SpO2 Sensor Respiratory Rate 32 H 30 H 24 Respiratory Effort / Characteristics Blood Pressure 146/109 H 124/96 Blood Pressure Mean 121 105 Pulse Oximetry 97 Oxygen Delivery Method Nasal Cannula Oxygen Flow Rate 4 12/19/18 18:30 12/19/18 19:00 12/19/18 19:02 Temperature Temperature Source Sepsis Recent Fever Within 48 Hours Sepsis New/Unexplained Change in Mental Status Sepsis Action Taken by Nursing Pulse Rate 116 H 97 H 107 H Pulse Rate from SpO2 Sensor Respiratory Rate 25 H 25 H 32 H Respiratory Effort / Characteristics Blood Pressure 128/113 H Blood Pressure Mean 118 Pulse Oximetry Oxygen Delivery Method Oxygen Flow Rate 12/19/18 19:03 12/19/18 19:30 12/19/18 19:31 Temperature Temperature Source Sepsis Recent Fever Within 48 Hours Sepsis New/Unexplained Change in Mental Status Sepsis Action Taken by Nursing Pulse Rate 108 H 103 H Pulse Rate from SpO2 Sensor 104 H 102 H Respiratory Rate 21 33 H 33 H Respiratory Effort / Characteristics Blood Pressure 131/97 Blood Pressure Mean 108 Pulse Oximetry 92 96 Oxygen Delivery Method Oxygen Flow Rate 12/19/18 20:00 12/19/18 20:02 12/19/18 20:30 Temperature Temperature Source Sepsis Recent Fever Within 48 Hours Sepsis New/Unexplained Change in Mental Status Sepsis Action Taken by Nursing Pulse Rate 105 H 106 H Pulse Rate from SpO2 Sensor 101 H 107 H 100 H Respiratory Rate 28 H 20 Respiratory Effort / Characteristics Blood Pressure 123/90 Blood Pressure Mean 101 Pulse Oximetry 96 96 95 Oxygen Delivery Method Oxygen Flow Rate 12/19/18 20:32 12/19/18 20:59 12/19/18 21:01 Temperature Temperature Source Sepsis Recent Fever Within 48 Hours Sepsis New/Unexplained Change in Mental Status Sepsis Action Taken by Nursing Pulse Rate 96 H 101 H Pulse Rate from SpO2 Sensor 99 H 105 H 102 H Respiratory Rate 14 26 H Respiratory Effort / Characteristics Blood Pressure 88/72 L 107/71 106/62 Blood Pressure Mean 77 83 76 Pulse Oximetry 95 96 94 Oxygen Delivery Method Oxygen Flow Rate 12/19/18 21:30 12/19/18 21:31 12/19/18 22:00 Temperature Temperature Source Sepsis Recent Fever Within 48 Hours Sepsis New/Unexplained Change in Mental Status Sepsis Action Taken by Nursing Pulse Rate 95 H 96 H 92 H Pulse Rate from SpO2 Sensor 99 H 99 H 99 H Respiratory Rate 15 33 H 28 H Respiratory Effort / Characteristics Spontaneous Labored Short of Breath SOB on Exertion Blood Pressure 103/67 Blood Pressure Mean 79 Pulse Oximetry 96 96 96 Oxygen Delivery Method Nasal Cannula Oxygen Flow Rate 12/19/18 22:01 12/19/18 22:05 Temperature Temperature Source Sepsis Recent Fever Within 48 Hours Sepsis New/Unexplained Change in Mental Status Sepsis Action Taken by Nursing Pulse Rate 100 H 107 H Pulse Rate from SpO2 Sensor 105 H 100 H Respiratory Rate 21 32 H Respiratory Effort / Characteristics Blood Pressure 81/60 L 85/50 L Blood Pressure Mean 67 61 Pulse Oximetry 95 94 Oxygen Delivery Method Oxygen Flow Rate Home Medications Current Medication List: was personally reviewed by me Laboratory Data Attestation: I reviewed the patient's lab results. Result diagrams: 12/19/18 18:49 12/19/18 19:54 Lab Results 12/19/18 12/19/18 12/19/18 Range/Units 17:30 18:49 18:49 WBC 21.87 H (4.8-10.8) K/uL RBC 5.19 (4.2-5.4) M/uL Hgb 17.1 H (12.0-16.0) g/dL Hct 51.1 H (37-47) % MCV 98.5 (80-100) fL MCH 32.9 (25-34) pg MCHC 33.5 (32-36) g/dL RDW Std Deviation 57.1 H (36.4-46.3) fL RDW Coeff of Priti 16.6 H (11.5-14.5) % Plt Count 166 (130-400) K/uL MPV 12.5 H (7.4-10.4) fL Immature Gran % (Auto) 1.2 % Neut % (Auto) 89.7 % Lymph % (Auto) 4.6 % Charlton % (Auto) 4.5 % Eos % (Auto) 0.0 % Baso % (Auto) 0.0 % Immature Gran # (Auto) 0.26 H (0.00-0.02) K/uL Neut # (Auto) 19.60 H (1.4-6.5) K/uL Lymph # (Auto) 1.00 L (1.2-3.4) K/uL Charlton # (Auto) 0.99 H (0.11-0.59) K/uL Eos # (Auto) 0.01 (0-0.5) K/uL Baso # (Auto) 0.01 (0-0.2) K/uL PT INR Sodium Cancelled Potassium Cancelled Chloride Cancelled Carbon Dioxide Cancelled Anion Gap Cancelled BUN Cancelled Creatinine Cancelled Est Cr Clr Drug Dosing Cancelled Est GFR ( Amer) Cancelled Est GFR (Non-Af Amer) Cancelled BUN/Creatinine Ratio Cancelled Glucose Cancelled Calcium Cancelled Magnesium Cancelled Total Bilirubin Cancelled AST Cancelled ALT Cancelled Alkaline Phosphatase Cancelled Total Protein Cancelled Albumin Cancelled Globulin Cancelled Albumin/Globulin Ratio Cancelled TSH Cancelled Urine Color Yellow Urine Appearance Turbid A (Clear) Urine pH 5.5 (4.5-7.5) Ur Specific Alma 1.017 (1.000-1.030) Urine Protein 3+ H (Negative) Urine Glucose (UA) Negative (Negative) Urine Ketones Negative (Negative) Urine Blood 3+ H (Negative) Urine Nitrite Negative (Negative) Urine Bilirubin Negative (Negative) Urine Urobilinogen Negative (Negative) Ur Leukocyte Esterase 2+ H (Negative) Urine WBC (Auto) >30 H (0-5) /hpf Urine RBC (Auto) 10-30 H (0-4) /hpf U Hyaline Cast (Auto) 0 (0-5) /lpf U Epithel Cells (Auto) >30 H (0-5) /lpf Urine Bacteria (Auto) 4+ H (Negative) Ur Renal Epithelial Cell 0-5 (0-5) /lpf Urine Yeast Present A (None Prsent) 12/19/18 12/19/18 Range/Units 19:54 21:53 WBC (4.8-10.8) K/uL RBC (4.2-5.4) M/uL Hgb (12.0-16.0) g/dL Hct (37-47) % MCV (80-100) fL MCH (25-34) pg MCHC (32-36) g/dL RDW Std Deviation (36.4-46.3) fL RDW Coeff of Priti (11.5-14.5) % Plt Count (130-400) K/uL MPV (7.4-10.4) fL Immature Gran % (Auto) % Neut % (Auto) % Lymph % (Auto) % Charlton % (Auto) % Eos % (Auto) % Baso % (Auto) % Immature Gran # (Auto) (0.00-0.02) K/uL Neut # (Auto) (1.4-6.5) K/uL Lymph # (Auto) (1.2-3.4) K/uL Charlton # (Auto) (0.11-0.59) K/uL Eos # (Auto) (0-0.5) K/uL Baso # (Auto) (0-0.2) K/uL PT Cancelled INR Cancelled Sodium 138 Potassium 5.3 H Chloride 108 H Carbon Dioxide 20 L Anion Gap 11.0 BUN 49 H Creatinine 2.27 H Est Cr Clr Drug Dosing Not Reportable Est GFR ( Amer) 23.7 Est GFR (Non-Af Amer) 20.4 BUN/Creatinine Ratio 21.5 H Glucose 119 H Calcium 8.9 Magnesium Total Bilirubin 0.7 AST 668 H ALT 137 H Alkaline Phosphatase 130 H Total Protein 6.9 Albumin 2.3 L Globulin 4.6 H Albumin/Globulin Ratio 0.5 L TSH Urine Color Urine Appearance (Clear) Urine pH (4.5-7.5) Ur Specific [place] (1.000-1.030) Urine Protein (Negative) Urine Glucose (UA) (Negative) Urine Ketones (Negative) Urine Blood (Negative) Urine Nitrite (Negative) Urine Bilirubin (Negative) Urine Urobilinogen (Negative) Ur Leukocyte Esterase (Negative) Urine WBC (Auto) (0-5) /hpf Urine RBC (Auto) (0-4) /hpf U Hyaline Cast (Auto) (0-5) /lpf U Epithel Cells (Auto) (0-5) /lpf Urine Bacteria (Auto) (Negative) Ur Renal Epithelial Cell (0-5) /lpf Urine Yeast (None Prsent) Administered Medications Sodium Chloride (Nss 1000ml) 1,000 mls @ 125 mls/hr IV .Q8H STA Stop: 12/20/18 01:36 Last Admin: 12/19/18 19:39 Dose: 125 mls/hr Documented by: [id number] Discontinued Medications Acetaminophen (Tylenol) 1,000 mg PO NOW STA Stop: 12/19/18 17:38 Last Admin: 12/19/18 19:13 Dose: 1,000 mg Documented by: [id number] Sodium Chloride (Nss 1000ml) 500 mls @ 999 mls/hr IV .Q31M ONE Stop: 12/19/18 18:07 Last Infusion: 12/19/18 19:38 Dose: 0 mls/hr Documented by: [id number] Admin: 12/19/18 19:01 Dose: 999 mls/hr Documented by: [id number] Aztreonam 2,000 mg/ Dextrose 110 mls @ 100 mls/hr IV NOW STA; Protocol Stop: 12/19/18 18:46 Last Infusion: 12/19/18 20:05 Dose: 0 mls/hr Documented by: [id number] Admin: 12/19/18 18:53 Dose: 100 mls/hr Documented by: [id number] Daptomycin 500 mg/ Syringe 10 mls @ 5 mls/min IV NOW ONE; Protocol Stop: 12/19/18 17:42 Last Admin: 12/19/18 18:53 Dose: 5 mls/min Documented by: [id number] Imaging Data Radiologist's Impression: Radiology results as stated below per my review and the radiologist's interpretation: CT head/brain wo con CLINICAL HISTORY: 73 years-old Female presenting with AMS, fall. TECHNIQUE: Multidetector CT imaging of the head was performed without the use of intravenous contrast. IV contrast: None. One or more dose lowering techniques were used consistent with the principles of ALARA (as low as reasonably achievable), including automatic exposure control, mA or kV adjustment to individual patient size, and/or use of iterative reconstruction. COMPARISON: 03/28/2014. CT DOSE (mGy.cm): The estimated cumulative dose is 614.27 mGy.cm. FINDINGS: Resident Buyer topogram: Unremarkable. Ventricles and sulci normal in size. No hemorrhage. Periventricular and subcorti melita white matter hypoattenuation, nonspecific but likely indicative of chronic small vessel ischemic change. No acute territorial infarct. No mass effect or midline shift. No extra-axial fluid collection. Paranasal sinuses and mastoid air cells clear. Calvarium intact. IMPRESSION: 1. Chronic small vessel ischemic change. No acute intracranial abnormality. Electronically signed by: Braulio Nix M.D. 12/19/2018 6:22 PM XR chest 1V portable HISTORY: 73 years-old Female weakness acute weakness COMPARISON: Chest radiograph 11/01/2018 TECHNIQUE: Portable AP view of the chest FINDINGS: Cardiac silhouette is enlarged, unchanged. Pulmonary vascular congestion. Suggestion of trace pleural effusions. No pneumothorax. Calcification of the thoracic aortic arch. No lobar airspace consolidation. Degenerative changes of the shoulders and spine. IMPRESSION: 1. Cardiomegaly with pulmonary vascular congestion. 2. Probable trace pleural effusions. The above report was generated using voice recognition software. It may contain grammatical, syntax or spelling errors. Electronically signed by: Walker Toussaint M.D. 12/19/2018 5:41 PM Blood Pressure Blood Pressure Findings: Normal blood pressure Blood Pressure Disposition: did not require urgent referral Discharge Plan Visit Data Chief Complaint: Fall Stated Complaint: FALL, CONFUSION ED Provider: Petros Park Discharge Problem: Sepsis, Altered mental status, UTI (urinary tract infection), Leukocytosis Discharge Instructions Interventions: ED Discharge Assessment Last Done: 12/19/18 22:50 Discharge Problem: Sepsis Qualifiers: Sepsis type: sepsis due to unspecified organism Qualified Code(s): A41.9 - Sepsis, unspecified organism UTI (urinary tract infection) Qualifiers: Urinary tract infection type: site unspecified Hematuria presence: without hematuria Qualified Code(s): N39.0 - Urinary tract infection, site not specified Leukocytosis Qualifiers: Leukocytosis type: unspecified Qualified Code(s): D72.829 - Elevated white blood cell count, unspecified The scribe's documentation has been prepared under my direction and personally reviewed by me in its entirety. I confirm that the note above accurately reflects all work, treatment, procedures, and medical decision making performed by me.
[2018-12-20] MEDS ORDERED: MAGNESIUM HYDROXIDE SUSP 30 ML UDC PO PRN (00:08)
[2018-12-20] MEDS ORDERED: ONDANSETRON INJ 2 MG/ML 2 ML VIAL IV PRN (00:08)
[2018-12-20] MEDS ORDERED: POLYETHYLENE (MIRALAX) 17 GM PACK PO PRN (00:08)
[2018-12-20] MEDS ORDERED: ALUMINUM/MAGNESIUM SUSP 30 ML UDC PO PRN (00:08)
[2018-12-20] MEDS ORDERED: NYSTATIN POWDER 15GM BTL EXT PRN (00:08)
[2018-12-20] MEDS: AZTREONAM 1,000 MG in DEXTROSE 5% 100 ML IV SCH ×3 (01:38→18:42)
[2018-12-20 04:02] LABS: INR 1.5 (0.9-1.1); Prothrombin Time 14.6 Seconds (9.0-12.0)
[2018-12-20 06:30] LABS: INR 1.5 (0.9-1.1); Partial Thromboplastin Ratio 1.2; Partial Thromboplastin Time 32.3 Seconds (21.0-31.0); Prothrombin Time 14.9 Seconds (9.0-12.0)
[2018-12-20 06:31] LABS: Basophils # (auto) 0.01 K/uL (0-0.2); Eosinophils # (auto) 0.01 K/uL (0-0.5); Hematocrit (blood only) 48.6 % (37-47); Hemoglobin 16.7 g/dL (12.0-16.0); Immature Granulocytes # (auto) 0.16 K/uL (0.00-0.02); Immature Granulocytes % (auto) 0.7 %; Lymphocytes # (auto) 1.31 K/uL (1.2-3.4); Mean Corpuscular Hgb Conc 34.4 g/dL (32-36); Mean Corpuscular Volume 97.4 fL (80-100); Mean Platelet Volume 12.5 fL (7.4-10.4); Monocytes # (auto) 0.94 K/uL (0.11-0.59); Monocytes % (auto) 4.3 %; Neutrophils # (auto) 19.29 K/uL (1.4-6.5); Platelet Count 147 K/uL (130-400); RDW Coefficient of Variation 15.6 % (11.5-14.5); RDW Standard Deviation 55.4 fL (36.4-46.3); Red Blood Count 4.99 M/uL (4.2-5.4); White Blood Count 21.72 K/uL (4.8-10.8)
[2018-12-20 06:52] LABS: Albumin Level 2.1 gm/dl (3.4-5.0); BUN Creatinine Ratio 19.9 (10-20); Calcium 8.4 mg/dl (8.5-10.1); Creatinine Clr Calc Pharmacy 23.8 ml/min; Est GFR (African American) 19.5; Est GFR (Non-African American) 16.8; Potassium 4.9 mmol/L (3.5-5.1)
[2018-12-20 06:59] LABS: Bilirubin,Total 0.7 mg/dl (0.2-1); Total Protein 6.7 gm/dl (6.4-8.2)
[2018-12-20 07:00] LABS: Albumin Globulin Ratio 0.5 (0.9-2); Globulin 4.6 gm/dl (2.5-4.0)
--- NOTE | 2018-12-20 07:46 | Hospitalist Progress Note ---
Date of Service December 20, 2018 Assessment & Plan (1) Sepsis: Sepsis/metaobolic encephalopathy/UTI/hypotension/hypoxia- History of UTIs with enterococcus faecalis and E. coli. She has been started on daptomycin IV and aztreonam IV in the ED, which will be continued. Follow urine culture and sensitivities. Chest x-ray suggest possible right lower lobe infiltrate, which should be covered above antibiotics however clinically this seems most consitent with sepsis from an urinary source (2) Altered mental status: metabolic encephalopahty typically from gram negative uti (3) UTI (urinary tract infection): Enterococcus faecalis UTI on 07/31/2018. E. coli UTI on 03/23/2018. Sensitivities reviewed, and will continue daptomycin IV and aztreonam IV (4) Hypotension: Lowest blood pressure was 81/60. She responded to fluid rehydration, and will be monitored on telemetry. (5) Chronic diastolic (congestive) heart failure: Had recent admission for CHF from 11/03-11/13. We will watch for symptoms of fluid intolerance as she is rehydrated following her hypotension. (6) Atrial fibrillation, persistent: Anticoagulated with warfarin. (7) Acute kidney injury (nontraumatic): Creatinine is 2.27 upon admission. Baseline creatinine is 1.14. (8) Hypertension: Will hold felodipine, furosemide metoprolol tartrate and spironolactone until blood pressure recovers. (9) Abnormal LFTs (liver function tests): AST 668, ALT 137 upon admission., still up on repeat the pt did have a fall and maybe traumatic will check us (10) Hyperlipidemia: Continue atorvastatin 40 mg daily. (11) Morbid obesity with BMI of 50.0-59.9, adult: Subjective pt is mildly confused, son is at the bedside and is concerned due to her being on the ground at home for unknown amount of time with her legs bent beneath her and now has persistent leg/ankle/foot pain bilaterally Review of Systems Review of Systems: ROS: Patient is confused and with some lower leg pain No double vision blurry vision No problems with speech or swallowing No palpitations, chest pain or pressure No Wheezing or breathing issues No abdominal pain nausea vomiting diarrhea No burning urine Bilateral medial ankle pain right greater than left Chronic venous stasis dermatitis changes to her lower extremities No focused back pain or numbness strength of her lower extremities were limited due to discomfort in her ankles hips and knees Patient is confused Physical Exam Physical Exam: The patient appeared in mild to moderate discomfort she is morbidly obese Vital signs as documented. Head exam is unremarkable. normocephalic, atraumatic Neck is without jugular venous distension, thyromegaly, or lymphademopathy Lungs are diminished bilaterally no focal air loss no wheeze Cardiac exam reveals Rhythm is regular. Systolic ejection murmurs heard Abdominal exam reveals normal bowel sounds, no masses, no organomegaly soft n ontender Extremities she has bilateral ankle discomfort in the medial aspect right greater than left she is some hip and knee pain Neurologic exam is A&Ox2, strength not be assessed to the lower extremity pain which confusion limits her upper extremity cooperation Psychologically seems anxious and confused Skin is warm Dry with changes of chronic venous stasis her lower extremities Results & Data Vital Signs (Past 12 Hours) Vital Signs Temp Pulse Pulse Pulse Resp BP BP 12/20/18 07: 36.4 C L 90 20 110/70 12/20/18 03:21 36.5 C 101 H 21 138/81 12/19/18 23:45 36.5 C 92 H 20 12/19/18 22:31 97 H 21 111/63 12/19/18 22:30 100 H 26 H 12/19/18 22:16 93 H 24 100/63 12/19/18 22:05 107 H 32 H 85/50 L 12/19/18 22:01 100 H 21 81/60 L 12/19/18 22:00 92 H 28 H 12/19/18 21:31 96 H 33 H 103/67 12/19/18 21:30 95 H 15 12/19/18 21:01 101 H 26 H 106/62 12/19/18 20:59 96 H 14 107/71 12/19/18 20:32 88/72 L 12/19/18 20:30 12/19/18 20:02 106 H 20 123/90 12/19/18 20:00 105 H 28 H BP Pulse Ox 12/20/18 07:19 94 12/20/18 03:21 97 12/19/18 23:45 100/69 94 12/19/18 22:31 96 12/19/18 22:30 96 12/19/18 22:16 96 12/19/18 22:05 94 12/19/18 22:01 95 12/19/18 22:00 96 12/19/18 21:31 96 12/19/18 21:30 96 12/19/18 21:01 94 12/19/18 20:59 96 12/19/18 20:32 95 12/19/18 20:30 95 12/19/18 20:02 96 12/19/18 20:00 96 PG Care Time/CCT Total # of Minutes Spent Total Time Spent with Patient: Total time spent is greater than 50% in coordination of care (as documented) at patient's floor/unit and/or counseling patient: (1) UTI (urinary tract infection) Hematuria presence: without hematuria Urinary tract infection type: site unspecified Qualified Code(s): N39.0 - Urinary tract infection, site not specified (2) Sepsis Sepsis type: sepsis due to unspecified organism Qualified Code(s): A41.9 - Sepsis, unspecified organism
[2018-12-20] MEDS: PANTOprazole 40 MG TAB PO SCH (08:50)
[2018-12-20] MEDS: METOPROLOL TARTRATE 25 MG TAB PO SCH ×2 (08:50→21:06)
[2018-12-20] MEDS: ALLOPURINOL 300 MG TAB PO SCH (08:50)
[2018-12-20] MEDS ORDERED: ATORVASTATIN 40 MG TAB PO SCH (09:00)
--- NOTE | 2018-12-20 13:51 | XRay Report ---
RIGHT ANKLE 3 VIEWS CLINICAL HISTORY: Fall. Ankle pain. FINDINGS: 3 views of the right ankle are compared to study dated 12/24/2012. The skeletal structures a re osteopenic. There is no radiographic evidence of fracture at the ankle joint. There is a nondistra cted fracture through the base of the fifth metatarsal. The ankle mortise is intact. There is no join t effusion. A large plantar calcaneal enthesophyte is noted. Degenerative spurring is seen along the dorsal aspect of the tarsal bones. Soft tissue edema is present of the foot and ankle. Atheroscleroti c calcification is observed in the regional arteries. IMPRESSION: 1. Diffuse soft tissue swelling with no fracture identified at the ankle joint. 2. There is a nondistracted fracture through the base of the fifth metatarsal. Electronically signed by: Mark Ruiz M.D. 12/20/2018 1:50 PM
--- NOTE | 2018-12-20 13:51 | XRay Report ---
XR knee LT 2V routine, XR knee RT 2V routine HISTORY: 73 years-old Female fall acute bilateral knee pain status post fall COMPARISON: None available TECHNIQUE: 2 views of the bilateral knees FINDINGS: LEFT: Demineralized appearance of the bones. Total joint arthroplasty and patella resurfacing without acute fracture, dislocation or evidence of hardware complication. Scattered soft tissue calcifications not ed about the lower extremity. Suggested small left knee joint effusion. RIGHT: Limited study secondary to positioning. Demineralized appearance the bones. Hinged total joint arthro plasty with patellar resurfacing. Suggestion of a healed remote fracture of the proximal fibula. No a cute fracture, dislocation or opaque foreign body. Vascular calcifications are noted. Moderate joint effusion. IMPRESSION: 1. No acute fracture or dislocation identified within the right or left knee. 2. Bilateral knee total joint arthroplasties without evidence of acute hardware complication. 3. Trace left and moderate right knee joint effusions. The above report was generated using voice recognition software. It may contain grammatical, syntax o r spelling errors. Electronically signed by: Walker Toussaint M.D. 12/20/2018 1:49 PM
--- NOTE | 2018-12-20 13:54 | XRay Report ---
XR pelvis 1-2V routine HISTORY: 73 years-old Female fall acute pelvic pain status post fall COMPARISON: Pelvic radiograph 11/21/2012 TECHNIQUE: Portable AP view of the pelvis FINDINGS: Limited study secondary to patient body habitus with underpenetration of the film. 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 Unchanged radiodense structure of the central pelvi s, likely postsurgical. Multilevel degenerative changes of the lumbar spine. No acute fracture, dislo cation or avascular necrosis identified. IMPRESSION: No acute fracture or dislocation identified. The above report was generated using voice recognition software. It may contain grammatical, syntax o r spelling errors. Electronically signed by: Walker Toussaint M.D. 12/20/2018 1:53 PM
--- NOTE | 2018-12-20 13:56 | XRay Report ---
LEFT ANKLE 3 VIEWS CLINICAL HISTORY: Fall with left ankle injury. FINDINGS: 3 views of the left ankle are compared to study dated 06/15/2017. The skeletal structures are osteopenic. No fracture is seen at the ankle joint. There is an avulsion fracture identified arising from the lateral aspect of the hindfoot, likely arising from the calcaneus. There is also likely a n ondistracted fracture through the base of the fifth metatarsal. There may also be a tiny avulsion fra cture arising from the dorsal aspect of the talus. The ankle mortise is intact. Degenerative spurring is seen at the tibiotalar articulation. There is no ankle joint effusion. Large dorsal and plantar c alcaneal enthesophytes are noted. Degenerative spurring is seen along the dorsal aspect of the tarsal bones. Soft tissue edema is present throughout the left foot and ankle. There is atherosclerotic melita cification of the regional arteries. Calcification is noted along the course of the Achilles tendon. IMPRESSION: 1. Soft tissue swelling with no fracture identified at the ankle joint. 2. There is an avulsion fracture identified along the lateral aspect of the hindfoot, likely arising from the calcaneus. 3. Suspect a nondistracted fracture through the base of the fifth metatarsal. 4. There may also be a tiny avulsion fracture arising from the dorsal aspect of the talus. 5. Osteopenia, degenerative change, and heel spurs as above. Electronically signed by: Mark Ruiz M.D. 12/20/2018 1:55 PM
[2018-12-20] MEDS ORDERED: MoRPHine SULFATE 2 MG/ML CARP IV PRN (16:43)
[2018-12-20] MEDS: WARFARIN SOD 6 MG TAB PO SCH (18:42)
[2018-12-20] MEDS: EUCERIN CR 120 GM JAR EXT SCH (21:59)
[2018-12-21] MEDS: AZTREONAM 1,000 MG in DEXTROSE 5% 100 ML IV SCH (01:27)
[2018-12-21 06:44] LABS: Hematocrit (blood only) 44.4 % (37-47); Hemoglobin 15.2 g/dL (12.0-16.0); Immature Granulocytes # (auto) 0.04 K/uL (0.00-0.02); Immature Granulocytes % (auto) 0.2 %; Lymphocytes # (auto) 0.81 K/uL (1.2-3.4); Lymphocytes % (auto) 4.8 %; Mean Corpuscular Hgb Conc 34.2 g/dL (32-36); Mean Corpuscular Volume 94.7 fL (80-100); Mean Platelet Volume 12.7 fL (7.4-10.4); Monocytes # (auto) 0.86 K/uL (0.11-0.59); Monocytes % (auto) 5.1 %; Neutrophils # (auto) 15.13 K/uL (1.4-6.5); Neutrophils % (auto) 89.9 %; Platelet Count 131 K/uL (130-400); RDW Coefficient of Variation 15.2 % (11.5-14.5); RDW Standard Deviation 52.4 fL (36.4-46.3); Red Blood Count 4.69 M/uL (4.2-5.4); White Blood Count 16.84 K/uL (4.8-10.8)
[2018-12-21 06:54] LABS: INR 1.5 (0.9-1.1); Prothrombin Time 15.3 Seconds (9.0-12.0)
[2018-12-21 07:15] LABS: Albumin Level 1.9 gm/dl (3.4-5.0); BUN Creatinine Ratio 23.8 (10-20); Calcium 8.6 mg/dl (8.5-10.1); Creatinine Clr Calc Pharmacy 20.9 ml/min; Est GFR (African American) 16.5; Est GFR (Non-African American) 14.2; Magnesium 2.5 mg/dl (1.8-2.4); Potassium 5.4 mmol/L (3.5-5.1)
[2018-12-21 07:18] LABS: Albumin Globulin Ratio 0.4 (0.9-2); Bilirubin,Total 0.6 mg/dl (0.2-1); Globulin 4.4 gm/dl (2.5-4.0); Total Protein 6.3 gm/dl (6.4-8.2)
--- NOTE | 2018-12-21 07:26 | Ultrasound Report ---
ABDOMINAL ULTRASOUND, RIGHT UPPER QUADRANT HISTORY: elevated transaminases, fall eval for trauma. COMPARISON: None. FINDINGS: Pancreas: The visualized pancreas demonstrates a normal echotexture. Liver: Enlarged measuring 22 cm in length. There are a few small cysts measuring up to 8 mm. Subtle n odular contour to the liver suggestive of cirrhosis. No hepatic masses. Gallbladder: Sludge versus artifact. No gallbladder wall thickening. No gallstones. CBD: 3 mm. Right kidney: No hydronephrosis. The kidneys are echogenic. Multiple cysts with the largest measuring 2.3 cm. Miscellaneous: Small right pleural effusion is noted. IMPRESSION: 1. Small right pleural effusion. 2. Hepatomegaly. There is also a subtle nodular contour to the liver suggestive of cirrhosis. 3. Sludge versus artifact within the gallbladder. No gallstones. 4. Echogenic right kidney consistent with medical renal disease. 5. Right renal cyst. Electronically signed by: Alexander Rod M.D. 12/21/2018 7:24 AM
[2018-12-21] MEDS: OXYCODONE HCL IR 5 MG TAB (IMMEDIATE RELEASE) PO PRN ×2 (07:42→22:29)
[2018-12-21] MEDS: ALLOPURINOL 300 MG TAB PO SCH (07:42)
[2018-12-21] MEDS: PANTOprazole 40 MG TAB PO SCH (07:43)
[2018-12-21] MEDS: METOPROLOL TARTRATE 25 MG TAB PO SCH ×2 (07:43→20:32)
[2018-12-21] MEDS: EUCERIN CR 120 GM JAR EXT SCH ×2 (07:44→20:31)
[2018-12-21] MEDS: cefTRIAXone SODIUM 2,000 MG in DEXTROSE 5% 50 ML IV SCH (09:42)
--- NOTE | 2018-12-21 14:35 | Hospitalist Progress Note ---
Date of Service December 21, 2018 Assessment & Plan (1) Sepsis: Sepsis/metabolic encephalopathy/UTI/hypotension/hypoxia- History of UTIs with enterococcus faecalis and E. coli. The final have Klebsiella UTI we will de-escalate her antibiotics to intravenous Rocephin, blood culture coag negative staph likely contaminant and will not pursue staph coverage unless she has persistent culture results Chest x-ray suggest possible right lower lobe infiltrate, which should be covered above antibiotics however clinically this seems most consistent with sepsis from an urinary source (2) Altered mental status: metabolic encephalopahty typically from gram negative uti this has resolved (3) UTI (urinary tract infection): Enterococcus faecalis UTI on 07/31/2018. E. coli UTI on 03/23/2018. Sensitivities reviewed, and will continue daptomycin IV and aztreonam IV (4) Hypotension: Lowest blood pressure was 81/60. She responded to fluid rehydration (5) Chronic diastolic (congestive) heart failure: Had recent admission for CHF from 11/03-11/13. We will resume her diuretic therapy on 12/22 (6) Atrial fibrillation, persistent: Anticoagulated with warfarin. Following INR especially while on antibiotics (7) Acute kidney injury (nontraumatic): Creatinine is 2.27 upon admission. Baseline creatinine is 1.14. (8) Hypertension: Will hold felodipine, furosemide metoprolol tartrate and spironolactone until blood pressure recovers. (9) Abnormal LFTs (liver function tests): AST 668, ALT 137 upon admission., still up on repeat the pt did have a fall and maybe traumatic ultrasound in the interim without any intra-abdominal pathology (10) Hyperlipidemia: Continue atorvastatin 40 mg daily. (11) Morbid obesity with BMI of 50.0-59.9, adult: (12) Metatarsal fracture: Bilateral metatarsal fractures left avulsion fracture of the calcaneus and likely talus pending with me to consult Subjective Patient feels somewhat improved today she has not had her orthopedic consultation yet. She did have an area of open skin occur on the posterior right knee addition to her previous chronic venous stasis dermatitis that she has. This appeared to be a serous bullae that ruptured. She is currently on antibiotics for Klebsiella UTI present on admission We discussed the fact that she is got bilateral metatarsal fractures in addition to a calcaneal and talus avulsion fracture and that she likely will need a skilled rehab facility after the time of discharge Review of Systems Review of Systems: ROS: Functionally quadriplegic due to her morbid obesity, well nourished well developed. No double vision blurry vision No problems with speech or swallowing No palpitations, chest pain or pressure No Wheezing or breathing issues No abdominal pain nausea vomiting diarrhea changes in appetite or weight No burning urine urine frequency despite having urinary tract infection present on admission Lateral medial foot pain and ankle pain Persistent lower extremity redness No unusual bruising or bleeding No focused back pain or numbness or loss of strength Confusion is cleared somewhat today 12/21 Physical Exam Physical Exam: The patient appeared in mild distress today Vital signs as documented. Head exam is unremarkable. normocephalic, atraumatic Neck is without jugular venous distension, thyromegaly, or lymphademopathy Lungs are diminished at the bases likely from atelectasis incursions no spirometry Cardiac exam reveals Rhythm is regular. Systolic ejection murmur Abdominal exam reveals normal bowel sounds, no masses, no organomegaly despite elevated LFTs she is not significantly tender although examination is difficult due to her morbid obesity Extremities are mildly edematous and both extremes of skin changes. There is a ruptured bulla behind her right knee is difficult to evaluate due to her somewhat flexion abnormalities that she has of her lower extremities due to her morbid obesity and mobility Neurologic exam is A&Ox3, no focal deficits, strength is equal diminished bilaterally Psychologically seems neither anxious or depressed Skin is warm Dry areas of skin changes to her lower extremities consistent with her morbid obesity and venous stasis Results & Data Vital Signs (Past 12 Hours) Vital Signs Temp Pulse Resp BP BP Pulse Ox 12/21/18 13:20 98/63 L 12/21/18 11:21 36.5 C 81 18 115/77 97 12/21/18 08:09 36.9 C 87 17 122/85 98 12/21/18 03:37 36.6 C 83 16 123/83 93 PG Care Time/CCT Total # of Minutes Spent Total Time Spent with Patient: Total time spent is greater than 50% in coordination of care (as documented) at patient's floor/unit and/or counseling patient: (1) UTI (urinary tract infection) Hematuria presence: without hematuria Urinary tract infection type: site unspecified Qualified Code(s): N39.0 - Urinary tract infection, site not specified (2) Sepsis Sepsis type: sepsis due to unspecified organism Qualified Code(s): A41.9 - Sepsis, unspecified organism
[2018-12-21] MEDS: WARFARIN SOD 6 MG TAB PO SCH (15:18)
--- NOTE | 2018-12-21 16:59 | Progress Note ---
DATE: 12/21/2018 CHIEF COMPLAINT: Bilateral foot pain. HISTORY OF PRESENT ILLNESS: Belinda is a 73-year-old female who was admitted to [facility] 2 days ago. She had a fall at home. She does live alone. She presented to [facility] ER with UTI and subsequent sepsis. She was admitted to the hospital, has been treated for the UTI, sepsis, hypertension, chronic diastolic heart failure as well as atrial fibrillation. She expressed that she also had bilateral foot pain. Plain x-rays taken showed that she had a nondisplaced Jaimes fracture of the right foot as well as avulsion fracture of the calcaneus as well as the proximal aspect of the fifth metatarsal of the left foot. She appears to be comfortable sitting in bed. She is alert and oriented. She is conversant. OBJECTIVE PHYSICAL EXAMINATION: She has no description of any pain in both the right and left foot. She has no pain with palpation over the fifth metatarsal of her right foot or the left foot. There is no significant swelling, redness, or ecchymosis. She is neurovascularly intact bilaterally. There are no obvious deformities on inspection. X-RAYS: X-rays were reviewed of both the right and left foot today. X-rays of the right foot show a nondisplaced Jaimes fracture of the fifth metatarsal. X-rays of the left foot shows a small avulsion fracture at the base of the fifth left metatarsal. Also a small avulsion fracture of the calcaneus. ASSESSMENT AND DIAGNOSES: 1. A nondisplaced Jaimes fracture of the right fifth metatarsal. 2. A nondisplaced avulsion fracture of the calcaneus as well as the base of the fifth metatarsal of left foot. PLAN: At this time, we are recommending that she can be weightbearing as tolerated on her left lower extremity. With regard to her right lower extremity, I would recommend a hard sole cast shoe just for a little support. Given her ambulatory status, it might be best just to have this shoe available for her to use it if she is up and ambulating. Otherwise, she can be out of it when she is at rest. I will recommend that she is in the cast shoe for approximately 4-6 weeks. We will follow her up in the office at [facility] in approximately 4-6 weeks. We will get x-rays at that time. She was evaluated at bedside today by Dr. Jaime Pereira as well; he agrees with the assessment.
[2018-12-21] MEDS ORDERED: DAPTOmycin 500 MG in SYRINGE 0 ML IV SCH (18:00)
[2018-12-22 08:42] LABS: Eosinophils # (auto) 0.02 K/uL (0-0.5); Eosinophils % (auto) 0.2 %; Hematocrit (blood only) 44.2 % (37-47); Hemoglobin 15.2 g/dL (12.0-16.0); Immature Granulocytes # (auto) 0.03 K/uL (0.00-0.02); Immature Granulocytes % (auto) 0.3 %; Lymphocytes # (auto) 1.08 K/uL (1.2-3.4); Lymphocytes % (auto) 9.2 %; Mean Corpuscular Hgb Conc 34.4 g/dL (32-36); Mean Corpuscular Volume 95.7 fL (80-100); Mean Platelet Volume 12.8 fL (7.4-10.4); Monocytes # (auto) 0.85 K/uL (0.11-0.59); Monocytes % (auto) 7.2 %; Neutrophils # (auto) 9.78 K/uL (1.4-6.5); Neutrophils % (auto) 83.1 %; Platelet Count 137 K/uL (130-400); RDW Coefficient of Variation 15.1 % (11.5-14.5); RDW Standard Deviation 52.8 fL (36.4-46.3); Red Blood Count 4.62 M/uL (4.2-5.4); White Blood Count 11.76 K/uL (4.8-10.8)
[2018-12-22 08:50] LABS: INR 2.1 (0.9-1.1)
[2018-12-22] MEDS: PANTOprazole 40 MG TAB PO SCH (09:02)
[2018-12-22] MEDS: METOPROLOL TARTRATE 25 MG TAB PO SCH ×2 (09:02→21:03)
[2018-12-22] MEDS: ALLOPURINOL 100 MG TAB PO SCH (09:03)
[2018-12-22 09:24] LABS: Albumin Level 1.7 gm/dl (3.4-5.0); BUN Creatinine Ratio 29.8 (10-20); Calcium 8.7 mg/dl (8.5-10.1); Creatinine Clr Calc Pharmacy 21.7 ml/min; Est GFR (African American) 18.8; Est GFR (Non-African American) 16.2; Magnesium 2.7 mg/dl (1.8-2.4); Potassium 4.9 mmol/L (3.5-5.1)
[2018-12-22 09:26] LABS: Albumin Globulin Ratio 0.4 (0.9-2); Bilirubin,Total 0.4 mg/dl (0.2-1); Globulin 4.5 gm/dl (2.5-4.0); Total Protein 6.2 gm/dl (6.4-8.2)
[2018-12-22] MEDS: MICONAZOLE NITRATE POWDER 43 GM EXT PRN (09:33)
[2018-12-22] MEDS: cefTRIAXone SODIUM 2,000 MG in DEXTROSE 5% 50 ML IV SCH (09:34)
[2018-12-22] MEDS: EUCERIN CR 120 GM JAR EXT SCH ×2 (09:34→21:04)
--- NOTE | 2018-12-22 16:45 | Hospitalist Progress Note ---
Date of Service December 22, 2018 Assessment & Plan (1) Sepsis: Sepsis/metabolic encephalopathy/UTI/hypotension/hypoxia-resolved History of UTIs with enterococcus faecalis and E. coli. The final have Klebsiella UTI we will de-escalate her antibiotics to intravenous Rocephin, blood culture coag negative staph likely contaminant and will not pursue staph coverage unless she has persistent culture results Chest x-ray suggest possible right lower lobe infiltrate, which should be covered above antibiotics however clinically this seems most consistent with sepsis from an urinary source, I believe pneumonia has been ruled out (2) Altered mental status: metabolic encephalopahty typically from gram negative uti this has resolved (3) UTI (urinary tract infection): Enterococcus faecalis UTI on 07/31/2018. E. coli UTI on 03/23/2018. Current infection is ESBL on ceftriaxone (4) Hypotension: Lowest blood pressure was 81/60. She responded to fluid rehydration however she likely has ATN and some shock liver as evidenced by elevation of creatinine and transaminases, both are improving however makes is wary to use Tylenol or ibuprofen for pain control (5) Chronic diastolic (congestive) heart failure: Had recent admission for CHF from 11/03-11/13. Given persistence of her creatinine elevation we will hold off on diuretic therapy and watch her volume status carefully (6) Atrial fibrillation, persistent: Anticoagulated with warfarin. Following INR especially while on antibiotics INR is therapeutic on 12/22 (7) Acute kidney injury (nontraumatic): This is likely secondary to ATN it is slowly improving she has had no bic arbonate or potassium issues this is on a baseline of CKD stage III Baseline creatinine is 1.14. (8) Hypertension: Continue to hold most of her antihypertensive medications restarting metoprolol tartrate 12.5 mg twice daily which is her usual dose (9) Abnormal LFTs (liver function tests): AST 668, ALT 137 upon admission., still up on repeat the pt did have a fall and maybe traumatic, ultrasound in the interim without any intra-abdominal pathology, continues to improve avoiding acetaminophen for pain control because of this (10) Hyperlipidemia: Will hold atorvastatin with liver injury (11) Morbid obesity with BMI of 50.0-59.9, adult: Directly impacts her ability to rehabilitate and her persistent chronic venous stasis changes to her legs including healing of her open wounds (12) Metatarsal fracture: Bilateral metatarsal fractures left avulsion fracture of the calcaneus and likely talus orthopedics recommending bilateral boot placements and she will likely need a rehab facility due to her ambulation challenges (13) Advance care planning: Prolonged care visit. Was called to speak to the sons of this patient at the bedside approximately 1130- 1210. Both sons are present in many questions most of them seem to revolve around her eventual transition of care and where her mother will go after this. He also had many questions regarding her orthopedic treatments of which she tried to do my best to answer them. I did update them on her both liver and kidney injuries and that her pain medication plan of using p.o. and parenteral opiate therapy as we can should avoid nonsteroidals with her kidney dysfunction and Tylenol with her liver dysfunction. At the end of the visit they seem pleased they are eager to speak to case management to further discuss placement likely early next week Subjective Patient has no complaints or problems she has occasional foot pain but that was taken medications for. Review of Systems Review of Systems: ROS: well nourished well developed. No double vision blurry vision No problems with speech or swallowing No palpitations, chest pain or pressure No Wheezing or breathing issues No abdominal pain nausea vomiting diarrhea changes in appetite or weight No burning urine urine frequency or changes in color Persistent bilateral foot and ankle pain Abalone Diver redness or lower legs with some bruising and open areas No focused back pain or numbness have decreased strength in her lower extremities No changes in memory or confusion Physical Exam Physical Exam: The patient appeared in discomfort morbidly obese Vital signs as documented. Head exam is unremarkable. normocephalic, atraumatic Neck is without jugular venous distension, thyromegaly, or lymphademopathy Lungs are clear but diminished no rales encourage incentive spirometry Cardiac exam reveals Rhythm is regular. First and second heart sounds normal. Abdominal exam reveals normal bowel sounds, no masses, no organomegaly Extremities are bilateral chronic venous stasis changes and an open area behind her right knee which was a serous bullae that ruptured Neurologic exam is A&Ox3, no focal deficits, decreased strength to lower extremities Psychologically seems neither anxious or depressed Skin is warm Dry with persistent lower extremity skin changes as mentioned PG Care Time/CCT Total # of Minutes Spent Total Time Spent with Patient: Total time spent is greater than 50% in coordi nation of care (as documented) at patient's floor/unit and/or counseling patient: (1) Sepsis Sepsis type: sepsis due to unspecified organism Qualified Code(s): A41.9 - Sepsis, unspecified organism (2) UTI (urinary tract infection) Hematuria presence: without hematuria Urinary tract infection type: site unspecified Qualified Code(s): N39.0 - Urinary tract infection, site not specified
[2018-12-22] MEDS: OXYCODONE HCL IR 5 MG TAB (IMMEDIATE RELEASE) PO PRN ×2 (17:34→22:54)
[2018-12-22] MEDS: WARFARIN SOD 6 MG TAB PO SCH (21:02)
[2018-12-23 07:02] LABS: INR 1.9 (0.9-1.1); Prothrombin Time 18.7 Seconds (9.0-12.0)
[2018-12-23] MEDS: EUCERIN CR 120 GM JAR EXT SCH ×2 (09:22→20:14)
[2018-12-23] MEDS: METOPROLOL TARTRATE 25 MG TAB PO SCH ×2 (09:22→20:16)
[2018-12-23] MEDS: PANTOprazole 40 MG TAB PO SCH (09:23)
[2018-12-23] MEDS: ALLOPURINOL 100 MG TAB PO SCH (09:24)
[2018-12-23] MEDS: OXYCODONE HCL IR 5 MG TAB (IMMEDIATE RELEASE) PO PRN ×2 (09:24→21:35)
[2018-12-23] MEDS: cefTRIAXone SODIUM 2,000 MG in DEXTROSE 5% 50 ML IV SCH (09:26)
[2018-12-23] MEDS: MICONAZOLE NITRATE POWDER 43 GM EXT PRN (09:29)
--- NOTE | 2018-12-23 12:20 | Hospitalist Progress Note ---
Date of Service December 23, 2018 Assessment & Plan (1) Sepsis: Sepsis/metabolic encephalopathy/UTI/hypotension/hypoxia-resolved History of UTIs with enterococcus faecalis and E. coli. The final have Klebsiella UTI,de-escalate her antibiotics to intravenous Rocephin, blood culture coag negative staph likely contaminant and will not pursue staph coverage unless she has persistent culture results Chest x-ray suggest possible right lower lobe infiltrate, which should be covered above antibiotics however clinically this seems most consistent with sepsis from an urinary source, I believe pneumonia has been ruled out (2) Altered mental status: metabolic encephalopathy typically from gram negative uti this has resolved (3) UTI (urinary tract infection): Enterococcus faecalis UTI on 07/31/2018. E. coli UTI on 03/23/2018. Current infection is ESBL on ceftriaxone (4) Hypotension: Lowest blood pressure was 81/60. She responded to fluid rehydration however she likely has ATN and some shock liver as evidenced by elevation of creatinine and transaminases, both are improving however makes is wary to use Tylenol or ibuprofen for pain control (5) Chronic diastolic (congestive) heart failure: Had recent admission for CHF from 11/03-11/13. Given persistence of her creatinine elevation we will hold off on diuretic therapy and watch her volume status carefully (6) Atrial fibrillation, persistent: Anticoagulated with warfarin. Following INR especially while on antib iotics INR is therapeutic slightly subtherapeutic dosing has been adjusted from alternative dosing to straight once a day dosing (7) Acute kidney injury (nontraumatic): This is likely secondary to ATN it is slowly improving she has had no bicarbonate or potassium issues this is on a baseline of CKD stage III Baseline creatinine is 1.14. (8) Hypertension: Continue to hold most of her antihypertensive medications restarting metoprolol tartrate 12.5 mg twice daily which is her usual dose (9) Abnormal LFTs (liver function tests): AST 668, ALT 137 upon admission., still up on repeat the pt did have a fall and maybe traumatic, ultrasound in the interim without any intra-abdominal pathology, continues to improve avoiding acetaminophen for pain control because of this (10) Hyperlipidemia: Will hold atorvastatin with liver injury (11) Morbid obesity with BMI of 50.0-59.9, adult: Directly impacts her ability to rehabilitate and her persistent chronic venous stasis changes to her legs including healing of her open wounds (12) Metatarsal fracture: Bilateral metatarsal fractures left avulsion fracture of the calcaneus and likely talus orthopedics recommending bilateral boot placements and she will likely need a rehab facility due to her ambulation challenges (13) Advance care planning: Both sons are present in many questions most of them seem to revolve around her eventual transition of care and where her mother will go after this. He also had many questions regarding her orthopedic treatments of which she tried to do my best to answer them. I did update them on her both liver and kidney injuries and that her pain medication plan of using p.o. and parenteral opiate therapy as we can should avoid nonsteroidals with her kidney dysfunction and Tylenol with her liver dysfunction. they are eager to speak to case management to further discuss placement likely early next week Subjective Patient has some complaints of some foot pain and posterior right knee pain where she has her open area. She is awaiting boot placement and then ventral rehab referral, she is significant change skin changes of her lower legs from chronic venous stasis dermatitis Review of Systems Review of Systems: ROS: Fatigue morbidly obese No double vision blurry vision No problems with speech or swallowing No palpitations, chest pain or pressure No Wheezing or breathing issues No abdominal pain nausea vomiting diarrhea No burning urine or changes in color Bilateral foot pain le dermatitis No focused back pain or numbness or loss of strength No changes in memory or confusion Physical Exam Physical Exam: The patient appeared well nourished, morbidly obese, in mild distress. Vital signs as documented. Head exam is unremarkable. normocephalic, atraumatic Neck is without jugular venous distension, thyromegaly, or lymphademopathy Lungs are clear to auscultation some rales at the bases which clear with deep inspiration. Cardiac exam reveals Rhythm is regular. Abdominal exam reveals normal bowel sounds, soft and nontender Extremities are chronically moderately edematous changes of bilateral stasis dermatitis are seen Neurologic exam is A&Ox3, no focal deficits, strength is equal bilateral Psychologically seems neither anxious or depressed PG Care Time/CCT Total # of Minutes Spent Total Time Spent with Patient: Total time spent is greater than 50% in coordination of care (as documented) at patient's floor/unit and/or counseling patient: (1) Sepsis Sepsis type: sepsis due to unspecified organism Qualified Code(s): A41.9 - Sepsis, unspecified organism (2) UTI (urinary tract infection) Hematuria presence: without hematuria Urinary tract infection type: site unspecified Qualified Code(s): N39.0 - Urinary tract infection, site not specified
[2018-12-23] MEDS ORDERED: WARFARIN SOD 4 MG TAB PO SCH (16:00)
[2018-12-23] MEDS: WARFARIN SOD 5 MG TAB PO SCH (16:47)
[2018-12-24] MEDS: OXYCODONE HCL IR 5 MG TAB (IMMEDIATE RELEASE) PO PRN ×2 (05:39→16:44)
[2018-12-24] MEDS: ALLOPURINOL 100 MG TAB PO SCH (10:17)
[2018-12-24] MEDS: cefTRIAXone SODIUM 2,000 MG in DEXTROSE 5% 50 ML IV SCH (10:17)
[2018-12-24] MEDS: PANTOprazole 40 MG TAB PO SCH (10:17)
[2018-12-24] MEDS: EUCERIN CR 120 GM JAR EXT SCH ×2 (10:18→20:36)
[2018-12-24] MEDS: METOPROLOL TARTRATE 25 MG TAB PO SCH ×2 (10:19→20:36)
[2018-12-24] MEDS: WARFARIN SOD 5 MG TAB PO SCH (16:44)
[2018-12-24 17:08] LABS: Hematocrit (blood only) 42.7 % (37-47); Hemoglobin 14.4 g/dL (12.0-16.0); Mean Corpuscular Hgb Conc 33.7 g/dL (32-36); Mean Corpuscular Volume 94.5 fL (80-100); Mean Platelet Volume 11.5 fL (7.4-10.4); Platelet Count 159 K/uL (130-400); RDW Standard Deviation 51.3 fL (36.4-46.3); Red Blood Count 4.52 M/uL (4.2-5.4); White Blood Count 9.68 K/uL (4.8-10.8)
[2018-12-24 17:16] LABS: INR 1.9 (0.9-1.1); Prothrombin Time 18.5 Seconds (9.0-12.0)
[2018-12-24 17:37] LABS: Albumin Globulin Ratio 0.4 (0.9-2); Albumin Level 1.9 gm/dl (3.4-5.0); BUN Creatinine Ratio 48.9 (10-20); Bilirubin,Total 0.5 mg/dl (0.2-1); Calcium 9.3 mg/dl (8.5-10.1); Creatinine Clr Calc Pharmacy 45.9 ml/min; Est GFR (African American) 46.5; Est GFR (Non-African American) 40.1; Globulin 4.7 gm/dl (2.5-4.0); Potassium 4.4 mmol/L (3.5-5.1); Total Protein 6.6 gm/dl (6.4-8.2)
--- NOTE | 2018-12-24 21:57 | Hospitalist Progress Note ---
Date of Service December 24, 2018 Assessment & Plan (1) Metatarsal fracture: Bilateral metatarsal fractures (5th metatarsals). Avulsion fracture of the LEFT calcaneus. Likely talus fracture on LEFT. Orthopedics recommending bilateral boots; no surgical intervention. WBAT LLE. Non-weightbearing RLE? Will need boots for both ankles/feet per ortho recommendations. f/u 6 weeks with ortho. needs 25-OH vit D level checked if none in the last year. Present on Admission?: Yes (2) Sepsis: 2nd to UTI - resolved. Stop IV abx; change to cipro PO to finish course. Plan 7 days in total. Present on Admission?: Yes (3) Altered mental status: Likely metabolic encephalopathy from sepsis/UTI. Uncertain of baseline mental status. Will need to check ammonia level in light of acute liver injury. Continue supportive care. Present on Admission?: Yes (4) UTI (urinary tract infection): 2nd klebsiella and e.coli. both sensitive to cipro. change rocephin to cipro. finish course with PO abx. plan 7 days of Rx. Present on Admission?: Yes (5) Hypotension: 2nd to sepsis. resolved quickly after admission. was quite transient. Present on Admission?: Yes (6) Chronic diastolic (congestive) heart failure: Appears compensated from CHF standpoint today. Holding diuretics due to COREY and acute liver injury. Present on Admission?: Yes (7) Atrial fibrillation, persistent: Anticoagulated with warfarin. INR acceptable today. Repeat INR in am. Present on Admission?: Yes (8) Acute kidney injury (nontraumatic): Likely ATN in setting of sepsis/dehydration. Improving. Cont to hold diuretics. BMP in am. Present on Admission?: Yes (9) Hypertension: Continue metoprolol tartrate 12.5 mg twice daily. Acceptable BPs today. (10) Abnormal LFTs (liver function tests): Likely shock liver from hypotension/sepsis. Resolving biochemically. Liver structurally normal on hepatic u/s. Repeat LFTs with ammonia level AM. Present on Admission?: Yes (11) Hyperlipidemia: Will hold atorvastatin with liver injury. LFTs am. Present on Admission?: Yes (12) Morbid obesity with BMI of 50.0-59.9, adult: BMI 50 Present on Admission?: Yes (13) Advance care planning: Pt's sons desire her to be placed in SNF. Social work arranging this. (14) DVT prophylaxis: coumadin Subjective patient stared at me upon my arrival and continued to do so even after I sat down. after introducing myself I asked her if she was ok. she looked at me, paused, and said "no one here listens." I asked her what she meant and she replied "pain." I again asked her what she meant and she said "pain in my feet." she told me she had no pain this am but then the pain worsened as the day went on. denied other complaints although she offered little in the way of history or ROS. she could not tell me the day of the week but knew she was in the hospital and knew it was 2018. Review of Systems Constitutional: + anorexia; no fever Respiratory: no dyspnea Cardiovascular: no chest pain Gastrointestinal: no abdominal pain Musculoskeletal: + joint pain Physical Exam Constitutional: + morbidly obese and + altered mental status; no acute distress acting strangely; staring at the wall and the TV ENMT: external ear and nose normal, oropharynx normal Respiratory: normal respiratory effort, lungs clear to auscultation Cardiovascular: Rate/Rhythm: regular rate and + irregularly irregular Heart Sounds: normal S1 and normal S2; no murmur Vessels: posterior tibial pulses present and dorsalis pedis pulses present; no JVD Extremities: + edema (<1+ b/l) Gastrointestinal (Abdomen): normal bowel sounds, soft, nontender, no hepatosplenomegaly Skin: severe stasis changes b/l shins Psychiatric: Orientation: alert, oriented to person and oriented to place; + not oriented to time Motor Behavior: + psychomotor retardation Affect: + flat affect Results & Data Vital Signs (Past 12 Hours) Vital Signs Temp Pulse Resp BP BP Pulse Ox 12/24/18 20:32 90 18 141/83 H 92 12/24/18 15:37 36.5 C 83 16 133/82 94 Laboratory Results Laboratory Results - last 24 hr 12/24/18 12/24/18 12/24/18 16:54 16:54 16:54 WBC 9.68 RBC 4.52 Hgb 14.4 Hct 42.7 MCV 94.5 MCH 31.9 MCHC 33.7 RDW Std Deviation 51.3 H RDW Coeff of Priti 15.0 H Plt Count 159 MPV 11.5 H PT 18.5 H INR 1.9 H Sodium 136 Potassium 4.4 Chloride 103 Carbon Dioxide 27 Anion Gap 6.0 BUN 64 H Creatinine 1.30 H Est Cr Clr Drug Dosing 45.9 Est GFR ( Amer) 46.5 Est GFR (Non-Af Amer) 40.1 BUN/Creatinine Ratio 48.9 H Glucose 129 H Calcium 9.3 Total Bilirubin 0.5 AST 540 H ALT 281 H Alkaline Phosphatase 131 H Total Protein 6.6 Albumin 1.9 L Globulin 4.7 H Albumin/Globulin Ratio 0.4 L PG Care Time/CCT Total # of Minutes Spent Total Time Spent with Patient: Total time spent is greater than 50% in coordination of care (as documented) at patient's floor/unit and/or counseling patient: (1) UTI (urinary tract infection) Hematuria presence: without hematuria Urinary tract infection type: site unspecified Qualified Code(s): N39.0 - Urinary tract infection, site not specified (2) Hyperlipidemia Hyperlipidemia type: mixed hyperlipidemia Qualified Code(s): E78.2 - Mixed hyperlipidemia (3) Metatarsal fracture Encounter type: subsequent encounter Metatarsal bone: fifth Fracture type: closed Fracture alignment: nondisplaced Laterality: unspecified laterality Fracture healing: with routine healing Qualified Code(s): S92.356D - Nondisplaced fracture of fifth metatarsal bone, unspecified foot, subsequent encounter for fracture with routine healing (4) Sepsis Sepsis type: sepsis due to unspecified organism Qualified Code(s): A41.9 - Sepsis, unspecified organism (5) Altered mental status Altered mental status type: delirium Qualified Code(s): R41.0 - Disorientation, unspecified (6) Hypertension Hypertension type: essential hypertension Qualified Code(s): I10 - Essential (primary) hypertension (7) Hypotension Hypotension type: other hypotension type Qualified Code(s): I95.89 - Other hypotension
[2018-12-25] MEDS: OXYCODONE HCL IR 5 MG TAB (IMMEDIATE RELEASE) PO PRN (04:15)
[2018-12-25 07:39] LABS: Prothrombin Time 19.5 Seconds (9.0-12.0)
[2018-12-25 08:04] LABS: Albumin Level 1.9 gm/dl (3.4-5.0); BUN Creatinine Ratio 53.7 (10-20); Calcium 9.3 mg/dl (8.5-10.1); Creatinine Clr Calc Pharmacy 53.2 ml/min; Est GFR (African American) 56.3; Est GFR (Non-African American) 48.5; Potassium 4.4 mmol/L (3.5-5.1)
[2018-12-25 08:07] LABS: Albumin Globulin Ratio 0.4 (0.9-2); Bilirubin,Total 0.6 mg/dl (0.2-1); Globulin 4.4 gm/dl (2.5-4.0); Total Protein 6.3 gm/dl (6.4-8.2)
[2018-12-25] MEDS: METOPROLOL TARTRATE 25 MG TAB PO SCH ×2 (09:31→20:20)
[2018-12-25] MEDS: PANTOprazole 40 MG TAB PO SCH (09:31)
[2018-12-25] MEDS: CIPROFLOXACIN 500 MG TAB PO SCH ×2 (09:31→20:20)
[2018-12-25] MEDS: SACCHAROMYCES BOULARDII 250 MG CAP PO SCH (09:31)
[2018-12-25] MEDS: ALLOPURINOL 100 MG TAB PO SCH (09:31)
[2018-12-25] MEDS: EUCERIN CR 120 GM JAR EXT SCH ×2 (09:32→20:20)
[2018-12-25] MEDS: MICONAZOLE NITRATE POWDER 43 GM EXT PRN ×2 (11:50→20:23)
[2018-12-25] MEDS: WARFARIN SOD 5 MG TAB PO SCH (20:21)
--- NOTE | 2018-12-25 22:59 | Hospitalist Progress Note ---
Date of Service December 25, 2018 Assessment & Plan (1) Metatarsal fracture: Bilateral metatarsal fractures (5th metatarsals). Avulsion fracture of the LEFT calcaneus. Likely talus fracture on LEFT. Orthopedics recommending right sided surgical shoe. No surgery at this time. WBAT LLE. Non-weightbearing RLE? Appreciate orthotics consult for right-sided surgical shoe. f/u 6 weeks with ortho. 25-OH vit D level in September 2018 was 33. stop the oxycodone since it may be contributing to delirium. (2) Sepsis: 2nd to UTI - resolved. Initially received IV abx; now changed to cipro PO to finish course. Plan 7 days in total. Today is day 6 into 7. (3) Altered mental status: Likely metabolic encephalopathy from sepsis/UTI. Cannot rule out toxic effects from narcotics. Cannot rule out metabolic effects from acute liver injury and acute kidney injury. Spoke with son by phone today -- baseline mental status seems most c/w mild cognitive impairment. For "some time" has had word finding difficulties, some short term memory trouble, etc. Ammonia level normal. Stop narcotics if possible. Treat UTI. Avoid benzos. Present on Admission?: Yes (4) UTI (urinary tract infection): 2nd klebsiella and e.coli. both sensitive to cipro. changed rocephin to cipro. finish course with PO abx. plan 7 days of Rx. (5) Hypotension: 2nd to sepsis. resolved quickly after admission. was quite transient. (6) Chronic diastolic (congestive) heart failure: Appears compensated from CHF standpoint today. Likely resume diuretics tomorrow. (7) Atrial fibrillation, persistent: Anticoagulated with warfarin. INR acceptable today. Repeat INR in am. (8) Acute kidney injury (nontraumatic): Likely ATN in setting of sepsis/dehydration. Improving. Cont to hold diuretics. BMP in am. (9) Hypertension: Continue metoprolol tartrate 12.5 mg twice daily. Controlled. (10) Abnormal LFTs (liver function tests): Likely shock liver from hypotension/sepsis. Resolving biochemically. Liver structurally normal on hepatic u/s. Repeat LFTs today again improved. Ammonia level normal. (11) Hyperlipidemia: Cont to hold atorvastatin given her liver injury. (12) Morbid obesity with BMI of 50.0-59.9, adult: BMI 50 (13) Advance care planning: Pt's sons desire her to be placed in SNF. Social work arranging this. [facility]? (14) DVT prophylaxis: coumadin total time today 40 min Subjective patient again c/o bilateral foot pain. no new complaints otherwise. denies dyspnea. doesn't want to get out of bed and sit in chair. like yesterday cannot tell me the day of the week; however knows she is in hospital and knows it is 2018. spoke extensively with son by phone - gave broad update. he voiced concerns about her delirium. he also wanted me to know he had faxed her advance directives to our hospital. Review of Systems Constitutional: no fever Respiratory: no dyspnea Cardiovascular: no chest pain Gastrointestinal: no abdominal pain Physical Exam Constitutional: + morbidly obese; no acute distress ENMT: external ear and nose normal, oropharynx normal Respiratory: normal respiratory effort, lungs clear to auscultation Cardiovascular: Rate/Rhythm: regular rate and + irregularly irregular Heart Sounds: normal S1 and normal S2; no murmur Vessels: posterior tibial pulses present and dorsalis pedis pulses present; no JVD Extremities: + edema (<1+ b/l) Gastrointestinal (Abdomen): normal bowel sounds, soft, nontender, no hepatosplenomegaly Musculoskeletal: mild tenderness with palpation of both feet (5th metatarsal areas); no deformities Skin: venous stasis changes b/l shins worse on right; no superimposed cellulitis either leg Psychiatric: Orientation: alert, oriented to person and oriented to place; + not oriented to time Motor Behavior: + psychomotor retardation Affect: + flat affect Results & Data Vital Signs (Past 12 Hours) Vital Signs Temp Pulse Pulse Resp BP BP Pulse Ox 12/25/18 20:17 82 16 139/82 92 12/25/18 15:17 114/78 12/25/18 15:11 36.5 C 67 16 178/99 H 91 Laboratory Results Laboratory Results - last 24 hr 12/25/18 12/25/18 12/25/18 07:16 07:16 07:16 PT 19.5 H INR 2.0 H Sodium 138 Potassium 4.4 Chloride 105 Carbon Dioxide 27 Anion Gap 6.0 BUN 60 H Creatinine 1.11 Est Cr Clr Drug Dosing 53.2 Est GFR ( Amer) 56.3 Est GFR (Non-Af Amer) 48.5 BUN/Creatinine Ratio 53.7 H Glucose 104 H Calcium 9.3 Total Bilirubin 0.6 AST 454 H ALT 254 H Alkaline Phosphatase 117 Ammonia < 10.0 L Total Protein 6.3 L Albumin 1.9 L Globulin 4.4 H Albumin/Globulin Ratio 0.4 L PG Care Time/CCT Total # of Minutes Spent Total Time Spent with Patient: Total time spent is greater than 50% in coordination of care (as documented) at patient's floor/unit and/or counseling patient: (1) UTI (urinary tract infection) Hematuria presence: without hematuria Urinary tract infection type: site unspecified Qualified Code(s): N39.0 - Urinary tract infection, site not specified (2) Hyperlipidemia Hyperlipidemia type: mixed hyperlipidemia Qualified Code(s): E78.2 - Mixed hyperlipidemia (3) Metatarsal fracture Encounter type: subsequent encounter Fracture alignment: nondisplaced Fracture healing: with routine healing Fracture type: closed Laterality: unspecified laterality Metatarsal bone: fifth Qualified Code(s): S92.356D - Nondisplaced fracture of fifth metatarsal bone, unspecified foot, subsequent encounter for fracture with routine healing (4) Sepsis Sepsis type: sepsis due to unspecified organism Qualified Code(s): A41.9 - Sepsis, unspecified organism (5) Altered mental status Altered mental status type: delirium Qualified Code(s): R41.0 - Disorientation, unspecified (6) Hypertension Hypertension type: essential hypertension Qualified Code(s): I10 - Essential (primary) hypertension (7) Hypotension Hypotension type: other hypotension type Qualified Code(s): I95.89 - Other hypotension
[2018-12-26] MEDS: EUCERIN CR 120 GM JAR EXT SCH ×2 (08:00→20:22)
[2018-12-26] MEDS: MICONAZOLE NITRATE POWDER 43 GM EXT PRN ×2 (08:00→20:22)
[2018-12-26] MEDS: ALLOPURINOL 100 MG TAB PO SCH (09:08)
[2018-12-26] MEDS: PANTOprazole 40 MG TAB PO SCH (09:08)
[2018-12-26] MEDS: CIPROFLOXACIN 500 MG TAB PO SCH ×2 (09:08→20:21)
[2018-12-26] MEDS: METOPROLOL TARTRATE 25 MG TAB PO SCH ×2 (09:08→20:20)
[2018-12-26] MEDS: SACCHAROMYCES BOULARDII 250 MG CAP PO SCH (09:09)
[2018-12-26] MEDS: FUROSEMIDE 20 MG TAB PO SCH (10:40)
[2018-12-26 12:18] LABS: INR 1.7 (0.9-1.1); Prothrombin Time 17.2 Seconds (9.0-12.0)
[2018-12-26 12:28] LABS: Albumin Level 1.8 gm/dl (3.4-5.0); BUN Creatinine Ratio 51.8 (10-20); Calcium 9.1 mg/dl (8.5-10.1); Creatinine Clr Calc Pharmacy 57.7 ml/min; Est GFR (African American) 61.6; Est GFR (Non-African American) 53.1; Potassium 4.5 mmol/L (3.5-5.1)
[2018-12-26 12:31] LABS: Albumin Globulin Ratio 0.4 (0.9-2); Bilirubin,Total 0.6 mg/dl (0.2-1); Globulin 4.3 gm/dl (2.5-4.0); Total Protein 6.1 gm/dl (6.4-8.2)
[2018-12-26] MEDS: WARFARIN SOD 5 MG TAB PO SCH (16:32)
--- NOTE | 2018-12-26 21:13 | Hospitalist Progress Note ---
Date of Service December 26, 2018 Assessment & Plan (1) Bilateral leg weakness: Patient cannot pinpoint date of onset but started at least several days before her fall at home. She was unable to walk for several days before her fall. She has profound weakness of both legs on exam, slightly worse on left vs right leg. She does not have a sensory level. She does have some sensory loss, however, in her feet. Differential - cord lesion t-spine or l-spine with latter more likely VS Guillain-[place] VS metabolic cause (b12 def) VS transverse myelitis VS other. Plan - STAT MRI t-spine and l-spine with contrast. B12 level am. I signed out to the head refrigerating engineer team to follow-up on these scans. If MRIs are not revealing an etiology then consider neurology consult, LP, MRI brain and/or MRI c-spine, etc. Symptoms/signs are concerning. (2) Metatarsal fracture: Bilateral metatarsal fractures (5th metatarsals). Avulsion fracture of the LEFT calcaneus. Likely talus fracture on LEFT. Orthopedics recommending right sided surgical shoe. No surgery at this time. Appreciate orthotics consult for right-sided surgical shoe. f/u 6 weeks with ortho. 25-OH vit D level in September 2018 was 33. I stopped the oxycodone since it may have been contributing to delirium. (3) Sepsis: 2nd to UTI - resolved. Initially received IV abx; now changed to cipro PO to finish course. Plan 7 days in total. Today is day 7. Stop abx after tonight. (4) Altered mental status: Likely metabolic encephalopathy from sepsis/UTI. Cannot rule out toxic effects from narcotics. Cannot rule out metabolic effects from acute liver injury and acute kidney injury. She seems better today. Spoke with son by phone yesterday -- baseline mental status seems most c/w mild cognitive impairment. For "some time" she has had word finding difficulties, some short term memory trouble, etc. Ammonia level normal. Stopped narcotics. Treated UTI. (5) UTI (urinary tract infection): 2nd klebsiella and e.coli. both sensitive to cipro. changed rocephin to cipro. finish course with PO abx. plan 7 days of Rx. today is day #7. (6) Hypotension: 2nd to sepsis. resolved quickly after admission. was quite transient. (7) Chronic diastolic (congestive) heart failure: Appears compensated from CHF standpoint today. Resume lasix 20mg daily today. (8) Atrial fibrillation, persistent: Anticoagulated with warfarin. INR slightly subtherapeutic. Would not change warfarin dose. Repeat INR in am. (9) Acute kidney injury (nontraumatic): Likely ATN in setting of sepsis/dehydration. Resolved. Can resume lasix. BMP am. (10) Hypertension: Continue metoprolol tartrate 12.5 mg twice daily. Controlled. (11) Abnormal LFTs (liver function tests): Likely shock liver from hypotension/sepsis. Resolving biochemically. Liver structurally normal on hepatic u/s. Repeat LFTs today again improved. Ammonia level normal. (12) Hyperlipidemia: Cont to hold atorvastatin given her liver injury. (13) Morbid obesity with BMI of 50.0-59.9, adult: BMI 50 (14) Advance care planning: Pt's sons desire her to be placed in SNF. Social work arranging this. [facility]? (15) DVT prophylaxis: coumadin Subjective patient a bit more talkative today than yesterday. she reports that she has difficulty moving her legs and has numbness "from the knees down to my feet." weakness/numbness are b/l. she cannot pinpoint when the motor weakness and numbness started. she thinks maybe "3-4 days before I fell". she admits she was not able to walk at home for some time prior to her fall. She thinks that she layed on the floor at home for "a couple of days." she was laying in a chair and sleeping in the same chair for "a while" prior to admission. records show that she walked 70 feet during the admission at [facility] in early November. eating ok. no dyspnea. Review of Systems Respiratory: no cough and no dyspnea Cardiovascular: no chest pain Gastrointestinal: no abdominal pain Musculoskeletal: + joint pain (b/l foot pain) Neurologic: + localized weakness (legs, worse on left) Physical Exam Constitutional: + morbidly obese; no acute distress ENMT: external ear and nose normal, oropharynx normal Respiratory: normal respiratory effort, lungs clear to auscultation Cardiovascular: Rate/Rhythm: regular rate and + irregularly irregular Heart Sounds: normal S1 and normal S2; no murmur Vessels: posterior tibial pulses present and dorsalis pedis pulses present; no JVD Extremities: + edema (1+ b/l, a little worse on right side) Gastrointestinal (Abdomen): normal bowel sounds, soft, nontender, no hepatosplenomegaly Musculoskeletal: no tenderness of either hip with passive ROM (flexion of hips); no deformity of either foot Skin: stasis changes b/l legs with warm erythema of distal right villarreal and slightly over the right ankle as well Neurologic: severe weakness of both legs both proximally and distally; strength 2/5 right hip flexion; 1/5 left hip flexion; foot dorsiflexion/plantarflexion nearly 0 b/l; only can wiggle toes b/l; sensation intact to light touch over L2, L3, L4 and L5 dermatomes b/l; s1 dermatomes b/l with decreased sensation; sensation intact to light touch over abdominal wall. patellar reflexes 0 b/l. Psychiatric: Orientation: alert, oriented to person and oriented to place; + not oriented to time Motor Behavior: + psychomotor retardation Affect: + flat affect Results & Data Vital Signs (Past 12 Hours) Vital Signs Temp Pulse Pulse Resp BP Pulse Ox 12/26/18 20:18 85 85 16 156/79 H 92 12/26/18 15:50 36.3 C L 76 18 138/84 94 Laboratory Results Laboratory Results - last 24 hr 12/26/18 12/26/18 11:46 11:46 PT 17.2 H INR 1.7 H Sodium 138 Potassium 4.5 Chloride 106 Carbon Dioxide 26 Anion Gap 6.0 BUN 53 H Creatinine 1.03 Est Cr Clr Drug Dosing 57.7 Est GFR ( Amer) 61.6 Est GFR (Non-Af Amer) 53.1 BUN/Creatinine Ratio 51.8 H Glucose 118 H Calcium 9.1 Total Bilirubin 0.6 AST 346 H ALT 220 H Alkaline Phosphatase 114 Total Protein 6.1 L Albumin 1.8 L Globulin 4.3 H Albumin/Globulin Ratio 0.4 L PG Care Time/CCT Total # of Minutes Spent Total Time Spent with Patient: Total time spent is greater than 50% in coor dination of care (as documented) at patient's floor/unit and/or counseling patient: (1) UTI (urinary tract infection) Hematuria presence: without hematuria Urinary tract infection type: site unspecified Qualified Code(s): N39.0 - Urinary tract infection, site not specified (2) Hyperlipidemia Hyperlipidemia type: mixed hyperlipidemia Qualified Code(s): E78.2 - Mixed hyperlipidemia (3) Metatarsal fracture Encounter type: subsequent encounter Fracture alignment: nondisplaced Fracture healing: with routine healing Fracture type: closed Laterality: unspecified laterality Metatarsal bone: fifth Qualified Code(s): S92.356D - Nondisplaced fracture of fifth metatarsal bone, unspecified foot, subsequent encounter for fracture with routine healing (4) Sepsis Sepsis type: sepsis due to unspecified organism Qualified Code(s): A41.9 - Sepsis, unspecified organism (5) Altered mental status Altered mental status type: delirium Qualified Code(s): R41.0 - Disorientation, unspecified (6) Hypertension Hypertension type: essential hypertension Qualified Code(s): I10 - Essential (primary) hypertension (7) Hypotension Hypotension type: other hypotension type Qualified Code(s): I95.89 - Other hypotension
[2018-12-27] MEDS: FUROSEMIDE 20 MG TAB PO SCH (08:34)
[2018-12-27] MEDS: CIPROFLOXACIN 500 MG TAB PO SCH (08:34)
[2018-12-27] MEDS: METOPROLOL TARTRATE 25 MG TAB PO SCH ×2 (08:34→20:04)
[2018-12-27] MEDS: SACCHAROMYCES BOULARDII 250 MG CAP PO SCH (08:34)
[2018-12-27] MEDS: PANTOprazole 40 MG TAB PO SCH (08:35)
[2018-12-27] MEDS: ALLOPURINOL 100 MG TAB PO SCH (08:35)
[2018-12-27] MEDS: EUCERIN CR 120 GM JAR EXT SCH ×2 (08:36→20:03)
[2018-12-27] MEDS: WARFARIN SOD 5 MG TAB PO SCH (15:58)
--- NOTE | 2018-12-27 19:50 | Hospitalist Progress Note ---
Date of Service December 27, 2018 Assessment & Plan (1) Bilateral leg weakness: Patient cannot pinpoint date of onset but started at least several days before her fall at home. She was unable to walk for several days before her fall. She has profound weakness of both legs on exam; the weakness is modestly better vs yesterday's exam, however. She does not have a sensory level. She does have some sensory loss in her feet. Differential - cord lesion t-spine or l-spine with latter more likely VS Guillain-[place] VS metabolic cause (b12 def) VS transverse myelitis VS other. Plan - STAT MRI t-spine and l-spine with contrast still pending. By report the MRIs were not done overnight because of concern of metal object in her pelvis. HOWEVER, the bladder stimulator device was REMOVED on 11/09/18 -- see urology op report in her chart. Can proceed with scans MAXWELL. B12 level ordered but patient has been declining labs at times. If MRIs are not revealing an etiology then consider neurology consult, LP, MRI brain and/or MRI c-spine, etc. (2) Metatarsal fracture: Bilateral metatarsal fractures (5th metatarsals). Avulsion fracture of the LEFT calcaneus. Likely talus fracture on LEFT as well. Orthopedics recommending right sided surgical shoe. No surgery at this time. Appreciate orthotics consult for right-sided surgical shoe. f/u 6 weeks with ortho. 25-OH vit D level in September 2018 was 33. I stopped the oxycodone since it may have been contributing to delirium. She has not been able to walk/ambulate - see discussion above in "b/l leg weakness." (3) Sepsis: 2nd to UTI - resolved. Completed 7+ days of IV/PO abx. (4) Altered mental status: Likely metabolic encephalopathy from sepsis/UTI. Cannot rule out toxic effects from narcotics. Cannot rule out metabolic effects from acute liver injury and acute kidney injury. Spoke with son this week - baseline mental status seems most c/w mild cognitive impairment. For "some time" she has had word finding difficulties, some short term memory trouble, etc. Ammonia level normal. Stopped narcotics. Treated UTI. She has some element of paranoia. This may be chronic. By report she hadn't been letting any one into her home including her children. She is a hoarder by report. Strongly consider psych consult but need to determine cause of leg weakness. (5) UTI (urinary tract infection): 2nd klebsiella and e.coli. completed full 7+ day course of IV/PO abx. (6) Hypotension: 2nd to sepsis. resolved quickly after admission. (7) Chronic diastolic (congestive) heart failure: Compensated. Cont lasix 20mg daily. (8) Atrial fibrillation, persistent: Anticoagulated with warfarin. INR slightly subtherapeutic at 1.7 yesterday. INR ordered for today but patient declined labs to my knowledge. Hopefully she will allow labs. (9) Acute kidney injury (nontraumatic): Likely ATN in setting of sepsis/dehydration. Resolved. BMP ordered for today but labs were declined by patient. (10) Hypertension: Continue metoprolol tartrate 12.5 mg twice daily. Controlled. (11) Abnormal LFTs (liver function tests): Likely shock liver from hypotension/sepsis. Resolving biochemically. Liver structurally normal on hepatic u/s. Ammonia level normal. (12) Hyperlipidemia: Cont to hold atorvastatin given her liver injury. (13) Morbid obesity with BMI of 50.0-59.9, adult: BMI 52 (14) Advance care planning: Pt's sons desire her to be placed in SNF. Social work arranging this. (15) DVT prophylaxis: coumadin await MRIs of back I am encouraged by her movement today on exam relative to yesterday's exam Subjective Patient started at me upon entering the room much like a few days ago. She said "I don't trust anyone here." I asked her to clarify what she meant and she stated that she "didn't believe anything anyone was saying" and accused us of lying to her. She was frustrated she hadn't gotten her MRI scans. She did report being able to move her legs a bit more today however. Denied any other complaints but she really didn't want to talk very much. Review of Systems Constitutional: no fever Respiratory: no cough and no dyspnea Cardiovascular: no chest pain Gastrointestinal: stomach "cramps" today but no diarrhea Musculoskeletal: + joint pain (feet b/l) Neurologic: + localized weakness (both legs) Physical Exam Constitutional: + morbidly obese; no acute distress ENMT: external ear and nose normal, oropharynx normal Respiratory: normal respiratory effort, lungs clear to auscultation Cardiovascular: Rate/Rhythm: regular rate and + irregularly irregular Heart Sounds: normal S1 and normal S2; no murmur Vessels: posterior tibial pulses present and dorsalis pedis pulses present; no JVD Extremities: + edema (1-2+ b/l) Gastrointestinal (Abdomen): normal bowel sounds, soft, nontender, no hepatosplenomegaly Skin: venous stasis changes b/l shins with no evidence of superimposed cellulitis either leg Neurologic: patient able to actively flex both hips today - improvement from yesterday; strength with hip flexion about 2-3/5; distal dorsiflexion of ankles 0/5; plantarflexion probably 3/5 on left and 1/5 on right. Psychiatric: Orientation: alert, oriented to person and oriented to place; + not oriented to time Motor Behavior: + psychomotor retardation Affect: + flat affect Results & Data Vital Signs (Past 12 Hours) Vital Signs Temp Pulse Resp BP Pulse Ox 12/27/18 15:14 36.3 C L 70 18 140/83 92 PG Care Time/CCT Total # of Minutes Spent Total Time Spent with Patient: Total time spent is greater than 50% in coordination of care (as documented) at patient's floor/unit and/or counseling patient: (1) UTI (urinary tract infection) Hematuria presence: without hematuria Urinary tract infection type: site unspecified Qualified Code(s): N39.0 - Urinary tract infection, site not specified (2) Hyperlipidemia Hyperlipidemia type: mixed hyperlipidemia Qualified Code(s): E78.2 - Mixed hyperlipidemia (3) Metatarsal fracture Encounter type: subsequent encounter Fracture alignment: nondisplaced Fracture healing: with routine healing Fracture type: closed Laterality: unspecified laterality Metatarsal bone: fifth Qualified Code(s): S92.356D - Nondisplaced fracture of fifth metatarsal bone, unspecified foot, subsequent encounter for fracture with routine healing (4) Sepsis Sepsis type: sepsis due to unspecified organism Qualified Code(s): A41.9 - Sepsis, unspecified organism (5) Altered mental status Altered mental status type: delirium Qualified Code(s): R41.0 - Disorientation, unspecified (6) Hypertension Hypertension type: essential hypertension Qualified Code(s): I10 - Essential (primary) hypertension (7) Hypotension Hypotension type: other hypotension type Qualified Code(s): I95.89 - Other hypotension
--- NOTE | 2018-12-27 21:39 | Magnetic Resonance Report ---
MR thoracic spine wo con CLINICAL HISTORY: Bilateral lower extremity weakness. Bilateral foot numbness. Possible cord lesion. Trauma. Inability to walk. PRIOR STUDIES: None TECHNIQUE: The examination consists of sagittal T1 and sagittal T2 sagittal inversion recovery and sa gittal T1 weighted images. The patient refused additional imaging and axial images were not acquired. FINDINGS: There are no suspicious areas of marrow replacement. No significant disc herniations are evident. There is no evidence for spinal canal narrowing on the sagittal only study. No spinal cord lesions are visualized. IMPRESSION: 1. Technically limited study 2. No spinal cord lesions identified 3. No evidence of spinal canal narrowing 4. No evidence of pathologic marrow replacement Electronically signed by: Fantasma Johnson M.D. 12/27/2018 9:38 PM
[2018-12-28] MEDS: ALLOPURINOL 100 MG TAB PO SCH (09:42)
[2018-12-28] MEDS: EUCERIN CR 120 GM JAR EXT SCH ×2 (09:43→22:03)
[2018-12-28] MEDS: FUROSEMIDE 20 MG TAB PO SCH (09:43)
[2018-12-28] MEDS: SACCHAROMYCES BOULARDII 250 MG CAP PO SCH (09:43)
[2018-12-28] MEDS: PANTOprazole 40 MG TAB PO SCH (09:44)
[2018-12-28] MEDS: METOPROLOL TARTRATE 25 MG TAB PO SCH ×2 (09:44→22:02)
[2018-12-28 10:07] LABS: INR 2.1 (0.9-1.1); Prothrombin Time 20.1 Seconds (9.0-12.0)
[2018-12-28 10:26] LABS: Albumin Level 1.9 gm/dl (3.4-5.0); BUN Creatinine Ratio 38.1 (10-20); Calcium 9.1 mg/dl (8.5-10.1); Creatinine Clr Calc Pharmacy 55.4 ml/min; Est GFR (African American) 57.5; Est GFR (Non-African American) 49.6; Potassium 4.2 mmol/L (3.5-5.1)
[2018-12-28 10:29] LABS: Albumin Globulin Ratio 0.4 (0.9-2); Bilirubin,Total 0.6 mg/dl (0.2-1); Globulin 4.5 gm/dl (2.5-4.0); Total Protein 6.4 gm/dl (6.4-8.2)
[2018-12-28] MEDS: WARFARIN SOD 5 MG TAB PO SCH (18:15)
--- NOTE | 2018-12-28 18:50 | Psychiatric Consultation ---
Date of Consultation December 28, 2018 Impression / Recommendations Impression 73-year-old female admitted medically on 12/19/18 after being found on the floor of her home by EMS, rather confused. It appears patient had suffered a fall, but history was limited. Pt was diagnosed with sepsis and UTI and is being treated medically. In addition to her reported confusion, patient has been largely uncooperative with medical recommendations and has not been overly willing to participate in assessments. Psychiatric consultation was requested to assess for "cognitive impairment? personality d/o? paranoia." Pt was only superficially cooperative with this provider's assessment. She verbalizes many times that she feels people are being "untruthful". She admits to confusion, and takes a long period of time before answering questions. Information the patient was agreeable to disclosing was rather unproductive, she is rather defensive, and does have a flair of paranoia. Due to lack of credible history, it is difficult to determine if these cognitive changes are acute or chronic. I 2012, the patient was assessed by psychiatry and similar concerns for cognitive decline and periods in which the patient was not "lucid" were questioned. It is reported in that documentation that the sons had Power of Cable Installer Repairer Helper and were questioning seeking guardianship - status of this is unclear. It would be beneficial to gather collateral information from the son, as there are a number of medical reasons to suggest she may be experiencing delirium - though this cannot clearly be confirmed. Recommend actively treating infections, and monitor for improvement in cognition and cooperation. With additional history, we may be able to determine if patient's presentation may be more progressive, possibly more consistent with a dementia. Liaisons to attempt cognitive assessments if patient will cooperate. We will continue to follow along with the case and appreciate the opportunity to participate in the care of this patient. Dr. Siva Alfaro was directly involved in review and discussion of the patient's case and participated in medical decision making regarding treatment recommendations. CPT Code Initial Consultation: 65888 Psych History Identifying Data 73-year-old female admitted medically on 12/19/18 after being found by EMS on the floor of her home, likely after a fall. Pt presented confused and has been rather uncooperative with treatment thus far in her stay. Pt was diagnosed with and is being treated for sepsis and UTI. Psychiatric consultation was requested to assess confusion - questions arose regarding cognitive impairment, personality disorder, or paranoia. Pt was last seen on our service in 2012. The little information the patient provides is not considered to be overly reliable. Chief Complaint "No, it's not a particularly good time. But if it's necessary, you can make it quick." History of Present Illness Belinda Mckenzie is a 73-year-old female admitted medically on 12/19/18 after being found on the floor of her home by EMS. It is believed patient had fallen, and time she spent on the floor is unknown. Pt presented with confusion, and was found to have a UTI and diagnosed with sepsis. Confusion is ongoing and patient has been largely uncooperative with medical interventions and assessments. Psychiatric consultation was requested to further determine etiology of confusion/lack of cooperation. Pt participated in a portion of an MRI study, then requested to get out. She is refusing a repeat study in order to better understand the cause of her bilateral leg weakness. She was last seen on our service in 2012, when similar concerns were verbalized. Pt was uncooperative with initial assessment by psychiatric nurse liaison, reporting "I'm fine, I don't agree with any of this, this is not a good time. It's time for you to leave." This provider entered the patient's room, as she glanced toward the doorway and looked the other direction. Pt was asked if it was a good time to talk, and after a long pause responded, "it's not a particularly good time, but if it's necessary." Pt reports that she "fell" prior to admission, estimating she had been on the floor for 2-3 days before help arrived. Pt states, "I've been very confused." She verbalizes concern as "it became apparent after 2-3 days that no one was missing me." Pt reports that she was told she has "6 broken bones. 3 in the right leg, and the other 3 in the left." She states, "I feel like I'm being lied to, consistently." Pt states that she was "told I may never walk again, then when I brought it up again, someone else said 'no, that' not true'." During our assessment, patient was offered by nursing to repeat her MRI, which she initially refused. This provider offered encouragement, informing patient that an image would allow her providers to know exactly what is happening, and they can more confidently explain her prognosis. Pt paused for a long time after hearing this, and when asked if this changed her mind, responded "nope." Pt was asked about her mood specifically, which she reports, "it's fine. There's just been some personal problems." This provider waits patiently for patient to explain further - with patient only stating "my son got in October of this year." She does verbalize this is something she views negatively, but is unwilling to elaborate - stating "it's very delicate, I don't want to talk about it." She states her son is her neighbor. She is eventually able to say her mood has "stayed at an even keel." This provider brought to patient's attention the long pauses between questions being asked and her being able to answer. It was asked if patient is having racing thoughts which make it difficult for her to respond, or if she is having difficulty forming thoughts. She again states, "that's too delicate to talk about." Pt denies SI/HI, SIB. When asked about hallucinations, the patient states "yes". She is not able/willing to answer follow-up questions regarding her reports. Pt was informed that we would be working closely with her medical team to assist with her confusion. She states, "don't put too much weight on that." Pt would not respond when this provider asked what she meant. She indicated, however, that she would not be agreeable to meeting with providers or our nurse liaisons during her stay. Psychiatric consultation in 2013 was also significant for reports of patient not being "lucid". At that time, she had been neglecting self-care, but also had not been paying her bills or taxes. It was reported her insight and judgment were impaired and that she "projects her problems onto others rather than taking responsibility for herself." It was reported in that consultation that the sons were barger of deputy commonwealth's attorney, and were considering guardianship - status of this is unknown. 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 Past Psychiatric History Previous Psych History: Per 2013 consultation - previously seen by Dr. Briscoe. Previous history with therapy as well. Current Psychiatric Diagnosis: Per 2013 consult: MDD without psychotic features, delirium Outpatient Services: Pt unwilling to discuss Previous Psych Admissions: None per 2013 consultation; patient unwilling to discuss today Past Medication Trials: Per 2013 consultation: 1. Zoloft - multiple others the patient could not remember Allergies Allergy/AdvReac Type Severity Reaction Status Date / Time ketoprofen Allergy Severe NUMBNESS Verified 12/19/18 18:08 FROM WAIST DOWN SEVERAL MONTHS cephalexin Allergy Intermediate ITCHING Verified 12/19/18 18:08 Iodinated Contrast- Oral and Allergy Intermediate PAIN AT Verified 12/19/18 18:08 IV Dye INJECTION SITE AND UP THE BONES Penicillins Allergy Intermediate SEVERE RASH Verified 12/19/18 18:08 trimethoprim Allergy Intermediate ELEVATED Verified 12/19/18 18:08 POTASSIUM LEVELS Benzodiazepines Allergy Unknown Unverified 12/19/18 18:08 lorazepam AdvReac Intermediate pt Verified 12/19/18 18:08 EXTREMELY sensitive Home Medications Home Medications Medication Instructions Recorded Confirmed Type pantoprazole 40 mg PO QAM 07/22/18 12/19/18 History allopurinol 300 mg PO DAILY 07/31/18 12/19/18 History spironolactone 25 mg PO QAM 07/31/18 12/19/18 History nystatin 1 applic TOPICAL BID PRN 10/24/18 12/19/18 History atorvastatin 40 mg PO DAILY 11/03/18 12/19/18 History felodipine 2.5 mg PO DAILY 12/19/18 12/19/18 History furosemide 20 mg PO DAILY 12/19/18 12/19/18 History furosemide 40 mg PO DAILY 12/19/18 12/19/18 History metoprolol tartrate 12.5 mg PO BID 12/19/18 12/19/18 History warfarin 6 mg PO DAILY 12/19/18 12/19/18 History Family History Father - depression, alcohol use. No family history of suicide Substance Abuse History Unwilling to discuss Personal History Living Arrangements: Home (independently) Living Arrangements Comments: Home was described by EMS to be filthy. Pt's son reports she is a hoarder. Born In: [place] Highest Grade Completed: High School Graduate Employment Status: Retired Marital Status: ( in 12/2008, after 44 years of marriage) Number Of Children: 2 sons Beliefs That Will Affect Care: None Patient History Medical History Hyperventilation syndrome (Acute) BMI 60.0-69.9, adult (Acute) Low back pain (Acute) Esophageal dysmotility (Acute) Paroxysmal ventricular tachycardia (Acute) Pickwickian syndrome (Acute) Obstructive sleep apnea (Acute) Restrictive lung disease (Acute) Lung nodule seen on imaging study (Acute) Renal insufficiency (Acute) Edema (Acute) Atrial fibrillation, persistent (Chronic) Memory loss (Acute) Chronic diastolic (congestive) heart failure (Acute) Polyneuropathy (Acute) Vitamin D deficiency (Acute) Anticoagulated on Coumadin (Acute) Abnormal dobutamine stress echo (Acute) Diverticulosis of colon (Acute) Adenomatous polyp of colon (Acute) Carotid artery plaque (Acute) Atrial fibrillation with slow ventricular response (Acute) Asthma (Chronic) Pulmonary hypertension (Chronic) Hypertension (Chronic) Hyperlipidemia (Chronic) Psoriasis (Chronic) Venous stasis dermatitis (Chronic) Osteoarthritis (Chronic) GERD (gastroesophageal reflux disease) (Chronic) Cervical radiculopathy Cervical spondylosis Chronic diastolic CHF (congestive heart failure), NYHA class 3 Chronic pain RIGHT SHOULDER - RADIATING DOWN RIGHT ARM AND SOME PAIN IN LEFT ARM. WEAKNESS IN RIGHT ARM Diaper rash STATES HAS BEEN DIAGNOSED WITH "SEVERE DIAPER RASH" - USES CREAM WHICH IS HELPING AREAS History of asthma CHILD Hx of deep venous thrombosis Macular degeneration Noncompliance Permanent atrial fibrillation Sleep apnea Surgical History History of colonoscopy History of tonsillectomy History of total knee replacement X3; LEFT X2, RIGHT X1 History of wisdom tooth extraction Family History Mother Hypertension Cardiac disorder Cerebral artery occlusion with cerebral infarction Pericarditis Rheumatoid arthritis Father Asthma Hypertension Cardiac disorder COPD (chronic obstructive pulmonary disease) Coronary heart disease Family history of CABG Macular degeneration Skin cancer Brother Obesity Grandfather Diabetes Social History Preferred Language: [place] Communication Ability: Effective Beliefs That Will Affect Care: None Current Living Situation: Alone Feels Safe at Home: Yes Smoking Status: Never smoker Tobacco Type: cigarettes Second Hand Exposure: Yes (OCCASSIONALLY) Hx Alcohol Use: No Hx Substance Use: No Physical Exam Psychiatric: Orientation: alert, oriented to person and oriented to place; + uncooperative Apperance: appropriately dressed (in hospital gown) and + disheveled Morbidly obese appearing female laying rather still in bed. Pt appears disheveled, wearing corrective lenses pushed back on her forehead. Patient's skin is discolored in areas, several visible bruises. Pt's level of hygiene is limited. Eye Contact: + poor eye contact (often staring directly ahead, rarely making direct eye contact) Rather stiff in appearance, only movement of lower extremities is ability to wiggle toes of her left leg Speech: + loud speech and normal rate/rhythm/volume of speech (irritable tone) Affect: + flat affect and + irritable affect "I've been fine, but there have been some personal problems." Thought Process: + thought blocking, + tangential thought process and + concrete thought process Thought Content: + paranoid (believes providers and nurses are lying to her) Suicidal Thoughts: denies suicidal thoughts and denies suicidal intent Homicidal Thoughts: denies homicidal thoughts Reports hallucinations, but is unwilling to elaborate with any details Cognition: language grossly intact; + attention not intact Insight: + impaired insight Judgement: + impaired judgement Vital Signs (Past 24 Hours): Last Vital Signs Temp 36.5 C 12/28/18 09:39 Pulse 82 12/28/18 09:39 Resp 16 12/28/18 09:39 BP 127/83 12/28/18 09:39 Pulse Ox 92 12/28/18 09:39 Review of Systems Pt largely uncooperative with review of systems, does indicate bilateral leg pain. Results & Data Medications Administered Allopurinol (Zyloprim) 100 mg PO DAILY [facility] Stop: 01/21/19 08:59 Last Admin: 12/28/18 09:42 Dose: 100 mg Documented by: [id number] Admin: 12/27/18 08:35 Dose: 100 mg Documented by: [id number] Admin: 12/26/18 09:08 Dose: 100 mg Documented by: [id number] Admin: 12/25/18 09:31 Dose: 100 mg Documented by: [id number] Admin: 12/24/18 10:17 Dose: 100 mg Documented by: [id number] Admin: 12/23/18 09:24 Dose: 100 mg Documented by: [id number] Admin: 12/22/18 09:03 Dose: 100 mg Documented by: [id number] Furosemide (Lasix) 20 mg PO QAM [facility] Stop: 01/25/19 09:14 Last Admin: 12/28/18 09:43 Dose: 20 mg Documented by: [id number] Admin: 12/27/18 08:34 Dose: 20 mg Documented by: [id number] Admin: 12/26/18 10:40 Dose: 20 mg Documented by: [id number] Metoprolol Tartrate (Lopressor) 12.5 mg PO BID [facility] Stop: 01/19/19 08:59 Last Admin: 12/28/18 09:44 Dose: 12.5 mg Documented by: [id number] Admin: 12/27/18 20:04 Dose: 12.5 mg Documented by: [id number] Admin: 12/27/18 08:34 Dose: 12.5 mg Documented by: [id number] Admin: 12/26/18 20:20 Dose: 12.5 mg Documented by: [id number] Admin: 12/26/18 09:08 Dose: 12.5 mg Documented by: [id number] Admin: 12/25/18 20:20 Dose: 12.5 mg Documented by: [id number] Admin: 12/25/18 09:31 Dose: 12.5 mg Documented by: [id number] Admin: 12/24/18 20:36 Dose: 12.5 mg Documented by: [id number] Admin: 12/24/18 10:19 Dose: Not Given Documented by: [id number] Admin: 12/23/18 20:16 Dose: 12.5 mg Documented by: [id number] Admin: 12/23/18 09:22 Dose: Not Given Documented by: [id number] Admin: 12/22/18 21:03 Dose: 12.5 mg Documented by: [id number] Admin: 12/22/18 09:02 Dose: Not Given Documented by: [id number] Admin: 12/21/18 20:32 Dose: 12.5 mg Documented by: [id number] Admin: 12/21/18 07:43 Dose: 12.5 mg Documented by: [id number] Admin: 12/20/18 21:06 Dose: Not Given Documented by: [id number] Admin: 12/20/18 08:50 Dose: 12.5 mg Documented by: [id number] Miconazole Nitrate (Desenex) 1 appln EXT PRN PRN PRN Reason: Affected Skin Folds Stop: 01/21/19 07:23 Last Admin: 12/26/18 20:22 Dose: 1 appln Documented by: [id number] Admin: 12/26/18 08:00 Dose: 1 appln Documented by: [id number] Admin: 12/25/18 20:23 Dose: 1 appln Documented by: [id number] Admin: 12/25/18 11:50 Dose: 1 appln Documented by: [id number] Admin: 12/23/18 09:29 Dose: 1 appln Documented by: [id number] Admin: 12/22/18 09:33 Dose: 1 appln Documented by: [id number] Morphine Sulfate (Morphine Sulfate) 2 mg IV Q4 PRN PRN Reason: Pain Stop: 01/03/19 16:42 Last Admin: 12/20/18 17:48 Dose: 2 mg Documented by: [id number] Multi-Ingredient Cream (Hydrocerin) 1 appln EXT BID [facility] Stop: 01/19/19 20:59 Last Admin: 12/28/18 09:43 Dose: 1 appln Documented by: [id number] Admin: 12/27/18 20:03 Dose: 1 appln Documented by: [id number] Admin: 12/27/18 08:36 Dose: 1 appln Documented by: [id number] Admin: 12/26/18 20:22 Dose: 1 appln Documented by: [id number] Admin: 12/26/18 08:00 Dose: 1 appln Documented by: [id number] Admin: 12/25/18 20:20 Dose: 1 appln Documented by: [id number] Admin: 12/25/18 09:32 Dose: 1 appln Documented by: [id number] Admin: 12/24/18 20:36 Dose: 1 appln Documented by: [id number] Admin: 12/24/18 10:18 Dose: 1 appln Documented by: [id number] Admin: 12/23/18 20:14 Dose: 1 appln Documented by: [id number] Admin: 12/23/18 09:22 Dose: 1 appln Documented by: [id number] Admin: 12/22/18 21:04 Dose: 1 appln Documented by: [id number] Admin: 12/22/18 09:34 Dose: 1 appln Documented by: [id number] Admin: 12/21/18 20:31 Dose: 1 appln Documented by: [id number] Admin: 12/21/18 07:44 Dose: 1 appln Documented by: [id number] Admin: 12/20/18 21:59 Dose: 1 appln Documented by: [id number] Nystatin (Mycostatin) 1 appln EXT BID PRN PRN Reason: FUNGAL ISSUES UNDER BREAST Stop: 01/19/19 00:07 Last Admin: 12/20/18 22:03 Dose: 1 appln Documented by: [id number] Pantoprazole Sodium (Protonix) 40 mg PO QAM [facility] Stop: 01/19/19 08:59 Last Admin: 12/28/18 09:44 Dose: 40 mg Documented by: [id number] Admin: 12/27/18 08:35 Dose: 40 mg Documented by: [id number] Admin: 12/26/18 09:08 Dose: 40 mg Documented by: [id number] Admin: 12/25/18 09:31 Dose: 40 mg Documented by: [id number] Admin: 12/24/18 10:17 Dose: 40 mg Documented by: [id number] Admin: 12/23/18 09:23 Dose: 40 mg Documented by: [id number] Admin: 12/22/18 09:02 Dose: 40 mg Documented by: [id number] Admin: 12/21/18 07:43 Dose: 40 mg Documented by: [id number] Admin: 12/20/18 08:50 Dose: 40 mg Documented by: [id number] Saccharomyces Boulardii (Florastor) 250 mg PO DAILY [facility] Stop: 01/24/19 08:59 Last Admin: 12/28/18 09:43 Dose: 250 mg Documented by: [id number] Admin: 12/27/18 08:34 Dose: 250 mg Documented by: [id number] Admin: 12/26/18 09:09 Dose: 250 mg Documented by: [id number] Admin: 12/25/18 09:31 Dose: 250 mg Documented by: [id number] Warfarin Sodium (Coumadin) 5 mg PO DAILY@1600 [facility] Stop: 01/22/19 15:59 Last Admin: 12/27/18 15:58 Dose: 5 mg Documented by: [id number] Admin: 12/26/18 16:32 Dose: 5 mg Documented by: [id number] Admin: 12/25/18 20:21 Dose: 5 mg Documented by: [id number] Admin: 12/24/18 16:44 Dose: 5 mg Documented by: [id number] Admin: 12/23/18 16:47 Dose: 5 mg Documented by: [id number]
--- NOTE | 2018-12-28 20:39 | Hospitalist Progress Note ---
Date of Service December 28, 2018 Assessment & Plan (1) Bilateral leg weakness: UNCHANGED. Patient cannot pinpoint date of onset but started at least several days before her fall at home. She was unable to walk for several days before her fall. She has profound weakness of both legs on exam; the weakness is unchanged from yesterday. She does not have a sensory level. She does have some sensory loss in her feet however. B12 level wnl. She only completed a small portion of the MRI T-spine -- this was largely normal and w/o cord lesion. She is refusing any further MRIs - she does not give a reason for refusal. I ordered CT lumbar spine hoping that she will be agreeable to the fast nature of the test. I spoke with her son, Marc, and explained that I cannot help his mother if we cannot do the necessary testing. She is quite paranoid and mistrustful. Although she says she understands the seriousness of what is going on I am unsure if she truly has capacity as most individuals would want to know what is preventing them from walking. She doesn't seem to care. He states she usually is not paranoid like this. Either way I asked psychiatry to see her given the struggles we have had with her all week. Consider neuro consultation. Check CPK level in am. (2) Metatarsal fracture: Bilateral metatarsal fractures (5th metatarsals). Avulsion fracture of the LEFT calcaneus. Likely talus fracture on LEFT as well. Orthopedics recommending right sided surgical shoe. No surgery at this time. Appreciate orthotics consult for right-sided surgical shoe. f/u 6 weeks with ortho. 25-OH vit D level in September 2018 was 33. She has not been able to walk/ambulate - see discussion above in "b/l leg weakness." (3) Sepsis: 2nd to UTI - resolved. Completed 7+ days of IV/PO abx and is now off abx. (4) Altered mental status: We are 10+ days into her hospital stay and she is still confused. Son Marc states that she is still confused. Previously it was thought that she had metabolic encephalopathy from sepsis/UTI and possibly toxic effects from narcotics. Both have been addressed and she remains altered to some degree. Even more prominent has been widespread paranoia and even refusal of care due to the paranoia. I have asked psychiatry to see in consult. Spoke with son this week - baseline mental status seems most c/w mild cognitive impairment. For "some time" she has had word finding difficulties, some short term memory trouble, etc. Ammonia level normal. Stopped narcotics. Treated UTI. (5) UTI (urinary tract infection): 2nd klebsiella and e.coli. completed full 7+ day course of IV/PO abx. (6) Hypotension: 2nd to sepsis. resolved quickly after admission. (7) Chronic diastolic (congestive) heart failure: Compensated. Cont lasix 20mg daily. (8) Atrial fibrillation, persistent: Anticoagulated with warfarin. INR in am. (9) Acute kidney injury (nontraumatic): Likely ATN in setting of sepsis/dehydration. Resolved. (10) Hypertension: Continue metoprolol tartrate 12.5 mg twice daily. Controlled. (11) Abnormal LFTs (liver function tests): Likely shock liver from hypotension/sepsis. Resolving biochemically. Liver structurally normal on hepatic u/s. Ammonia level normal. (12) Hyperlipidemia: Cont to hold atorvastatin given her liver injury. (13) Morbid obesity with BMI of 50.0-59.9, adult: BMI 52 (14) Advance care planning: Pt's sons desire her to be placed in SNF. (15) DVT prophylaxis: coumadin until we have a better understanding of what is causing her b/l leg weakness she will continue to remain hospitalized Subjective saw patient twice today and spoke to son, Marc, by phone. during first visit she was being seen by the psychiatry liason. when I asked how she was doing she said "not so good." I briefly asked her to move her legs and she had little to no movement of either leg - similar to yesterday's exam. when I saw her during my 2nd visit we had a lengthy talk about her b/l leg weakness and how we did not have an etiology of what was causing it. I explained that we needed to do more testing to figure out why. I asked her if she understood and she said "yes." however, when I asked her if she would allow me to complete the MRIs of the spine she said "no." further, I specifically asked her why she would not allow me to do the MRIs and she just stared at me. She never gave an answer to that question. she again voiced several times that she "didn't trust anyone" and also said we were lying to her. Review of Systems Constitutional: no anorexia Respiratory: no cough and no dyspnea Cardiovascular: no chest pain Gastrointestinal: no abdominal pain, no nausea and no vomiting Musculoskeletal: + joint pain (both feet) Psychiatric: + paranoia confusion Physical Exam Constitutional: + morbidly obese; no acute distress ENMT: external ear and nose normal, oropharynx normal Respiratory: normal respiratory effort, lungs clear to auscultation Cardiovascular: Rate/Rhythm: regular rate and + irregularly irregular Heart Sounds: normal S1 and normal S2; no murmur Vessels: posterior tibial pulses present and dorsalis pedis pulses present; no JVD Extremities: + edema (1-2+ b/l) Gastrointestinal (Abdomen): normal bowel sounds, soft, nontender, no hepatosplenomegaly Skin: severe venous stasis changes b/l legs w/o superimposed cellulitis Neurologic: minimal movement of flexion of both hips, perhaps 1/5 today. can move toes on left foot but minimally so on right foot. minimal plantarflexion on left foot; none really on right foot. Psychiatric: Orientation: alert, oriented to person and oriented to place; + not oriented to time Motor Behavior: + psychomotor retardation (takes long time to answer questions; simply stares at times) Affect: + flat affect Results & Data Vital Signs (Past 12 Hours) Vital Signs Temp Pulse Resp BP Pulse Ox 12/28/18 18:09 36.8 C 75 16 136/77 94 12/28/18 09:39 36.5 C 82 16 127/83 92 Laboratory Results Laboratory Results - last 24 hr 12/28/18 12/28/18 12/28/18 09:41 09:41 09:41 PT 20.1 H INR 2.1 H Sodium 136 Potassium 4.2 Chloride 104 Carbon Dioxide 27 Anion Gap 5.0 BUN 42 H Creatinine 1.09 Est Cr Clr Drug Dosing 55.4 Est GFR ( Amer) 57.5 Est GFR (Non-Af Amer) 49.6 BUN/Creatinine Ratio 38.1 H Glucose 137 H Calcium 9.1 Total Bilirubin 0.6 AST 237 H ALT 197 H Alkaline Phosphatase 125 H Total Protein 6.4 Albumin 1.9 L Globulin 4.5 H Albumin/Globulin Ratio 0.4 L Vitamin B12 680 PG Care Time/CCT Total # of Minutes Spent Total Time Spent with Patient: Total time spent is greater than 50% in coordination of care (as documented) at patient's floor/unit and/or counseling patient: (1) UTI (urinary tract infection) Hematuria presence: without hematuria Urinary tract infection type: site unspecified Qualified Code(s): N39.0 - Urinary tract infection, site not specified (2) Hyperlipidemia Hyperlipidemia type: mixed hyperlipidemia Qualified Code(s): E78.2 - Mixed hyperlipidemia (3) Metatarsal fracture Encounter type: subsequent encounter Fracture alignment: nondisplaced Fracture healing: with routine healing Fracture type: closed Laterality: unspecified laterality Metatarsal bone: fifth Qualified Code(s): S92.356D - Nondisplaced fracture of fifth metatarsal bone, unspecified foot, subsequent encounter for fracture with routine healing (4) Sepsis Sepsis type: sepsis due to unspecified organism Qualified Code(s): A41.9 - Sepsis, unspecified organism (5) Altered mental status Altered mental status type: delirium Qualified Code(s): R41.0 - Dis orientation, unspecified (6) Hypertension Hypertension type: essential hypertension Qualified Code(s): I10 - Essential (primary) hypertension (7) Hypotension Hypotension type: other hypotension type Qualified Code(s): I95.89 - Other hypotension
--- NOTE | 2018-12-28 21:42 | CT Scan Report ---
CT lumbar spine wo con CT DOSE: 1108.84 mGy.cm HISTORY: Paralysis. Pain. paralysis of b/l legs; pt unwilling to do MRI TECHNIQUE: Multiaxial CT images of the lumbar spine were performed and reformatted in the sagittal an d coronal plane without the use of contrast. A dose lowering technique was utilized adhering to the principles of ALARA. COMPARISON: 06/13/2017 FINDINGS: , This examination is of limited due to patient body habitus. Generalized degenerative disc change throughout the entire lumbar region similar compared to the prior study. Vacuum disc are note d L4-L5, L2-L3, and L1-L2 as well as the low thoracic region. Bony mineralization is perhaps slightly diminished compared to the prior study. There is no major compromise of the spinal canal within resolution limitations. There is no acute com pression deformity. There are bilateral pleural effusions similar compared to the prior study. IMPRESSION: 1. Limited study due to patient body habitus. 2. Considerable degenerative disc change throughout the entire lumbar and low thoracic region is rupali lar compared to the prior study. 3. Osteopenia similar to slightly progressive from the prior study. 4. No evidence for compression deformity. 5. No major compromise of the spinal canal. 6. Bilateral pleural effusions similar as compared to the prior CT study. The above report was generated using voice recognition software. It may contain grammatical, syntax or spelling errors. Electronically signed by: Rick Adamson M.D. 12/28/2018 9:40 PM
[2018-12-29 07:18] LABS: Hematocrit (blood only) 41.2 % (37-47); Hemoglobin 13.7 g/dL (12.0-16.0); Mean Corpuscular Hgb Conc 33.3 g/dL (32-36); Mean Corpuscular Volume 96.9 fL (80-100); Platelet Count 257 K/uL (130-400); RDW Coefficient of Variation 15.2 % (11.5-14.5); RDW Standard Deviation 52.1 fL (36.4-46.3); Red Blood Count 4.25 M/uL (4.2-5.4)
[2018-12-29 07:31] LABS: INR 1.9 (0.9-1.1); Prothrombin Time 18.8 Seconds (9.0-12.0)
[2018-12-29 07:48] LABS: BUN Creatinine Ratio 42.9 (10-20); Calcium 9.2 mg/dl (8.5-10.1); Creatinine Clr Calc Pharmacy 58.1 ml/min; Est GFR (African American) 60.9; Est GFR (Non-African American) 52.5; Potassium 4.4 mmol/L (3.5-5.1)
[2018-12-29] MEDS: METOPROLOL TARTRATE 25 MG TAB PO SCH ×2 (09:39→21:27)
[2018-12-29] MEDS: ALLOPURINOL 100 MG TAB PO SCH (09:40)
[2018-12-29] MEDS: FUROSEMIDE 20 MG TAB PO SCH (09:40)
[2018-12-29] MEDS: SACCHAROMYCES BOULARDII 250 MG CAP PO SCH (09:40)
[2018-12-29] MEDS: PANTOprazole 40 MG TAB PO SCH (09:40)
[2018-12-29] MEDS: EUCERIN CR 120 GM JAR EXT SCH ×2 (09:40→21:29)
[2018-12-29] MEDS: HYDROCODONE/ACETAMOPHEN 5/325MG TAB PO PRN (13:54)
[2018-12-29] MEDS: WARFARIN SOD 5 MG TAB PO SCH (17:11)
[2018-12-29] MEDS: MICONAZOLE NITRATE POWDER 43 GM EXT PRN (18:12)
--- NOTE | 2018-12-29 18:25 | Hospitalist Progress Note ---
Date of Service December 29, 2018 Assessment & Plan (1) Rhabdomyolysis: CPK today is ~1600. CPK was NOT previously checked during her protracted stay. I have suspicion her CPK was MUCH higher earlier this stay and we are catching the CPK "on the way down." If her CPK was indeed in the thousands (presumed, of course) as a result of her fall prior to admission then rhabdomyolysis would likely explain her severe muscle weakness of the legs. Will recheck her CPK in am. Cont to hold statin therapy. (2) Bilateral leg weakness: IMPROVED TODAY. Patient cannot pinpoint date of onset but started at least several days before her fall at home. She was unable to walk for several days before her fall. She had profound weakness of both legs but it is better today. She never had a "sensory level." B12 level wnl. MRI thoracic spine - although limited - did not show cord lesions. CT lumbar spine (she refused MRI lumbar spine) - no cord lesions, spine unchanged relative to prior CTs. In light of rhabdomyolysis (see discussion above) I suspect that this could have been the cause of her muscle weakness in the legs. Cont PT/OT. Recheck CPK in am. Serial exams. (3) Metatarsal fracture: Bilateral metatarsal fractures (5th metatarsals). Avulsion fracture of the LEFT calcaneus. Likely talus fracture on LEFT as well. Orthopedics recommending right sided surgical shoe. No surgery at this time. Appreciate orthotics consult for right-sided surgical shoe. f/u 6 weeks with ortho. 25-OH vit D level in September 2018 was 33. She has not been able to walk/ambulate - see discussion above in "b/l leg weakness." (4) Sepsis: 2nd to UTI - resolved. Completed 7+ days of IV/PO abx and is now off abx. (5) Altered mental status: We are 10+ days into her hospital stay and she is still confused. Son Marc states that she is still confused. Previously it was thought that she had metabolic encephalopathy from sepsis/UTI and possibly toxic effects from narcotics. Both have been addressed and she remains altered to some degree. Even more prominent has been widespread paranoia and even refusal of care due to the paranoia. I have asked psychiatry to see in consult. Spoke with son this week - baseline mental status seems most c/w mild cognitive impairment. For "some time" she has had word finding difficulties, some short term memory trouble, etc. Ammonia level normal. Stopped narcotics. Treated UTI. What is patient's baseline ? (6) UTI (urinary tract infection): 2nd klebsiella and e.coli. completed full 7+ day course of IV/PO abx. (7) Hypotension: 2nd to sepsis. Resolved quickly after admission. (8) Chronic diastolic (congestive) heart failure: Compensated. Cont lasix 20mg daily. (9) Atrial fibrillation, persistent: Anticoagulated with warfarin. INR acceptable today. INR in am. (10) Acute kidney injury (nontraumatic): Likely ATN in setting of sepsis/dehydration. Resolved. Cannot rule out that rhabdomyolysis contributed to COREY. (11) Hypertension: Continue metoprolol tartrate 12.5 mg twice daily. Controlled. (12) Abnormal LFTs (liver function tests): Likely shock liver from hypotension/sepsis. Resolving biochemically. Liver structurally normal on hepatic u/s. Ammonia level normal. Serial labs have shown continued improvement. Cont to hold statin. Recheck LFTs in 48 hours. (13) Hyperlipidemia: Cont to hold atorvastatin given her liver injury and elevated CPK. (14) Morbid obesity with BMI of 50.0-59.9, adult: BMI 52 (15) Traumatic injury of skin: b/l posterior legs, much worse Right Leg. Due to fall with prolonged immobilization on floor. She likely needs some debridement of denuded skin. Will consult wound care provider on Monday for such. Local wound care in meantime. (16) Advance care planning: Pt's sons desire her to be placed in SNF. [facility]. (17) DVT prophylaxis: coumadin I feel like she is finally making some progress. Cont to monitor. Subjective patient said very little during the encounter today. like previous visits she simply stared at me when I asked her most questions. she did respond affirmatively that she is moving her legs better today. at one point while we were talking she took the liberty of putting the head of the bed down and showing me how much she could now move around in the bed and how much she could move the legs. I looked at the patient's wounds today on her legs w/ the help of her RN and a biomedical engineering internship. eating fair. no new issues. DID complete the CT lumbar spine yesterday night. Review of Systems Review of Systems: Unobtainable due to cognitive status and wouldn't really answer ROS questions Physical Exam Constitutional: + morbidly obese; no acute distress odd mannerisms; often stares at the provider or nurse; ?thought blocking? (significant delays in answering questions) ENMT: external ear and nose normal, oropharynx normal Respiratory: normal respiratory effort, lungs clear to auscultation Auscultation: + diminished lung sounds (bases) Cardiovascular: Rate/Rhythm: regular rate and + irregularly irregular Heart Sounds: normal S1 and normal S2; no murmur Vessels: posterior tibial pulses present and dorsalis pedis pulses present; no JVD Extremities: + edema (1-2+ b/l) Gastrointestinal (Abdomen): normal bowel sounds, soft, nontender, no hepatosplenomegaly Skin: right leg - posterior thigh/popliteal fossa area -- large area of macerated skin with denuded epidermis and old skin that is sloughing in multiple locations; no cellulitis; ecchymoses and signs of tissue trauma. left leg - very small area of tissue trauma/slight skin breakfast - posteriorly on left leg. Neurologic: b/l hip flexion MUCH better today - about 3/5 strength b/l today. foot and ankle dorsiflexion slightly better. plantarflexion also better. Psychiatric: Orientation: alert Motor Behavior: + psychomotor retardation (takes long time to answer questions; simply stares at times) Affect: + flat affect Results & Data Vital Signs (Past 12 Hours) Vital Signs Temp Pulse Pulse Resp BP Pulse Ox 12/29/18 16:00 36.6 C 71 20 110/69 91 12/29/18 08:22 36.6 C 72 18 118/75 97 Laboratory Results Laboratory Results - last 24 hr 12/29/18 12/29/18 12/29/18 06:57 06:57 06:57 WBC 10.30 RBC 4.25 Hgb 13.7 Hct 41.2 MCV 96.9 MCH 32.2 MCHC 33.3 RDW Std Deviation 52.1 H RDW Coeff of Priti 15.2 H Plt Count 257 MPV 11.0 H PT 18.8 H INR 1.9 H Sodium 136 Potassium 4.4 Chloride 104 Carbon Dioxide 28 Anion Gap 4.0 BUN 45 H Creatinine 1.04 Est Cr Clr Drug Dosing 58.1 Est GFR ( Amer) 60.9 Est GFR (Non-Af Amer) 52.5 BUN/Creatinine Ratio 42.9 H Glucose 102 H Calcium 9.2 Total Creatine Kinase 1632 H PG Care Time/CCT Total # of Minutes Spent Total Time Spent with Patient: Total time spent is greater than 50% in coordination of care (as documented) at patient's floor/unit and/or counseling patient: (1) UTI (urinary tract infection) Hematuria presence: without hematuria Urinary tract infection type: site unspecified Qualified Code(s): N39.0 - Urinary tract infection, site not specified (2) Hyperlipidemia Hyperlipidemia type: mixed hyperlipidemia Qualified Code(s): E78.2 - Mixed hyperlipidemia (3) Metatarsal fracture Encounter type: subsequent encounter Fracture alignment: nondisplaced Fracture healing: with routine healing Fracture type: closed Laterality: unspecified laterality Metatarsal bone: fifth Qualified Code(s): S92.356D - Nondisplaced fracture of fifth metatarsal bone, unspecified foot, subsequent encounter for fracture with routine healing (4) Sepsis Sepsis type: sepsis due to unspecified organism Qualified Code(s): A41.9 - Sepsis, unspecified organism (5) Altered mental status Altered mental status type: delirium Qualified Code(s): R41.0 - Disorientation, unspecified (6) Hypertension Hypertension type: essential hypertension Qualified Code(s): I10 - Essential (primary) hypertension (7) Hypotension Hypotension type: other hypotension type Qualified Code(s): I95.89 - Other hypotension (8) Rhabdomyolysis Rhabdomyolysis type: traumatic Encounter type: subsequent encounter Qualified Code(s): T79.6XXD - Traumatic ischemia of muscle, subsequent encounter
[2018-12-30 07:38] LABS: INR 1.9 (0.9-1.1); Prothrombin Time 18.8 Seconds (9.0-12.0)
[2018-12-30 07:54] LABS: Creatinine Clr Calc Pharmacy 65.7 ml/min; Est GFR (African American) 70.6; Est GFR (Non-African American) 60.9
[2018-12-30] MEDS: PANTOprazole 40 MG TAB PO SCH (10:12)
[2018-12-30] MEDS: METOPROLOL TARTRATE 25 MG TAB PO SCH ×2 (10:12→21:37)
[2018-12-30] MEDS: ALLOPURINOL 100 MG TAB PO SCH (10:12)
[2018-12-30] MEDS: SACCHAROMYCES BOULARDII 250 MG CAP PO SCH (10:13)
[2018-12-30] MEDS: FUROSEMIDE 20 MG TAB PO SCH (10:13)
[2018-12-30] MEDS: EUCERIN CR 120 GM JAR EXT SCH ×2 (13:11→21:39)
[2018-12-30] MEDS: HYDROCODONE/ACETAMOPHEN 5/325MG TAB PO PRN ×2 (13:11→21:29)
[2018-12-30] MEDS: NYSTATIN POWDER 15GM BTL EXT SCH ×2 (13:12→21:37)
[2018-12-30] MEDS: WARFARIN SOD 5 MG TAB PO SCH (16:53)
--- NOTE | 2018-12-30 20:43 | Hospitalist Progress Note ---
Date of Service December 30, 2018 Assessment & Plan (1) Rhabdomyolysis: CPK today improved from yesterday's level of 1600. CPK was NOT previously checked during her protracted stay. I have suspicion her CPK was MUCH higher earlier this stay and we are catching the CPK "on the way down." The CPK could easily have been 10,000-20,000 or even much higher. If her CPK was indeed in the thousands (presumed, of course) as a result of her fall prior to admission then rhabdomyolysis would likely explain her severe muscle weakness of the legs - especially the proximal muscle weakness. Cont to hold statin therapy. Recheck CPK am. (2) Bilateral leg weakness: Continues to improve, especially proximal muscles of legs (hips). Today patient was much more awake/alert/oriented than previous. She said with a fair amount of certainty that she was walking ok up until the day of the fall. She was weak, but had decent ability to walk. She never had a "sensory level" during this hospital stay. She has had, however, numbness of both feet. B12 level wnl. MRI thoracic spine - although limited - did not show cord lesions. CT lumbar spine (she refused MRI lumbar spine) - no cord lesions, spine unchanged relative to prior CTs. In light of rhabdomyolysis (see discussion above) I suspect that this could have been the cause of her proximal muscle weakness in the legs. The distal findings (foot drop, sensory loss of feet, etc) could be explained by a compressive peripheral neuropathy (son states that when he found her on the floor in her home she was laying in a very odd position). Other possibility is that of a critical illness neuropathy/myopathy. I spoke with Dr Quintana who will consult tomorrow and give his opinion/recommendations. May need outpatient EMG, etc. (3) Metatarsal fracture: Bilateral metatarsal fractures (5th metatarsals). Avulsion fracture of the LEFT calcaneus. Likely talus fracture on LEFT as well. Orthopedics recommending right sided surgical shoe. No surgery at this time. Appreciate orthotics consult for right-sided surgical shoe. f/u 6 weeks with ortho. 25-OH vit D level in September 2018 was 33. She has not been able to walk/ambulate - see discussion above in "b/l leg wea jonathan." (4) Sepsis: 2nd to UTI - resolved. Completed 7+ days of IV/PO abx and is now off abx. (5) Altered mental status: MARKED improvement today. She was much more interactive, asking questions, was reading the newspaper, started at me less, and overall simply MUCH better. Much more oriented. Could even remember Dr Fermin had taken care of her prior to me. Likely due to sepsis, UTI, COREY, acute liver injury, etc. CT head at admission was negative. (6) UTI (urinary tract infection): 2nd klebsiella and e.coli. completed full 7+ day course of IV/PO abx. (7) Hypotension: 2nd to sepsis. Resolved quickly after admission. (8) Chronic diastolic (congestive) heart failure: Compensated. Cont lasix 20mg daily. Cont beta aaron BID. (9) Atrial fibrillation, persistent: Anticoagulated with warfarin. INR 1.9 this am. INR in am tomorrow. (10) Acute kidney injury (nontraumatic): Likely ATN in setting of sepsis/dehydration. Resolved. Cannot rule out that rhabdomyolysis contributed to COREY as well. (11) Hypertension: Continue metoprolol tartrate 12.5 mg twice daily. Controlled. (12) Abnormal LFTs (liver function tests): Likely shock liver from hypotension/sepsis. Resolving biochemically. Liver structurally normal on hepatic u/s. Ammonia level normal. Serial labs have shown continued improvement. Cont to hold statin. Recheck LFTs tomorrow am. (13) Hyperlipidemia: Cont to hold atorvastatin given her liver injury and elevated CPK. (14) Morbid obesity with BMI of 50.0-59.9, adult: BMI 52 (15) Traumatic injury of skin: b/l posterior legs, much worse Right Leg. Due to fall with prolonged immobilization on floor. She likely needs some debridement of denuded skin. Will consult wound care provider on Monday for such. Local wound care in meantime. (16) Advance care planning: Pt's sons desire her to be placed in SNF. [facility]. (17) DVT prophylaxis: coumadin marked progress today w/ mental status proximal muscle weakness of legs finally improving await neuro consultation both sons EXTENSIVELY updated by phone via conference call today Subjective patient much more talkative today. asking questions about her medical care, her fractures, the weakness, plan of care, how long she would be in rehab, etc. she knew where she was, what the month is, etc. she even remembered that Dr Fermin had taken care of her last week. she easily followed all commands. eating is better. spoke with both sons by phone this evening and gave large update. Review of Systems Constitutional: no fever Respiratory: no cough and no dyspnea Cardiovascular: no chest pain Gastrointestinal: no abdominal pain, no nausea and no vomiting Physical Exam Constitutional: + morbidly obese; no acute distress and no altered mental status ENMT: external ear and nose normal, oropharynx normal Respiratory: normal respiratory effort, lungs clear to auscultation Auscultation: + diminished lung sounds (bases) Cardiovascular: Rate/Rhythm: regular rate and + irregularly irregular Heart Sounds: normal S1 and normal S2; no murmur Vessels: posterior tibial pulses present and dorsalis pedis pulses present; no JVD Extremities: + edema (chronic lymphedema) Gastrointestinal (Abdomen): normal bowel sounds, soft, nontender, no hepatosplenomegaly Skin: severe venous stasis changes b/l shins Neurologic: b/l hip flexion about 3/5 strength today - significantly improved; b/l foot drop; left foot plantarflexion about 3-4/5; right foot plantar flexion 0-1/5 strength Psychiatric: Orientation: alert and oriented x 3 affect more full today Results & Data Vital Signs (Past 12 Hours) Vital Signs Temp Pulse Resp BP Pulse Ox 12/30/18 15:15 36.6 C 81 16 147/69 H 96 Laboratory Results Laboratory Results - last 24 hr 12/30/18 12/30/18 12/30/18 06:28 06:28 12:19 PT 18.8 H INR 1.9 H Creatinine 0.92 Est Cr Clr Drug Dosing 65.7 Est GFR ( Amer) 70.6 Est GFR (Non-Af Amer) 60.9 POC Glucose 94 Total Creatine Kinase 1392 H PG Care Time/CCT Total # of Minutes Spent Total Time Spent with Patient: Total time spent is greater than 50% in coordination of care (as documented) at patient's floor/unit and/or counseling patient: (1) UTI (urinary tract infection) Hematuria presence: without hematuria Urinary tract infection type: site unspecified Qualified Code(s): N39.0 - Urinary tract infection, site not specified (2) Hyperlipidemia Hyperlipidemia type: mixed hyperlipidemia Qualified Code(s): E78.2 - Mixed hyperlipidemia (3) Metatarsal fracture Encounter type: subsequent encounter Fracture alignment: nondisplaced Fracture healing: with routine healing Fracture type: closed Laterality: unspecified laterality Metatarsal bone: fifth Qualified Code(s): S92.356D - Nondisplaced fracture of fifth metatarsal bone, unspecified foot, subsequent encounter for fracture with routine healing (4) Rhabdomyolysis Encounter type: subsequent encounter Rhabdomyolysis type: traumatic Qualified Code(s): T79.6XXD - Traumatic ischemia of muscle, subsequent encounter (5) Sepsis Sepsis type: sepsis due to unspecified organism Qualified Code(s): A41.9 - Sepsis, unspecified organism (6) Altered mental status Altered mental status type: delirium Qualified Code(s): R41.0 - Disorientation, unspecified (7) Hypertension Hypertension type: essential hypertension Qualified Code(s): I10 - Essential (primary) hypertension (8) Hypotension Hypotension type: other hypotension type Qualified Code(s): I95.89 - Other hypotension
[2018-12-31 06:38] LABS: Prothrombin Time 19.1 Seconds (9.0-12.0)
[2018-12-31 07:02] LABS: Albumin Level 1.9 gm/dl (3.4-5.0); BUN Creatinine Ratio 41.9 (10-20); Calcium 9.1 mg/dl (8.5-10.1); Creatinine Clr Calc Pharmacy 61.6 ml/min; Est GFR (African American) 65.4; Est GFR (Non-African American) 56.4; Potassium 4.1 mmol/L (3.5-5.1)
[2018-12-31 07:16] LABS: Albumin Globulin Ratio 0.5 (0.9-2); Bilirubin,Total 0.8 mg/dl (0.2-1); Globulin 4.2 gm/dl (2.5-4.0); Total Protein 6.1 gm/dl (6.4-8.2)
[2018-12-31] MEDS: METOPROLOL TARTRATE 25 MG TAB PO SCH ×2 (08:29→21:30)
[2018-12-31] MEDS: FUROSEMIDE 20 MG TAB PO SCH (08:30)
[2018-12-31] MEDS: SACCHAROMYCES BOULARDII 250 MG CAP PO SCH (08:30)
[2018-12-31] MEDS: ALLOPURINOL 100 MG TAB PO SCH (08:31)
[2018-12-31] MEDS: PANTOprazole 40 MG TAB PO SCH (08:31)
[2018-12-31] MEDS: EUCERIN CR 120 GM JAR EXT SCH ×2 (08:31→21:08)
[2018-12-31] MEDS: NYSTATIN POWDER 15GM BTL EXT SCH ×3 (08:32→21:08)
--- NOTE | 2018-12-31 09:24 | Neurology Consultation ---
Date of Consultation December 31, 2018 Assessment & Plan (1) Bilateral leg weakness: (2) Rhabdomyolysis: (3) Low back pain: (4) Memory loss: (5) Atrial fibrillation, persistent: (6) Polyneuropathy: (7) Altered mental status: This patient is complicated neurologically. (1) Patient has bilateral lower extremity weakness right greater than left side. The etiology of this is likely multifactorial including rhabdomyolysis from lying on the ground for up to 48 hours. On December 29 CK was 1632 (10 days after admission). I suspect it was markedly higher early on in her hospitalization. This is on a background of bilateral lower extremity weakness in general with chronic low back pain and degenerative changes. Last EMG in 2012 showed no radiculopathy but this may be present currently. 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 Patients who have sepsis, such as this patient can have critical illness myopathy and polyneuropathy as well. There is a footdrop on the right not present on the left. X-rays revealed some 5th metatarsal fractures and a left calcaneal avulsion fracture. I see no evidence for upper motor neuron signs although these could be masked by the peripheral neuropathy. (2) The patient has cognitive problems and memory issues. I suspect an underlying dementia with without mood issues. Psychiatry has seen the patient earlier this hospitalization. The patient was having memory problems as far back as 2012 (or even earlier). This is likely getting worse over time. I suspect the patient has psychiatric issues/diagnoses as well. Patient had an acute encephalopathy from the infection/sepsis which seems to be markedly improved currently. (3) this patient has persistent atrial fibrillation on chronic Coumadin. Other risk factors for cerebral vascular disease include hypertension, dyslipidemia, and sleep apnea. Currently she is stable and there is no evidence of stroke or other [employer]AZINE SUPER[employer] issues at this time. Recommendations: 1. Physical and occupational therapy for this patient increasing activity as able. She would likely need either a stay at [facility] or may need long-term care facility. 2. Case Management consultation as the patient likely wants to go home and this is probably not an ideal situation for at this time (unless she can have home nursing and PT). 3. There is no need for EMG and nerve conduction study testing at this time. If she is not making significant improvements over the next 2 weeks then I would consider this testing on her legs as an outpatient. 4. Follow CKs, however, these are coming down nicely. 5. Patient probably needs complete neuropsychological testing to evaluate extent severity of dementia versus pseudodementia. She may need psychiatric follow-up as well. 6. I can follow up as an outpatient if desired, but I have no further recommendations neurologically now. Overall, I spent a total of 100 minutes with this case including review of records, review of MRI and CT films, direct evaluation the patient at bedside, and discussion of the case with the patient at bedside, nursing staff at bedside, and Dr. Baldwin, including differential diagnosis and treatment options. History of Present Illness Reason for Consultation: Patient is a 73-year-old, who was asked to see at the request of Dr. Ding, for neurologic consultation regarding bilateral lower extremity weakness. Requesting Physician: Dr. Ding Attending Physician: Jose Manuel Baldwin, DO History of Present Illness Patient has a longstanding history of spine issues. In 2005 MRI of the cervical spine showed diffuse degenerative disc in bone changes at multiple levels. EMG and nerve conduction studies at that time revealed no significant radiculopathy or distal mono neuropathy such as carpal tunnel syndromes. She was seeing Dr. Kolb at that time. But [address] Berg for several issues. She had chronic low back pain and numb feet. She had diffuse myalgias as well. EMG and nerve conduction studies in October of 2012 showed a diffuse polyneuropathy involving sensory greater than motor fibers. No lumbosacral radiculopathy was noted at that time. In addition the patient was having cognitive problems and memory loss. She last saw Dr. Berg in March of 2015 and had what was thought to be an early dementia with memory issues but she was also having some behavioral issues. Neuropsychological testing was ordered but she never ended up getting it as far as I can tell. Patient was diagnosed with sleep apnea in 2012 and states that she wears her CPAP mask at home on a regular basis. She has a history of hypertension, diastolic heart failure, persistent atrial fibrillation on warfarin, dyslipidemia on atorvastatin, and COPD/asthma with Pickwickian syndrome and dyspnea on exertion. Patient apparently fell and was found confused lying on the ground in her house with her legs at "awkward angles". Was uncertain how long she was down on the ground at home but it could of been as much as 48 hours. She came to the emergency room December 19 with acute encephalopathy. She was moving her limbs but no one mentioned any focal signs. She had urinary tract infection and sepsis with corynebacteria growing from her blood and Klebsiella and E coli growing from her urine. On admission, CT scan of the head was unremarkable as was the chest x-ray. White count was elevated at 21 and hemoglobin and hematocrit were elevated. Chem profile revealed elevated BUN and creatinine, mildly elevated glucose, and mildly elevated potassium. AST was 668, ALT 137, alk-phos 130. Plain x-ray showed calcaneal avulsion fracture on the left with bilateral 5th metatarsal fractures. No other fractures were noted. Her sepsis was treated with antibiotics and her mental status improved over the ensuing days. She was complaining of leg weakness and pain and on December 27, an MRI of the thoracic spine was largely unremarkable. There was some degenerative changes. Patient refused an MRI of the lumbar spine at that time. On December 29, CT scan of the lumbar spine showed diffuse significant degenerative changes of disc in bone. The can now was opened however. On December 29 a CBC was largely unremarkable. CK was 1632 and BUN and creatinine were improved 45 and 1.0. Ammonia level was less than 10 B12 was normal. This morning, AST is 136, ALT 139, alk-phos 127, and CK 1089. Currently the patient complains of leg weakness bilaterally. She has pain in her ankles bilaterally, especially the left heel. and denies numbness in her legs. She has considerable low back pain but no radicular radiation. Her right shoulder hurts and she has impaired bladder control. Allergies Allergy/AdvReac Type Severity Reaction Status Date / Time ketoprofen Allergy Severe NUMBNESS Verified 12/19/18 18:08 FROM WAIST DOWN SEVERAL MONTHS cephalexin Allergy Intermediate ITCHING Verified 12/19/18 18:08 Iodinated Contrast- Oral and Allergy Intermediate PAIN AT Verified 12/19/18 18:08 IV Dye INJECTION SITE AND UP THE BONES Penicillins Allergy Intermediate SEVERE RASH Verified 12/19/18 18:08 trimethoprim Allergy Intermediate ELEVATED Verified 12/19/18 18:08 POTASSIUM LEVELS Benzodiazepines Allergy Unknown Unverified 12/19/18 18:08 lorazepam AdvReac Intermediate pt Verified 12/19/18 18:08 EXTREMELY sensitive Home Medications Home Medications Medication Instructions Recorded Confirmed Type pantoprazole 40 mg PO QAM 07/22/18 12/19/18 History allopurinol 300 mg PO DAILY 07/31/18 12/19/18 History spironolactone 25 mg PO QAM 07/31/18 12/19/18 History nystatin 1 applic TOPICAL BID PRN 10/24/18 12/19/18 History atorvastatin 40 mg PO DAILY 11/03/18 12/19/18 History felodipine 2.5 mg PO DAILY 12/19/18 12/19/18 History furosemide 20 mg PO DAILY 12/19/18 12/19/18 History furosemide 40 mg PO DAILY 12/19/18 12/19/18 History metoprolol tartrate 12.5 mg PO BID 12/19/18 12/19/18 History warfarin 6 mg PO DAILY 12/19/18 12/19/18 History Patient History Medical History Hyperventilation syndrome (Acute) BMI 60.0-69.9, adult (Acute) Low back pain (Acute) Esophageal dysmotility (Acute) Paroxysmal ventricular tachycardia (Acute) Pickwickian syndrome (Acute) Obstructive sleep apnea (Acute) Restrictive lung disease (Acute) Lung nodule seen on imaging study (Acute) Renal insufficiency (Acute) Edema (Acute) Atrial fibrillation, persistent (Chronic) Memory loss (Acute) Chronic diastolic (congestive) heart failure (Acute) Polyneuropathy (Acute) Vitamin D deficiency (Acute) Anticoagulated on Coumadin (Acute) Abnormal dobutamine stress echo (Acute) Diverticulosis of colon (Acute) Adenomatous polyp of colon (Acute) Carotid artery plaque (Acute) Atrial fibrillation with slow ventricular response (Acute) Asthma (Chronic) Pulmonary hypertension (Chronic) Hypertension (Chronic) Hyperlipidemia (Chronic) Psoriasis (Chronic) Venous stasis dermatitis (Chronic) Osteoarthritis (Chronic) GERD (gastroesophageal reflux disease) (Chronic) Cervical radiculopathy Cervical spondylosis Chronic diastolic CHF (congestive heart failure), NYHA class 3 Chronic pain RIGHT SHOULDER - RADIATING DOWN RIGHT ARM AND SOME PAIN IN LEFT ARM. WEAKNESS IN RIGHT ARM Diaper rash STATES HAS BEEN DIAGNOSED WITH "SEVERE DIAPER RASH" - USES CREAM WHICH IS HELPING AREAS History of asthma CHILD Hx of deep venous thrombosis Macular degeneration Noncompliance Permanent atrial fibrillation Sleep apnea Surgical History History of colonoscopy History of tonsillectomy History of total knee replacement X3; LEFT X2, RIGHT X1 History of wisdom tooth extraction Family History Mother , in her 70s. Hypertension Cardiac disorder Cerebral artery occlusion with cerebral infarction Pericarditis Rheumatoid arthritis Father , in his early 80s. 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 Ear, Nose, Mouth, Throat: + snoring; no ear pain, no tinnitus, no hearing loss, no dizziness, no hoarseness and no dysphagia Respiratory: + dyspnea and + dyspnea on exertion; no cough Cardiovascular: + dyspnea on exertion; no chest pain, no palpitations and no lightheadedness Gastrointestinal: no abdominal pain, no nausea and no vomiting Genitourinary: + urinary incontinence; no dysuria and no urinary frequency Musculoskeletal: + back pain and + joint pain; no neck pain, no radicular pain and no myalgia Integumentary: + lesions; no rash Unhealed wound behind her right knee Neurologic: + gait abnormality, + localized weakness and + memory loss; no generalized weakness, no tingling, no numbness, no tremor(s), no abnormal movements, no headache(s), no abnormal speech and no confusion Psychiatric: + difficulty concentrating; no depression, no irritability, no anxiety, no confusion and no hallucinations Endocrine: + fatigue; no flushing Hematologic / Lymphatic: + easy bruising; no easy bleeding Allergy / Immunological: no urticaria and no problem reported Physical Exam Physical Exam: The patient is right-handed. The patient is awake, alert, and attentive. Speech is normal without any aphasia or dysarthria however she is very sparse with her speech and only talks when directly answering questions. She has no spontaneous conversation. Mood seems down and affect is quite flat. Mentation and thought processes are very slow orientation to person and place. Attention and concentration are reasonable. General appearance and grooming are reasonable. Short and long-term memory are significantly impaired. The discs are sharp with positive venous pulsations bilaterally. There are no exudates, hemorrhages, or blood vessel changes seen. Pupils are 4 mm bilaterally and reactive to light. Extraocular eye muscles are intact without nystagmus. Visual acuity and visual white seem normal grossly to confrontation. There are no deficits to sensation in the face in all 3 distributions of the fifth cranial nerve bilaterally. Corneal reflexes are positive bilaterally. Facial strength and symmetry was normal bilaterally. Hearing seems intact grossly to voice and finger rub bilaterally. Palate moves well without asymmetry. There is normal sternocleidomastoid and trapezius (shoulder shrug) strength bilaterally. Tongue is midline with good strength bilaterally. Neck has a full range of motion without discomfort. There are no cervical bruits bilaterally. There are no cranial or ocular bruits. Heart is without murmur. There is a regular rhythm and rate. Cervical, thoracic, and lumbar spine are nontender to palpation. Gait is not tested but she can sit up in bed on her own and hold that position. With outstretched arms there is no drift. There are no resting, postural, or action tremors. There is no ataxia with finger to nose testing. There is good facility in the hands. No other abnormal involuntary movements are noted. Motor strength is 5/5 diffusely in the arms bilaterally including deltoids, biceps, triceps, brachioradialis, wrist flexors and extensors, vegetables cook, and intrinsic hand muscles. There is good tone in the arms. Motor strength is 2-3/5 in the hip flexors, quadriceps, hamstrings, and distally in the left leg with dorsiflexion and plantar flexion of the foot. She can wiggle her toes on the left. On the right, she cannot wiggle her toes are moved at the ankle nearly as well as the left. Strength is 2-3/5 proximally and 0/5 with dorsiflexion on the right. The limbs have decreased tone in the legs. There is no obvious atrophy noted in the muscles. Muscle bulk is normal, there is no tenderness to palpation, no myotonia to percussion, and no fasciculations seen. Sensory examination intact to pin and touch diffusely in the upper extremities and face bilaterally. She can feel pin and touch in the feet and ankles bilaterally and her ankles and feet are tender to palpation. Reflexes are 1/4 in the biceps, triceps, brachioradialis, and quadriceps tendons bilaterally. Achilles tendon reflexes are absent bilaterally. Toes are downgoing with plantar stimulation bilaterally. Peripheral pulses are present and of normal quality distally in all 4 limbs. Results & Data Vital Signs (Past 12 Hours) Vital Signs Temp Pulse Pulse Pulse Resp BP Pulse Ox 12/31/18 07:55 36.6 C 72 16 127/85 92 12/30/18 22:40 36.8 C 89 16 134/82 91 12/30/18 21:40 85 108/56 L (1) Rhabdomyolysis Encounter type: subsequent encounter Rhabdomyolysis type: traumatic Q ualified Code(s): T79.6XXD - Traumatic ischemia of muscle, subsequent encounter (2) Altered mental status Altered mental status type: delirium Qualified Code(s): R41.0 - Disorientation, unspecified
[2018-12-31] MEDS: HYDROCODONE/ACETAMOPHEN 5/325MG TAB PO PRN (10:23)
--- NOTE | 2018-12-31 15:45 | Wound Consultation ---
Date of Consultation December 31, 2018 Assessment & Plan (1) Pressure injury of deep tissue of calf: 73-year-old female with suspected deep tissue injury of her upper calf posterior knee region. Her right leg is affected worse. No debridement was required. Wound will be dressed with Kaltostat and OPTi foam. Wound culture was obtained from the right leg. Will await results. Thank you for allowing me to participate in the care of this patient. Please not hesitate to call with any questions. History of Present Illness Attending Physician: Jose Manuel Baldwin DO This is 73-year-old female with a history of chronic diastolic heart failure, polyneuropathy, vitamin D deficiency, atrial fibrillation, pulmonary hypertension, hypertension, dyslipidemia, psoriasis, venous stasis dermatitis, GERD, osteoarthritis who was admitted with rhabdomyolysis and deep tissue injury. Patient has deep tissue injury and bilateral posterior aspect of her legs that was present on admission and is evolving. Skin on the back of her legs right greater than left is denuding. Patient does not verbalize any additional complaints. Allergies Allergy/AdvReac Type Severity Reaction Status Date / Time ketoprofen Allergy Severe NUMBNESS Verified 12/19/18 18:08 FROM WAIST DOWN SEVERAL MONTHS cephalexin Allergy Intermediate ITCHING Verified 12/19/18 18:08 Iodinated Contrast- Oral and Allergy Intermediate PAIN AT Verified 12/19/18 18:08 IV Dye INJECTION SITE AND UP THE BONES Penicillins Allergy Intermediate SEVERE RASH Verified 12/19/18 18:08 trimethoprim Allergy Intermediate ELEVATED Verified 12/19/18 18:08 POTASSIUM LEVELS Benzodiazepines Allergy Unknown Unverified 12/19/18 18:08 lorazepam AdvReac Intermediate pt Verified 12/19/18 18:08 EXTREMELY sensitive Home Medications Home Medications Medication Instructions Recorded Confirmed Type pantoprazole 40 mg PO QAM 07/22/18 12/19/18 History allopurinol 300 mg PO DAILY 07/31/18 12/19/18 History spironolactone 25 mg PO QAM 07/31/18 12/19/18 History nystatin 1 applic TOPICAL BID PRN 10/24/18 12/19/18 History atorvastatin 40 mg PO DAILY 11/03/18 12/19/18 History felodipine 2.5 mg PO DAILY 12/19/18 12/19/18 History furosemide 20 mg PO DAILY 12/19/18 12/19/18 History furosemide 40 mg PO DAILY 12/19/18 12/19/18 History metoprolol tartrate 12.5 mg PO BID 12/19/18 12/19/18 History warfarin 6 mg PO DAILY 12/19/18 12/19/18 History Patient History Medical History Hyperventilation syndrome (Acute) BMI 60.0-69.9, adult (Acute) Low back pain (Acute) Esophageal dysmotility (Acute) Paroxysmal ventricular tachycardia (Acute) Pickwickian syndrome (Acute) Obstructive sleep apnea (Acute) Restrictive lung disease (Acute) Lung nodule seen on imaging study (Acute) Renal insufficiency (Acute) Edema (Acute) Atrial fibrillation, persistent (Chronic) Memory loss (Acute) Chronic diastolic (congestive) heart failure (Acute) Polyneuropathy (Acute) Vitamin D deficiency (Acute) Anticoagulated on Coumadin (Acute) Abnormal dobutamine stress echo (Acute) Diverticulosis of colon (Acute) Adenomatous polyp of colon (Acute) Carotid artery plaque (Acute) Atrial fibrillation with slow ventricular response (Acute) Asthma (Chronic) Pulmonary hypertension (Chronic) Hypertension (Chronic) Hyperlipidemia (Chronic) Psoriasis (Chronic) Venous stasis dermatitis (Chronic) Osteoarthritis (Chronic) GERD (gastroesophageal reflux disease) (Chronic) Cervical radiculopathy Cervical spondylosis Chronic diastolic CHF (congestive heart failure), NYHA class 3 Chronic pain RIGHT SHOULDER - RADIATING DOWN RIGHT ARM AND SOME PAIN IN LEFT ARM. WEAKNESS IN RIGHT ARM Diaper rash STATES HAS BEEN DIAGNOSED WITH "SEVERE DIAPER RASH" - USES CREAM WHICH IS HELPING AREAS History of asthma CHILD Hx of deep venous thrombosis Macular degeneration Noncompliance Permanent atrial fibrillation Sleep apnea Surgical History History of colonoscopy History of tonsillectomy History of total knee replacement X3; LEFT X2, RIGHT X1 History of wisdom tooth extraction Family History Mother , in her 70s. Hypertension Cardiac disorder Cerebral artery occlusion with cerebral infarction Pericarditis Rheumatoid arthritis Father , in his early 80s. Asthma Hypertension Cardiac disorder COPD (chronic obstructive pulmonary disease) Coronary heart disease Family history of CABG Macular degeneration Skin cancer Brother Obesity Grandfather Diabetes Social History Preferred Language: [place] Citizen Communication Ability: Effective Beliefs That Will Affect Care: None Current Living Situation: Alone current occupational status: retired current occupation: Patient was a [employer]. 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60 Feels Safe at Home: Yes Smoking Status: Former smoker Tobacco Type: cigarettes Number of Years Since Quit: 50 Second Hand Exposure: Yes (OCCASSIONALLY) Hx Alcohol Use: No Hx Substance Use: No Review of Systems Review of Systems: All systems reviewed & are unremarkable except as noted in HPI & below Physical Exam Constitutional: WD/WN, vitals as above Eyes: PERRL, conjunctivae normal, anicteric sclerae ENMT: Ears: no hearing impairment Respiratory: normal respiratory effort, lungs clear to auscultation Cardiovascular: Rate/Rhythm: + irregularly irregular Gastrointestinal (Abdomen): normal bowel sounds, soft, nontender, no hepatosplenomegaly Skin: Wound #1, left posterior thigh measuring 6 x 5 cm. Wound is covered with fibrin and slough. Wound is ecchymotic. Wound #2 medial gluteal cleft measuring 1 x 0.1 cm. Wound #3, right posterior leg measuring 13 x 14. Wound is covered with fibrin and slough. Wound that is ecchymotic. Skin is denuding. There is foul odor. Neurologic: awake; not confused Psychiatric: A+Ox3, euthymic affect Results & Data Vital Signs (Past 12 Hours) Vital Signs Temp Pulse Pulse Resp BP Pulse Ox 12/31/18 15:16 37.0 C 90 20 106/70 90 12/31/18 07:55 36.6 C 72 16 127/85 92
--- NOTE | 2018-12-31 16:11 | Hospitalist Progress Note ---
Date of Service December 31, 2018 Assessment & Plan (1) Rhabdomyolysis: CPK improved to 1000 from 1500 range, slowly coming down CPK was NOT previously checked during her protracted stay. most likely her CPK was in the 10s of thousands on admission, she was on floor for 48 hours Cont to hold statin therapy. follow CPK (2) Bilateral leg weakness: Continues to improve, especially proximal muscles of legs (hips). improvement though is slow She has had numbness of both feet for years B12 level wnl. MRI thoracic spine - although limited - did not show cord lesions. CT lumbar spine (she refused MRI lumbar spine) - no cord lesions, spine unchange d relative to prior CTs. discussed with Dr. Quintana, combination of rhabdo and neuropathy and spinal stenosis the cause of weakness only plan for EMG if weakness not improving in 2 weeks (3) Metatarsal fracture: Bilateral metatarsal fractures (5th metatarsals). Avulsion fracture of the LEFT calcaneus. Likely talus fracture on LEFT as well. Orthopedics recommending right sided surgical shoe. No surgery at this time. Appreciate orthotics consult for right-sided surgical shoe. f/u 6 weeks with ortho. 25-OH vit D level in September 2018 was 33. She has not been able to walk/ambulate - see discussion above in "b/l leg weakness." (4) Sepsis: 2nd to UTI - resolved. Completed 7+ days of IV/PO abx and is now off abx. (5) Altered mental status: oriented today Likely due to sepsis, UTI, COREY, acute liver injury, etc. CT head at admission was negative. (6) UTI (urinary tract infection): 2nd klebsiella and e.coli. completed full 7+ day course of IV/PO abx. (7) Hypotension: 2nd to sepsis. Resolved quickly after admission. (8) Chronic diastolic (congestive) heart failure: Compensated. Cont lasix 20mg daily. Cont beta aaron BID. (9) Atrial fibrillation, persistent: Anticoagulated with warfarin. INR 2.1 (10) Acute kidney injury (nontraumatic): Likely ATN in setting of sepsis/dehydration. Resolved. Cannot rule out that rhabdomyolysis contributed to COREY as well. (11) Hypertension: Continue metoprolol tartrate 12.5 mg twice daily. Controlled. (12) Abnormal LFTs (liver function tests): Likely shock liver from hypotension/sepsis. Resolving biochemically. Liver structurally normal on hepatic u/s. Ammonia level normal. Serial labs have shown continued improvement. in hindsight, elevated LFT likely a result of rhabdo as well (13) Hyperlipidemia: Cont to hold atorvastatin given her liver injury and elevated CPK. (14) Morbid obesity with BMI of 50.0-59.9, adult: BMI 52 (15) Traumatic injury of skin: b/l posterior legs, much worse Right Leg. Due to fall with prolonged immobilization on floor. wound care following (16) Advance care planning: plan for [facility] (17) DVT prophylaxis: coumadin Subjective patient laying in bed, no distress said that she was eating well, no BM today, urinating without difficulty discussed case with Dr. Quintana, he feels the weakness in legs is multifactorial due to rhabdo, chronic neuropathy, chronic spinal stenosis what she needs more than anything is rehab discussed rehab with patient, not thrilled about going back to [facility] reviewed labs, stable discussed d/c plan with case management Review of Systems Review of Systems: All systems reviewed & are unremarkable except as noted in HPI & below Physical Exam Constitutional: WD/WN, vitals as above + morbidly obese Eyes: PERRL, conjunctivae normal, anicteric sclerae ENMT: external ear and nose normal, oropharynx normal Neck: trachea midline, no thyromegaly Respiratory: normal respiratory effort, lungs clear to auscultation Auscultation: + diminished lung sounds (bases) Cardiovascular: Rate/Rhythm: regular rate and regular rhythm Heart Sounds: normal S1 and normal S2; no murmur Extremities: + edema Gastrointestinal (Abdomen): normal bowel sounds, soft, nontender, no hepatosplenomegaly Musculoskeletal: no cyanosis or clubbing, extremities motor strength 5/5 Skin: no rashes, warm and dry + wound (posterior calf, dressed) Neurologic: PERRL, EOMI, accommodation nl, no face palsy, no dysarthria deep tendon reflexes 2+ bilaterally; + abnormal touch/pain/proprioception (decreased sensation in legs bilaterally, pain sensation intact) Psychiatric: Orientation: alert and oriented x 3 Affect: + depressed affect Lymphatic: no cervical or axillary lymphadenopathy Results & Data Vital Signs (Past 12 Hours) Vital Signs Temp Pulse Pulse Resp BP Pulse Ox 12/31/18 15:16 37.0 C 90 20 106/70 90 07/22/19 07:55 36.6 C 72 16 127/85 92 Laboratory Results Laboratory Results - last 24 hr 12/31/18 12/31/18 06:12 06:12 PT 19.1 H INR 2.0 H Sodium 139 Potassium 4.1 Chloride 105 Carbon Dioxide 27 Anion Gap 7.0 BUN 41 H Creatinine 0.98 Est Cr Clr Drug Dosing 61.6 Est GFR ( Amer) 65.4 Est GFR (Non-Af Amer) 56.4 BUN/Creatinine Ratio 41.9 H Glucose 83 Calcium 9.1 Total Bilirubin 0.8 AST 136 H ALT 139 H Alkaline Phosphatase 127 H Total Creatine Kinase 1089 H Total Protein 6.1 L Albumin 1.9 L Globulin 4.2 H Albumin/Globulin Ratio 0.5 L Medications Administered Current Inpatient Medications Hydrocodone Bitart/Acetaminophen (Mica 5/325) 1 tab PO Q6H PRN PRN Reason: Pain Stop: 01/12/19 13:12 Last Admin: 12/31/18 10:23 Dose: 1 tab Documented by: Al Hydrox/Mg Hydrox/Simethicone (Maalox) 15 ml PO Q4H PRN PRN Reason: Dyspepsia Stop: 01/19/19 00:07 Allopurinol (Zyloprim) 100 mg PO DAILY [facility] Stop: 01/21/19 08:59 Last Admin: 12/31/18 08:31 Dose: 100 mg Documented by: Atorvastatin Calcium (Lipitor) 40 mg PO DAILY [facility] Stop: 01/19/19 08:59 Furosemide (Lasix) 20 mg PO QAM [facility] Stop: 01/25/19 09:14 Last Admin: 12/31/18 08:30 Dose: 20 mg Documented by: Magnesium Hydroxide (Milk Of Magnesia) 30 ml PO Q12H PRN PRN Reason: Constipation Stop: 01/19/19 00:07 Metoprolol Tartrate (Lopressor) 12.5 mg PO BID [facility] Stop: 01/19/19 08:59 Last Admin: 12/31/18 08:29 Dose: 12.5 mg Documented by: Morphine Sulfate (Morphine Sulfate) 2 mg IV Q4 PRN PRN Reason: Pain Stop: 01/03/19 16:42 Last Admin: 12/20/18 17:48 Dose: 2 mg Documented by: Multi-Ingredient Cream (Hydrocerin) 1 appln EXT BID [facility] Stop: 01/19/19 20:59 Last Admin: 12/31/18 08:31 Dose: 1 appln Documented by: Nystatin (Mycostatin) 1 appln EXT TID [facility] Stop: 01/29/19 13:59 Last Admin: 12/31/18 14:14 Dose: Not Given Documented by: Ondansetron HCl (Zofran) 4 mg IV Q6H PRN PRN Reason: NAUSEA/VOMITING Stop: 01/19/19 00:07 Pantoprazole Sodium (Protonix) 40 mg PO QAM [facility] Stop: 01/19/19 08:59 Last Admin: 12/31/18 08:31 Dose: 40 mg Documented by: Polyethylene Glycol (Miralax Powder Packet) 17 gm PO DAILY PRN PRN Reason: Constipation Stop: 01/19/19 00:07 Saccharomyces Boulardii (Florastor) 250 mg PO DAILY [facility] Stop: 01/24/19 08:59 Last Admin: 12/31/18 08:30 Dose: 250 mg Documented by: Warfarin Sodium (Coumadin) 5 mg PO DAILY@1600 [facility] Stop: 01/22/19 15:59 Last Admin: 12/30/18 16:53 Dose: 5 mg Documented by: PG Care Time/CCT Total # of Minutes Spent Total Time Spent with Patient: Total time spent is greater than 50% in coord ination of care (as documented) at patient's floor/unit and/or counseling patient: (1) UTI (urinary tract infection) Hematuria presence: without hematuria Urinary tract infection type: site unspecified Qualified Code(s): N39.0 - Urinary tract infection, site not specified (2) Hyperlipidemia Hyperlipidemia type: mixed hyperlipidemia Qualified Code(s): E78.2 - Mixed hyperlipidemia (3) Metatarsal fracture Encounter type: subsequent encounter Fracture alignment: nondisplaced Fracture healing: with routine healing Fracture type: closed Laterality: unspecified laterality Metatarsal bone: fifth Qualified Code(s): S92.356D - Nondisplaced fracture of fifth metatarsal bone, unspecified foot, subsequent encounter for fracture with routine healing (4) Rhabdomyolysis Encounter type: subsequent encounter Rhabdomyolysis type: traumatic Qualified Code(s): T79.6XXD - Traumatic ischemia of muscle, subsequent encounter (5) Sepsis Sepsis type: sepsis due to unspecified organism Qualified Code(s): A41.9 - Sepsis, unspecified organism (6) Altered mental status Altered mental status type: delirium Qualified Code(s): R41.0 - Disorientation, unspecified (7) Hypertension Hypertension type: essential hypertension Qualified Code(s): I10 - Essential (primary) hypertension (8) Hypotension Hypotension type: other hypotension type Qualified Code(s): I95.89 - Other hypotension
[2018-12-31] MEDS: WARFARIN SOD 5 MG TAB PO SCH (16:15)
[2019-01-01] MEDS: HYDROCODONE/ACETAMOPHEN 5/325MG TAB PO PRN ×3 (03:00→18:24)
[2019-01-01 08:33] LABS: INR 2.1 (0.9-1.1); Prothrombin Time 20.2 Seconds (9.0-12.0)
[2019-01-01] MEDS: METOPROLOL TARTRATE 25 MG TAB PO SCH ×2 (09:52→21:27)
[2019-01-01] MEDS: EUCERIN CR 120 GM JAR EXT SCH ×2 (09:52→21:28)
[2019-01-01] MEDS: NYSTATIN POWDER 15GM BTL EXT SCH ×3 (09:52→21:28)
[2019-01-01] MEDS: PANTOprazole 40 MG TAB PO SCH (09:53)
[2019-01-01] MEDS: ALLOPURINOL 100 MG TAB PO SCH (09:53)
[2019-01-01] MEDS: FUROSEMIDE 20 MG TAB PO SCH (09:54)
[2019-01-01] MEDS: SACCHAROMYCES BOULARDII 250 MG CAP PO SCH (09:54)
--- NOTE | 2019-01-01 10:00 | Neurology Progress Note ---
Date of Service January 01, 2019 Assessment & Plan (1) Bilateral leg weakness: (2) Rhabdomyolysis: (3) Low back pain: (4) Memory loss: (5) Atrial fibrillation, persistent: (6) Polyneuropathy: (7) Altered mental status: This patient is complicated neurologically. (1) Patient has bilateral lower extremity weakness right greater than left side. The etiology of this is likely multifactorial including rhabdomyolysis from lying on the ground for up to 48 hours. On December 29 CK was 1632 (10 days after admission). I suspect it was markedly higher early on in her hospitalization. This is on a background of bilateral lower extremity weakness in general with chronic low back pain and degenerative changes. Last EMG in 2012 showed no radiculopathy but this may be present currently. 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 Patients who have sepsis, such as this patient can have critical illness myopathy and polyneuropathy as well. There is a footdrop on the right not present on the left. X-rays revealed some 5th metatarsal fractures and a left calcaneal avulsion fracture. I see no evidence for upper motor neuron signs although these could be masked by the peripheral neuropathy. (2) The patient has cognitive problems and memory issues. I suspect an underlying dementia with without mood issues. Psychiatry has seen the patient earlier this hospitalization. The patient was having memory problems as far back as 2012 (or even earlier). This is likely getting worse over time. I suspect the patient has psychiatric issues/diagnoses as well. Patient had an acute encephalopathy from the infection/sepsis which seems to be markedly improved currently. (3) this patient has persistent atrial fibrillation on chronic Coumadin. Other risk factors for cerebral vascular disease include hypertension, dyslipidemia, and sleep apnea. 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 Recommendations: 1. Physical and occupational therapy for this patient increasing activity as able. She would likely need either a stay at [facility] or may need long-term care facility. 2. Case Management consultation as the patient likely wants to go home and this is probably not good situation for her at this time. 3. There is no need for EMG and nerve conduction study testing at this time. If she is not making significant improvements over the next 2 weeks then I would consider this testing on her legs as an outpatient. 4. Follow CKs. 5. Patient probably needs complete neuropsychological testing to evaluate extent severity of dementia versus pseudodementia. She may need psychiatric follow-up as well. Consider treatment for depression, such as fluoxetine 20 mg daily. 6. I can follow up as an outpatient if desired, but I have no further recommendations neurologically now. Overall, I spent a total of 25 minutes with this case including review of records, direct evaluation the patient at bedside, and discussion of the case with the patient at bedside, nursing staff at bedside, and Dr. Baldwin, including differential diagnosis and treatment options. Subjective The patient complains of leg and foot pain as before. Nursing reports no new events overnight. Patient has refused physical therapy and other care. Blood pressure is 95/65 Physical Exam Physical Exam: Patient is not really speaking or answering questions although she is awake and alert and making eye contact . She seems very depressed. Extraocular eye muscles are intact without nystagmus. Upper extremity movement and strength seems symmetrical without abnormal involuntary movements. She can wiggle toes on the left but not the right. Otherwise she cannot move her legs. Results & Data Vital Signs (Past 12 Hours) Vital Signs Temp Pulse Resp BP Pulse Ox 01/01/19 07:43 36.4 C L 67 15 93/65 L 92 12/31/18 23:47 37 C 81 18 110/69 90 (1) Rhabdomyolysis Rhabdomyolysis type: traumatic Encounter type: subsequent encounter Qualified Code(s): T79.6XXD - Traumatic ischemia of muscle, subsequent encounter (2) Altered mental status Altered mental status type: delirium Qualified Code(s): R41.0 - Disorientation, unspecified
[2019-01-01] MEDS: WARFARIN SOD 5 MG TAB PO SCH (16:45)
--- NOTE | 2019-01-01 22:09 | Hospitalist Progress Note ---
Date of Service January 01, 2019 Assessment & Plan (1) Rhabdomyolysis: CPK improved to 1000 from 1500 range, slowly coming down CPK was NOT previously checked during her protracted stay. most likely her CPK was in the 10s of thousands on admission, she was on floor for 48 hours Cont to hold statin therapy. follow CPK (2) Bilateral leg weakness: Continues to improve, especially proximal muscles of legs (hips). improvement though is slow She has had numbness of both feet for years B12 level wnl. MRI thoracic spine - although limited - did not show cord lesions. CT lumbar spine (she refused MRI lumbar spine) - no cord lesions, spine unchange d relative to prior CTs. discussed with Dr. Quintana, combination of rhabdo and neuropathy and spinal stenosis the cause of weakness only plan for EMG if weakness not improving in 2 weeks (3) Metatarsal fracture: Bilateral metatarsal fractures (5th metatarsals). Avulsion fracture of the LEFT calcaneus. Likely talus fracture on LEFT as well. Orthopedics recommending right sided surgical shoe. No surgery at this time. Appreciate orthotics consult for right-sided surgical shoe. f/u 6 weeks with ortho. 25-OH vit D level in September 2018 was 33. She has not been able to walk/ambulate - see discussion above in "b/l leg weakness." (4) Sepsis: 2nd to UTI - resolved. Completed 7+ days of IV/PO abx and is now off abx. (5) Altered mental status: oriented today Likely due to sepsis, UTI, COREY, acute liver injury, etc. CT head at admission was negative. (6) UTI (urinary tract infection): 2nd klebsiella and e.coli. completed full 7+ day course of IV/PO abx. (7) Hypotension: 2nd to sepsis. Resolved quickly after admission. (8) Chronic diastolic (congestive) heart failure: Compensated. Cont lasix 20mg daily. Cont beta aaron BID. (9) Atrial fibrillation, persistent: Anticoagulated with warfarin. INR 2.1 (10) Acute kidney injury (nontraumatic): Likely ATN in setting of sepsis/dehydration. Resolved. Cannot rule out that rhabdomyolysis contributed to COREY as well. (11) Hypertension: Continue metoprolol tartrate 12.5 mg twice daily. Controlled. (12) Abnormal LFTs (liver function tests): Likely shock liver from hypotension/sepsis. Resolving biochemically. Liver structurally normal on hepatic u/s. Ammonia level normal. Serial labs have shown continued improvement. in hindsight, elevated LFT likely a result of rhabdo as well (13) Hyperlipidemia: Cont to hold atorvastatin given her liver injury and elevated CPK. (14) Morbid obesity with BMI of 50.0-59.9, adult: BMI 52 (15) Traumatic injury of skin: b/l posterior legs, much worse Right Leg. Due to fall with prolonged immobilization on floor. wound care following (16) Advance care planning: plan for [facility] (17) DVT prophylaxis: coumadin Plan: needs rehab, patient is reluctant to the idea strongly encouraged her to participate in therapy Subjective patient very flat today, not thrilled about going to SNF rehab says that she does not think she can tolerated the pain in her feet focused on getting a wheelchair when she gets there, or maybe a scooter not very motivated to try therapy she has a poor outlook on her ability to recover from this wanted to talk about how her car insurance was cancelled while here due to missing a payment focusing on insignificant issues, doesn't grasp that in her condition she won't be driving for a very long time discussed case again with Dr. Quintana, no further recs, should go to rehab he is concerned about her depression INR therapeutic today, no other labs d/w CM, should be able to go to [facility] tomorrow Review of Systems Review of Systems: All systems reviewed & are unremarkable except as noted in HPI & below Constitutional: + fatigue and + weakness; no fever, no chills and no sweats Respiratory: no cough and no dyspnea Cardiovascular: + edema; no chest pain and no dyspnea Gastrointestinal: no abdominal pain, no nausea, no vomiting, no constipation and no diarrhea/loose stools Neurologic: + localized weakness (legs) and + generalized weakness Physical Exam Constitutional: WD/WN, vitals as above + morbidly obese Eyes: PERRL, conjunctivae normal, anicteric sclerae ENMT: external ear and nose normal, oropharynx normal Neck: trachea midline, no thyromegaly Respiratory: normal respiratory effort, lungs clear to auscultation Auscultation: + diminished lung sounds (bases) Cardiovascular: Rate/Rhythm: regular rate and regular rhythm Heart Sounds: normal S1 and normal S2; no murmur Extremities: + edema Gastrointestinal (Abdomen): normal bowel sounds, soft, nontender, no hepatosplenomegaly Musculoskeletal: no cyanosis or clubbing, extremities motor strength 5/5 Skin: no rashes, warm and dry + wound (posterior calf, dressed) Neurologic: PERRL, EOMI, accommodation nl, no face palsy, no dysarthria deep tendon reflexes 2+ bilaterally; + abnormal touch/pain/proprioception (decreased sensation in legs bilaterally, pain sensation intact) Psychiatric: Orientation: alert and oriented x 3 Affect: + depressed affect Lymphatic: no cervical or axillary lymphadenopathy Results & Data Vital Signs (Past 12 Hours) Vital Signs Temp Pulse Pulse Resp BP Pulse Ox 01/01/19 21:27 85 118/75 01/01/19 15:16 36.8 C 84 17 131/79 95 Laboratory Results Laboratory Results - last 24 hr 01/01/19 07:58 PT 20.2 H INR 2.1 H Medications Administered Current Inpatient Medications Hydrocodone Bitart/Acetaminophen ([place] 5/325) 1 tab PO Q6H PRN PRN Reason: Pain Stop: 01/12/19 13:12 Last Admin: 01/01/19 18:24 Dose: 1 tab Documented by: Al Hydrox/Mg Hydrox/Simethicone (Maalox) 15 ml PO Q4H PRN PRN Reason: Dyspepsia Stop: 01/19/19 00:07 Allopurinol (Zyloprim) 100 mg PO DAILY [facility] Stop: 01/21/19 08:59 Last Admin: 01/01/19 09:53 Dose: 100 mg Documented by: Atorvastatin Calcium (Lipitor) 40 mg PO DAILY [facility] Stop: 01/19/19 08:59 Furosemide (Lasix) 20 mg PO QAM [facility] Stop: 01/25/19 09:14 Last Admin: 01/01/19 09:54 Dose: Not Given Documented by: Magnesium Hydroxide (Milk Of Magnesia) 30 ml PO Q12H PRN PRN Reason: Constipation Stop: 01/19/19 00:07 Metoprolol Tartrate (Lopressor) 12.5 mg PO BID [facility] Stop: 01/19/19 08:59 Last Admin: 01/01/19 21:27 Dose: 12.5 mg Documented by: Morphine Sulfate (Morphine Sulfate) 2 mg IV Q4 PRN PRN Reason: Pain Stop: 01/03/19 16:42 Last Admin: 12/20/18 17:48 Dose: 2 mg Documented by: Multi-Ingredient Cream (Hydrocerin) 1 appln EXT BID [facility] Stop: 01/19/19 20:59 Last Admin: 01/01/19 21:28 Dose: 1 appln Documented by: Nystatin (Mycostatin) 1 appln EXT TID [facility] Stop: 01/29/19 13:59 Last Admin: 01/01/19 21:28 Dose: 1 appln Documented by: Ondansetron HCl (Zofran) 4 mg IV Q6H PRN PRN Reason: NAUSEA/VOMITING Stop: 01/19/19 00:07 Pantoprazole Sodium (Protonix) 40 mg PO QAM [facility] Stop: 01/19/19 08:59 Last Admin: 01/01/19 09:53 Dose: 40 mg Documented by: Polyethylene Glycol (Miralax Powder Packet) 17 gm PO DAILY PRN PRN Reason: Constipation Stop: 01/19/19 00:07 Saccharomyces Boulardii (Florastor) 250 mg PO DAILY [facility] Stop: 01/24/19 08:59 Last Admin: 01/01/19 09:54 Dose: 250 mg Documented by: Warfarin Sodium (Coumadin) 5 mg PO DAILY@1600 [facility] Stop: 01/22/19 15:59 Last Admin: 01/01/19 16:45 Dose: 5 mg Documented by: PG Care Time/CCT Total # of Minutes Spent Total Time Spent with Patient: Total time spent is greater than 50% in coordination of care (as documented) at patient's floor/unit and/or counseling patient: (1) UTI (urinary tract infection) Hematuria presence: without hematuria Urinary tract infection type: site unspecified Qualified Code(s): N39.0 - Urinary tract infection, site not specified (2) Hyperlipidemia Hyperlipidemia type: mixed hyperlipidemia Qualified Code(s): E78.2 - Mixed hyperlipidemia (3) Metatarsal fracture Encounter type: subsequent encounter Fracture alignment: nondisplaced Fracture healing: with routine healing Fracture type: closed Laterality: unspecified laterality Metatarsal bone: fifth Qualified Code(s): S92.356D - Nondisplaced fracture of fifth metatarsal bone, unspecified foot, subsequent encounter for fracture with routine healing (4) Rhabdomyolysis Encounter type: subsequent encounter Rhabdomyolysis type: traumatic Qualified Code(s): T79.6XXD - Traumatic ischemia of muscle, subsequent encounter (5) Sepsis Sepsis type: sepsis due to unspecified organism Qualified Code(s): A41.9 - Sepsis, unspecified organism (6) Altered mental status Altered mental status type: delirium Qualified Code(s): R41.0 - Disorient ation, unspecified (7) Hypertension Hypertension type: essential hypertension Qualified Code(s): I10 - Essential (primary) hypertension (8) Hypotension Hypotension type: other hypotension type Qualified Code(s): I95.89 - Other hypotension
[2019-01-02 08:01] LABS: Hematocrit (blood only) 37.7 % (37-47); Hemoglobin 12.5 g/dL (12.0-16.0); Mean Corpuscular Hgb Conc 33.2 g/dL (32-36); Mean Corpuscular Volume 95.7 fL (80-100); Platelet Count 252 K/uL (130-400); RDW Coefficient of Variation 15.5 % (11.5-14.5); RDW Standard Deviation 52.8 fL (36.4-46.3); Red Blood Count 3.94 M/uL (4.2-5.4); White Blood Count 6.85 K/uL (4.8-10.8)
[2019-01-02 08:13] LABS: INR 2.2 (0.9-1.1); Prothrombin Time 21.2 Seconds (9.0-12.0)
[2019-01-02 08:36] LABS: BUN Creatinine Ratio 46.4 (10-20); Creatinine Clr Calc Pharmacy 76.5 ml/min; Est GFR (African American) 84.9; Est GFR (Non-African American) 73.2; Potassium 4.4 mmol/L (3.5-5.1)
[2019-01-02] MEDS: NYSTATIN POWDER 15GM BTL EXT SCH ×3 (09:22→21:31)
[2019-01-02] MEDS: PANTOprazole 40 MG TAB PO SCH (09:22)
[2019-01-02] MEDS: METOPROLOL TARTRATE 25 MG TAB PO SCH ×2 (09:22→20:52)
[2019-01-02] MEDS: ALLOPURINOL 100 MG TAB PO SCH (09:22)
[2019-01-02] MEDS: FUROSEMIDE 20 MG TAB PO SCH (09:22)
[2019-01-02] MEDS: SACCHAROMYCES BOULARDII 250 MG CAP PO SCH (09:22)
[2019-01-02] MEDS: EUCERIN CR 120 GM JAR EXT SCH ×2 (09:23→21:30)
[2019-01-02] MEDS: WARFARIN SOD 5 MG TAB PO SCH (15:47)
[2019-01-02] MEDS: HYDROCODONE/ACETAMOPHEN 5/325MG TAB PO PRN (18:29)
--- NOTE | 2019-01-02 20:18 | Hospitalist Progress Note ---
Date of Service January 02, 2019 Assessment & Plan (1) Rhabdomyolysis: CPK was NOT previously checked during her protracted stay. most likely her CPK was in the 10s of thousands on admission, she was on floor for 48 hours Cont to hold statin therapy. CPK down to 600's on 01/02 (2) Bilateral leg weakness: Continues to improve, especially proximal muscles of legs (hips). improvement though is slow She has had numbness of both feet for years B12 level wnl. MRI thoracic spine - although limited - did not show cord lesions. CT lumbar spine (she refused MRI lumbar spine) - no cord lesions, spine unchanged relative to prior CTs. discussed with Dr. Quintana, combination of rhabdo and neuropathy and spinal stenosis the cause of weakness only plan for EMG if weakness not improving in 2 weeks per neurology, she needs rehabilitation (3) Metatarsal fracture: Bilateral metatarsal fractures (5th metatarsals). Avulsion fracture of the LEFT calcaneus. Likely talus fracture on LEFT as well. Orthopedics recommending right sided surgical shoe. No surgery at this time. Appreciate orthotics consult for right-sided surgical shoe. f/u 6 weeks with ortho. 25-OH vit D level in September 2018 was 33. She has not been able to walk/ambulate - see discussion above in "b/l leg weakness." (4) Sepsis: 2nd to UTI - resolved. Completed 7+ days of IV/PO abx and is now off abx. (5) Altered mental status: oriented all week her presentation was likely due to sepsis, UTI, COREY, acute liver injury, etc. CT head at admission was negative. (6) UTI (urinary tract infection): 2nd klebsiella and e.coli. completed full 7+ day course of IV/PO abx. (7) Hypotension: 2nd to sepsis. Resolved quickly after admission. (8) Chronic diastolic (congestive) heart failure: Compensated. Cont lasix 20mg daily. Cont beta aaron BID. (9) Atrial fibrillation, persistent: Anticoagulated with warfarin. INR 2.1 (10) Acute kidney injury (nontraumatic): Likely ATN in setting of sepsis/dehydration. Resolved. Cannot rule out that rhabdomyolysis contributed to COREY as well. (11) Hypertension: Continue metoprolol tartrate 12.5 mg twice daily. Controlled. (12) Abnormal LFTs (liver function tests): Likely shock liver from hypotension/sepsis. Resolving biochemically. Liver structurally normal on hepatic u/s. Ammonia level normal. Serial labs have shown continued improvement. in hindsight, elevated LFT likely a result of rhabdo as well (13) Hyperlipidemia: Cont to hold atorvastatin given her liver injury and elevated CPK. (14) Morbid obesity with BMI of 50.0-59.9, adult: BMI 52 (15) Traumatic injury of skin: b/l posterior legs, much worse Right Leg. Due to fall with prolonged immobilization on floor. wound care following (16) Advance care planning: plan for [facility] (17) DVT prophylaxis: coumadin Plan: needs rehab, patient is reluctant to the idea strongly encouraged her to participate in therapy, will visit with her in the morning on 01/03 to encourage her to participate Subjective patient continued to be unmotivated to participate in therapy discussed that if she would not participate then it would be difficult to justify her going to rehab that being said, she needs the therapy, needs skilled care due to how weak she is she reports she is eating well, no dyspnea, no chest pain still with pain in her feet and ankles reviewed labs, CPK down to 600 range, Cr stable no fever, no sweats, mental status at baseline for her Review of Systems Review of Systems: All systems reviewed & are unremarkable except as noted in HPI & below Constitutional: + weakness; no fever, no chills, no sweats and no fatigue Respiratory: no cough and no dyspnea Cardiovascular: + edema; no chest pain Gastrointestinal: no abdominal pain, no nausea, no vomiting, no constipation and no diarrhea/loose stools Musculoskeletal: + muscle weakness (profound in lower legs) Psychiatric: + depression Physical Exam Constitutional: WD/WN, vitals as above + morbidly obese Eyes: PERRL, conjunctivae normal, anicteric sclerae ENMT: external ear and nose normal, oropharynx normal Neck: trachea midline, no thyromegaly Respiratory: normal respiratory effort, lungs clear to auscultation Auscultation: + diminished lung sounds (bases) Cardiovascular: Rate/Rhythm: regular rate and regular rhythm Heart Sounds: normal S1 and normal S2; no murmur Extremities: + edema Gastrointestinal (Abdomen): normal bowel sounds, soft, nontender, no hepatosplenomegaly Musculoskeletal: no cyanosis or clubbing, extremities motor strength 5/5 Skin: no rashes, warm and dry + wound (posterior calf, dressed) Neurologic: PERRL, EOMI, accommodation nl, no face palsy, no dysarthria deep tendon reflexes 2+ bilaterally; + abnormal touch/pain/proprioception (decreased sensation in legs bilaterally, pain sensation intact) Psychiatric: Orientation: alert and oriented x 3 Affect: + depressed affect Lymphatic: no cervical or axillary lymphadenopathy Results & Data Vital Signs (Past 12 Hours) Vital Signs Temp Pulse Resp BP Pulse Ox 01/02/19 15:14 36.5 C 69 18 133/70 95 Laboratory Results Laboratory Results - last 24 hr 01/02/19 01/02/19 01/02/19 07:26 07:26 07:26 WBC 6.85 RBC 3.94 L Hgb 12.5 Hct 37.7 MCV 95.7 MCH 31.7 MCHC 33.2 RDW Std Deviation 52.8 H RDW Coeff of Priti 15.5 H Plt Count 252 MPV 11.0 H PT 21.2 H INR 2.2 H Sodium 139 Potassium 4.4 Chloride 106 Carbon Dioxide 27 Anion Gap 6.0 BUN 37 H Creatinine 0.79 Est Cr Clr Drug Dosing 76.5 Est GFR ( Amer) 84.9 Est GFR (Non-Af Amer) 73.2 BUN/Creatinine Ratio 46.4 H Glucose 93 Calcium 9.0 Total Creatine Kinase 681 H Medications Administered Current Inpatient Medications Hydrocodone Bitart/Acetaminophen ([place] 5/325) 1 tab PO Q6H PRN PRN Reason: Pain Stop: 01/12/19 13:12 Last Admin: 01/02/19 18:29 Dose: 1 tab Documented by: Al Hydrox/Mg Hydrox/Simethicone (Maalox) 15 ml PO Q4H PRN PRN Reason: Dyspepsia Stop: 01/19/19 00:07 Allopurinol (Zyloprim) 100 mg PO DAILY [facility] Stop: 01/21/19 08:59 Last Admin: 01/02/19 09:22 Dose: 100 mg Documented by: Atorvastatin Calcium (Lipitor) 40 mg PO DAILY [facility] Stop: 01/19/19 08:59 Furosemide (Lasix) 20 mg PO QAM [facility] Stop: 01/25/19 09:14 Last Admin: 01/02/19 09:22 Dose: 20 mg Documented by: Magnesium Hydroxide (Milk Of Magnesia) 30 ml PO Q12H PRN PRN Reason: Constipation Stop: 01/19/19 00:07 Metoprolol Tartrate (Lopressor) 12.5 mg PO BID [facility] Stop: 01/19/19 08:59 Last Admin: 01/02/19 09:22 Dose: 12.5 mg Documented by: Morphine Sulfate (Morphine Sulfate) 2 mg IV Q4 PRN PRN Reason: Pain Stop: 01/03/19 16:42 Last Admin: 12/20/18 17:48 Dose: 2 mg Documented by: Multi-Ingredient Cream (Hydrocerin) 1 appln EXT BID [facility] Stop: 01/19/19 20:59 Last Admin: 01/02/19 09:23 Dose: 1 appln Documented by: Nystatin (Mycostatin) 1 appln EXT TID [facility] Stop: 01/29/19 13:59 Last Admin: 01/02/19 13:33 Dose: 1 appln Documented by: Ondansetron HCl (Zofran) 4 mg IV Q6H PRN PRN Reason: NAUSEA/VOMITING Stop: 01/19/19 00:07 Pantoprazole Sodium (Protonix) 40 mg PO QAM [facility] Stop: 01/19/19 08:59 Last Admin: 01/02/19 09:22 Dose: 40 mg Documented by: Polyethylene Glycol (Miralax Powder Packet) 17 gm PO DAILY PRN PRN Reason: Constipation Stop: 01/19/19 00:07 Saccharomyces Boulardii (Florastor) 250 mg PO DAILY [facility] Stop: 01/24/19 08:59 Last Admin: 01/02/19 09:22 Dose: 250 mg Documented by: Warfarin Sodium (Coumadin) 5 mg PO DAILY@1600 [facility] Stop: 01/22/19 15:59 Last Admin: 01/02/19 15:47 Dose: 5 mg Documented by: PG Care Time/CCT Total # of Minutes Spent Total Time Spent with Patient: Total time spent is greater than 50% in coordination of care (as documented) at patient's floor/unit and/or counseling p atient: (1) UTI (urinary tract infection) Hematuria presence: without hematuria Urinary tract infection type: site unspecified Qualified Code(s): N39.0 - Urinary tract infection, site not specified (2) Hyperlipidemia Hyperlipidemia type: mixed hyperlipidemia Qualified Code(s): E78.2 - Mixed hyperlipidemia (3) Metatarsal fracture Encounter type: subsequent encounter Fracture alignment: nondisplaced Fracture healing: with routine healing Fracture type: closed Laterality: unspecified laterality Metatarsal bone: fifth Qualified Code(s): S92.356D - Nondisplaced fracture of fifth metatarsal bone, unspecified foot, subsequent encounter for fracture with routine healing (4) Rhabdomyolysis Encounter type: subsequent encounter Rhabdomyolysis type: traumatic Qualifi ed Code(s): T79.6XXD - Traumatic ischemia of muscle, subsequent encounter (5) Sepsis Sepsis type: sepsis due to unspecified organism Qualified Code(s): A41.9 - Sepsis, unspecified organism (6) Altered mental status Altered mental status type: delirium Qualified Code(s): R41.0 - Disorientation, unspecified (7) Hypertension Hypertension type: essential hypertension Qualified Code(s): I10 - Essential (primary) hypertension (8) Hypotension Hypotension type: other hypotension type Qualified Code(s): I95.89 - Other hypotension
[2019-01-03] MEDS: METOPROLOL TARTRATE 25 MG TAB PO SCH ×2 (10:30→20:43)
[2019-01-03] MEDS: ALLOPURINOL 100 MG TAB PO SCH (10:30)
[2019-01-03] MEDS: FUROSEMIDE 20 MG TAB PO SCH (10:30)
[2019-01-03] MEDS: PANTOprazole 40 MG TAB PO SCH (10:31)
[2019-01-03] MEDS: NYSTATIN POWDER 15GM BTL EXT SCH ×3 (10:32→20:44)
[2019-01-03] MEDS: EUCERIN CR 120 GM JAR EXT SCH ×2 (10:32→20:42)
[2019-01-03] MEDS: SACCHAROMYCES BOULARDII 250 MG CAP PO SCH (10:32)
[2019-01-03 10:53] LABS: INR 2.5 (0.9-1.1)
[2019-01-03] MEDS: HYDROCODONE/ACETAMOPHEN 5/325MG TAB PO PRN ×2 (12:31→19:33)
[2019-01-03] MEDS: WARFARIN SOD 5 MG TAB PO SCH (16:39)
--- NOTE | 2019-01-03 22:29 | Hospitalist Progress Note ---
Date of Service January 03, 2019 Assessment & Plan (1) Rhabdomyolysis: CPK was NOT previously checked during her protracted stay. most likely her CPK was in the 10s of thousands on admission, she was on floor for 48 hours Cont to hold statin therapy. CPK down to 600's on 01/02 repeat tomorrow (2) Bilateral leg weakness: Continues to improve, especially proximal muscles of legs (hips). improvement though is slow She has had numbness of both feet for years B12 level wnl. MRI thoracic spine - although limited - did not show cord lesions. CT lumbar spine (she refused MRI lumbar spine) - no cord lesions, spine unchanged relative to prior CTs. discussed with Dr. Quintana, combination of rhabdo and neuropathy and spinal stenosis the cause of weakness only plan for EMG if weakness not improving in 2 weeks per neurology, she needs rehabilitation (3) Metatarsal fracture: Bilateral metatarsal fractures (5th metatarsals). Avulsion fracture of the LEFT calcaneus. Likely talus fracture on LEFT as well. Orthopedics recommending right sided surgical shoe. No surgery at this time. Appreciate orthotics consult for right-sided surgical shoe. f/u 6 weeks with ortho. 25-OH vit D level in September 2018 was 33. She has not been able to walk/ambulate - see discussion above in "b/l leg weakness." (4) Sepsis: 2nd to UTI - resolved. Completed 7+ days of IV/PO abx and is now off abx. (5) Altered mental status: oriented all week her presentation was likely due to sepsis, UTI, COREY, acute liver injury, etc. CT head at admission was negative. (6) UTI (urinary tract infection): 2nd klebsiella and e.coli. completed full 7+ day course of IV/PO abx. (7) Hypotension: 2nd to sepsis. Resolved quickly after admission. (8) Chronic diastolic (congestive) heart failure: Compensated. Cont lasix 20mg daily. Cont beta aaron BID. (9) Atrial fibrillation, persistent: Anticoagulated with warfarin. INR 2.1 (10) Acute kidney injury (nontraumatic): Likely ATN in setting of sepsis/dehydration. Resolved. Cannot rule out that rhabdomyolysis contributed to COREY as well. (11) Hypertension: Continue metoprolol tartrate 12.5 mg twice daily. Controlled. (12) Abnormal LFTs (liver function tests): Likely shock liver from hypotension/sepsis. Resolving biochemically. Liver structurally normal on hepatic u/s. Ammonia level normal. Serial labs have shown continued improvement. in hindsight, elevated LFT likely a result of rhabdo as well (13) Hyperlipidemia: Cont to hold atorvastatin given her liver injury and elevated CPK. (14) Morbid obesity with BMI of 50.0-59.9, adult: BMI 52 (15) Traumatic injury of skin: b/l posterior legs, much worse Right Leg. Due to fall with prolonged immobilization on floor. wound care following (16) Advance care planning: plan for [facility] (17) DVT prophylaxis: coumadin Plan: needs rehab, patient is reluctant to the idea strongly encouraged her to participate in therapy, will visit with her in the morning on 01/03 to encourage her to participate Subjective patient finally willing to participate in therapy she was actually sitting at the edge of the bed with PT, moving legs long talk with patients son this morning, gave him update on situation expressed by concerns that the patient needed to participate in therapy she was naturally scared that it would cause her feet too much pain Review of Systems Review of Systems: All systems reviewed & are unremarkable except as noted in HPI & below Physical Exam Constitutional: WD/WN, vitals as above + morbidly obese Eyes: PERRL, conjunctivae normal, anicteric sclerae ENMT: external ear and nose normal, oropharynx normal Neck: trachea midline, no thyromegaly Respiratory: normal respiratory effort, lungs clear to auscultation Auscultation: + diminished lung sounds (bases) Cardiovascular: Rate/Rhythm: regular rate and regular rhythm Heart Sounds: normal S1 and normal S2; no murmur Extremities: + edema Gastrointestinal (Abdomen): normal bowel sounds, soft, nontender, no hepatosplenomegaly Musculoskeletal: no cyanosis or clubbing, extremities motor strength 5/5 Skin: no rashes, warm and dry + wound (posterior calf, dressed) Neurologic: PERRL, EOMI, accommodation nl, no face palsy, no dysarthria deep tendon reflexes 2+ bilaterally; + abnormal touch/pain/proprioception (decreased sensation in legs bilaterally, pain sensation intact) Psychiatric: Orientation: alert and oriented x 3 Affect: + depressed affect Lymphatic: no cervical or axillary lymphadenopathy Results & Data Vital Signs (Past 12 Hours) Vital Signs Temp Pulse Resp BP Pulse Ox 01/03/19 20:16 71 16 151/77 H 97 01/03/19 15:28 36.5 C 69 18 162/85 H 96 Laboratory Results Laboratory Results - last 24 hr 01/03/19 10:26 PT 24.0 H INR 2.5 H Medications Administered Current Inpatient Medications Hydrocodone Bitart/Acetaminophen ([place] 5/325) 1 tab PO Q6H PRN PRN Reason: Pain Stop: 01/12/19 13:12 Last Admin: 01/03/19 19:33 Dose: 1 tab Documented by: Al Hydrox/Mg Hydrox/Simethicone (Maalox) 15 ml PO Q4H PRN PRN Reason: Dyspepsia Stop: 01/19/19 00:07 Allopurinol (Zyloprim) 100 mg PO DAILY [facility] Stop: 01/21/19 08:59 Last Admin: 01/03/19 10:30 Dose: 100 mg Documented by: Atorvastatin Calcium (Lipitor) 40 mg PO DAILY [facility] Stop: 01/19/19 08:59 Furosemide (Lasix) 20 mg PO QAM [facility] Stop: 01/25/19 09:14 Last Admin: 01/03/19 10:30 Dose: 20 mg Documented by: Magnesium Hydroxide (Milk Of Magnesia) 30 ml PO Q12H PRN PRN Reason: Constipation Stop: 01/19/19 00:07 Metoprolol Tartrate (Lopressor) 12.5 mg PO BID [facility] Stop: 01/19/19 08:59 Last Admin: 01/03/19 20:43 Dose: 12.5 mg Documented by: Multi-Ingredient Cream (Hydrocerin) 1 appln EXT BID [facility] Stop: 01/19/19 20:59 Last Admin: 01/03/19 20:42 Dose: 1 appln Documented by: Nystatin (Mycostatin) 1 appln EXT TID [facility] Stop: 01/29/19 13:59 Last Admin: 01/03/19 20:44 Dose: 1 appln Documented by: Ondansetron HCl (Zofran) 4 mg IV Q6H PRN PRN Reason: NAUSEA/VOMITING Stop: 01/19/19 00:07 Pantoprazole Sodium (Protonix) 40 mg PO QAM [facility] Stop: 01/19/19 08:59 Last Admin: 01/03/19 10:31 Dose: 40 mg Documented by: Polyethylene Glycol (Miralax Powder Packet) 17 gm PO DAILY PRN PRN Reason: Constipation Stop: 01/19/19 00:07 Saccharomyces Boulardii (Florastor) 250 mg PO DAILY [facility] Stop: 01/24/19 08:59 Last Admin: 01/03/19 10:32 Dose: 250 mg Documented by: Warfarin Sodium (Coumadin) 5 mg PO DAILY@1600 [facility] Stop: 01/22/19 15:59 Last Admin: 01/03/19 16:39 Dose: 5 mg Documented by: PG Care Time/CCT Total # of Minutes Spent Total Time Spent with Patient: Total time spent is greater than 50% in coordination of care (as documented) at patient's floor/unit and/or counseling patient: (1) UTI (urinary tract infection) Hematuria presence: without hematuria Urinary tract infection type: site unspecified Qualified Code(s): N39.0 - Urinary tract infection, site not specified (2) Hyperlipidemia Hyperlipidemia type: mixed hyperlipidemia Qualified Code(s): E78.2 - Mixed hyperlipidemia (3) Metatarsal fracture Encounter type: subsequent encounter Fracture alignment: nondisplaced Fracture healing: with routine healing Fracture type: closed Laterality: unspecified laterality Metatarsal bone: fifth Qualified Code(s): S92.356D - Nondisplaced fracture of fifth metatarsal bone, unspecified foot, subsequent encounter for fracture with routine healing (4) Rhabdomyolysis Encounter type: subsequent encounter Rhabdomyolysis type: traumatic Qualified Code(s): T79.6XXD - Traumatic ischemia of muscle, subsequent encounter (5) Sepsis Sepsis type: sepsis due to unspecified organism Qualified Code(s): A41.9 - Sepsis, unspecified organism (6) Altered mental status Altered mental status type: delirium Qualified Code(s): R41.0 - Disorientation, unspecified (7) Hypertension Hypertension type: essential hypertension Qualified Code(s): I10 - Essential (primary) hypertension (8) Hypotension Hypotension type: other hypotension type Qualified Code(s): I95.89 - Other hypotension
[2019-01-04] MEDS: ALLOPURINOL 100 MG TAB PO SCH (08:47)
[2019-01-04] MEDS: FUROSEMIDE 20 MG TAB PO SCH (08:47)
[2019-01-04] MEDS: HYDROCODONE/ACETAMOPHEN 5/325MG TAB PO PRN (08:47)
[2019-01-04] MEDS: PANTOprazole 40 MG TAB PO SCH (08:47)
[2019-01-04] MEDS: SACCHAROMYCES BOULARDII 250 MG CAP PO SCH (08:47)
[2019-01-04] MEDS: METOPROLOL TARTRATE 25 MG TAB PO SCH (08:47)
[2019-01-04 08:58] LABS: Hematocrit (blood only) 37.7 % (37-47); Hemoglobin 12.3 g/dL (12.0-16.0); Mean Corpuscular Hgb Conc 32.6 g/dL (32-36); Mean Corpuscular Volume 97.2 fL (80-100); Mean Platelet Volume 10.9 fL (7.4-10.4); Platelet Count 236 K/uL (130-400); RDW Coefficient of Variation 15.7 % (11.5-14.5); RDW Standard Deviation 54.7 fL (36.4-46.3); Red Blood Count 3.88 M/uL (4.2-5.4); White Blood Count 6.13 K/uL (4.8-10.8)
[2019-01-04 09:11] LABS: INR 2.9 (0.9-1.1); Prothrombin Time 27.2 Seconds (9.0-12.0)
[2019-01-04 09:33] LABS: Albumin Level 1.8 gm/dl (3.4-5.0); BUN Creatinine Ratio 46.2 (10-20); Calcium 9.1 mg/dl (8.5-10.1); Creatinine Clr Calc Pharmacy 87.1 ml/min; Est GFR (African American) 98.2; Est GFR (Non-African American) 84.8; Potassium 4.3 mmol/L (3.5-5.1)
[2019-01-04 09:36] LABS: Albumin Globulin Ratio 0.5 (0.9-2); Bilirubin,Total 0.6 mg/dl (0.2-1); Total Protein 5.8 gm/dl (6.4-8.2)
[2019-01-04] MEDS: EUCERIN CR 120 GM JAR EXT SCH (09:47)
[2019-01-04] MEDS: NYSTATIN POWDER 15GM BTL EXT SCH (09:48)
--- NOTE | 2019-01-04 16:09 | Discharge Summary ---
Date of Service January 04, 2019 Admission HPI Per Admitting Provider Belinda Mckenzie is a 73-year-old female admitted medically on 12/19/18 after being found on the floor of her home by EMS. It is believed patient had fallen, and time she spent on the floor is unknown. Pt presented with confusion, and was found to have a UTI and diagnosed with sepsis. Confusion is ongoing and patient has been largely uncooperative with medical interventions and assessments. Psychiatric consultation was requested to further determine etiology of confusion/lack of cooperation. Pt participated in a portion of an MRI study, then requested to get out. She is refusing a repeat study in order to better u nderstand the cause of her bilateral leg weakness. She was last seen on our service in 2012, when similar concerns were verbalized. Pt was uncooperative with initial assessment by psychiatric nurse liaison, reporting "I'm fine, I don't agree with any of this, this is not a good time. It's time for you to leave." This provider entered the patient's room, as she glanced toward the doorway and looked the other direction. Pt was asked if it was a good time to talk, and after a long pause responded, "it's not a particularly good time, but if it's necessary." Pt reports that she "fell" prior to admission, estimating she had been on the floor for 2-3 days before help arrived. Pt states, "I've been very confused." She verbalizes concern as "it became apparent after 2-3 days that no one was missing me." Pt reports that she was told she has "6 broken bones. 3 in the right leg, and the other 3 in the left." She states, "I feel like I'm being lied to, consistently." Pt states that she was "told I may never walk again, then when I brought it up again, someone else said 'no, that' not true'." During our assessment, patient was offered by nursing to repeat her MRI, which she initially refused. This provider offered encouragement, informing patient that an image would allow her providers to know exactly what is happening, and they can more confidently explain her prognosis. Pt paused for a long time after hearing this, and when asked if this changed her mind, responded "nope." Pt was asked about her mood specifically, which she reports, "it's fine. There's just been some personal problems." This provider waits patiently for patient to explain further - with patient only stating "my son got in October of this year." She does verbalize this is something she views negatively, but is unwilling to elaborate - stating "it's very delicate, I don't want to talk about it." She states her son is her neighbor. She is eventually able to say her mood has "stayed at an even keel." This provider brought to patient's attention the long pauses between questions being asked and her being able to answer. It was asked if patient is having rac ing thoughts which make it difficult for her to respond, or if she is having difficulty forming thoughts. She again states, "that's too delicate to talk about." Pt denies SI/HI, SIB. When asked about hallucinations, the patient states "yes". She is not able/willing to answer follow-up questions regarding her reports. Pt was informed that we would be working closely with her medical team to assist with her confusion. She states, "don't put too much weight on that." Pt would not respond when this provider asked what she meant. She indicated, however, that she would not be agreeable to meeting with providers or our nurse liaisons during her stay. Psychiatric consultation in 2012 was also significant for reports of patient not being "lucid". At that time, she had been neglecting self-care, but also had not been paying her bills or taxes. It was reported her insight and judgment were impaired and that she "projects her problems onto others rather than taking responsibility for herself." It was reported in that consultation that the sons were barger of reading recovery teacher, and were considering guardianship - status of this is unknown. 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 Admission Exam Per Admitting Provider The patient is awake and disoriented, normocephalic and atraumatic, lying in bed and in no acute distress. HEENT--PERRL, EOMI, mucous membranes and oropharynx dry. Neck--supple. No JVD. No bruits. Thyroid normal, trachea midline, no adenopathy. Heart--normal S1 and S2. No murmurs, rubs or gallops. Lungs--clear bilaterally, no respiratory distress, no accessory muscle use. Abdomen--normal bowel sounds and soft. Nontender. Nondistended. Obese. Extremities--no cyanosis or clubbing. No edema. There are good distal pulses b/l. Dermatologic--normal skin turgor, normal color, no abnormal lymph nodes, no rash. Neurologic--cranial nerves II through XII grossly intact. Rheumatologic--limited exam Psychiatric--confused Principal Diagnosis Rhabdomyolysis Discharge Exam Constitutional WD/WN, vitals as above + morbidly obese Eyes PERRL, conjunctivae normal, anicteric sclerae ENMT external ear and nose normal, oropharynx normal Neck trachea midline, no thyromegaly Respiratory normal respiratory effort, lungs clear to auscultation Auscultation: + diminished lung sounds (bases) Cardiovascular Rate/Rhythm: regular rate and regular rhythm Heart Sounds: normal S1 and normal S2; no murmur Extremities: + edema Gastrointestinal (Abdomen) normal bowel sounds, soft, nontender, no hepatosplenomegaly Musculoskeletal no cyanosis or clubbing, extremities motor strength 5/5 Skin no rashes, warm and dry + wound (posterior calf, dressed) Neurologic PERRL, EOMI, accommodation nl, no face palsy, no dysarthria deep tendon reflexes 2+ bilaterally; + abnormal touch/pain/proprioception (decreased sensation in legs bilaterally, pain sensation intact) Psychiatric Orientation: alert and oriented x 3 Affect: + depressed affect Lymphatic no cervical or axillary lymphadenopathy Discharge Data Allergies Allergy/AdvReac Type Severity Reaction Status Date / Time ketoprofen Allergy Severe NUMBNESS Verified 12/19/18 18:08 FROM WAIST DOWN SEVERAL MONTHS cephalexin Allergy Intermediate ITCHING Verified 12/19/18 18:08 Iodinated Contrast- Oral and Allergy Intermediate PAIN AT Verified 12/19/18 18:08 IV Dye INJECTION SITE AND UP THE BONES Penicillins Allergy Intermediate SEVERE RASH Verified 12/19/18 18:08 trimethoprim Allergy Intermediate ELEVATED Verified 12/19/18 18:08 POTASSIUM LEVELS Benzodiazepines Allergy Unknown Unverified 12/19/18 18:08 lorazepam AdvReac Intermediate pt Verified 12/19/18 18:08 EXTREMELY sensitive Consultations 12/19/18 19:49 ED Decision to Admit Stat 12/20/18 00:08 Consult Case Management - Discharge Planning Routine 12/20/18 14:49 Consult Orthopedic Surgery Routine 12/28/18 10:11 Consult Psychiatry Routine 12/30/18 20:43 Consult Neurology Routine 12/31/18 05:43 Consult Wound Care Provider Routine Ordered Studies 12/19/18 17:22 CT head/brain wo con Stat 12/21/18 17:11 US liver Routine 12/27/18 06:27 MR thoracic spine wo con Stat 12/28/18 20:37 CT lumbar spine wo con Urgent Hospital Course (1) Rhabdomyolysis: CPK was NOT previously checked during her protracted stay. most likely her CPK was in the 10s of thousands on admission, she was on floor for 48 hours Cont to hold statin therapy. CPK down to 400's on day of discharge (2) Bilateral leg weakness: Continues to improve, especially proximal muscles of legs (hips). improvement though is slow She has had numbness of both feet for years B12 level wnl. MRI thoracic spine - although limited - did not show cord lesions. CT lumbar spine (she refused MRI lumbar spine) - no cord lesions, spine unchanged relative to prior CTs. discussed with Dr. Quintana, combination of rhabdo and neuropathy and spinal stenosis the cause of weakness only plan for EMG if weakness not improving in 2 weeks per neurology, she needs rehabilitation (3) Metatarsal fracture: Bilateral metatarsal fractures (5th metatarsals). Avulsion fracture of the LEFT calcaneus. Likely talus fracture on LEFT as well. Orthopedics recommending right sided surgical shoe. No surgery at this time. Appreciate orthotics consult for right-sided surgical shoe. f/u 6 weeks with ortho. 25-OH vit D level in September 2018 was 33. She has not been able to walk/ambulate - see discussion above in "b/l leg weak ness." (4) Sepsis: 2nd to UTI - resolved. Completed 7+ days of IV/PO abx and is now off abx. (5) Altered mental status: oriented all week her presentation was likely due to sepsis, UTI, COREY, acute liver injury, etc. CT head at admission was negative. (6) UTI (urinary tract infection): 2nd klebsiella and e.coli. completed full 7+ day course of IV/PO abx. (7) Hypotension: 2nd to sepsis. Resolved quickly after admission. (8) Chronic diastolic (congestive) heart failure: Compensated. Cont lasix 20mg daily. Cont beta aaron BID. (9) Atrial fibrillation, persistent: Anticoagulated with warfarin. INR 2.1 (10) Acute kidney injury (nontraumatic): Likely ATN in setting of sepsis/dehydration. Resolved. Cannot rule out that rhabdomyolysis contributed to COREY as well. (11) Hypertension: Continue metoprolol tartrate 12.5 mg twice daily. Controlled. (12) Abnormal LFTs (liver function tests): Likely shock liver from hypotension/sepsis. Resolving biochemically. Liver structurally normal on hepatic u/s. Ammonia level normal. Serial labs have shown continued improvement. in hindsight, elevated LFT likely a result of rhabdo as well (13) Hyperlipidemia: Cont to hold atorvastatin given her liver injury and elevated CPK. (14) Morbid obesity with BMI of 50.0-59.9, adult: BMI 52 (15) Traumatic injury of skin: b/l posterior legs, much worse Right Leg. Due to fall with prolonged immobilization on floor. wound care following (16) Advance care planning: plan for [facility] (17) DVT prophylaxis: coumadin Plan: needs rehab, patient is reluctant to the idea participating in therapy, will go to rehab at [facility] Total Time Total Time Spent Total Time Spent (In Minutes): 35 Total Time Includes: Examination of the Patient, Discharge Planning, Medication Reconciliation and Other (long discussion with sons over the phone) Discharge Plan Discharge Items Patient Disposition: Transfer [facility] Reason For Visit: SEPSIS DUE TO UTI,CHF Discharge Diagnosis: Sepsis due to UTI Rhabdomyolysis Peripheral neuropathy Bilateral metatarsal fractures, left calcaneal avulsion fx, left talus fx Condition: Good Discharge Goals: Decrease discomfort, Improve function and Increase independence Activity: Per 'Additional Instructions' section Lifting: None Bathing: No limitations Exercise/Sports: Gradually increase as tolerated Weightbearing: Left weightbearing and Right weightbearing Weightbearing Comment: as tolerated, NEEDS to wear Non-emergency contact: Primary Care Provider and Surgeon Call non-emergency contact if: you have any medication questions, your symptoms worsen, your pain is not controlled and you have a fever Follow-up/Referrals: Rah Ambrocio MD [Primary Care Provider] - Diet: Heart Healthy Addtl Provider Instructions: Medications: - NORCO: 5/325mg, use every 6 hours as needed for pain control, try to use prior to therapy sessions, prior to ambulating - WARFARIN: dose reduced to 5mg daily from 6mg daily, INR is therapeutic on this dose at 2.9 - LASIX: 40mg daily for volume control, diuretics held initially for acute kidney injury - FELODIPINE: stopped because blood pressure stable off of it Sepsis due to UTI: sepsis resolved quickly with antibiotics and fluids completed 7 days of antibiotics, no further treatment needed Rhabdomyolysis: CPK not initially checked, but patient was on floor for about 48 hours prior to admission when CPK was checked it was 1500 so levels were likely quite high on admission most recent CPK down to 400's this explains the profound muscle weakness in legs no need to follow CPK levels after discharge, patient improving note that LFT were also elevated, continue to come down, all due to rhabdo safe to continue Lipitor Bilateral metatarsal fractures, left avulsion fracture and possible talus fracture use Hydrocodone for pain control recommend using prior to any therapy sessions or any plans for ambulation ORTHOPEDIC RECOMMENDATIONS FOR FOOT FRACTURES -- weightbearing as tolerated on her left lower extremity. -- right lower extremity, hard sole cast shoe just for a little support, weight bear as tolerated Given her ambulatory status, it might be best just to have this shoe available for her to use it if she is up and ambulating. Otherwise, she can be out of it when she is at rest. recommend that she is in the cast shoe for approximately 4-6 weeks. -- follow her up in the office at [facility] in approximately 4-6 weeks. We will get x-rays at that time. Patient understands that she needs intense physical therapy if she hopes to regain any independence She will need encouragement, pain control to participate Prescriptions: New hydrocodone-acetaminophen [[place]] 5-325 mg Tablet 1 tab PO Q6H PRN (Reason: pain) 14 Days Qty: 40 RF: 0 warfarin [Coumadin] 5 mg Tablet 5 mg PO DAILY@1600 30 Days Qty: 30 RF: 0 Dermacerin Cream 1 applic EXT BID 14 Days Qty: 2568 RF: 0 Continued nystatin 100,000 unit/gram Powder 1 applic TOPICAL BID PRN (Reason: FUNGAL ISSUES UNDER BREAST) RF: 0 atorvastatin 40 mg tablet 40 mg PO DAILY RF: 0 metoprolol tartrate 25 mg tablet 12.5 mg PO BID RF: 0 furosemide 40 mg tablet 40 mg PO DAILY 30 Days Qty: 30 RF: 0 pantoprazole 40 mg Tablet,Delayed Release (Dr/Ec) 40 mg PO QAM RF: 0 spironolactone 25 mg tablet 25 mg PO QAM RF: 0 allopurinol 300 mg tablet 300 mg PO DAILY RF: 0 Discontinued felodipine 2.5 mg tablet extended release 24 hr 2.5 mg PO DAILY RF: 0 warfarin 6 mg tablet 6 mg PO DAILY RF: 0 furosemide 20 mg tablet 20 mg PO DAILY RF: 0 Stand-Alone Forms: [facility] Discharge Orders: Discharge Order (Routine); Ordered 01/04/19 Ordered By: Jose Manuel Baldwin Skilled Items Patient informed of condition?: Yes DNR: No Discharge Level of Care: Skilled Communicable Disease: No Discharge Prognosis: Improving Admission Data Admit Date/Time: 12/19/18 22:08 Attending Provider: Jose Manuel Baldwin Admit Provider: Clarke Richmond Primary Care Provider: Rah Ambrocio Other Providers: Clarke Richmond ; Jaime Pereira Melissa C ; Roy, Emile Pierre III ; Les Bell Service: Medical Other Interventions: Discharge Summary Assessment (RN) Last Done: 01/04/19 10:22 Pending Studies at Discharge: No DC Date/Time DO NOT enter until pt leaves facility: 01/04/19 12:09
== END 2019-01-04 12:09 | DRG 871 ==
LOC: ED 16:56 → SUATTDRO 22:08 → 2S 22:08 → 3W 12-21 12:22
DX: D72.829 Elevated white blood cell count, unspecified; I95.9 Hypotension, unspecified; E78.5 Hyperlipidemia, unspecified; Z83.3 Family history of diabetes mellitus; Z68.43 Body mass index [BMI] 50.0-59.9, adult; Z79.01 Long term (current) use of anticoagulants; I50.32 Chronic diastolic (congestive) heart failure; A41.9 Sepsis, unspecified organism; I48.1 Persistent atrial fibrillation; Z82.49 Family history of ischemic heart disease and other diseases of the circulatory system; N17.9 Acute kidney failure, unspecified; K21.9 Gastro-esophageal reflux disease without esophagitis; E66.01 Morbid (severe) obesity due to excess calories; J45.909 Unspecified asthma, uncomplicated; B96.20 Unspecified Escherichia coli [E. coli] as the cause of diseases classified elsewhere; I11.0 Hypertensive heart disease with heart failure; M62.82 Rhabdomyolysis; R94.5 Abnormal results of liver function studies; N39.0 Urinary tract infection, site not specified; G93.41 Metabolic encephalopathy